=== PATIENT | female | born 1960 | race Caucasian/White ===

== ENCOUNTER → 2016-12-08 | Outpatient (CLI) | payer OTHER ==
[~2016-12-08] MED LIST: Iopamidol 755 MG/ML 500 ML Multipack Bottle IVPUSH STA
--- NOTE | 2016-12-08 13:45 | CT ---
EXAMINATION: CT chest with contrast HISTORY: Other disorder of the lung COMPARISON: CT chest dated 01/11/2012 TECHNIQUE: Axial CT images obtained through the chest following the administration of 60 mL of Isovu e-370. Coronal and sagittal reconstructions obtained. FINDINGS: There is a 2 x 0.7 cm area of pleural thickening within the left lower lobe superiorly, de creased in size relative to the previous study. There is volume loss and scarring within the left li ngula region. Mild emphysematous changes are noted within the lung apices. Dependent atelectasis is noted. The heart is normal in size without a pericardial effusion. Mild coronary artery calcificatio ns are present. The thoracic aorta is normal in caliber. The main pulmonary arteries are patent. No mediastinal or hilar lymphadenopathy. Left mastectomy changes are noted. The visualized images of the upper abdomen appear normal. No suspicious osseous abnormalities are demonstrated. IMPRESSION: 1. Postsurgical changes noted secondary to left mastectomy. 2. Scarring and volume loss noted within the left hemithorax, likely postsurgical or post radiation related. 3. No acute cardiopulmonary findings. 4. No pulmonary nodule noted within the right lung base.
== END | disposition home or self-care (01) ==
LOC: MW.DI 11:22
PROVIDERS: ATTEND Family Medicine
DX: J98.4 Other disorders of lung (principal); Z90.12 Acquired absence of left breast and nipple
CPT/HCPCS: 71260; Q9967

== ENCOUNTER 2016-12-26 08:36 | Inpatient (IN) | payer OTHER ==
[~2016-12-26 08:36] MED LIST changes: +Acetaminophen 1,000 MG in Premix Bag 1 BAG IV SCH; +Famotidine 20 MG/2 ML SDV IVPUSH SCH; -Iopamidol 755 MG/ML 500 ML Multipack Bottle IVPUSH STA; +Ketorolac 30 MG/ML SDV IVPUSH SCH; +Ropivacaine 49.25 ML, Ketorolac 30 MG, EPINEPHrine 0.5 MG, cloNIDine 80 MCG in Sodium C... INJECT SCH; +Scopolamine 1.5 MG Transdermal Patch TRDERM SCH; +ceFAZolin 2 GM in Premix Bag 1 BAG IV SCH; +oxyCODONE ER 20 MG TAB.ER PO SCH
[2016-12-26] MEDS: Lactated Ringers 1,000 ML IV SCH ×3 (09:05→23:37)
[2016-12-26] MEDS ORDERED: Midazolam 1 MG/ML 2 ML SDV ONE (09:08)
[2016-12-26] MEDS ORDERED: fentaNYL 250 MCG/5 ML SDV ONE (09:08)
[2016-12-26] MEDS ORDERED: Propofol 200 MG/20 ML SDV ONE ×2 (09:08→09:14)
[2016-12-26] MEDS ORDERED: Ondansetron 4 MG/2 ML SDV ONE (09:08)
[2016-12-26] MEDS ORDERED: Lidocaine 2% 5 ML SDV ONE (09:08)
--- NOTE | 2016-12-26 09:28 | PCM.PREANE ---
Preanesthetic Assessment - Procedure Proposed Procedure: Left Knee Replacement - Anesthesia/Transfusion/Family Hx Anesthesia History: Prior Anesthesia Without Reaction (right knee done 2015 ( spinal/general)) Other Type of Anesthesia Reaction Comment: Denies any known problem in past, no known family hx: problems Family History of Anesthesia Reaction: No Transfusion History: No Prior Transfusion(s) Intubation History: Unknown - Review of Systems General: Other (slowing down regarded as due to Parkinsonism) Pulmonary: No Symptoms Cardiovascular: No Symptoms Neurological: Other (severe pain in left knee area on standing/walking etc.) Other: Reports: Thyroid Problems - Physical Assessment Height: 5 ft 8 in Weight: 260 lb ASA Class: 3 Mental Status: Alert & Oriented x3 Airway Class: Mallampati = 2 Dentition: Reports: Normal Dentition Thyro-Mental Finger Breadths: 3 Mouth Opening Finger Breadths: 3 ROM/Head Extension: Full Lungs: Clear to auscultation, Normal respiratory effort Cardiovascular: Regular Rate, Regular Rhythm, No Murmurs - Allergies Allergies/Adverse Reactions: Allergies Allergy/AdvReac Type Severity Reaction Status Date / Time phenazopyridine HCl Allergy Rash Verified 12/22/16 13:31 [From Pyridium] Sulfa (Sulfonamide Allergy Rash Verified 12/22/16 13:31 Antibiotics) - Blood Blood Available: Yes Product(s) Available: PRBC (T and S) - Anesthesia Plan Pre-Op Medication Ordered: Antacids (per surgeon) - Acknowledgements Anesthesia Type Planned: General Anesthesia, Spinal Pt an Appropriate Candidate for the Planned Anesthesia: Yes Alternatives and Risks of Anesthesia Discussed w Pt/Guardian: Yes Pt/Guardian Understands and Agrees with Anesthesia Plan: Yes Additional Comments: present; agreed that she had spinnal-general combination anesthetic in 2014. however, since then she has had breast CA with mastectomy, and dignosed and begu treatement for Parkinson's disease. PreAnesthesia Questionnaire HEENT History: Reports: Allergic rhinitis Other HEENT History: wears glasses Cardiovascular History: Reports: None Respiratory History: Reports: None Gastrointestinal History: Reports: GERD Genitourinary History: Reports: None [employer] History: Reports: Musculoskeletal History: Reports: Osteoarthritis Neurological History: Reports: Parkinson's Psychiatric History: Reports: Depression Endocrine/Metabolic History: Reports: Hypothyroidism, Obesity/BMI 30+ Hematologic History: Reports: None Immunologic History: Reports: None Oncologic (Cancer) History: Reports: Breast, Uterine Dermatologic History: Reports: None - Past Surgical History Head Surgeries/Procedures: Reports: None HEENT Surgical History: Reports: None Cardiovascular Surgical History: Reports: None Respiratory Surgical History: Reports: None GI Surgical History: Reports: Colonoscopy Female Surgical History: Reports: section, Hysterectomy, Mastectomy , Tubal ligation Endocrine Surgical History: Reports: Thyroidectomy Neurological Surgical History: Reports: None Musculoskeletal Surgical History: Reports: Knee replacement Other Oncologic Surgeries/Procedures: hysterectomy, mastectomy Dermatological Surgical History: Reports: None - SUBSTANCE USE Smoking Status *Q: Never Smoker Tobacco Use Within Last Twelve Months: No Second Hand Smoke Exposure: No Days Per Week of Alcohol Use: 0 Number of Drinks Per Day: 0 Total Drinks Per Week: 0 Recreational Drug Use History: No - HOME MEDS Home Medications: Home Meds Omeprazole 20 mg PO DAILY 09/05/14 [History] Anastrozole [Arimidex] 1 mg PO DAILY 01/14/16 [History] Citalopram Hydrobromide [Celexa] 40 mg PO DAILY 01/14/16 [History] Fluticasone Propionate [Flovent] 1 - 2 spray NASBOTH DAILY 01/14/16 [History] Furosemide 80 mg PO DAILY 01/14/16 [History] Levothyroxine Sodium 137 mcg PO DAILY 01/14/16 [History] Magnesium Oxide [Magnesium] 1,200 mg PO BID 01/14/16 [History] Potassium Chloride 10 meq PO DAILY 01/14/16 [History] traMADol HCl [Tramadol HCl] 50 - 100 mg PO BEDTIME PRN 01/14/16 [History] Omeprazole 20 mg PO DAILY 12/22/16 [History] Carbidopa/Levodopa [Carbidopa-Levo ER 25-100] 50 - 200 mg PO BID 12/26/16 [ History] Selegiline [Eldepryl] 5 mg PO DAILY 12/26/16 [History] - CURRENT (IN HOUSE) MEDS Current Meds: Current Medications Famotidine (Pepcid) 40 mg IVPUSH ONARRIVE ISIDRA Acetaminophen 1,000 mg/ Premix 100 mls @ 400 mls/hr IV ONARRIVE ISIDRA Ropivacaine 49.25 ml/Ketorolac Tromethamine 30 mg/Epinephrine HCl 0.5 mg/ Clonidine HCl 80 mcg/ Sodium Chloride 100 mls @ 50 mls/min INJECT SEECOMMENT [facility] Lactated Ringer's (Ringers, Lactated) 1,000 mls @ 100 mls/hr IV ASDIRECTED [facility] [place] Last Admin: 12/26/16 06:40 Dose: 100 mls/hr Cefazolin Sodium/Dextrose 2 gm (/ Premix) 50 mls @ 100 mls/hr IV ONCALL ISIDRA Ketorolac Tromethamine (Toradol) 30 mg IVPUSH ONARRIVE [facility] [place] Oxycodone HCl (Oxycontin) 20 mg PO ONARRIVE ISIDRA Scopolamine (Transderm-Scop) 1.5 mg TRDERM ONARRIVE [facility] [place] Tranexamic Acid (Cyklokapron) 4,000 mg IV SEECOMMENT [facility] [place] Discontinued Medications Fentanyl (Sublimaze) Confirm Administered Dose 250 mcg .ROUTE .STK-MED ONE Stop: 12/26/16 09:09 Lidocaine (Xylocaine-Mpf 2%) Confirm Administered Dose 5 ml .ROUTE .STK-MED ONE Stop: 12/26/16 09:09 Midazolam HCl (Versed 1 Mg/Ml) Confirm Administered Dose 2 mg .ROUTE .STK-MED ONE Stop: 12/26/16 09:09 Ondansetron HCl (Zofran) Confirm Administered Dose 4 mg .ROUTE .STK-MED ONE Stop: 12/26/16 09:09 Propofol (Diprivan 20 Ml) Confirm Administered Dose 200 mg .ROUTE .STK-MED ONE Stop: 12/26/16 09:09 Propofol (Diprivan 20 Ml) Confirm Administered Dose 600 mg .ROUTE .STK-MED ONE Stop: 12/26/16 09:15 Tranexamic Acid (Cyklokapron) Confirm Administered Dose 4,000 mg .ROUTE .STK- MED ONE Stop: 12/26/16 07:23
--- NOTE | 2016-12-26 10:31 | PCM.OPNOTE ---
- General Post-Op/Procedure Note Date of Surgery/Procedure: 12/26/16 Operative Procedure(s): L TKA Post-Op Diagnosis: DJD L knee Anesthesia Technique: General LMA, Spinal Primary Surgeon: Joanie Box Bulk Mail Clerk: Janice Scott Bulk Mail Clerk: Neeru Campbell in mLs: 50 Condition: Good Free Text/Narrative:: tt=69 min #[id number]
[2016-12-26] MEDS ORDERED: Phenylephrine/Normal Saline 100 MCG/ML 10 ML Syringe ONE (10:40)
[2016-12-26] MEDS ORDERED: Morphine 2 MG/ML Syringe IVPUSH PRN (11:12)
[2016-12-26] MEDS ORDERED: Ondansetron 4 MG/2 ML SDV IV PRN (12:20)
[2016-12-26] MEDS ORDERED: Aluminum Hydroxide/Magnesium Hydroxide/Simethicone Susp 30 ML Cup PO PRN (12:20)
[2016-12-26] MEDS ORDERED: diphenhydrAMINE 25 MG Cap PO PRN (12:20)
[2016-12-26] MEDS ORDERED: Morphine 4 MG/ML Syringe IVPUSH PRN (12:20)
[2016-12-26] MEDS ORDERED: Bisacodyl 10 MG Supp RECTAL PRN (12:20)
--- NOTE | 2016-12-26 13:26 | PCM.POSTAN ---
POST ANESTHESIA ASSESSMENT - MENTAL STATUS Mental Status: alert, oriented - RESPIRATORY Respiratory Status: respiratory rate WNL, airway patent, O2 saturation stable, supplemental oxygen - CARDIOVASCULAR CV Status: pulse rate WNL, blood pressure stable - GASTROINTESTINAL GI Status: no symptoms - PAIN Pain Score: 0 (spinal still active) - POST OP HYDRATION Hydration Status: adequate & stable - OBSERVATIONS Free Text/Narrative:: to [facility] for Phase II
[2016-12-26] MEDS: oxyCODONE 5 MG Tab PO PRN ×2 (14:34→18:32)
[2016-12-26] MEDS: Acetaminophen 1,000 MG in Premix Bag 1 BAG IV SCH ×2 (15:21→21:38)
--- NOTE | 2016-12-26 15:56 | CR ---
EXAMINATION: Left knee HISTORY: Arthroplasty COMPARISON: 06/13/2016 TECHNIQUE: 2 views FINDINGS/IMPRESSION: Left total knee hardware is demonstrated in good position and alignment. [place] ing postoperative soft tissue changes are noted.
[2016-12-26] MEDS: ceFAZolin 2 GM in Premix Bag 1 BAG IV SCH (18:34)
[2016-12-26] MEDS: Ketorolac 30 MG/ML SDV IVPUSH SCH ×2 (18:37→23:34)
[2016-12-26] MEDS: Carbidopa/Levodopa 25-100 MG Tab.ER PO SCH (19:58)
--- NOTE | 2016-12-26 20:29 | OR ---
SURGEON: Joanie Box MD DATE OF PROCEDURE: 12/26/2016 PREOPERATIVE DIAGNOSIS: Degenerative joint disease left knee, tricompartmental. POSTOPERATIVE DIAGNOSIS: Degenerative joint disease left knee, tricompartmental. PROCEDURE: Left total knee arthroplasty using patient specific instrumentation. ASSISTANTS: 1. Janice Scott PA-C. 2. Neeru Campbell PA-C. ANESTHESIA: Spinal with sedation. ESTIMATED BLOOD LOSS: 50 mL. TOURNIQUET TIME: 69 minutes. COMPLICATIONS: None. DVT PROPHYLAXIS: PAS boot and RAMIREZ hose to the nonoperative leg. IMPLANTS USED: Clarice Persona femoral component size 9 (LPS), tibial component size F, 12 mm all-polyethylene articular surface, and 32 mm all-polyethylene patella. FINDINGS: Intraoperative findings showed evidence of tricompartmental degenerative changes with grade 4 chondromalacia in all compartments. Osteophyte formation was also noted along with multiple loose bodies. No significant synovitis was noted. 1 g of tranexamic acid was given IV at the start of the procedure. An additional g was given IV upon deflation of the tourniquet. 1 g of TXA was applied topically as the cement was allowed to cure. BRIEF HISTORY: Miya is a 56-year-old female, who has had complaint of progressive left knee pain. She has previously undergone a right total knee arthroplasty and has done well. Due to her lack of response to conservative treatment, I did recommend surgical intervention. The risks and goals of procedure were discussed with the patient and were documented preoperatively. She agreed to proceed. DESCRIPTION OF PROCEDURE: The patient was properly identified and brought to the operating room. The patient was then transferred from the operating room cart and placed on the operating table in a supine position. Anesthesia was administered by the anesthesia staff. After adequate anesthesia was obtained, a well-padded tourniquet was applied to the surgical lower extremity. The lower extremity was then prepped in standard fashion using ChloraPrep solution. It was then sterilely draped. A time-out was performed to ensure correct site and procedure. Preoperative antibiotics were given. The surgical site had been marked preoperatively. An Esmarch was used to exsanguinate the right lower extremity and the tourniquet was inflated. An incision was made over the anterior aspect of the knee. The subcutaneous tissues were dissected down to the level of the fascia. A medial parapatellar approach to the knee was made. A portion of the infrapatellar fat pad was then excised. The distal femur was then exposed. The femoral patient-specific cutting guide was then placed. Pins were also placed. The distal femoral cutting block was placed and the distal femoral cut was made. Instrumentation was then removed. Both Whitesides' line and the epicondylar axis were then marked with electrocautery. The 4-in-1 cutting block was placed. This was placed in a slightly externally rotated position, which corresponded well with the previously drawn lines. The cutting guide was then pinned into position. An Shubham wing guide was used to check the depth of resection of our anterior condylar cut and it was felt that no notching would occur. The anterior condylar cut was then made followed by the posterior condylar cut. Both the posterior chamfer and anterior chamfer cuts were then made. The cutting block was then removed along with the excess bony remnants. We then turned our attention to the tibia. The anterior cruciate ligament and posterior cruciate ligament were released and a posterior cruciate ligament retractor was placed to allow the tibia to be pulled anteriorly. The tibial patient-specific guide was then placed on the proximal tibia. This fit anatomically. The pins were then placed. The proximal tibia cutting guide was then placed and screwed into position. The proximal tibial resection was then made with care being taken to protect the patellar tendon. The bony resection was then removed. The remainder of the medial and lateral meniscus were then excised. Care was taken to protect the popliteus tendon. The tibia was then sized to the appropriate size. The distal femur was then elevated. The posterior capsule was stripped off the distal femur both medially and laterally. The posterior capsule along with the medial and lateral gutters were then injected with a standard mixture consisting of clonidine, epinephrine, Morphine, Toradol, and Ropivacaine, unless any allergies were found preoperatively. The femoral component was then placed onto the distal femur in a slightly lateral position. This fit the femur well. A box cut was then made without difficulty. This was then removed. The tibial trial along with the polyethylene liner was then placed. The knee came easily into full extension and was stable to varus and valgus stressing both in full extension and flexion. Any additional releases were performed at this time. We then returned our attention to the patella. The patella was everted and towel clamps were used to hold the patella in position. It was resected to a 15 millimeter thickness. It was then sized to the appropriate size. It was prepared in the usual fashion after placing the predetermined size clamps. This was placed in a slightly superior and medial position. The clamp was then removed. The patellar trial button was placed. The knee was taken through a range of motion using the no-touch technique. The patella tracked centrally. A drop elizabeth was then placed to check alignment. All instruments were then removed from the knee. The tibial sizer was then placed on the tibia. The tibia was prepared in the usual fashion using the reamer and broach. This was then removed. All bony surfaces were copiously irrigated with Pulsavac solution. They were then suctioned dry. Cement was prepared on the back table in the usual manner. Once it was prepared, the bone ends were again suctioned dry. The tibia was cemented into place first. This was malleted into position. Excess cement was then cleared. The femur was then placed in a similar manner. We placed the polyethylene trial into place and the knee was brought into full extension. An axial load was placed while keeping the knee in full extension. The patella button was also cemented into position and the clamp was used to hold this in place as the cement was allowed to cure. After we had adequate curing of the cement, the knee was again taken through a range of motion. The size of the polyethylene was then determined. The polyethylene trial was then removed. The tibial tray was suctioned to make sure there was no remaining soft tissue or cement. Excess cement was cleared from around the edges of the prosthesis as well. The tourniquet was then deflated. We were able to observe for any excess bleeding and none was noted. Electrocautery was used to maintain hemostasis. The retractors were again placed and the predetermined polyethylene was then placed. This was locked into position without difficulty. The knee was again taken through a range of motion with no change from the prior exam. The wound was then copiously irrigated with Pulsavac solution. The fascial layer was closed with Number One Vicryl. The subcutaneous tissues were closed with 2-0 Vicryl. The skin was closed with cassy. Xeroform gauze was placed over the wound and a bulky dressing was applied. The patient was then awakened from anesthesia and transferred back to the operating room cart. They were brought to the recovery room in stable condition. All needle and sponge counts were correct. WILVER / CHAITANYA /[id number]
[2016-12-26] MEDS: oxyCODONE ER 10 MG TAB.ER PO SCH (20:43)
[2016-12-26] MEDS: Magnesium Oxide 400 MG Tab PO SCH (20:43)
[2016-12-26] MEDS: Docusate Sodium 100 MG Cap PO SCH (20:43)
[2016-12-26] MEDS ORDERED: Carbidopa/Levodopa 25-100 MG Tab.ER PO SCH (21:00)
[2016-12-27] MEDS: oxyCODONE 5 MG Tab PO PRN (01:26)
[2016-12-27] MEDS: ceFAZolin 2 GM in Premix Bag 1 BAG IV SCH (01:52)
[2016-12-27] MEDS: Acetaminophen 500 MG Tab PO SCH ×2 (03:56→08:46)
[2016-12-27] MEDS: Ketorolac 30 MG/ML SDV IVPUSH SCH (05:52)
[2016-12-27] MEDS: Levothyroxine 112 MCG Tab PO SCH (06:39)
[2016-12-27] MEDS: Levothyroxine 25 MCG Tab PO SCH (06:39)
[2016-12-27] MEDS: Carbidopa/Levodopa 25-100 MG Tab.ER PO SCH ×2 (06:40→19:13)
[2016-12-27] MEDS ORDERED: LEVOTHYROXINE 137 MCG PO SCH (07:30)
[2016-12-27] MEDS ORDERED: Sodium Chloride 0.9% 2.5 ML Syringe FLUSH PRN (08:10)
[2016-12-27] MEDS ORDERED: Sodium Chloride 0.9% 10 ML Syringe FLUSH PRN (08:10)
--- NOTE | 2016-12-27 08:15 | PCM.SURGPN ---
<Janice Scott R - Last Filed: 12/27/16 08:11> - General Info Date of Service: 12/27/16 Date of Surgery/Procedure: 12/26/16 Functional Status: Reports: pain controlled - Review of Systems General: Reports: No Symptoms Pulmonary: Denies: shortness of breath Cardiovascular: Denies: Chest Pain, Palpitations, Lightheadedness Musculoskeletal: Reports: leg pain Systems Review Comment:: pt up to chair for breakfast tolerating PO intake well difficulty controlling pain, IV morphine was effective no specific concerns today nursing c/w low bp readings, patient state she ranges from 100s/120s/50s - Patient Data Vitals - most recent: Last Vital Signs Temp 97.7 F 12/27/16 04:00 Pulse 82 12/27/16 04:00 Resp 18 12/27/16 04:00 BP 99/57 L 12/27/16 05:50 Pulse Ox 96 12/27/16 04:00 Weight - most recent: 117.934 kg I&O - last 24 hours: Intake & Output 12/26/16 12/27/16 12/27/16 22:59 06:59 14:59 Intake Total 350 2252 Output Total 250 825 Balance 100 1427 Lab Results last 24 hrs: Laboratory Results - last 24 hr 12/26/16 12/26/16 12/27/16 Range/Units 09:01 09:01 04:30 Hgb 11.0 L (12.0-16.0) g/dL Hct 34.0 L (36.0-46.0) % Potassium 3.6 (3.5-5.1) mmol/L Blood Type O POSITIVE Antibody Screen NEGATIVE Med Orders - Current: Current Medications Acetaminophen (Tylenol Extra Strength) 1,000 mg PO Q6H [facility] Last Admin: 12/27/16 03:56 Dose: 1,000 mg Al Hydroxide/Mg Hydroxide (Mag-Al Plus) 30 ml PO Q4H PRN PRN Reason: indigestion Anastrozole (Arimidex) 1 mg PO DAILY [facility] Aspirin (Aspirin) 325 mg PO BID [facility] Bisacodyl (Dulcolax) 10 mg RECTAL DAILY PRN PRN Reason: Constipation Carbidopa/Levodopa (Sinemet Cr 25-100 Mg) 2 tab PO BID@0700,1900 [facility] Last Admin: 12/27/16 06:40 Dose: 2 tab Celecoxib (Celebrex) 200 mg PO BID [facility] Citalopram Hydrobromide (Celexa) 40 mg PO DAILY [facility] Diphenhydramine HCl (Benadryl) 25 - 50 mg PO Q6H PRN PRN Reason: Itching Docusate Sodium (Colace) 100 mg PO BID [facility] Last Admin: 12/26/16 20:43 Dose: 100 mg Fluticasone Propionate (Flonase) 1 - 2 gm NASBOTH DAILY [facility] Furosemide (Lasix) 20 mg PO DAILY [facility] Levothyroxine Sodium (Levothyroxine) 112 mcg PO ACBREAKFAST [facility] Last Admin: 12/27/16 06:39 Dose: 112 mcg Levothyroxine Sodium (Levothyroxine) 25 mcg PO ACBREAKFAST [facility] Last Admin: 12/27/16 06:39 Dose: 25 mcg Magnesium Oxide (Magnesium Oxide) 800 mg PO BID [facility] Last Admin: 12/26/16 20:43 Dose: 800 mg Morphine Sulfate (Morphine) 1 - 3 mg IVPUSH Q3H PRN PRN Reason: Pain Last Admin: 12/27/16 04:05 Dose: 2 mg Omeprazole (Omeprazole) 20 mg PO DAILY [facility] Ondansetron HCl (Zofran) 4 mg IV Q6HR PRN PRN Reason: NAUSEA/VOMITING Oxycodone HCl (Oxycodone) 5 - 10 mg PO Q4H PRN PRN Reason: Pain Last Admin: 12/27/16 01:26 Dose: 10 mg Oxycodone HCl (Oxycontin) 10 mg PO Q12HR [facility] Last Admin: 12/26/16 20:43 Dose: 10 mg Selegiline [Eldepryl (] 5 Mg) 1 each PO DAILY [facility] Potassium Chloride (Klor-Con 10) 10 meq PO DAILY [facility] Discontinued Medications Carbidopa/Levodopa (Sinemet Cr 25-100 Mg) 2 tab PO BID [facility] Famotidine (Pepcid) 40 mg IVPUSH ONARRIVE [facility] Last Admin: 12/26/16 09:27 Dose: 40 mg Fentanyl (Sublimaze) Confirm Administered Dose 250 mcg .ROUTE .STK-MED ONE Stop: 12/26/16 09:09 Acetaminophen 1,000 mg/ Premix 100 mls @ 400 mls/hr IV ONARRIVE [facility] Last Admin: 12/26/16 09:26 Dose: 400 mls/hr Ropivacaine 49.25 ml/Ketorolac Tromethamine 30 mg/Epinephrine HCl 0.5 mg/ Clonidine HCl 80 mcg/ Sodium Chloride 100 mls @ 50 mls/min INJECT SEECOMMENT [facility] Lactated Ringer's (Ringers, Lactated) 1,000 mls @ 100 mls/hr IV ASDIRECTED [facility] Last Admin: 12/26/16 23:37 Dose: 100 mls/hr Cefazolin Sodium/Dextrose 2 gm (/ Premix) 50 mls @ 100 mls/hr IV ONCALL [facility] Acetaminophen 1,000 mg/ Premix 100 mls @ 400 mls/hr IV Q6H [facility] Stop: 12/26/16 21:44 Last Admin: 12/26/16 21:38 Dose: 400 mls/hr Cefazolin Sodium/Dextrose 2 gm (/ Premix) 50 mls @ 100 mls/hr IV Q8H [facility] Stop: 12/27/16 02:29 Last Admin: 12/27/16 01:52 Dose: 100 mls/hr Ketorolac Tromethamine (Toradol) 30 mg IVPUSH ONARRIVE [facility] Last Admin: 12/26/16 09:26 Dose: 30 mg Ketorolac Tromethamine (Toradol) 30 mg IVPUSH Q6H [facility] Stop: 12/27/16 06:01 Last Admin: 12/27/16 05:52 Dose: 30 mg Lidocaine (Xylocaine-Mpf 2%) Confirm Administered Dose 5 ml .ROUTE .STK-MED ONE Stop: 12/26/16 09:09 Midazolam HCl (Versed 1 Mg/Ml) Confirm Administered Dose 2 mg .ROUTE .STK-MED ONE Stop: 12/26/16 09:09 Morphine Sulfate (Morphine) 2 mg IVPUSH Q10M PRN PRN Reason: Pain (severe 7-10) Stop: 12/27/16 11:14 Non-Formulary Medication (Mv-Mn/Iron/Fa/Herbal Cmplx#190 [Vitamin D3 Complete Caplet]) 2 each PO DAILY [facility] Ondansetron HCl (Zofran) Confirm Administered Dose 4 mg .ROUTE .STK-MED ONE Stop: 12/26/16 09:09 Oxycodone HCl (Oxycontin) 20 mg PO ONARRIVE [facility] Last Admin: 12/26/16 09:27 Dose: 20 mg Phenylephrine HCl (Phenylephrine In Ns 100 Mcg/Ml) Confirm Administered Dose 1 mg .ROUTE .STK-MED ONE Stop: 12/26/16 10:41 Propofol (Diprivan 20 Ml) Confirm Administered Dose 200 mg .ROUTE .STK-MED ONE Stop: 12/26/16 09:09 Propofol (Diprivan 20 Ml) Confirm Administered Dose 600 mg .ROUTE .STK-MED ONE Stop: 12/26/16 09:15 Scopolamine (Transderm-Scop) 1.5 mg TRDERM ONARRIVE [facility] Last Admin: 12/26/16 09:25 Dose: 1.5 mg Tranexamic Acid (Cyklokapron) 4,000 mg IV SEECOMMENT [facility] Tranexamic Acid (Cyklokapron) Confirm Administered Dose 4,000 mg .ROUTE .STK- MED ONE Stop: 12/26/16 07:23 Tranexamic Acid (Cyklokapron) Confirm Administered Dose 4,000 mg .ROUTE .STK- MED ONE Stop: 12/26/16 09:26 - Exam Wound/Incisions: dressing dry and intact General: alert, oriented Cardiovascular: Regular Rate, Regular Rhythm Extremities: no edema, normal pulses, no calf tenderness, other (LLE - at/ehl/ gastroc 5/5, dp 2+, sensation intact distally) Physical Findings Comment:: vss, afeb (bp 100s/50s) UO 1175mL hgb 11.0 - Problem List Review Problem List Initiated/Reviewed/Updated: Yes - My Orders Last 24 Hours: Active Orders 24 hr Category Date Time Status Patient Status [ADT] Routine ADT 12/26/16 10:29 Active Transfer Patient (Change bed) [ADT] Routine ADT 12/26/16 10:29 Ordered Activity as Tolerated [RC] .Routine Care 12/26/16 12:19 Active Bradycardia-Neuroaxis [employer] [RC] ROUTINE Care 12/26/16 11:14 Active Dressing Change [Wound Care] [RC] ASDIRECTED Care 12/26/16 12:20 Active Hypertension-Neuroaxis [employer] [RC] ROUTINE Care 12/26/16 11:14 Active Hypotension-Neuroaxis [employer] [RC] ROUTINE Care 12/26/16 11:14 Active Insert Urinary Catheter [OM.PC] Routine Care 12/26/16 08:00 Ordered Intake and Output [RC] ASDIRECTED Care 12/26/16 12:19 Active Neurovascular Check [RC] Q2HR Care 12/26/16 12:19 Active Notify Provider Vital Signs [RC] ASDIRECTED Care 12/26/16 12:19 Active RT Incentive Spirometry [RC] Q12H Care 12/26/16 12:19 Active Urinary Catheter Assessment [RC] Q4H Care 12/26/16 08:00 Active Urinary Catheter Removal [RC] Per Unit Routine Care 12/27/16 08:10 Ordered Vital Signs [RC] Q4H Care 12/26/16 12:19 Active PT Evaluation and Treatment [CONS] Routine Cons 12/26/16 12:19 Active HEMOGLOBIN/HEMATOCRIT,HH [HEME] DAILY Lab 12/28/16 06:00 Ordered HEMOGLOBIN/HEMATOCRIT,HH [HEME] DAILY Lab 12/29/16 06:00 Ordered Acetaminophen [Tylenol Extra Strength] Med 12/27/16 03:30 Active 1,000 mg PO Q6H Alum Hydrox/Mag Hydrox/Simeth [Mag-Al Plus] Med 12/26/16 12:20 Active 30 ml PO Q4H PRN Anastrozole [Arimidex] Med 12/27/16 09:00 Active 1 mg PO DAILY Aspirin Med 12/27/16 09:00 Active 325 mg PO BID Bisacodyl [Dulcolax] Med 12/26/16 12:20 Active 10 mg RECTAL DAILY PRN Carbidopa/Levodopa [Sinemet Cr 25-100 mg] Med 12/26/16 19:00 Active 2 tab PO BID@0700,1900 Celecoxib [CeleBREX] Med 12/27/16 09:00 Active 200 mg PO BID Citalopram [Celexa] Med 12/27/16 09:00 Active 40 mg PO DAILY Docusate Sodium [Colace] Med 12/26/16 21:00 Active 100 mg PO BID Fluticasone Propionate [Flonase] Med 12/27/16 09:00 Active 1 - 2 gm NASBOTH DAILY Furosemide [Lasix] Med 12/27/16 09:00 Active 20 mg PO DAILY Levothyroxine Med 12/27/16 07:30 Active 112 mcg PO ACBREAKFAST Levothyroxine Med 12/27/16 07:30 Active 25 mcg PO ACBREAKFAST Magnesium Oxide Med 12/26/16 21:00 Active 800 mg PO BID Morphine Med 12/26/16 12:20 Active 1 - 3 mg IVPUSH Q3H PRN Omeprazole Med 12/27/16 09:00 Active 20 mg PO DAILY Ondansetron [Zofran] Med 12/26/16 12:20 Active 4 mg IV Q6HR PRN Patient's Own Medication [Ptom] Med 12/27/16 09:00 Active 1 each PO DAILY Potassium Chloride [Klor-Con 10] Med 12/27/16 09:00 Active 10 meq PO DAILY Sodium Chloride 0.9% [Saline Flush] Med 12/27/16 08:10 Ordered 10 ml FLUSH ASDIRECTED PRN Sodium Chloride 0.9% [Saline Flush] Med 12/27/16 08:10 Ordered 2.5 ml FLUSH ASDIRECTED PRN diphenhydrAMINE [Benadryl] Med 12/26/16 12:20 Active 25 - 50 mg PO Q6H PRN oxyCODONE Med 12/26/16 12:20 Active 5 - 10 mg PO Q4H PRN oxyCODONE ER [OxyCONTIN] Med 12/26/16 21:00 Active 10 mg PO Q12HR Convert IV to Saline Lock [OM.PC] Routine Oth 12/27/16 08:10 Ordered Ice Therapy [OM.PC] Routine Oth 12/26/16 12:19 Ordered Medication Orders Acetaminophen (Tylenol Extra Strength) 1,000 mg PO Q6H [facility] Last Admin: 12/27/16 03:56 Dose: 1,000 mg Al Hydroxide/Mg Hydroxide (Mag-Al Plus) 30 ml PO Q4H PRN PRN Reason: indigestion Anastrozole (Arimidex) 1 mg PO DAILY [facility] Aspirin (Aspirin) 325 mg PO BID [facility] Bisacodyl (Dulcolax) 10 mg RECTAL DAILY PRN PRN Reason: Constipation Carbidopa/Levodopa (Sinemet Cr 25-100 Mg) 2 tab PO BID@0700,1900 [facility] Last Admin: 12/27/16 06:40 Dose: 2 tab Admin: 12/26/16 19:58 Dose: 2 tab Celecoxib (Celebrex) 200 mg PO BID [facility] Citalopram Hydrobromide (Celexa) 40 mg PO DAILY [facility] Diphenhydramine HCl (Benadryl) 25 - 50 mg PO Q6H PRN PRN Reason: Itching Docusate Sodium (Colace) 100 mg PO BID [facility] Last Admin: 12/26/16 20:43 Dose: 100 mg Fluticasone Propionate (Flonase) 1 - 2 gm NASBOTH DAILY [facility] Furosemide (Lasix) 20 mg PO DAILY [facility] Levothyroxine Sodium (Levothyroxine) 112 mcg PO ACBREAKFAST [facility] Last Admin: 12/27/16 06:39 Dose: 112 mcg Levothyroxine Sodium (Levothyroxine) 25 mcg PO ACBREAKFAST [facility] Last Admin: 12/27/16 06:39 Dose: 25 mcg Magnesium Oxide (Magnesium Oxide) 800 mg PO BID [facility] Last Admin: 12/26/16 20:43 Dose: 800 mg Morphine Sulfate (Morphine) 1 - 3 mg IVPUSH Q3H PRN PRN Reason: Pain Last Admin: 12/27/16 04:05 Dose: 2 mg Omeprazole (Omeprazole) 20 mg PO DAILY [facility] Ondansetron HCl (Zofran) 4 mg IV Q6HR PRN PRN Reason: NAUSEA/VOMITING Oxycodone HCl (Oxycodone) 5 - 10 mg PO Q4H PRN PRN Reason: Pain Last Admin: 12/27/16 01:26 Dose: 10 mg Admin: 12/26/16 18:32 Dose: 10 mg Admin: 12/26/16 14:34 Dose: 10 mg Oxycodone HCl (Oxycontin) 10 mg PO Q12HR [facility] Last Admin: 12/26/16 20:43 Dose: 10 mg Selegiline [Eldepryl (] 5 Mg) 1 each PO DAILY [facility] Potassium Chloride (Klor-Con 10) 10 meq PO DAILY [facility] - Assessment Assessment (Free Text/Narrative):: POD#1 L TKA acute posthemorrhagic anemia - Plan Plan (Free Text/Narrative):: DC IV fluids, saline lock IV DC belcher continue pain management - encouraged PO pain medication use PT today ASA 325mg PO BID for DVT prophylaxis pt will require FWW for ambulation assistance until improved mobility/stability , increased LLE strength dispo: likely home tomorrow after adequate PT <Joanie Box - Last Filed: 12/27/16 11:29> - Patient Data Vitals - most recent: Last Vital Signs Temp 97.7 F 12/27/16 04:00 Pulse 82 12/27/16 04:00 Resp 18 12/27/16 04:00 BP 99/57 L 12/27/16 05:50 Pulse Ox 96 12/27/16 04:00 I&O - last 24 hours: Intake & Output 12/26/16 12/27/16 12/27/16 22:59 06:59 14:59 Intake Total 350 2252 Output Total 250 825 Balance 100 1427 Lab Results last 24 hrs: Laboratory Results - last 24 hr 12/27/16 Range/Units 04:30 Hgb 11.0 L (12.0-16.0) g/dL Hct 34.0 L (36.0-46.0) % Med Orders - Current: Current Medications Acetaminophen (Tylenol Extra Strength) 1,000 mg PO Q6H [facility] Last Admin: 12/27/16 08:46 Dose: 1,000 mg Hydrocodone Bitart/Acetaminophen ([place] 325-10 Mg) 1 - 2 tab PO Q4H PRN PRN Reason: Pain Last Admin: 12/27/16 11:24 Dose: 2 tab Al Hydroxide/Mg Hydroxide (Mag-Al Plus) 30 ml PO Q4H PRN PRN Reason: indigestion Anastrozole (Arimidex) 1 mg PO DAILY [facility] Last Admin: 12/27/16 08:46 Dose: 1 mg Aspirin (Aspirin) 325 mg PO BID [facility] Last Admin: 12/27/16 08:45 Dose: 325 mg Bisacodyl (Dulcolax) 10 mg RECTAL DAILY PRN PRN Reason: Constipation Carbidopa/Levodopa (Sinemet Cr 25-100 Mg) 2 tab PO BID@0700,1900 [facility] Last Admin: 12/27/16 06:40 Dose: 2 tab Celecoxib (Celebrex) 200 mg PO BID [facility] Last Admin: 12/27/16 08:46 Dose: 200 mg Citalopram Hydrobromide (Celexa) 40 mg PO DAILY [facility] Last Admin: 12/27/16 08:46 Dose: 40 mg Diphenhydramine HCl (Benadryl) 25 - 50 mg PO Q6H PRN PRN Reason: Itching Docusate Sodium (Colace) 100 mg PO BID [facility] Last Admin: 12/27/16 08:46 Dose: 100 mg Fluticasone Propionate (Flonase) 1 - 2 gm NASBOTH DAILY [facility] Last Admin: 12/27/16 08:48 Dose: 1 spray Furosemide (Lasix) 20 mg PO DAILY [facility] Last Admin: 12/27/16 08:46 Dose: 20 mg Levothyroxine Sodium (Levothyroxine) 112 mcg PO ACBREAKFAST [facility] Last Admin: 12/27/16 06:39 Dose: 112 mcg Levothyroxine Sodium (Levothyroxine) 25 mcg PO ACBREAKFAST [facility] Last Admin: 12/27/16 06:39 Dose: 25 mcg Magnesium Oxide (Magnesium Oxide) 800 mg PO BID [facility] Last Admin: 12/27/16 08:46 Dose: 800 mg Morphine Sulfate (Morphine) 1 - 3 mg IVPUSH Q3H PRN PRN Reason: Pain Last Admin: 12/27/16 04:05 Dose: 2 mg Omeprazole (Omeprazole) 20 mg PO DAILY [facility] Last Admin: 12/27/16 08:45 Dose: 20 mg Ondansetron HCl (Zofran) 4 mg IV Q6HR PRN PRN Reason: NAUSEA/VOMITING Selegiline [Eldepryl (] 5 Mg) 1 each PO DAILY [facility] Last Admin: 12/27/16 10:23 Dose: 1 each Potassium Chloride (Klor-Con 10) 10 meq PO DAILY [facility] Last Admin: 12/27/16 08:46 Dose: 10 meq Sodium Chloride (Saline Flush) 10 ml FLUSH ASDIRECTED PRN PRN Reason: Keep Vein Open Sodium Chloride (Saline Flush) 2.5 ml FLUSH ASDIRECTED PRN PRN Reason: Keep Vein Open Tramadol HCl (Ultram) 50 - 100 mg PO Q6H PRN PRN Reason: Pain Discontinued Medications Carbidopa/Levodopa (Sinemet Cr 25-100 Mg) 2 tab PO BID [facility] Famotidine (Pepcid) 40 mg IVPUSH ONARRIVE [facility] Last Admin: 12/26/16 09:27 Dose: 40 mg Fentanyl (Sublimaze) Confirm Administered Dose 250 mcg .ROUTE .STK-MED ONE Stop: 12/26/16 09:09 Acetaminophen 1,000 mg/ Premix 100 mls @ 400 mls/hr IV ONARRIVE [facility] Last Admin: 12/26/16 09:26 Dose: 400 mls/hr Ropivacaine 49.25 ml/Ketorolac Tromethamine 30 mg/Epinephrine HCl 0.5 mg/ Clonidine HCl 80 mcg/ Sodium Chloride 100 mls @ 50 mls/min INJECT SEECOMMENT [facility] Lactated Ringer's (Ringers, Lactated) 1,000 mls @ 100 mls/hr IV ASDIRECTED [facility] Last Admin: 12/26/16 23:37 Dose: 100 mls/hr Cefazolin Sodium/Dextrose 2 gm (/ Premix) 50 mls @ 100 mls/hr IV ONCALL [facility] Acetaminophen 1,000 mg/ Premix 100 mls @ 400 mls/hr IV Q6H [facility] Stop: 12/26/16 21:44 Last Admin: 12/26/16 21:38 Dose: 400 mls/hr Cefazolin Sodium/Dextrose 2 gm (/ Premix) 50 mls @ 100 mls/hr IV Q8H [facility] Stop: 12/27/16 02:29 Last Admin: 12/27/16 01:52 Dose: 100 mls/hr Ketorolac Tromethamine (Toradol) 30 mg IVPUSH ONARRIVE [facility] Last Admin: 12/26/16 09:26 Dose: 30 mg Ketorolac Tromethamine (Toradol) 30 mg IVPUSH Q6H [facility] Stop: 12/27/16 06:01 Last Admin: 12/27/16 05:52 Dose: 30 mg Lidocaine (Xylocaine-Mpf 2%) Confirm Administered Dose 5 ml .ROUTE .STK-MED ONE Stop: 12/26/16 09:09 Midazolam HCl (Versed 1 Mg/Ml) Confirm Administered Dose 2 mg .ROUTE .STK-MED ONE Stop: 12/26/16 09:09 Morphine Sulfate (Morphine) 2 mg IVPUSH Q10M PRN PRN Reason: Pain (severe 7-10) Stop: 12/27/16 11:14 Non-Formulary Medication (Mv-Mn/Iron/Fa/Herbal Cmplx#190 [Vitamin D3 Complete Caplet]) 2 each PO DAILY [facility] Ondansetron HCl (Zofran) Confirm Administered Dose 4 mg .ROUTE .STK-MED ONE Stop: 12/26/16 09:09 Oxycodone HCl (Oxycontin) 20 mg PO ONARRIVE [facility] Last Admin: 12/26/16 09:27 Dose: 20 mg Oxycodone HCl (Oxycodone) 5 - 10 mg PO Q4H PRN PRN Reason: Pain Last Admin: 12/27/16 01:26 Dose: 10 mg Oxycodone HCl (Oxycontin) 10 mg PO Q12HR [facility] Last Admin: 12/27/16 08:47 Dose: 10 mg Phenylephrine HCl (Phenylephrine In Ns 100 Mcg/Ml) Confirm Administered Dose 1 mg .ROUTE .STK-MED ONE Stop: 12/26/16 10:41 Propofol (Diprivan 20 Ml) Confirm Administered Dose 200 mg .ROUTE .STK-MED ONE Stop: 12/26/16 09:09 Propofol (Diprivan 20 Ml) Confirm Administered Dose 600 mg .ROUTE .STK-MED ONE Stop: 12/26/16 09:15 Scopolamine (Transderm-Scop) 1.5 mg TRDERM ONARRIVE [facility] Last Admin: 12/26/16 09:25 Dose: 1.5 mg Tranexamic Acid (Cyklokapron) 4,000 mg IV SEECOMMENT [facility] Tranexamic Acid (Cyklokapron) Confirm Administered Dose 4,000 mg .ROUTE .STK- MED ONE Stop: 12/26/16 07:23 Tranexamic Acid (Cyklokapron) Confirm Administered Dose 4,000 mg .ROUTE .STK- MED ONE Stop: 12/26/16 09:26 - My Orders Last 24 Hours: Active Orders 24 hr Category Date Time Status Patient Status [ADT] Routine ADT 12/26/16 10:29 Active Transfer Patient (Change bed) [ADT] Routine ADT 12/26/16 10:29 Ordered Activity as Tolerated [RC] .Routine Care 12/26/16 12:19 Active Dressing Change [Wound Care] [RC] ASDIRECTED Care 12/26/16 12:20 Active Intake and Output [RC] ASDIRECTED Care 12/26/16 12:19 Active Neurovascular Check [RC] Q2HR Care 12/26/16 12:19 Active Notify Provider Vital Signs [RC] ASDIRECTED Care 12/26/16 12:19 Active RT Incentive Spirometry [RC] Q12H Care 12/26/16 12:19 Active Urinary Catheter Removal [RC] Per Unit Routine Care 12/27/16 08:10 Active Vital Signs [RC] Q4H Care 12/26/16 12:19 Active PT Evaluation and Treatment [CONS] Routine Cons 12/26/16 12:19 Active HEMOGLOBIN/HEMATOCRIT,HH [HEME] DAILY Lab 12/28/16 06:00 Ordered HEMOGLOBIN/HEMATOCRIT,HH [HEME] DAILY Lab 12/29/16 06:00 Ordered Acetaminophen [Tylenol Extra Strength] Med 12/27/16 03:30 Active 1,000 mg PO Q6H Acetaminophen/HYDROcodone [[place] 325-10 MG] Med 12/27/16 11:18 Active 1 - 2 tab PO Q4H PRN Alum Hydrox/Mag Hydrox/Simeth [Mag-Al Plus] Med 12/26/16 12:20 Active 30 ml PO Q4H PRN Anastrozole [Arimidex] Med 12/27/16 09:00 Active 1 mg PO DAILY Aspirin Med 12/27/16 09:00 Active 325 mg PO BID Bisacodyl [Dulcolax] Med 12/26/16 12:20 Active 10 mg RECTAL DAILY PRN Carbidopa/Levodopa [Sinemet Cr 25-100 mg] Med 12/26/16 19:00 Active 2 tab PO BID@0700,1900 Celecoxib [CeleBREX] Med 12/27/16 09:00 Active 200 mg PO BID Citalopram [Celexa] Med 12/27/16 09:00 Active 40 mg PO DAILY Docusate Sodium [Colace] Med 12/26/16 21:00 Active 100 mg PO BID Fluticasone Propionate [Flonase] Med 12/27/16 09:00 Active 1 - 2 gm NASBOTH DAILY Furosemide [Lasix] Med 12/27/16 09:00 Active 20 mg PO DAILY Levothyroxine Med 12/27/16 07:30 Active 112 mcg PO ACBREAKFAST Levothyroxine Med 12/27/16 07:30 Active 25 mcg PO ACBREAKFAST Magnesium Oxide Med 12/26/16 21:00 Active 800 mg PO BID Morphine Med 12/26/16 12:20 Active 1 - 3 mg IVPUSH Q3H PRN Omeprazole Med 12/27/16 09:00 Active 20 mg PO DAILY Ondansetron [Zofran] Med 12/26/16 12:20 Active 4 mg IV Q6HR PRN Patient's Own Medication [Ptom] Med 12/27/16 09:00 Active 1 each PO DAILY Potassium Chloride [Klor-Con 10] Med 12/27/16 09:00 Active 10 meq PO DAILY Sodium Chloride 0.9% [Saline Flush] Med 12/27/16 08:10 Active 10 ml FLUSH ASDIRECTED PRN Sodium Chloride 0.9% [Saline Flush] Med 12/27/16 08:10 Active 2.5 ml FLUSH ASDIRECTED PRN diphenhydrAMINE [Benadryl] Med 12/26/16 12:20 Active 25 - 50 mg PO Q6H PRN traMADol [Ultram] Med 12/27/16 11:18 Active 50 - 100 mg PO Q6H PRN Convert IV to Saline Lock [OM.PC] Routine Oth 12/27/16 08:10 Ordered Ice Therapy [OM.PC] Routine Oth 12/26/16 12:19 Ordered Medication Orders Acetaminophen (Tylenol Extra Strength) 1,000 mg PO Q6H [facility] Last Admin: 12/27/16 08:46 Dose: 1,000 mg Admin: 12/27/16 03:56 Dose: 1,000 mg Hydrocodone Bitart/Acetaminophen ([place] 325-10 Mg) 1 - 2 tab PO Q4H PRN PRN Reason: Pain Last Admin: 12/27/16 11:24 Dose: 2 tab Al Hydroxide/Mg Hydroxide (Mag-Al Plus) 30 ml PO Q4H PRN PRN Reason: indigestion Anastrozole (Arimidex) 1 mg PO DAILY [facility] Last Admin: 12/27/16 08:46 Dose: 1 mg Aspirin (Aspirin) 325 mg PO BID [facility] Last Admin: 12/27/16 08:45 Dose: 325 mg Bisacodyl (Dulcolax) 10 mg RECTAL DAILY PRN PRN Reason: Constipation Carbidopa/Levodopa (Sinemet Cr 25-100 Mg) 2 tab PO BID@0700,1900 [facility] Last Admin: 12/27/16 06:40 Dose: 2 tab Admin: 12/26/16 19:58 Dose: 2 tab Celecoxib (Celebrex) 200 mg PO BID [facility] Last Admin: 12/27/16 08:46 Dose: 200 mg Citalopram Hydrobromide (Celexa) 40 mg PO DAILY [facility] Last Admin: 12/27/16 08:46 Dose: 40 mg Diphenhydramine HCl (Benadryl) 25 - 50 mg PO Q6H PRN PRN Reason: Itching Docusate Sodium (Colace) 100 mg PO BID [facility] Last Admin: 12/27/16 08:46 Dose: 100 mg Admin: 12/26/16 20:43 Dose: 100 mg Fluticasone Propionate (Flonase) 1 - 2 gm NASBOTH DAILY [facility] Last Admin: 12/27/16 08:48 Dose: 1 spray Furosemide (Lasix) 20 mg PO DAILY [facility] Last Admin: 12/27/16 08:46 Dose: 20 mg Levothyroxine Sodium (Levothyroxine) 112 mcg PO ACBREAKFAST [facility] Last Admin: 12/27/16 06:39 Dose: 112 mcg Levothyroxine Sodium (Levothyroxine) 25 mcg PO ACBREAKFAST [facility] Last Admin: 12/27/16 06:39 Dose: 25 mcg Magnesium Oxide (Magnesium Oxide) 800 mg PO BID [facility] Last Admin: 12/27/16 08:46 Dose: 800 mg Admin: 12/26/16 20:43 Dose: 800 mg Morphine Sulfate (Morphine) 1 - 3 mg IVPUSH Q3H PRN PRN Reason: Pain Last Admin: 12/27/16 04:05 Dose: 2 mg Omeprazole (Omeprazole) 20 mg PO DAILY [facility] Last Admin: 12/27/16 08:45 Dose: 20 mg Ondansetron HCl (Zofran) 4 mg IV Q6HR PRN PRN Reason: NAUSEA/VOMITING Selegiline [Eldepryl (] 5 Mg) 1 each PO DAILY [facility] Last Admin: 12/27/16 10:23 Dose: 1 each Potassium Chloride (Klor-Con 10) 10 meq PO DAILY [facility] Last Admin: 12/27/16 08:46 Dose: 10 meq Sodium Chloride (Saline Flush) 10 ml FLUSH ASDIRECTED PRN PRN Reason: Keep Vein Open Sodium Chloride (Saline Flush) 2.5 ml FLUSH ASDIRECTED PRN PRN Reason: Keep Vein Open Tramadol HCl (Ultram) 50 - 100 mg PO Q6H PRN PRN Reason: Pain - Plan Plan (Free Text/Narrative):: Pt seen and examined. Agree with above plan. Patient states she did better with hydrocodone and Ultram after last surgery. states dressing feels tight. Morphine working for pain control. Currently sitting up in chair. 1. d/c oxycodone, Tylenol and change to [place] 10/325 with Ultram 2. change dressing this afternoon 3. RAMIREZ hose prn for comfort on the LLE 4. continue with PT 5. mobilize as tolerated 6. SCD, RAMIREZ hose, ASA for DVT prophylaxis 7. likely d/charge home tomorrow
[2016-12-27] MEDS: Aspirin 325 MG Tab PO SCH ×2 (08:45→20:38)
[2016-12-27] MEDS: Omeprazole 20 MG Cap.CR PO SCH (08:45)
[2016-12-27] MEDS: Anastrozole 1 MG Tab PO SCH (08:46)
[2016-12-27] MEDS: Docusate Sodium 100 MG Cap PO SCH ×2 (08:46→20:37)
[2016-12-27] MEDS: Citalopram 20 MG Tab PO SCH (08:46)
[2016-12-27] MEDS: Magnesium Oxide 400 MG Tab PO SCH ×2 (08:46→20:37)
[2016-12-27] MEDS: Potassium Chloride 10 MEQ Tab.ER PO SCH (08:46)
[2016-12-27] MEDS: Celecoxib 100 MG Cap PO SCH ×2 (08:46→20:37)
[2016-12-27] MEDS: Furosemide 20 MG Tab PO SCH (08:46)
[2016-12-27] MEDS: oxyCODONE ER 10 MG TAB.ER PO SCH (08:47)
[2016-12-27] MEDS: Fluticasone Propionate Nasal Spray 16 GM Bottle NASBOTH SCH (08:48)
[2016-12-27] MEDS ORDERED: HERBAL CMPLX PO SCH (09:00)
[2016-12-27] MEDS ORDERED: MV MN PO SCH (09:00)
[2016-12-27] MEDS ORDERED: IRON PO SCH (09:00)
[2016-12-27] MEDS ORDERED: [UNRECOGNIZED DRUG - OTHER] PO SCH (09:00)
[2016-12-27] MEDS: SELEGILINE 5 MG PO SCH (10:23)
[2016-12-27] MEDS: Acetaminophen/HYDROcodone 325-10 MG Tab PO PRN ×3 (11:24→19:14)
--- NOTE | 2016-12-27 12:15 | PCM48HPAN ---
Post Anesthesia Note - EVALUATION WITHIN 48HRS OF ANESTHETIC Vital Signs in Normal Range: Yes Patient Participated in Evaluation: Yes Respiratory Function Stable: Yes Airway Patent: Yes Cardiovascular Function Stable: Yes Hydration Status Stable: Yes Pain Control Satisfactory: Yes Nausea and Vomiting Control Satisfactory: Yes Mental Status Recovered: Yes
[2016-12-27] MEDS: traMADol 50 MG Tab PO PRN (13:49)
--- NOTE | 2016-12-27 16:33 | PCM.SN ---
- Free Text/Narrative Note: pt resting comfortably pain score improved with [place] 10/325 and ultram dressing changed to aquacel will d/ch to home tomorrow after AM therapy pt agrees with plan.
[2016-12-28] MEDS: Acetaminophen/HYDROcodone 325-10 MG Tab PO PRN ×2 (00:15→09:50)
[2016-12-28] MEDS: traMADol 50 MG Tab PO PRN (03:45)
[2016-12-28] MEDS: Levothyroxine 25 MCG Tab PO SCH (07:09)
[2016-12-28] MEDS: Levothyroxine 112 MCG Tab PO SCH (07:09)
[2016-12-28] MEDS: Carbidopa/Levodopa 25-100 MG Tab.ER PO SCH (07:09)
--- NOTE | 2016-12-28 08:02 | PCM.SURGPN ---
- General Info Date of Service: 12/28/16 Date of Surgery/Procedure: 12/26/16 POD#: 2 Functional Status: Reports: pain controlled, tolerating diet, ambulating, urinating - Review of Systems General: Reports: No Symptoms Pulmonary: Denies: shortness of breath Cardiovascular: Denies: Chest Pain, Lightheadedness Gastrointestinal: Denies: Nausea Systems Review Comment:: pt resting comfortably in bed slept well last night so slightly increased pain today - behind on pain medications pain score improved with [place] 10 and Ultram would like to go home today no specific concerns today - Patient Data Vitals - most recent: Last Vital Signs Temp 96.3 F 12/28/16 07:48 Pulse 107 H 12/28/16 07:48 Resp 20 12/28/16 07:48 BP 107/64 12/28/16 07:48 Pulse Ox 94 L 12/28/16 07:48 Weight - most recent: 117.934 kg I&O - last 24 hours: Intake & Output 12/27/16 12/28/16 12/28/16 22:59 06:59 14:59 Intake Total 780 750 Output Total 550 500 Balance 230 250 Lab Results last 24 hrs: Laboratory Results - last 24 hr 12/28/16 Range/Units 05:07 Hgb 10.3 L (12.0-16.0) g/dL Hct 31.3 L (36.0-46.0) % Med Orders - Current: Current Medications Hydrocodone Bitart/Acetaminophen ([place] 325-10 Mg) 1 - 2 tab PO Q4H PRN PRN Reason: Pain Last Admin: 12/28/16 00:15 Dose: 2 tab Al Hydroxide/Mg Hydroxide (Mag-Al Plus) 30 ml PO Q4H PRN PRN Reason: indigestion Anastrozole (Arimidex) 1 mg PO DAILY [facility] Last Admin: 12/27/16 08:46 Dose: 1 mg Aspirin (Aspirin) 325 mg PO BID [facility] Last Admin: 12/27/16 20:38 Dose: 325 mg Bisacodyl (Dulcolax) 10 mg RECTAL DAILY PRN PRN Reason: Constipation Carbidopa/Levodopa (Sinemet Cr 25-100 Mg) 2 tab PO BID@0700,1900 [facility] Last Admin: 12/28/16 07:09 Dose: 2 tab Celecoxib (Celebrex) 200 mg PO BID [facility] Last Admin: 12/27/16 20:37 Dose: 200 mg Citalopram Hydrobromide (Celexa) 40 mg PO DAILY [facility] Last Admin: 12/27/16 08:46 Dose: 40 mg Diphenhydramine HCl (Benadryl) 25 - 50 mg PO Q6H PRN PRN Reason: Itching Docusate Sodium (Colace) 100 mg PO BID [facility] Last Admin: 12/27/16 20:37 Dose: 100 mg Fluticasone Propionate (Flonase) 1 - 2 gm NASBOTH DAILY [facility] Last Admin: 12/27/16 08:48 Dose: 1 spray Furosemide (Lasix) 20 mg PO DAILY [facility] Last Admin: 12/27/16 08:46 Dose: 20 mg Levothyroxine Sodium (Levothyroxine) 112 mcg PO ACBREAKFAST [facility] Last Admin: 12/28/16 07:09 Dose: 112 mcg Levothyroxine Sodium (Levothyroxine) 25 mcg PO ACBREAKFAST [facility] Last Admin: 12/28/16 07:09 Dose: 25 mcg Magnesium Oxide (Magnesium Oxide) 800 mg PO BID [facility] Last Admin: 12/27/16 20:37 Dose: 800 mg Morphine Sulfate (Morphine) 1 - 3 mg IVPUSH Q3H PRN PRN Reason: Pain Last Admin: 12/27/16 04:05 Dose: 2 mg Omeprazole (Omeprazole) 20 mg PO DAILY [facility] Last Admin: 12/27/16 08:45 Dose: 20 mg Ondansetron HCl (Zofran) 4 mg IV Q6HR PRN PRN Reason: NAUSEA/VOMITING Selegiline [Eldepryl (] 5 Mg) 1 each PO DAILY [facility] Last Admin: 12/27/16 10:23 Dose: 1 each Potassium Chloride (Klor-Con 10) 10 meq PO DAILY [facility] Last Admin: 12/27/16 08:46 Dose: 10 meq Sodium Chloride (Saline Flush) 10 ml FLUSH ASDIRECTED PRN PRN Reason: Keep Vein Open Sodium Chloride (Saline Flush) 2.5 ml FLUSH ASDIRECTED PRN PRN Reason: Keep Vein Open Tramadol HCl (Ultram) 50 - 100 mg PO Q6H PRN PRN Reason: Pain Last Admin: 12/28/16 03:45 Dose: 100 mg Discontinued Medications Acetaminophen (Tylenol Extra Strength) 1,000 mg PO Q6H [facility] Last Admin: 12/27/16 08:46 Dose: 1,000 mg Carbidopa/Levodopa (Sinemet Cr 25-100 Mg) 2 tab PO BID [facility] Famotidine (Pepcid) 40 mg IVPUSH ONARRIVE [facility] Last Admin: 12/26/16 09:27 Dose: 40 mg Fentanyl (Sublimaze) Confirm Administered Dose 250 mcg .ROUTE .STK-MED ONE Stop: 12/26/16 09:09 Acetaminophen 1,000 mg/ Premix 100 mls @ 400 mls/hr IV ONARRIVE [facility] Last Admin: 12/26/16 09:26 Dose: 400 mls/hr Ropivacaine 49.25 ml/Ketorolac Tromethamine 30 mg/Epinephrine HCl 0.5 mg/ Clonidine HCl 80 mcg/ Sodium Chloride 100 mls @ 50 mls/min INJECT SEECOMMENT [facility] Lactated Ringer's (Ringers, Lactated) 1,000 mls @ 100 mls/hr IV ASDIRECTED [facility] Last Admin: 12/26/16 23:37 Dose: 100 mls/hr Cefazolin Sodium/Dextrose 2 gm (/ Premix) 50 mls @ 100 mls/hr IV ONCALL [facility] Acetaminophen 1,000 mg/ Premix 100 mls @ 400 mls/hr IV Q6H [facility] Stop: 12/26/16 21:44 Last Admin: 12/26/16 21:38 Dose: 400 mls/hr Cefazolin Sodium/Dextrose 2 gm (/ Premix) 50 mls @ 100 mls/hr IV Q8H [facility] Stop: 12/27/16 02:29 Last Admin: 12/27/16 01:52 Dose: 100 mls/hr Ketorolac Tromethamine (Toradol) 30 mg IVPUSH ONARRIVE [facility] Last Admin: 12/26/16 09:26 Dose: 30 mg Ketorolac Tromethamine (Toradol) 30 mg IVPUSH Q6H [facility] Stop: 12/27/16 06:01 Last Admin: 12/27/16 05:52 Dose: 30 mg Lidocaine (Xylocaine-Mpf 2%) Confirm Administered Dose 5 ml .ROUTE .STK-MED ONE Stop: 12/26/16 09:09 Midazolam HCl (Versed 1 Mg/Ml) Confirm Administered Dose 2 mg .ROUTE .STK-MED ONE Stop: 12/26/16 09:09 Morphine Sulfate (Morphine) 2 mg IVPUSH Q10M PRN PRN Reason: Pain (severe 7-10) Stop: 12/27/16 11:14 Non-Formulary Medication (Mv-Mn/Iron/Fa/Herbal Cmplx#190 [Vitamin D3 Complete Caplet]) 2 each PO DAILY [facility] Ondansetron HCl (Zofran) Confirm Administered Dose 4 mg .ROUTE .STK-MED ONE Stop: 12/26/16 09:09 Oxycodone HCl (Oxycontin) 20 mg PO ONARRIVE [facility] Last Admin: 12/26/16 09:27 Dose: 20 mg Oxycodone HCl (Oxycodone) 5 - 10 mg PO Q4H PRN PRN Reason: Pain Last Admin: 12/27/16 01:26 Dose: 10 mg Oxycodone HCl (Oxycontin) 10 mg PO Q12HR [facility] Last Admin: 12/27/16 08:47 Dose: 10 mg Phenylephrine HCl (Phenylephrine In Ns 100 Mcg/Ml) Confirm Administered Dose 1 mg .ROUTE .STK-MED ONE Stop: 12/26/16 10:41 Propofol (Diprivan 20 Ml) Confirm Administered Dose 200 mg .ROUTE .STK-MED ONE Stop: 12/26/16 09:09 Propofol (Diprivan 20 Ml) Confirm Administered Dose 600 mg .ROUTE .STK-MED ONE Stop: 12/26/16 09:15 Scopolamine (Transderm-Scop) 1.5 mg TRDER ONARRIVE [facility] Last Admin: 12/26/16 09:25 Dose: 1.5 mg Tranexamic Acid (Cyklokapron) 4,000 mg IV SEECOMMENT [facility] Tranexamic Acid (Cyklokapron) Confirm Administered Dose 4,000 mg .ROUTE .STK- MED ONE Stop: 12/26/16 07:23 Tranexamic Acid (Cyklokapron) Confirm Administered Dose 4,000 mg .ROUTE .STK- MED ONE Stop: 12/26/16 09:26 - Exam Wound/Incisions: healing well, dressing dry and intact. No: drainage, erythema General: alert, oriented Cardiovascular: Regular Rate, Regular Rhythm Extremities: no edema, normal pulses, no calf tenderness, other (LLE - at/ehl/ gastroc 5/5, dp 2+, sensation intact distally. 1+ edema) Physical Findings Comment:: vss, afeb (bp improving 100s/60s) hgb 10.3 - Problem List Review Problem List Initiated/Reviewed/Updated: Yes - My Orders Last 24 Hours: Active Orders 24 hr Category Date Time Status Urinary Catheter Removal [RC] Per Unit Routine Care 12/27/16 08:10 Active HEMOGLOBIN/HEMATOCRIT,HH [HEME] DAILY Lab 12/29/16 06:00 Ordered Acetaminophen/HYDROcodone [[place] 325-10 MG] Med 12/27/16 11:18 Active 1 - 2 tab PO Q4H PRN Anastrozole [Arimidex] Med 12/27/16 09:00 Active 1 mg PO DAILY Aspirin Med 12/27/16 09:00 Active 325 mg PO BID Celecoxib [CeleBREX] Med 12/27/16 09:00 Active 200 mg PO BID Citalopram [Celexa] Med 12/27/16 09:00 Active 40 mg PO DAILY Fluticasone Propionate [Flonase] Med 12/27/16 09:00 Active 1 - 2 gm NASBOTH DAILY Furosemide [Lasix] Med 12/27/16 09:00 Active 20 mg PO DAILY Levothyroxine Med 12/27/16 07:30 Active 112 mcg PO ACBREAKFAST Levothyroxine Med 12/27/16 07:30 Active 25 mcg PO ACBREAKFAST Omeprazole Med 12/27/16 09:00 Active 20 mg PO DAILY Patient's Own Medication [Ptom] Med 12/27/16 09:00 Active 1 each PO DAILY Potassium Chloride [Klor-Con 10] Med 12/27/16 09:00 Active 10 meq PO DAILY Sodium Chloride 0.9% [Saline Flush] Med 12/27/16 08:10 Active 10 ml FLUSH ASDIRECTED PRN Sodium Chloride 0.9% [Saline Flush] Med 12/27/16 08:10 Active 2.5 ml FLUSH ASDIRECTED PRN traMADol [Ultram] Med 12/27/16 11:18 Active 50 - 100 mg PO Q6H PRN Convert IV to Saline Lock [OM.PC] Routine Oth 12/27/16 08:10 Ordered Medication Orders Hydrocodone Bitart/Acetaminophen ([place] 325-10 Mg) 1 - 2 tab PO Q4H PRN PRN Reason: Pain Last Admin: 12/28/16 00:15 Dose: 2 tab Admin: 12/27/16 19:14 Dose: 2 tab Admin: 12/27/16 15:20 Dose: 2 tab Admin: 12/27/16 11:24 Dose: 2 tab Al Hydroxide/Mg Hydroxide (Mag-Al Plus) 30 ml PO Q4H PRN PRN Reason: indigestion Anastrozole (Arimidex) 1 mg PO DAILY [facility] Last Admin: 12/27/16 08:46 Dose: 1 mg Aspirin (Aspirin) 325 mg PO BID [facility] Last Admin: 12/27/16 20:38 Dose: 325 mg Admin: 12/27/16 08:45 Dose: 325 mg Bisacodyl (Dulcolax) 10 mg RECTAL DAILY PRN PRN Reason: Constipation Carbidopa/Levodopa (Sinemet Cr 25-100 Mg) 2 tab PO BID@0700,1900 [facility] Last Admin: 12/28/16 07:09 Dose: 2 tab Admin: 12/27/16 19:13 Dose: 2 tab Admin: 12/27/16 06:40 Dose: 2 tab Admin: 12/26/16 19:58 Dose: 2 tab Celecoxib (Celebrex) 200 mg PO BID [facility] Last Admin: 12/27/16 20:37 Dose: 200 mg Admin: 12/27/16 08:46 Dose: 200 mg Citalopram Hydrobromide (Celexa) 40 mg PO DAILY [facility] Last Admin: 12/27/16 08:46 Dose: 40 mg Diphenhydramine HCl (Benadryl) 25 - 50 mg PO Q6H PRN PRN Reason: Itching Docusate Sodium (Colace) 100 mg PO BID [facility] Last Admin: 12/27/16 20:37 Dose: 100 mg Admin: 12/27/16 08:46 Dose: 100 mg Admin: 12/26/16 20:43 Dose: 100 mg Fluticasone Propionate (Flonase) 1 - 2 gm NASBOTH DAILY [facility] Last Admin: 12/27/16 08:48 Dose: 1 spray Furosemide (Lasix) 20 mg PO DAILY [facility] Last Admin: 12/27/16 08:46 Dose: 20 mg Levothyroxine Sodium (Levothyroxine) 112 mcg PO ACBREAKFAST [facility] Last Admin: 12/28/16 07:09 Dose: 112 mcg Admin: 12/27/16 06:39 Dose: 112 mcg Levothyroxine Sodium (Levothyroxine) 25 mcg PO ACBREAKFAST [facility] Last Admin: 12/28/16 07:09 Dose: 25 mcg Admin: 12/27/16 06:39 Dose: 25 mcg Magnesium Oxide (Magnesium Oxide) 800 mg PO BID [facility] Last Admin: 12/27/16 20:37 Dose: 800 mg Admin: 12/27/16 08:46 Dose: 800 mg Admin: 12/26/16 20:43 Dose: 800 mg Morphine Sulfate (Morphine) 1 - 3 mg IVPUSH Q3H PRN PRN Reason: Pain Last Admin: 12/27/16 04:05 Dose: 2 mg Omeprazole (Omeprazole) 20 mg PO DAILY [facility] Last Admin: 12/27/16 08:45 Dose: 20 mg Ondansetron HCl (Zofran) 4 mg IV Q6HR PRN PRN Reason: NAUSEA/VOMITING Selegiline [Eldepryl (] 5 Mg) 1 each PO DAILY [facility] Last Admin: 12/27/16 10:23 Dose: 1 each Potassium Chloride (Klor-Con 10) 10 meq PO DAILY [facility] Last Admin: 12/27/16 08:46 Dose: 10 meq Sodium Chloride (Saline Flush) 10 ml FLUSH ASDIRECTED PRN PRN Reason: Keep Vein Open Sodium Chloride (Saline Flush) 2.5 ml FLUSH ASDIRECTED PRN PRN Reason: Keep Vein Open Tramadol HCl (Ultram) 50 - 100 mg PO Q6H PRN PRN Reason: Pain Last Admin: 12/28/16 03:45 Dose: 100 mg Admin: 12/27/16 13:49 Dose: 100 mg - Assessment Assessment (Free Text/Narrative):: POD#2 L TKA acute posthemorrhagic anemia - Plan Plan (Free Text/Narrative):: continue pain management, PT, DVT prophylaxis will d/ch to home this afternoon all questions and concerns addressed
[2016-12-28] MEDS: Aspirin 325 MG Tab PO SCH (08:13)
[2016-12-28] MEDS: Magnesium Oxide 400 MG Tab PO SCH (08:13)
[2016-12-28] MEDS: Celecoxib 100 MG Cap PO SCH (08:13)
[2016-12-28] MEDS: Docusate Sodium 100 MG Cap PO SCH (08:13)
[2016-12-28] MEDS: Citalopram 20 MG Tab PO SCH (08:13)
[2016-12-28] MEDS: Omeprazole 20 MG Cap.CR PO SCH (08:13)
[2016-12-28] MEDS: Potassium Chloride 10 MEQ Tab.ER PO SCH (08:14)
[2016-12-28] MEDS: SELEGILINE 5 MG PO SCH (08:15)
[2016-12-28] MEDS: Furosemide 20 MG Tab PO SCH (08:15)
[2016-12-28] MEDS: Fluticasone Propionate Nasal Spray 16 GM Bottle NASBOTH SCH (08:16)
[2016-12-28] MEDS: Anastrozole 1 MG Tab PO SCH (08:20)
[2016-12-28 11:26] VITALS: BP 113/45
--- NOTE | 2016-12-28 11:51 | PCM.SN ---
- Free Text/Narrative Note: discharge summary #[id number]
--- NOTE | 2016-12-29 10:26 | DISCH ---
DATE OF DISCHARGE: 12/28/2016 PRIMARY CARE PHYSICIAN: Edmond Diego M.D. ADMITTING DIAGNOSIS: Degenerative joint disease, left knee, tricompartmental. OTHER MEDICAL DIAGNOSES: 1. Parkinson disease. 2. History of breast cancer, status post mastectomy. 3. Gastroesophageal reflux disease. 4. Anxiety/depression. 5. Hypothyroidism. DISCHARGE DIAGNOSES: 1. Degenerative joint disease, left knee, tricompartmental. 2. Parkinson disease. 3. History of breast cancer, status post mastectomy. 4. Gastroesophageal reflux disease. 5. Anxiety/depression. 6. Hypothyroidism. 7. Acute post hemorrhagic anemia. BRIEF HISTORY: Miya is a 56-year-old female, who has had progressive complaints of left knee pain. She has previously undergone a right total knee arthroplasty and done well with that. She had tried and failed conservative treatment for the left knee. At that time, surgical treatment was recommended. On December 26, 2016, the patient underwent a left total knee arthroplasty using patient-specific instrumentation done by Dr. Joanie Box. This was done under spinal anesthesia, with general anesthesia. Estimated blood loss was 50 mL. Tourniquet time was 59 minutes. There were no known complications. Upon completion of the procedure, the patient was transferred to the PACU and subsequently to Med/Surg for postoperative care. HOSPITAL COURSE: Postoperatively, the patient did well. She received 2 doses of Ancef postoperatively for total 24 hours of antibiotic coverage. Her pain was controlled with a combination of oral and IV pain medications. Physical Therapy followed her through her hospital stay. Aspirin 325 mg by mouth twice daily was started on postoperative day number 1 as DVT prophylaxis. Her vital signs have been stable. She has been afebrile. Her hemoglobin on the morning of December 28, 2016 was 10.3. She is tolerating oral intake. She is ambulating with a wheeled walker. Her pain is controlled with oral pain medications. She feels comfortable with discharge to home. DISCHARGE MEDICATIONS: 1. [place] 10/325. 2. Ultram 50 mg. 3. Celebrex 200 mg. 4. Colace 100 mg. 5. Aspirin 325 mg. DISCHARGE INSTRUCTIONS: 1. Follow up in clinic in 10 to 14 days from the date of procedure. This appointment has been made for the patient. 2. Outpatient physical therapy 2 to 3 times per week for 4 to 6 weeks. 3. [facility] to the left knee as needed. 4. RAMIREZ shukla, on in the morning, off in the evening. 5. It is okay to shower over the Aquacel dressing. 6. She should leave her Aquacel dressing in place until January 01. She should then place a new Aquacel dressing and leave that in place until followup in clinic. 7. She may not drive while taking narcotic pain medications. For complete medication reconciliation and discharge instructions, please refer back to the patient's EHR. Should she have questions or concerns prior to followup, she has been advised to return to clinic or call. AFSANEH TAVARES /[id number] AKOSUA
== END 2016-12-28 14:00 | disposition home or self-care (01) | DRG 470 ==
LOC: MW.MS 08:36
PROVIDERS: ADMIT Orthopaedic Surgery; ATTEND Orthopaedic Surgery
PROC: 0SRD0J9 Replacement of Left Knee Joint with Synthetic Substitute, Cemented, Open Approach (ICD-10-PCS; principal; 2016-12-26)
DX: M17.12 Unilateral primary osteoarthritis, left knee (principal); D62 Acute posthemorrhagic anemia; M94.262 Chondromalacia, left knee; M25.762 Osteophyte, left knee
CPT/HCPCS: 01402; 36415; 73560-26-LT; 73560-LT; 84132; 85014; 85018; 86850; 86900; 86901; 88304; 88311; 97110-GP; 97162-GP; 97530-GP; A9270-GY; C1713; C1776; J0171; J0690; J0735; J1642; J1885; J2250; J2270; J2405; J2704; J2795; J3010; J7050; J7120

== ENCOUNTER → 2017-01-05 | Outpatient (CLI) | payer OTHER ==
--- NOTE | 2017-01-05 12:45 | CR ---
EXAMINATION: Left knee HISTORY: Artificial joint COMPARISON: 12/26/2016 TECHNIQUE: 3 views FINDINGS/IMPRESSION: Left total knee hardware is demonstrated in good position and alignment. Postop erative soft tissue changes noted.
== END ==
LOC: MW.CHORTHO 07:48
PROVIDERS: ATTEND Physician Assistant
DX: Z96.652 Presence of left artificial knee joint (principal); Z98.890 Other specified postprocedural states
CPT/HCPCS: 73562-26-LT; 73562-LT

== ENCOUNTER 2018-05-09 06:43 | Inpatient (IN) | payer OTHER ==
[2018-05-09] MEDS ORDERED: ceFAZolin 2 GM in Premix Bag 1 BAG IV SCH (06:59)
[2018-05-09] MEDS ORDERED: fentaNYL 250 MCG/5 ML SDV ONE ×2 (07:11→09:35)
[2018-05-09] MEDS ORDERED: Midazolam 1 MG/ML 2 ML SDV ONE (07:11)
[2018-05-09] MEDS ORDERED: Lidocaine 2% 5 ML SDV ONE (07:11)
[2018-05-09] MEDS ORDERED: Propofol 200 MG/20 ML SDV ONE (07:11)
[2018-05-09] MEDS ORDERED: ceFAZolin/Dextrose,Iso-Osmotic 2 GM/50 ML Duplex Bag IV ONE (07:12)
[2018-05-09] MEDS ORDERED: ePHEDrine 50 MG/ML SDV ONE (07:12)
--- NOTE | 2018-05-09 07:25 | PCM.PREANE ---
Preanesthetic Assessment - Anesthesia/Transfusion/Family Hx Anesthesia History: Prior Anesthesia Without Reaction Other Type of Anesthesia Reaction Comment: Denies any known problem in past, no known family hx: problems Family History of Anesthesia Reaction: No Transfusion History: No Prior Transfusion(s) Intubation History: Unknown - Review of Systems General: No Symptoms Cardiovascular: No Symptoms Gastrointestinal: No Symptoms Neurological: No Symptoms Other: Reports: None - Physical Assessment NPO Status Date: 05/08/18 Height: 1.75 m Weight: 122.47 kg ASA Class: 3 Mental Status: Alert & Oriented x3 Airway Class: Mallampati = 2 Dentition: Reports: Normal Dentition ROM/Head Extension: Full Lungs: Clear to Auscultation, Normal Respiratory Effort Cardiovascular: Regular Rate, Regular Rhythm - Allergies Allergies/Adverse Reactions: Allergies Allergy/AdvReac Type Severity Reaction Status Date / Time phenazopyridine HCl Allergy Rash Verified 05/07/18 10:52 [From Pyridium] Sulfa (Sulfonamide Allergy Rash Verified 05/07/18 10:52 Antibiotics) - Anesthesia Plan Pre-Op Medication Ordered: None - Acknowledgements Anesthesia Type Planned: General Anesthesia, Spinal Pt an Appropriate Candidate for the Planned Anesthesia: Yes Alternatives and Risks of Anesthesia Discussed w Pt/Guardian: Yes Pt/Guardian Understands and Agrees with Anesthesia Plan: Yes Additional Comments: PMH : parkinsons, took oral meds at 5 am, next dose at noon, chronic lbp- denies disc disease or spinal stenosis, morbid obesity, breast ca-s/p L mastectomy, PreAnesthesia Questionnaire HEENT History: Reports: Allergic Rhinitis Other HEENT History: wears glasses Cardiovascular History: Reports: None Respiratory History: Reports: None Gastrointestinal History: Reports: GERD Genitourinary History: Reports: None TRIM CARPENTER History: Reports: Musculoskeletal History: Reports: Osteoarthritis Neurological History: Reports: Parkinson's Psychiatric History: Reports: Depression Endocrine/Metabolic History: Reports: Hypothyroidism, Obesity/BMI 30+ Hematologic History: Reports: None Immunologic History: Reports: None Oncologic (Cancer) History: Reports: Breast, Uterine Dermatologic History: Reports: None - Past Surgical History Head Surgeries/Procedures: Reports: None HEENT Surgical History: Reports: None Cardiovascular Surgical History: Reports: None Respiratory Surgical History: Reports: None GI Surgical History: Reports: Colonoscopy Female Surgical History: Reports: Section, Hysterectomy, Mastectomy , Tubal Ligation Other Female Surgeries/Procedures: left mastectomy Endocrine Surgical History: Reports: Thyroidectomy Neurological Surgical History: Reports: None Musculoskeletal Surgical History: Reports: Knee Replacement Other Musculoskeletal Surgeries/Procedures:: giselle knee replacement Other Oncologic Surgeries/Procedures: hysterectomy, mastectomy Dermatological Surgical History: Reports: None - SUBSTANCE USE Smoking Status *Q: Never Smoker - HOME MEDS Home Medications: Home Meds Anastrozole [Arimidex] 1 mg PO DAILY 01/14/16 [History] Citalopram Hydrobromide [Celexa] 40 mg PO DAILY 01/14/16 [History] Fluticasone Propionate [Flovent] 1 - 2 spray NASBOTH DAILY PRN 01/14/16 [History ] Furosemide 20 mg PO DAILY 01/14/16 [History] Levothyroxine Sodium 137 mcg PO DAILY 01/14/16 [History] Magnesium Oxide [Magnesium] 800 mg PO BID 01/14/16 [History] Potassium Chloride 10 meq PO DAILY 01/14/16 [History] Omeprazole 20 mg PO DAILY 12/22/16 [History] Carbidopa/Levodopa [Carbidopa-Levo ER 25-100] 2 tab PO BID 12/26/16 [History] Selegiline [Eldepryl] 5 mg PO DAILY 12/26/16 [History] Acetaminophen/HYDROcodone [[place] 325-10 MG] 1 - 2 tab PO Q4H PRN #80 tablet 10/14 [Rx] traMADol [Ultram] 50 - 100 mg PO Q6H PRN #60 tablet 12/27/16 [Rx] Gabapentin [Neurontin] 300 mg PO ASDIRECTED PRN 05/07/18 [History] - CURRENT (IN HOUSE) MEDS Current Meds: Current Medications Lactated Ringer's (Ringers, Lactated) 1,000 mls @ 125 mls/hr IV ASDIRECTED [facility] Cefazolin Sodium/Dextrose 2 gm (/ Premix) 50 mls @ 50 mls/hr IV ONETIME [facility] Tranexamic Acid (Cyklokapron) 2,000 mg IV ONETIME ONE Stop: 05/09/18 08:01 Discontinued Medications Cefazolin Sodium/Dextrose (Ancef) Confirm Administered Dose 2 gm IV .STK-MED ONE Stop: 05/09/18 07:13 Ephedrine Sulfate (Ephedrine Sulfate) Confirm Administered Dose 50 mg .ROUTE .STK-MED ONE Stop: 05/09/18 07:13 Fentanyl (Sublimaze) Confirm Administered Dose 250 mcg .ROUTE .STK-MED ONE Stop: 05/09/18 07:12 Lidocaine (Xylocaine-Mpf 2%) Confirm Administered Dose 5 ml .ROUTE .STK-MED ONE Stop: 05/09/18 07:12 Midazolam HCl (Versed 1 Mg/Ml) Confirm Administered Dose 2 mg .ROUTE .STK-MED ONE Stop: 05/09/18 07:12 Propofol (Diprivan 20 Ml) Confirm Administered Dose 200 mg .ROUTE .STK-MED ONE Stop: 05/09/18 07:12
[2018-05-09] MEDS: Lactated Ringers 1,000 ML IV SCH ×3 (07:29→19:56)
[2018-05-09] MEDS ORDERED: Rocuronium 10 MG/ML 10 ML Syringe ONE (09:21)
[2018-05-09] MEDS ORDERED: Succinylcholine 200 MG/10 ML MDV ONE (09:22)
[2018-05-09] MEDS ORDERED: Phenylephrine 1% 10 MG/ML SDV ONE (10:01)
[2018-05-09] MEDS ORDERED: Ondansetron 4 MG/2 ML SDV ONE (10:21)
--- NOTE | 2018-05-09 10:26 | PCM.OPNOTE ---
- General Post-Op/Procedure Note Date of Surgery/Procedure: 05/09/18 Operative Procedure(s): left anterior total hip arthroplasty Findings: severe OA Pre Op Diagnosis: left hip osteoarthritis Post-Op Diagnosis: same Anesthesia Technique: General ET Tube Primary Surgeon: Gilson Calero Mai Configuration Management Consultant: Janice Scott Pathology: femoral head EBL in mLs: 500 Complications: none Condition: Good
[2018-05-09] MEDS ORDERED: Aluminum Hydroxide/Magnesium Hydroxide/Simethicone Susp 30 ML Cup PO PRN (10:31)
[2018-05-09] MEDS ORDERED: Bisacodyl 10 MG Supp RECTAL PRN (10:31)
[2018-05-09] MEDS ORDERED: Ondansetron 4 MG/2 ML SDV IV PRN (10:31)
[2018-05-09] MEDS ORDERED: Gabapentin 300 MG Cap PO PRN (10:34)
[2018-05-09] MEDS ORDERED: Fluticasone Propionate Nasal Spray 16 GM Bottle NASBOTH PRN (10:34)
[2018-05-09] MEDS ORDERED: traMADol 50 MG Tab PO PRN (10:34)
[2018-05-09] MEDS ORDERED: fentaNYL 100 MCG/2 ML SDV IVPUSH PRN (10:45)
[2018-05-09] MEDS: Ketorolac 30 MG/ML SDV IVPUSH PRN ×2 (11:07→18:33)
--- NOTE | 2018-05-09 11:11 | PCM.POSTAN ---
POST ANESTHESIA ASSESSMENT - MENTAL STATUS Mental Status: Alert, Oriented - VITAL SIGNS Pulse Rate: 99 SaO2: 95 (2LPM) Resp Rate: 10 Blood Pressure: 120/60 - RESPIRATORY Respiratory Status: Respiratory Rate WNL, Airway Patent, O2 Saturation Stable - CARDIOVASCULAR CV Status: Pulse Rate WNL, Blood Pressure Stable - GASTROINTESTINAL GI Status: No Symptoms - PAIN Pain Score: 4 - POST OP HYDRATION Hydration Status: Adequate & Stable
--- NOTE | 2018-05-09 12:08 | OR ---
SURGEON: Gilson Alexis MD DATE OF PROCEDURE: 05/09/2018 BACK UP SCAN COORDINATOR: Janice Scott PA-C PREOPERATIVE DIAGNOSIS: Left hip osteoarthritis. POSTOPERATIVE DIAGNOSIS: Left hip osteoarthritis. OPERATION PERFORMED: Left anterior total hip arthroplasty. ANESTHESIA: Spinal and general. COMPLICATIONS: None. ESTIMATED BLOOD LOSS: 500 mL. SPECIMENS: Femoral head. IMPLANT: Clarice Continuum trabecular metal shell with cluster holes, 54 mm outer diameter; Vivacit-E neutral liner 36 mm inner diameter; M/L taper reduced neck length standard offset, size 11; Biolox delta ceramic femoral head 36 mm diameter, -3.5 neck length. INDICATIONS: The patient is a 57-year-old female with severe arthritis. She wished undergo above procedure. She understands the risks, benefits, and complications to include but not limited to infection, neurovascular injury, continued pain, DVT, PE, stroke, IA, , leg-length discrepancy, fracture, dislocation, she wished to proceed. PROCEDURE IN DETAIL: The patient was seen in preop area, operative extremity was marked. The patient was transferred to the operating room. Spinal anesthetic was attempted, but was unable, and therefore the patient was placed supine on the Lloyd table. General anesthesia was induced. An endotracheal tube was placed. She received preop antibiotics with Ancef and TXA. The left leg was placed in leg bars with a narrow perineal post and the left hip was prepped and draped in usual sterile fashion using alcohol followed by ChloraPrep. A formal time-out was taken identifying the correct patient, procedure, and extremity. A 12 cm incision starting about 4 cm lateral to the ASIS going obliquely down to the femur was made due to the patient's size and dissection was carried down into subcutaneous tissues. Hemostasis was obtained. The fascia overlying the TFL lateral to the lateral femoral cutaneous nerve was opened. The interval between the TFL and sartorius deep between the abductors and rectus was opened. The anterior vessels were coagulated, and the vastus lateralis fascia was opened. Deep Boby retractor was placed. the capsule was held and tagged with 2 sutures and the head was removed. It was a very difficult removal and it actually fell apart during removal. All fragments were removed. There was severe synovitis and severe arthritis throughout the hip. Inferior capsule was released preserved int the iliopsoas tendon. The remnants of the pulvinar and labral remnants were all removed as well as synovectomy was performed. The bed was planed to make sure it was level and then a continuum trabecular metal shell with cluster holes was placed with screw hole superiorly in 40 degrees abduction, 10 degrees of anteversion. Excellent press fit. There was no uncovering of the cup anteriorly. A neutral liner was then impacted. Leg was then externally rotated, abducted, and extended. Placed the femoral lift. The superior capsule obturator internus and piriformis were released. Central canal finder was utilized. Hip was sequentially broached up to size 11. A trial was reduced with a standard offset 0 neck length. Printed overlay technique with the opposite hip with fluoroscopy showed offset to be slightly increased and leg lengths to be slightly increased, therefore, the hip was dislocated. The patient has same position and an M/L taper size 11 standard offset, but reduced neck length was impacted following the lumbee version. It did sit a couple millimeters proud, it was trial reduced with a 0 neck length, and this showed the hip to be slightly long by maybe a millimeter or 2 , therefore, the hip was dislocated and the -3.5 head was impacted. The hip was then relocated. The two tag sutures were tied together. The hip was stable in range of motion with no shuck. The fascia was closed with #1 Vicryl. The fat layer with #1 Vicryl. Subcutaneous tissues with 2-0 Stratafix. Skin with running 4-0 Monocryl. Aquacel dressing was placed. Patient was extubated in the operative room and transferred to the recovery room in stable condition. Sponge and needle counts were correct at the end of the case. No complications. The patient will be on weightbearing as tolerated. Aspirin for DVT prophylaxis. JOANN / CHAITANYA /[id number]
[2018-05-09] MEDS: HYDROmorphone 1 MG/ML Syringe IVPUSH PRN ×2 (12:18→12:28)
[2018-05-09] MEDS: ceFAZolin 2 GM in Premix Bag 1 BAG IV SCH (15:20)
[2018-05-09] MEDS: Acetaminophen/HYDROcodone 325-10 MG Tab PO PRN (15:21)
[2018-05-09] MEDS ORDERED: Lactated Ringers 1,000 ML IV ONE (18:25)
[2018-05-09] MEDS: Docusate Sodium 100 MG Cap PO SCH (21:00)
[2018-05-09] MEDS: Magnesium Oxide 400 MG Tab PO SCH (21:00)
[2018-05-09] MEDS: Carbidopa/Levodopa 25-100 MG Tab.ER PO SCH (21:00)
[2018-05-10] MEDS: ceFAZolin 2 GM in Premix Bag 1 BAG IV SCH (00:29)
[2018-05-10] MEDS: Lactated Ringers 1,000 ML IV SCH (04:43)
[2018-05-10] MEDS: Acetaminophen/HYDROcodone 325-10 MG Tab PO PRN ×5 (05:29→23:33)
[2018-05-10] MEDS ORDERED: Sodium Chloride 0.9% 2.5 ML Syringe FLUSH PRN (07:18)
[2018-05-10] MEDS ORDERED: Sodium Chloride 0.9% 10 ML Syringe FLUSH PRN (07:18)
--- NOTE | 2018-05-10 07:18 | PCM.SN ---
- Free Text/Narrative Note: Subjective: Patient is overall doing very well she's walked to the bathroom. Her knee pain is all gone. She has muscular pain but is feeling good. She does not feel lightheaded when up. He is tolerating by mouth with no issues. No other complaints. Objective: Afebrile, vital signs stable Left thigh dressing is clean/dry/intact with no drainage. There is a small amount of swelling in the thigh but none distally. She has normal sensation motor and palpable pulses distally. HGB 9.8 Assessment/plan: Postoperative day #1 left CORTEZ with acute on chronic blood loss anemia - Full weightbearing with walker and physical therapy - Ecotrin for DVT prophylaxis - Possibly to home later today if does well.
--- NOTE | 2018-05-10 07:27 | PCM48HPAN ---
Post Anesthesia Note - EVALUATION WITHIN 48HRS OF ANESTHETIC Vital Signs in Normal Range: Yes Patient Participated in Evaluation: Yes Respiratory Function Stable: Yes Airway Patent: Yes Cardiovascular Function Stable: Yes Hydration Status Stable: Yes Pain Control Satisfactory: Yes Nausea and Vomiting Control Satisfactory: Yes Mental Status Recovered: Yes Pulse Rate: 99 Resp Rate: 17 Blood Pressure: 120/60
[2018-05-10] MEDS: Levothyroxine 25 MCG Tab PO SCH (08:01)
[2018-05-10] MEDS: Levothyroxine 112 MCG Tab PO SCH (08:01)
[2018-05-10] MEDS: Omeprazole 20 MG Cap.CR PO SCH (08:01)
[2018-05-10] MEDS: Aspirin 325 MG Tab PO SCH ×2 (08:22→20:11)
[2018-05-10] MEDS: Docusate Sodium 100 MG Cap PO SCH ×2 (08:22→20:11)
[2018-05-10] MEDS: Magnesium Oxide 400 MG Tab PO SCH ×2 (08:22→20:11)
[2018-05-10] MEDS: Citalopram 20 MG Tab PO SCH (08:22)
[2018-05-10] MEDS: Famotidine 20 MG Tab PO SCH (08:22)
[2018-05-10] MEDS: Furosemide 20 MG Tab PO SCH (08:22)
[2018-05-10] MEDS: Potassium Chloride 10 MEQ Tab.ER PO SCH (08:22)
[2018-05-10] MEDS: Carbidopa/Levodopa 25-100 MG Tab.ER PO SCH (08:23)
[2018-05-10] MEDS: Celecoxib 100 MG Cap PO SCH (08:23)
[2018-05-10] MEDS: SELEGILINE 5 MG PO SCH (08:27)
[2018-05-10] MEDS: Anastrozole 1 MG Tab PO SCH (08:27)
--- NOTE | 2018-05-10 09:21 | CR ---
EXAMINATION: Left hip arthroplasty HISTORY: Total hip arthroplasty COMPARISON: None TECHNIQUE: 3 images FINDINGS/IMPRESSION: 3 operative control films demonstrate placement of the left total hip hardware a nd good position and alignment.
[2018-05-10] MEDS: Carbidopa/Levodopa 25-100 MG Tab PO SCH ×2 (14:29→18:27)
[2018-05-11] MEDS: Omeprazole 20 MG Cap.CR PO SCH (06:44)
[2018-05-11] MEDS: Levothyroxine 112 MCG Tab PO SCH (06:44)
[2018-05-11] MEDS: Levothyroxine 25 MCG Tab PO SCH (06:44)
--- NOTE | 2018-05-11 07:13 | PCM.SN ---
- Free Text/Narrative Note: Subjective: Patient is overall doing very well and is ambulating in hallway. Her knee pain is all gone. She has muscular pain but is feeling good. She does not feel lightheaded when up. He is tolerating by mouth with no issues. No other complaints. Objective: Afebrile, vital signs stable Left thigh dressing is clean/dry/intact with a small area 0.5 cm of drainage on bandage. There is a small amount of swelling in the thigh but none distally. She has normal sensation motor and palpable pulses distally. HGB 8.5 Assessment/plan: Postoperative day #2 left CORTEZ with acute on chronic blood loss anemia - Full weightbearing with walker and physical therapy - Ecotrin for DVT prophylaxis - to home today
--- NOTE | 2018-05-11 07:17 | PCM.DCSUM1 ---
Discharge Summary - Hospital Course Brief History: Patient is admitted for elective left hip arthroplasty Diagnosis: Stroke: No - Discharge Data Discharge Date: 05/11/18 Discharge Disposition: Home, Self-Care 01 Condition: Good - Patient Summary/Data Operative Procedure(s) Performed: left anterior total hip arthroplasty Consults: Consultations 05/09/18 10:31 PT Evaluation and Treatment [CONS] Routine Hospital Course: Patient was admitted and underwent uneventful total hip arthroplasty in postoperatively she was admitted to forward her pain was controlled with her diet was advanced and she received physical therapy with weightbearing as tolerated. She did have acute blood loss anemia but was asymptomatic. She was subsequently discharged home on postoperative day #2 - Patient Instructions Diet: Usual Diet as Tolerated Activity: Apply Ice, As Tolerated, Full Weight Bearing Driving: Do Not Drive Showering/Bathing: May Shower Wound/Incision Care: Keep Operative Site/Wound Site Clean and Dry, Do NOT Change Dressing Notify Provider of: Fever, Swelling and Redness, Drainage - Discharge Plan *PRESCRIPTION DRUG MONITORING PROGRAM REVIEWED*: No *COPY OF PRESCRIPTION DRUG MONITORING REPORT IN PATIENT DEB: No Home Medications: Home Meds Anastrozole [Arimidex] 1 mg PO DAILY 01/14/16 [History] Citalopram Hydrobromide [Celexa] 40 mg PO DAILY 01/14/16 [History] Fluticasone Propionate [Flovent] 1 - 2 spray NASBOTH DAILY PRN 01/14/16 [History ] Furosemide 20 mg PO DAILY 01/14/16 [History] Levothyroxine Sodium 137 mcg PO DAILY 01/14/16 [History] Magnesium Oxide [Magnesium] 800 mg PO BID 01/14/16 [History] Potassium Chloride 10 meq PO DAILY 01/14/16 [History] Omeprazole 20 mg PO DAILY 12/22/16 [History] Selegiline [Eldepryl] 5 mg PO DAILY 12/26/16 [History] Acetaminophen/HYDROcodone [[place] 325-10 MG] 1 - 2 tab PO Q4H PRN #80 tablet 10/14 [Rx] traMADol [Ultram] 50 - 100 mg PO Q6H PRN #60 tablet 12/27/16 [Rx] Gabapentin [Neurontin] 300 mg PO ASDIRECTED PRN 05/07/18 [History] Carbidopa/Levodopa [Carbidopa-Levo ER 25-100] 2 tab PO 0700,1100,1500,1900 05/10 [History] Patient Handouts: Acetaminophen; Hydrocodone tablets or capsules, Total Hip Replacement, [id number], Aspirin, ASA oral tablets, Total Hip Replacement, Care After, [id number], Docusate capsules Referrals: Janice Scott PA [Physician Director Staffing] - 05/22/18 10:40 am - Discharge Summary/Plan Comment DC Time >30 min.: No - Patient Data Vitals - Most Recent: Last Vital Signs Temp 37.1 C 05/11/18 04:00 Pulse 89 05/11/18 04:00 Resp 19 05/11/18 04:00 BP 108/70 05/11/18 04:00 Pulse Ox 92 L 05/11/18 04:00 Weight - Most Recent: 122.47 kg I&O - Last 24 hours: Intake & Output 05/10/18 05/11/18 05/11/18 22:59 06:59 14:59 Intake Total 850 Output Total 1200 Balance -350 Lab Results - Last 24 hrs: Laboratory Results - last 24 hr 05/11/18 Range/Units 05:07 Hgb 8.5 L (12.0-16.0) g/dL Hct 26.6 L (36.0-46.0) % Med Orders - Current: Current Medications Hydrocodone Bitart/Acetaminophen ([place] 325-10 Mg) 1 - 2 tab PO Q4H PRN PRN Reason: Pain Last Admin: 05/10/18 23:33 Dose: 2 tab Al Hydroxide/Mg Hydroxide (Mag-Al Plus) 30 ml PO Q4H PRN PRN Reason: indigestion Anastrozole (Arimidex) 1 mg PO DAILY [facility] Last Admin: 05/10/18 08:27 Dose: Not Given Aspirin (Aspirin) 325 mg PO BID [facility] Last Admin: 05/10/18 20:11 Dose: 325 mg Bisacodyl (Dulcolax) 10 mg RECTAL DAILY PRN PRN Reason: Constipation Carbidopa/Levodopa (Sinemet 25-100 Mg) 2 tab PO 0700,1100,1500,1900 [facility] Last Admin: 05/10/18 18:27 Dose: 2 tab Celecoxib (Celebrex) 200 mg PO DAILY [facility] Last Admin: 05/10/18 08:23 Dose: 200 mg Citalopram Hydrobromide (Celexa) 40 mg PO DAILY [facility] Last Admin: 05/10/18 08:22 Dose: 40 mg Docusate Sodium (Colace) 100 mg PO BID [facility] Last Admin: 05/10/18 20:11 Dose: 100 mg Famotidine (Pepcid) 40 mg PO DAILY [facility] Last Admin: 05/10/18 08:22 Dose: 40 mg Fluticasone Propionate (Flonase) 1 - 2 gm NASBOTH DAILY PRN PRN Reason: sinus congestion Furosemide (Lasix) 20 mg PO DAILY [facility] Last Admin: 05/10/18 08:22 Dose: 20 mg Gabapentin (Neurontin) 300 mg PO ASDIRECTED PRN PRN Reason: Pain Hydromorphone HCl (Dilaudid) 0.5 - 1 mg IVPUSH Q3H PRN PRN Reason: Pain Last Admin: 05/09/18 12:28 Dose: 1 mg Lactated Ringer's (Ringers, Lactated) 1,000 mls @ 125 mls/hr IV ASDIRECTED [facility] Last Admin: 05/10/18 04:43 Dose: 125 mls/hr Cefazolin Sodium/Dextrose 2 gm (/ Premix) 50 mls @ 50 mls/hr IV ONETIME [facility] Levothyroxine Sodium (Levothyroxine) 112 mcg PO ACBREAKFAST [facility] Last Admin: 05/11/18 06:44 Dose: 112 mcg Levothyroxine Sodium (Levothyroxine) 25 mcg PO ACBREAKFAST [facility] Last Admin: 05/11/18 06:44 Dose: 25 mcg Magnesium Oxide (Magnesium Oxide) 800 mg PO BID [facility] Last Admin: 05/10/18 20:11 Dose: 800 mg Omeprazole (Omeprazole) 20 mg PO ACBREAKFAST [facility] Last Admin: 05/11/18 06:44 Dose: 20 mg Ondansetron HCl (Zofran) 4 mg IV Q6HR PRN PRN Reason: NAUSEA/VOMITING Selegiline [Eldepryl (] 5 Mg) 1 each PO DAILY [facility] Last Admin: 05/10/18 08:27 Dose: Not Given Potassium Chloride (Klor-Con 10) 10 meq PO DAILY [facility] Last Admin: 05/10/18 08:22 Dose: 10 meq Sodium Chloride (Saline Flush) 10 ml FLUSH ASDIRECTED PRN PRN Reason: Keep Vein Open Sodium Chloride (Saline Flush) 2.5 ml FLUSH ASDIRECTED PRN PRN Reason: Keep Vein Open Tramadol HCl (Ultram) 50 - 100 mg PO Q6H PRN PRN Reason: Pain Last Admin: 05/09/18 13:34 Dose: 100 mg Discontinued Medications Carbidopa/Levodopa (Sinemet Cr 25-100 Mg) 2 tab PO BID [facility] Last Admin: 05/10/18 08:23 Dose: 2 tab Cefazolin Sodium/Dextrose (Ancef) Confirm Administered Dose 2 gm IV .STK-MED ONE Stop: 05/09/18 07:13 Ephedrine Sulfate (Ephedrine Sulfate) Confirm Administered Dose 50 mg .ROUTE .STK-MED ONE Stop: 05/09/18 07:13 Fentanyl (Sublimaze) Confirm Administered Dose 250 mcg .ROUTE .STK-MED ONE Stop: 05/09/18 07:12 Fentanyl (Sublimaze) Confirm Administered Dose 250 mcg .ROUTE .STK-MED ONE Stop: 05/09/18 09:36 Fentanyl (Sublimaze) 50 mcg IVPUSH Q5M PRN PRN Reason: Pain (severe 7-10) Stop: 05/10/18 10:45 Cefazolin Sodium/Dextrose 2 gm (/ Premix) 50 mls @ 100 mls/hr IV Q8H [facility] Stop: 05/10/18 00:29 Last Admin: 05/10/18 00:29 Dose: 100 mls/hr Lactated Ringer's (Ringers, Lactated) 1,000 mls @ 999 mls/hr IV .BOLUS ONE Stop: 05/09/18 19:25 Last Admin: 05/09/18 18:33 Dose: 999 mls/hr Ketorolac Tromethamine (Toradol) 30 mg IVPUSH Q6H PRN PRN Reason: Pain Stop: 05/10/18 05:00 Last Admin: 05/09/18 18:33 Dose: 30 mg Lidocaine (Xylocaine-Mpf 2%) Confirm Administered Dose 5 ml .ROUTE .STK-MED ONE Stop: 05/09/18 07:12 Midazolam HCl (Versed 1 Mg/Ml) Confirm Administered Dose 2 mg .ROUTE .STK-MED ONE Stop: 05/09/18 07:12 Ondansetron HCl (Zofran) Confirm Administered Dose 4 mg .ROUTE .STK-MED ONE Stop: 05/09/18 10:22 Phenylephrine HCl (Star-Synephrine) Confirm Administered Dose 10 mg .ROUTE .STK- MED ONE Stop: 05/09/18 10:02 Propofol (Diprivan 20 Ml) Confirm Administered Dose 200 mg .ROUTE .STK-MED ONE Stop: 05/09/18 07:12 Rocuronium Juda (Zemuron) Confirm Administered Dose 100 mg .ROUTE .STK-MED ONE Stop: 05/09/18 09:22 Succinylcholine Chloride (Quelicin) Confirm Administered Dose 200 mg .ROUTE .STK -MED ONE Stop: 05/09/18 09:23 Tranexamic Acid (Cyklokapron) 2,000 mg IV ONETIME ONE Stop: 05/09/18 08:01 Last Admin: 05/09/18 12:02 Dose: Not Given Tranexamic Acid (Cyklokapron) Confirm Administered Dose 2,000 mg .ROUTE .STK- MED ONE Stop: 05/09/18 08:06
[2018-05-11] MEDS: Carbidopa/Levodopa 25-100 MG Tab PO SCH (07:19)
[2018-05-11] MEDS: Citalopram 20 MG Tab PO SCH (09:00)
[2018-05-11] MEDS: Furosemide 20 MG Tab PO SCH (09:00)
[2018-05-11] MEDS: Celecoxib 100 MG Cap PO SCH (09:00)
[2018-05-11] MEDS: Aspirin 325 MG Tab PO SCH (09:01)
[2018-05-11] MEDS: Magnesium Oxide 400 MG Tab PO SCH (09:01)
[2018-05-11] MEDS: Famotidine 20 MG Tab PO SCH (09:01)
[2018-05-11] MEDS: Docusate Sodium 100 MG Cap PO SCH (09:01)
[2018-05-11] MEDS: Potassium Chloride 10 MEQ Tab.ER PO SCH (09:01)
[2018-05-11] MEDS: SELEGILINE 5 MG PO SCH (09:03)
[2018-05-11 09:23] VITALS: BP 102/54
[2018-05-11] MEDS: Anastrozole 1 MG Tab PO SCH (09:25)
== END 2018-05-11 09:45 | disposition home or self-care (01) | DRG 470 ==
LOC: MW.MS 06:43
PROVIDERS: ADMIT Orthopaedic Surgery; ATTEND Orthopaedic Surgery
PROC: 0SRB0JZ Replacement of Left Hip Joint with Synthetic Substitute, Open Approach (ICD-10-PCS; principal; 2018-05-09)
DX: M16.12 Unilateral primary osteoarthritis, left hip (principal); D62 Acute posthemorrhagic anemia; D50.0 Iron deficiency anemia secondary to blood loss (chronic); K21.9 Gastro-esophageal reflux disease without esophagitis; E03.9 Hypothyroidism, unspecified; G20 Parkinson's disease; R13.10 Dysphagia, unspecified; R49.0 Dysphonia; F32.9 Major depressive disorder, single episode, unspecified; Z79.1 Long term (current) use of non-steroidal anti-inflammatories (NSAID); Z88.2 Allergy status to sulfonamides; Z88.8 Allergy status to other drugs, medicaments and biological substances; Z79.899 Other long term (current) drug therapy
CPT/HCPCS: 36415; 76000; 76000-26; 85014; 85018; 97110-GP; 97116-GP; 97161-GP; 97530-GP; A9270-GY; C1776; J0330; J0690; J1170; J1885; J2250; J2370; J2405; J2704; J3010; J7120

== ENCOUNTER 2018-11-20 10:32 | Inpatient (IN) | payer OTHER ==
--- NOTE | 2018-11-20 10:41 | EDM.PDOC ---
ED HPI GENERAL MEDICAL PROBLEM - General Stated Complaint: FELL Time Seen by Provider: 11/20/18 10:37 Source of Information: Reports: Patient History Limitations: Reports: No Limitations - History of Present Illness INITIAL COMMENTS - FREE TEXT/NARRATIVE: HISTORY AND PHYSICAL: History of present illness: Patient is a 58-year-old female presents to the ED today via EMS after a knee injury. Patient states she was at the chiropractor and tried to get off the table and tripped and fell and hit her right knee on the ground. Patient states she has a history of Parkinson's which is the reason why she had fallen. She rates her pain a 10 out of 10. She states the pain is worse when she tries to move her right knee. She states she has had a prior knee replacement on this knee in [address] Box. She states she is able to feel and was on her toes. Patient denies fever, chills, chest pain, shortness of breath, or cough. Denies headache, neck stiff ness, change in vision, syncope, or near syncope. She denies nausea, vomiting, abdominal pain, diarrhea, constipation, or dysuria. Has not noted any blood in urine or stool. Patient has been eating and drinking appropriately. Review of systems: As per history of present illness and below otherwise all systems reviewed and negative. Past medical history: As per history of present illness and as reviewed below otherwise noncontributory. Surgical history: As per history of present illness and as reviewed below otherwise noncontributory. Social history: See social history for further information Family history: As per history of present illness and as reviewed below otherwise noncontributory. Physical exam: General: Patient is alert, oriented, and in no acute distress. She is lying comfortably on exam table. HEENT: Atraumatic, normocephalic, pupils equal and reactive bilaterally, negative for conjunctival pallor or scleral icterus, mucous membranes moist, TMs normal bilaterally, throat clear, neck supple, nontender, trachea midline. No drooling or trismus noted. No meningeal signs. No hot potato voice noted. Lungs: Clear to auscultation, breath sounds equal bilaterally, chest nontender. Heart: S1S2, regular rate and rhythm without overt murmur Abdomen: Soft, nondistended, nontender. Negative for masses or hepatosplenomegaly. Negative for costovertebral tenderness. Pelvis: Stable nontender. Genitourinary: Deferred. Rectal: Deferred. Skin: Intact, warm, dry. No lesions or rashes noted. Extremities: Exam of knee is limited due to pain. Patient has severe pain with attempt of range of motion so unable to assess due to pain. No obvious deformities. Dorsalis pedis and posterior tibial pulses were heard with Doppler. Capillary refill less than 2 seconds bilaterally. Patient does have full range of motion of ankle and toes. Otherwise negative for cords or calf pain. Neurovascular unremarkable. Neuro: Awake, alert, oriented. Cranial nerves II through XII unremarkable. Cerebellum unremarkable. Motor and sensory unremarkable throughout. Exam nonfocal. Notes: Comminuted mildly displaced distal femur fracture just proximal to the femoral component of the total knee replacement. 1230: Dr Box was consulted on this patient; requesting patient to be admitted and she will see her on on the floor. Patient is aware of her fracture and agreeable to admission. She is kept comfortable and pulses were palpable after knee immobilizer on. Diagnostics: X-ray knee, hip x ray Therapeutics: Morphine, Zofran, knee immobilizer Impression: Displaced distal femur fracture Plan: 1. Admit inpatient Definitive disposition and diagnosis as appropriate pending reevaluation and review of above. Right KNee Pain Score (Numeric/FACES): 10 - Related Data Allergies Allergy/AdvReac Type Severity Reaction Status Date / Time phenazopyridine HCl Allergy Rash Verified 11/20/18 11:00 [From Pyridium] Sulfa (Sulfonamide Allergy Rash Verified 11/20/18 11:00 Antibiotics) Home Meds: Home Meds Anastrozole [Arimidex] 1 mg PO DAILY 01/14/16 [History] Citalopram Hydrobromide [Celexa] 40 mg PO DAILY 01/14/16 [History] Fluticasone Propionate [Flovent] 1 - 2 spray NASBOTH DAILY PRN 01/14/16 [History ] Furosemide 80 mg PO DAILY 01/14/16 [History] Levothyroxine Sodium 137 mcg PO DAILY 01/14/16 [History] Magnesium Oxide [Magnesium] 3 tab PO BID 01/14/16 [History] Potassium Chloride 10 meq PO DAILY 01/14/16 [History] Omeprazole 20 mg PO DAILY 12/22/16 [History] Selegiline [Eldepryl] 5 mg PO DAILY 12/26/16 [History] Carbidopa/Levodopa [Carbidopa-Levo ER 25-100] 2 tab PO 0700,1100,1500,1900 05/10 [History] Diclofenac Sodium [Voltaren] 75 mg PO BID 08/02/18 [History] traMADol [Ultram] 50 - 100 mg PO ASDIRECTED PRN 08/02/18 [History] Past Medical History HEENT History: Reports: Allergic Rhinitis Other HEENT History: wears glasses Cardiovascular History: Reports: None Respiratory History: Reports: None Gastrointestinal History: Reports: GERD Genitourinary History: Reports: None 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: Musculoskeletal History: Reports: Osteoarthritis Neurological History: Reports: Parkinson's Psychiatric History: Reports: Anxiety, Depression Endocrine/Metabolic History: Reports: Hypothyroidism, Obesity/BMI 30+ Hematologic History: Reports: Blood Transfusion(s) Immunologic History: Reports: None Oncologic (Cancer) History: Reports: Breast, Uterine Dermatologic History: Reports: None - Past Surgical History Musculoskeletal Surgical History: Reports: Hip Replacement, Knee Replacement Other Musculoskeletal Surgeries/Procedures:: giselle knee replacement, left hip replacement Other Oncologic Surgeries/Procedures: hysterectomy, lt mastectomy Social & Family History - Family History Family Medical History: Noncontributory - Caffeine Use Caffeine Use: Reports: None Review of Systems - Review of Systems Review Of Systems: ROS reveals no pertinent complaints other than HPI. ED EXAM, GENERAL - Physical Exam Exam: See Below (see dictation) Course - Vital Signs Last Recorded V/S: Last Vital Signs Temp Pulse 92 11/20/18 10:57 Resp 20 11/20/18 10:57 BP 114/68 11/20/18 10:57 Pulse Ox 92 L 11/20/18 10:57 - Orders/Labs/Meds Orders: Active Orders 24 hr Category Date Time Status Admission Status [Patient Status] [ADT] Stat ADT 11/20/18 12:32 Active Antiembolic Devices [RC] PER UNIT ROUTINE Care 11/20/18 12:37 Active Insert Mcdonald Catheter [Insert Urinary Catheter] [OM.PC] Care 11/20/18 13:00 Ordered Q24H Neurovascular Check [RC] Q4HR Care 11/20/18 12:35 Active Urinary Catheter Assessment [RC] ASDIRECTED Care 11/20/18 12:47 Active Vital Signs [RC] Q4H Care 11/20/18 12:35 Active NPO [Nothing Per Oral Diet] [DIET] Diet 11/21/18 Breakfast Active Regular Diet [DIET] Diet 11/20/18 Lunch Active Femur Min 2V Rt [CR] Stat Exams 11/20/18 12:46 Ordered Hip Min 2V or 3V w Pelvis Rt [CR] Stat Exams 11/20/18 11:08 Ordered CBC WITH AUTO DIFF [HEME] Routine Lab 11/20/18 12:48 Received TYPE AND SCREEN [BBK] Routine Lab 11/20/18 12:48 Received Acetaminophen/HYDROcodone [Canaan 325-10 MG] Med 11/20/18 12:36 Active 1 - 2 tab PO Q4H PRN Lactated Ringers [Ringers, Lactated] 1,000 ml Med 11/20/18 12:45 Active IV ASDIRECTED Morphine Med 11/20/18 12:36 Active 1 - 3 mg IVPUSH Q3H PRN Ondansetron [Zofran] Med 11/20/18 12:36 Active 4 mg IV Q8HR PRN Sodium Chloride 0.9% [Normal Saline] Med 11/20/18 12:36 Active 10 ml IV ASDIRECTED PRN Sodium Chloride 0.9% [Saline Flush] Med 11/20/18 12:28 Active 10 ml FLUSH ASDIRECTED PRN Sodium Chloride 0.9% [Saline Flush] Med 11/20/18 12:36 Active 10 ml FLUSH ASDIRECTED PRN Sodium Chloride 0.9% [Saline Flush] Med 11/20/18 12:28 Active 2.5 ml FLUSH ASDIRECTED PRN Sodium Chloride 0.9% [Saline Flush] Med 11/20/18 12:36 Active 2.5 ml FLUSH ASDIRECTED PRN ceFAZolin [Ancef] 2 gm Med 11/21/18 12:36 Active Premix Bag 1 bag IV ONETIME Ice Therapy [OM.PC] Routine Oth 11/20/18 12:35 Ordered Peripheral IV Insertion Adult [OM.PC] Urgent Oth 11/20/18 12:36 Ordered Saline Lock Insert [OM.PC] Stat Oth 11/20/18 12:28 Ordered Sequential Compression Device [OM.PC] Routine Oth 11/20/18 12:35 Ordered Medication Orders Hydrocodone Bitart/Acetaminophen (Canaan 325-10 Mg) 1 - 2 tab PO Q4H PRN PRN Reason: Pain Lactated Ringer's (Ringers, Lactated) 1,000 mls @ 125 mls/hr IV ASDIRECTED ISIDRA Last Admin: 11/20/18 12:49 Dose: 125 mls/hr Cefazolin Sodium/Dextrose 2 gm (/ Premix) 50 mls @ 100 mls/hr IV ONETIME ONE Stop: 11/21/18 13:05 Morphine Sulfate (Morphine) 1 - 3 mg IVPUSH Q3H PRN PRN Reason: Pain Ondansetron HCl (Zofran) 4 mg IV Q8HR PRN PRN Reason: NAUSEA/VOMITING Sodium Chloride (Saline Flush) 10 ml FLUSH ASDIRECTED PRN PRN Reason: Keep Vein Open Last Admin: 11/20/18 12:51 Dose: 10 ml Sodium Chloride (Saline Flush) 2.5 ml FLUSH ASDIRECTED PRN PRN Reason: Keep Vein Open Last Admin: 11/20/18 12:51 Dose: 2.5 ml Sodium Chloride (Saline Flush) 10 ml FLUSH ASDIRECTED PRN PRN Reason: Keep Vein Open Sodium Chloride (Saline Flush) 2.5 ml FLUSH ASDIRECTED PRN PRN Reason: Keep Vein Open Sodium Chloride (Normal Saline) 10 ml IV ASDIRECTED PRN PRN Reason: IV Use Meds: Medications Generic Name Dose Route Start Last Admin Trade Name Freq PRN Reason Stop Dose Admin Hydrocodone Bitart/Acetaminophen 1 - 2 tab 11/20/18 12:36 [place] 325-10 Mg PO Q4H PRN Pain Lactated Ringer's 1,000 mls @ 125 mls/hr 11/20/18 12:45 11/20/18 12:49 Ringers, Lactated IV 125 mls/hr ASDIRECTED ISIDRA Administration Cefazolin Sodium/Dextrose 2 gm 50 mls @ 100 mls/hr 11/21/18 12:36 / Premix IV 11/21/18 13:05 ONETIME ONE Morphine Sulfate 1 - 3 mg 11/20/18 12:36 Morphine IVPUSH Q3H PRN Pain Ondansetron HCl 4 mg 11/20/18 12:36 Zofran IV Q8HR PRN NAUSEA/VOMITING Sodium Chloride 10 ml 11/20/18 12:28 11/20/18 12:51 Saline Flush FLUSH 10 ml ASDIRECTED PRN Administration Keep Vein Open Sodium Chloride 2.5 ml 11/20/18 12:28 11/20/18 12:51 Saline Flush FLUSH 2.5 ml ASDIRECTED PRN Administration Keep Vein Open Sodium Chloride 10 ml 11/20/18 12:36 Saline Flush FLUSH ASDIRECTED PRN Keep Vein Open Sodium Chloride 2.5 ml 11/20/18 12:36 Saline Flush FLUSH ASDIRECTED PRN Keep Vein Open Sodium Chloride 10 ml 11/20/18 12:36 Normal Saline IV ASDIRECTED PRN IV Use Discontinued Medications Generic Name Dose Route Start Last Admin Trade Name Freq PRN Reason Stop Dose Admin Morphine Sulfate 4 mg 11/20/18 10:42 11/20/18 11:24 Morphine IM 11/20/18 10:43 4 mg ONETIME ONE Administration Morphine Sulfate 2 mg 11/20/18 12:28 11/20/18 13:01 Morphine IVPUSH 11/20/18 12:29 2 mg ONETIME ONE Administration Ondansetron HCl 4 mg 11/20/18 12:28 11/20/18 12:56 Zofran IVPUSH 11/20/18 12:29 4 mg ONETIME ONE Administration Departure - Departure Time of Disposition: 12:40 Disposition: Admitted As Inpatient 65 Clinical Impression: Femur fracture, right Qualifiers: Encounter type: initial encounter Femur location: distal Fracture type: closed Fracture morphology: other fracture Qualified Code(s): S72.491A - Other fracture of lower end of right femur, initial encounter for closed fracture - Discharge Information Referrals: PCP,Unknown [Primary Care Provider] - - My Orders Last 24 Hours: My Active Orders 11/20/18 11:08 Hip Min 2V or 3V w Pelvis Rt [CR] Stat 11/20/18 12:28 Sodium Chloride 0.9% [Saline Flush] 10 ml FLUSH ASDIRECTED PRN Sodium Chloride 0.9% [Saline Flush] 2.5 ml FLUSH ASDIRECTED PRN Saline Lock Insert [OM.PC] Stat 11/20/18 12:32 Admission Status [Patient Status] [ADT] Stat - Assessment/Plan Last 24 Hours: My Active Orders 11/20/18 11:08 Hip Min 2V or 3V w Pelvis Rt [CR] Stat 11/20/18 12:28 Sodium Chloride 0.9% [Saline Flush] 10 ml FLUSH ASDIRECTED PRN Sodium Chloride 0.9% [Saline Flush] 2.5 ml FLUSH ASDIRECTED PRN Saline Lock Insert [OM.PC] Stat 11/20/18 12:32 Admission Status [Patient Status] [ADT] Stat
[2018-11-20] MEDS ORDERED: Morphine 4 MG/ML Syringe IM ONE (10:42)
[2018-11-20] MEDS ORDERED: Sodium Chloride 0.9% 2.5 ML Syringe FLUSH PRN ×2 (12:28→12:36)
[2018-11-20] MEDS ORDERED: Morphine 2 MG/ML Syringe IVPUSH ONE (12:28)
[2018-11-20] MEDS ORDERED: Ondansetron 4 MG/2 ML SDV IVPUSH ONE (12:28)
[2018-11-20] MEDS ORDERED: Sodium Chloride 0.9% 10 ML Syringe FLUSH PRN ×2 (12:28→12:36)
--- NOTE | 2018-11-20 12:30 | CR ---
EXAMINATION: Right knee HISTORY: Pain COMPARISON: 07/24/2018 TECHNIQUE: 3 views FINDINGS/IMPRESSION: There is a comminuted mildly displaced distal femoral fracture noted just proximal to the femoral component of the total knee hardware. There is a moderate suprapatellar joint effusion. Remaining osseous structures otherwise appear intact.
[2018-11-20] MEDS ORDERED: Ondansetron 4 MG/2 ML SDV IV PRN (12:36)
[2018-11-20] MEDS ORDERED: Sodium Chloride 0.9% 10 ML SDV IV PRN (12:36)
[2018-11-20] MEDS: Lactated Ringers 1,000 ML IV SCH ×2 (12:49→21:26)
--- NOTE | 2018-11-20 14:15 | CR ---
EXAMINATION: Pelvis, right hip, and right femur HISTORY: Fracture COMPARISON: 05/22/2018 TECHNIQUE: AP pelvis, 2 views of the right hip, 2 views of the right femur FINDINGS: Left total hip hardware is noted. Right hip appears intact with a coxa valga appearance. Mild subchondral sclerosis within the acetabulum. SI joints and iliopectineal lines are intact. Bowel gas obscures evaluation of the sacrum. Again noted is a comminuted mildly displaced distal femur fracture. The remainder of the femur appears intact. IMPRESSION: 1. Comminuted distal femoral fracture again noted. 2. Otherwise visualized osseous structures appear intact.
--- NOTE | 2018-11-20 16:41 | PCM.HP ---
<Janice Scott R - Last Filed: 11/20/18 16:36> H&P History of Present Illness - General Date of Service: 11/20/18 Admit Problem/Dx: Admission Diagnosis/Problem Admission Diagnosis/Problem Fracture of distal femur Source of Information: Patient History Limitations: Reports: No Limitations - History of Present Illness Initial Comments - Free Text/Narative: Patient is 58-year-old female who sustained a fall earlier today in her chiropractor's office. She landed directly on her right knee. She complained of immediate pain and inability to get herself up off the floor. Emergency medical services were eventually call. She was brought to the emergency room via ambulance. X-rays done in the emergency department revealed a right distal femur periprosthetic fracture. She is previously undergone right total knee arthroplasty [address] Joanie Box had been doing well. Her past medical history significant for Parkinson's, which is why the patient feels she sustained the fall. She feels her pain is fairly well-controlled. She reports a DEXA scan in the last year which showed worsening bone density, she was started on a weekly medication (cannot recall the name) but has not been faithful about taking this. She denies distal paralysis or paresthesias. Right KNee Pain Score (Numeric/FACES): 6 - Related Data Allergies/Adverse Reactions: Allergies Allergy/AdvReac Type Severity Reaction Status Date / Time phenazopyridine HCl Allergy Rash Verified 11/20/18 11:00 [From Pyridium] Sulfa (Sulfonamide Allergy Rash Verified 11/20/18 11:00 Antibiotics) Home Medications: Home Meds Anastrozole [Arimidex] 1 mg PO DAILY 01/14/16 [History] Citalopram Hydrobromide [Celexa] 40 mg PO DAILY 01/14/16 [History] Fluticasone Propionate [Flovent] 1 - 2 spray NASBOTH DAILY PRN 01/14/16 [History ] Furosemide 20 mg PO DAILY 01/14/16 [History] Levothyroxine Sodium 137 mcg PO ACBREAKFAST 01/14/16 [History] Magnesium Oxide [Magnesium] 400 mg PO BID 01/14/16 [History] Potassium Chloride 10 meq PO TID 01/14/16 [History] Omeprazole 40 mg PO ACBREAKFAST 12/22/16 [History] Carbidopa/Levodopa [Carbidopa-Levo ER 25-100] 2 tab PO 0700,1100,1500,1900 05/10 [History] Diclofenac Sodium [Voltaren] 75 mg PO BID 08/02/18 [History] traMADol [Ultram] 50 - 100 mg PO Q6H PRN 08/02/18 [History] Past Medical History HEENT History: Reports: Allergic Rhinitis Other HEENT History: wears glasses Cardiovascular History: Reports: None Respiratory History: Reports: None Gastrointestinal History: Reports: GERD Genitourinary History: Reports: None [employer]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: Musculoskeletal History: Reports: Osteoarthritis Neurological History: Reports: Parkinson's Psychiatric History: Reports: Anxiety, Depression Endocrine/Metabolic History: Reports: Hypothyroidism, Obesity/BMI 30+ Hematologic History: Reports: Blood Transfusion(s) Immunologic History: Reports: None Oncologic (Cancer) History: Reports: Breast, Uterine Dermatologic History: Reports: None - Infectious Disease History Infectious Disease History: Reports: None - Past Surgical History Musculoskeletal Surgical History: Reports: Hip Replacement, Knee Replacement Other Musculoskeletal Surgeries/Procedures:: giselle knee replacement, left hip replacement Other Oncologic Surgeries/Procedures: hysterectomy, lt mastectomy Social & Family History - Family History Family Medical History: Noncontributory - Tobacco Use Smoking Status *Q: Never Smoker Used Tobacco, but Quit: No Second Hand Smoke Exposure: No - Caffeine Use Caffeine Use: Reports: Soda - Recreational Drug Use Recreational Drug Use: No H&P Review of Systems - Review of Systems: Review Of Systems: ROS reveals no pertinent complaints other than HPI. General: Reports: No Symptoms HEENT: Reports: No Symptoms Pulmonary: Reports: No Symptoms Cardiovascular: Reports: No Symptoms Gastrointestinal: Reports: No Symptoms Genitourinary: Reports: No Symptoms Musculoskeletal: Reports: Leg Pain Exam - Exam Exam: See Below - Vital Signs Vital Signs: Last Vital Signs Temp 96.8 F 11/20/18 14:50 Pulse 101 H 11/20/18 14:50 Resp 18 11/20/18 14:50 BP 117/65 11/20/18 14:50 Pulse Ox 94 L 11/20/18 14:50 Weight: 128.423 kg - Exam General: Alert, Oriented Neck: Supple Lungs: Normal Respiratory Effort Cardiovascular: Regular Rate, Regular Rhythm Extremities: Other (Exam of RLE reveals knee immobilizer in place, in slightly externally rotated position. able to dorsiflex and plantarflex. at/ehl/gastroc 5 /5, dp2+, sensation intact distally. ) - Patient Data Lab Results Last 24 hrs: Laboratory Results - last 24 hr 11/20/18 11/20/18 Range/Units 12:48 12:48 WBC 10.70 (4.0-11.0) K/uL RBC 3.76 L (4.30-5.90) M/uL Hgb 8.8 L (12.0-16.0) g/dL Hct 29.8 L (36.0-46.0) % MCV 79.3 L (80.0-98.0) fL MCH 23.4 L (27.0-32.0) pg MCHC 29.5 L (31.0-37.0) g/dL RDW Std Deviation 54.0 (28.0-62.0) fl RDW Coeff of Luz 19 H (11.0-15.0) % Plt Count 218 (150-400) K/uL MPV 9.20 (7.40-12.00) fL Neut % (Auto) 82.3 H (48.0-80.0) % Lymph % (Auto) 11.4 L (16.0-40.0) % [place] % (Auto) 5.0 (0.0-15.0) % Eos % (Auto) 1.2 (0.0-7.0) % Baso % (Auto) 0.1 (0.0-1.5) % Neut # (Auto) 8.8 H (1.4-5.7) K/uL Lymph # (Auto) 1.2 (0.6-2.4) K/uL [place] # (Auto) 0.5 (0.0-0.8) K/uL Eos # (Auto) 0.1 (0.0-0.7) K/uL Baso # (Auto) 0.0 (0.0-0.1) K/uL Nucleated RBC % 0.0 /100WBC Nucleated RBCs # 0 K/uL Blood Type O POSITIVE Antibody Screen NEGATIVE Crossmatch See Detail Result Diagrams: 11/20/18 12:48 Imaging Impressions Last 24 hrs: X-rays of the right hip, right femur, right knee done today in the emergency department revealed a comminuted, displaced periprosthetic distal femur fracture. Problem List Initiated/Reviewed/Updated: Yes Orders Last 24hrs: Active Orders 24 hr Category Date Time Status Admission Status [Patient Status] [ADT] Stat ADT 11/20/18 12:32 Active Antiembolic Devices [RC] PER UNIT ROUTINE Care 11/20/18 12:37 Active EKG Documentation Completion [RC] STAT Care 11/20/18 16:25 Active Insert Belcher Catheter [Insert Urinary Catheter] [OM.PC] Care 11/20/18 13:00 Ordered Q24H Neurovascular Check [RC] Q4HR Care 11/20/18 12:35 Active Urinary Catheter Assessment [RC] ASDIRECTED Care 11/20/18 12:47 Active Vital Signs [RC] Q4H Care 11/20/18 12:35 Active NPO [Nothing Per Oral Diet] [DIET] Diet 11/21/18 Breakfast Active Regular Diet [DIET] Diet 11/20/18 Lunch Active BASIC METABOLIC PANEL,BMP [CHEM] Urgent Lab 11/20/18 16:24 Ordered RED BLOOD CELLS LP [BBK] Stat Lab 11/20/18 12:48 Results TYPE AND SCREEN [BBK] Routine Lab 11/20/18 12:48 Results Acetaminophen/HYDROcodone [[place] 325-10 MG] Med 11/20/18 12:36 Active 1 - 2 tab PO Q4H PRN Lactated Ringers [Ringers, Lactated] 1,000 ml Med 11/20/18 12:45 Active IV ASDIRECTED Morphine Med 11/20/18 12:36 Active 1 - 3 mg IVPUSH Q3H PRN Ondansetron [Zofran] Med 11/20/18 12:36 Active 4 mg IV Q8HR PRN Sodium Chloride 0.9% [Normal Saline] Med 11/20/18 12:36 Active 10 ml IV ASDIRECTED PRN Sodium Chloride 0.9% [Saline Flush] Med 11/20/18 12:28 Active 10 ml FLUSH ASDIRECTED PRN Sodium Chloride 0.9% [Saline Flush] Med 11/20/18 12:36 Active 10 ml FLUSH ASDIRECTED PRN Sodium Chloride 0.9% [Saline Flush] Med 11/20/18 12:28 Active 2.5 ml FLUSH ASDIRECTED PRN Sodium Chloride 0.9% [Saline Flush] Med 11/20/18 12:36 Active 2.5 ml FLUSH ASDIRECTED PRN ceFAZolin [Ancef] 2 gm Med 11/21/18 12:36 Active Premix Bag 1 bag IV ONETIME Ice Therapy [OM.PC] Routine Oth 11/20/18 12:35 Ordered Peripheral IV Insertion Adult [OM.PC] Urgent Oth 11/20/18 12:36 Ordered Saline Lock Insert [OM.PC] Stat Oth 11/20/18 12:28 Ordered Sequential Compression Device [OM.PC] Routine Oth 11/20/18 12:35 Ordered Medication Orders Hydrocodone Bitart/Acetaminophen ([place] 325-10 Mg) 1 - 2 tab PO Q4H PRN PRN Reason: Pain Lactated Ringer's (Ringers, Lactated) 1,000 mls @ 125 mls/hr IV ASDIRECTED ISIDRA Last Admin: 11/20/18 12:49 Dose: 125 mls/hr Cefazolin Sodium/Dextrose 2 gm (/ Premix) 50 mls @ 100 mls/hr IV ONETIME ONE Stop: 11/21/18 13:05 Morphine Sulfate (Morphine) 1 - 3 mg IVPUSH Q3H PRN PRN Reason: Pain Ondansetron HCl (Zofran) 4 mg IV Q8HR PRN PRN Reason: NAUSEA/VOMITING Sodium Chloride (Saline Flush) 10 ml FLUSH ASDIRECTED PRN PRN Reason: Keep Vein Open Last Admin: 11/20/18 12:51 Dose: 10 ml Sodium Chloride (Saline Flush) 2.5 ml FLUSH ASDIRECTED PRN PRN Reason: Keep Vein Open Last Admin: 11/20/18 12:51 Dose: 2.5 ml Sodium Chloride (Saline Flush) 10 ml FLUSH ASDIRECTED PRN PRN Reason: Keep Vein Open Sodium Chloride (Saline Flush) 2.5 ml FLUSH ASDIRECTED PRN PRN Reason: Keep Vein Open Sodium Chloride (Normal Saline) 10 ml IV ASDIRECTED PRN PRN Reason: IV Use Assessment/Plan Comment:: A: R distal femur periprosthetic femur fracture P: regular diet tonight NPO at midnight for surgery tomorrow planning ORIF R periprosthetic distal femur fracture abx collection correspondent to OR tomorrow belcher catheter - unable to tolerate bed pain bed rest immobilizer to R knee for comfort Dr. Box will see patient this evening <Joanie Box R - Last Filed: 11/20/18 17:34> H&P History of Present Illness - General Admit Problem/Dx: Admission Diagnosis/Problem Admission Diagnosis/Problem Fracture of distal femur Exam - Vital Signs Vital Signs: Last Vital Signs Temp 96.8 F 11/20/18 14:50 Pulse 101 H 11/20/18 14:50 Resp 18 11/20/18 14:50 BP 117/65 11/20/18 14:50 Pulse Ox 94 L 11/20/18 14:50 - Patient Data Lab Results Last 24 hrs: Laboratory Results - last 24 hr 11/20/18 11/20/18 Range/Units 12:48 12:48 WBC 10.70 (4.0-11.0) K/uL RBC 3.76 L (4.30-5.90) M/uL Hgb 8.8 L (12.0-16.0) g/dL Hct 29.8 L (36.0-46.0) % MCV 79.3 L (80.0-98.0) fL MCH 23.4 L (27.0-32.0) pg MCHC 29.5 L (31.0-37.0) g/dL RDW Std Deviation 54.0 (28.0-62.0) fl RDW Coeff of Luz 19 H (11.0-15.0) % Plt Count 218 (150-400) K/uL MPV 9.20 (7.40-12.00) fL Neut % (Auto) 82.3 H (48.0-80.0) % Lymph % (Auto) 11.4 L (16.0-40.0) % [place] % (Auto) 5.0 (0.0-15.0) % Eos % (Auto) 1.2 (0.0-7.0) % Baso % (Auto) 0.1 (0.0-1.5) % Neut # (Auto) 8.8 H (1.4-5.7) K/uL Lymph # (Auto) 1.2 (0.6-2.4) K/uL [place] # (Auto) 0.5 (0.0-0.8) K/uL Eos # (Auto) 0.1 (0.0-0.7) K/uL Baso # (Auto) 0.0 (0.0-0.1) K/uL Nucleated RBC % 0.0 /100WBC Nucleated RBCs # 0 K/uL Blood Type O POSITIVE Antibody Screen NEGATIVE Crossmatch See Detail Result Diagrams: 11/20/18 12:48 Orders Last 24hrs: Active Orders 24 hr Category Date Time Status Admission Status [Patient Status] [ADT] Stat ADT 11/20/18 12:32 Active Antiembolic Devices [RC] PER UNIT ROUTINE Care 11/20/18 12:37 Active EKG Documentation Completion [RC] STAT Care 11/20/18 16:25 Active Insert Belcher Catheter [Insert Urinary Catheter] [OM.PC] Care 11/20/18 13:00 Ordered Q24H Neurovascular Check [RC] Q4HR Care 11/20/18 12:35 Active Urinary Catheter Assessment [RC] ASDIRECTED Care 11/20/18 12:47 Active Vital Signs [RC] Q4H Care 11/20/18 12:35 Active NPO [Nothing Per Oral Diet] [DIET] Diet 11/21/18 Breakfast Active Regular Diet [DIET] Diet 11/20/18 Dinner Active Regular Diet [DIET] Diet 11/20/18 Lunch Active BASIC METABOLIC PANEL,BMP [CHEM] Urgent Lab 11/20/18 17:06 Received RED BLOOD CELLS LP [BBK] Stat Lab 11/20/18 12:48 Results TYPE AND SCREEN [BBK] Routine Lab 11/20/18 12:48 Results Acetaminophen/HYDROcodone [[place] 325-10 MG] Med 11/20/18 12:36 Active 1 - 2 tab PO Q4H PRN Anastrozole [Arimidex] Med 11/21/18 09:00 Active 1 mg PO DAILY Carbidopa/Levodopa [Sinemet Cr 25-100 mg] Med 11/20/18 19:00 Active 2 tab PO 0700,1100,1500,1900 Citalopram [Celexa] Med 11/21/18 09:00 Active 40 mg PO DAILY Fluticasone Propionate [Flonase] Med 11/20/18 16:48 Active 1 - 2 gm NASBOTH DAILY PRN Furosemide [Lasix] Med 11/21/18 09:00 Active 20 mg PO DAILY Lactated Ringers [Ringers, Lactated] 1,000 ml Med 11/20/18 12:45 Active IV ASDIRECTED Levothyroxine Med 11/21/18 07:30 Active 112 mcg PO ACBREAKFAST Levothyroxine Med 11/21/18 07:30 Active 25 mcg PO ACBREAKFAST Magnesium Oxide Med 11/20/18 21:00 Active 400 mg PO BID Morphine Med 11/20/18 12:36 Active 1 - 3 mg IVPUSH Q3H PRN Omeprazole Med 11/21/18 07:30 Active 40 mg PO ACBREAKFAST Ondansetron [Zofran] Med 11/20/18 12:36 Active 4 mg IV Q8HR PRN Potassium Chloride [Klor-Con 10] Med 11/20/18 22:00 Active 10 meq PO TID Sodium Chloride 0.9% [Normal Saline] Med 11/20/18 12:36 Active 10 ml IV ASDIRECTED PRN Sodium Chloride 0.9% [Saline Flush] Med 11/20/18 12:28 Active 10 ml FLUSH ASDIRECTED PRN Sodium Chloride 0.9% [Saline Flush] Med 11/20/18 12:36 Active 10 ml FLUSH ASDIRECTED PRN Sodium Chloride 0.9% [Saline Flush] Med 11/20/18 12:28 Active 2.5 ml FLUSH ASDIRECTED PRN Sodium Chloride 0.9% [Saline Flush] Med 11/20/18 12:36 Active 2.5 ml FLUSH ASDIRECTED PRN ceFAZolin [Ancef] 2 gm Med 11/21/18 12:36 Active Premix Bag 1 bag IV ONETIME traMADol [Ultram] Med 11/20/18 16:48 Active 50 - 100 mg PO Q6H PRN Ice Therapy [OM.PC] Routine Oth 11/20/18 12:35 Ordered Peripheral IV Insertion Adult [OM.PC] Urgent Oth 11/20/18 12:36 Ordered Saline Lock Insert [OM.PC] Stat Oth 11/20/18 12:28 Ordered Sequential Compression Device [OM.PC] Routine Oth 11/20/18 12:35 Ordered Medication Orders Hydrocodone Bitart/Acetaminophen ([place] 325-10 Mg) 1 - 2 tab PO Q4H PRN PRN Reason: Pain Anastrozole (Arimidex) 1 mg PO DAILY [facility]IDRA Carbidopa/Levodopa (Sinemet Cr 25-100 Mg) 2 tab PO 0700,1100,1500,1900 [facility] Citalopram Hydrobromide (Celexa) 40 mg PO DAILY [facility] Fluticasone Propionate (Flonase) 1 - 2 gm NASBOTH DAILY PRN PRN Reason: sinus congestion Furosemide (Lasix) 20 mg PO DAILY [facility] Lactated Ringer's (Ringers, Lactated) 1,000 mls @ 125 mls/hr IV ASDIRECTED ISIDRA Last Admin: 11/20/18 12:49 Dose: 125 mls/hr Cefazolin Sodium/Dextrose 2 gm (/ Premix) 50 mls @ 100 mls/hr IV ONETIME ONE Stop: 11/21/18 13:05 Levothyroxine Sodium (Levothyroxine) 112 mcg PO ACBREAKFAST [facility] Levothyroxine Sodium (Levothyroxine) 25 mcg PO ACBREAKFAST [facility] Magnesium Oxide (Magnesium Oxide) 400 mg PO BID [facility] Morphine Sulfate (Morphine) 1 - 3 mg IVPUSH Q3H PRN PRN Reason: Pain Last Admin: 11/20/18 17:17 Dose: 3 mg Omeprazole (Omeprazole) 40 mg PO ACBREAKFAST [facility] Ondansetron HCl (Zofran) 4 mg IV Q8HR PRN PRN Reason: NAUSEA/VOMITING Potassium Chloride (Klor-Con 10) 10 meq PO TID [facility] Sodium Chloride (Saline Flush) 10 ml FLUSH ASDIRECTED PRN PRN Reason: Keep Vein Open Last Admin: 11/20/18 12:51 Dose: 10 ml Sodium Chloride (Saline Flush) 2.5 ml FLUSH ASDIRECTED PRN PRN Reason: Keep Vein Open Last Admin: 11/20/18 12:51 Dose: 2.5 ml Sodium Chloride (Saline Flush) 10 ml FLUSH ASDIRECTED PRN PRN Reason: Keep Vein Open Sodium Chloride (Saline Flush) 2.5 ml FLUSH ASDIRECTED PRN PRN Reason: Keep Vein Open Sodium Chloride (Normal Saline) 10 ml IV ASDIRECTED PRN PRN Reason: IV Use Tramadol HCl (Ultram) 50 - 100 mg PO Q6H PRN PRN Reason: Pain Assessment/Plan Comment:: 1730 Patient seen and examined. Agree with the above note. X-rays were reviewed. This does show a fracture of the distal femur above a prior total knee arthroplasty. The total knee arthroplasty components appear to be well fixed. X- rays of the femur show no other findings. At this time I'm recommending that she undergo open reduction internal fixation of the right periprosthetic distal femur fracture. The procedure along with postoperative course was discussed. Risks of the procedure were discussed which include, but are not limited to, infection, neurovascular injury, stiffness, continued pain, blood clots, need for future surgery, need for blood transfusion, and anesthetic complications. Patient seems to understand these risks and would like to proceed with surgery. Will plan on scheduling it tomorrow. [facility]
[2018-11-20] MEDS ORDERED: Fluticasone Propionate Nasal Spray 16 GM Bottle NASBOTH PRN (16:48)
[2018-11-20] MEDS: Morphine 10 MG/ML Syringe IVPUSH PRN (17:17)
[2018-11-20 17:39] LABS: CHLORIDE,CL 108 mmol/L (98-107); SODIUM,NA 144 mmol/L (136-145)
--- NOTE | 2018-11-20 18:45 | PCM.PREANE ---
Preanesthetic Assessment - Anesthesia/Transfusion/Family Hx Anesthesia History: Prior Anesthesia Without Reaction Other Type of Anesthesia Reaction Comment: Denies any known problem in past, no known family hx: problems Family History of Anesthesia Reaction: No Transfusion History: Prior Transfusion Without Reaction Intubation History: Unknown - Review of Systems General: No Symptoms Pulmonary: No Symptoms Cardiovascular: No Symptoms Gastrointestinal: No Symptoms Neurological: No Symptoms Other: Reports: None - Physical Assessment NPO Status Date: 11/20/18 NPO Status Time: 23:59 O2 Sat by Pulse Oximetry: 94 Respiratory Rate: 18 Vital Signs: Last Vital Signs Temp 96.8 F 11/20/18 14:50 Pulse 101 H 11/20/18 14:50 Resp 18 11/20/18 14:50 BP 117/65 11/20/18 14:50 Pulse Ox 94 L 11/20/18 14:50 Height: 5 ft 8.5 in Weight: 128.423 kg ASA Class: 3 Mental Status: Alert & Oriented x3 Airway Class: Mallampati = 4 Dentition: Reports: Normal Dentition Thyro-Mental Finger Breadths: 3 Mouth Opening Finger Breadths: 3 ROM/Head Extension: Limited/Partial Lungs: Clear to Auscultation, Normal Respiratory Effort, Decreased Breath Sounds Cardiovascular: Regular Rhythm, Tachycardia - Lab Values: Laboratory Last Values WBC 10.70 K/uL (4.0-11.0) 11/20/18 12:48 RBC 3.76 M/uL (4.30-5.90) L 11/20/18 12:48 Hgb 8.8 g/dL (12.0-16.0) L 11/20/18 12:48 Hct 29.8 % (36.0-46.0) L 11/20/18 12:48 MCV 79.3 fL (80.0-98.0) L 11/20/18 12:48 MCH 23.4 pg (27.0-32.0) L 11/20/18 12:48 MCHC 29.5 g/dL (31.0-37.0) L 11/20/18 12:48 RDW Std Deviation 54.0 fl (28.0-62.0) 11/20/18 12:48 RDW Coeff of Luz 19 % (11.0-15.0) H 11/20/18 12:48 Plt Count 218 K/uL (150-400) 11/20/18 12:48 MPV 9.20 fL (7.40-12.00) 11/20/18 12:48 Neut % (Auto) 82.3 % (48.0-80.0) H 11/20/18 12:48 Lymph % (Auto) 11.4 % (16.0-40.0) L 11/20/18 12:48 [place] % (Auto) 5.0 % (0.0-15.0) 11/20/18 12:48 Eos % (Auto) 1.2 % (0.0-7.0) 11/20/18 12:48 Baso % (Auto) 0.1 % (0.0-1.5) 11/20/18 12:48 Neut # (Auto) 8.8 K/uL (1.4-5.7) H 11/20/18 12:48 Lymph # (Auto) 1.2 K/uL (0.6-2.4) 11/20/18 12:48 [place] # (Auto) 0.5 K/uL (0.0-0.8) 11/20/18 12:48 Eos # (Auto) 0.1 K/uL (0.0-0.7) 11/20/18 12:48 Baso # (Auto) 0.0 K/uL (0.0-0.1) 11/20/18 12:48 Nucleated RBC % 0.0 /100WBC 11/20/18 12:48 Nucleated RBCs # 0 K/uL 11/20/18 12:48 Sodium 144 mmol/L (136-145) 11/20/18 17:06 Potassium 3.7 mmol/L (3.5-5.1) 11/20/18 17:06 Chloride 108 mmol/L (98-107) H 11/20/18 17:06 Carbon Dioxide 27.9 mmol/L (21.0-32.0) 11/20/18 17:06 BUN 11 mg/dL (7.0-18.0) 11/20/18 17:06 Creatinine 0.8 mg/dL (0.6-1.0) 11/20/18 17:06 Est Cr Clr Drug Dosing 77.75 mL/min 11/20/18 17:06 Estimated GFR (MDRD) > 60.0 ml/min 11/20/18 17:06 Glucose 110 mg/dL (74-106) H 11/20/18 17:06 Calcium 7.8 mg/dL (8.5-10.1) L 11/20/18 17:06 Blood Type O POSITIVE 11/20/18 12:48 Antibody Screen NEGATIVE 11/20/18 12:48 Crossmatch See Detail 11/20/18 12:48 - Allergies Allergies/Adverse Reactions: Allergies Allergy/AdvReac Type Severity Reaction Status Date / Time phenazopyridine HCl Allergy Rash Verified 11/20/18 11:00 [From Pyridium] Sulfa (Sulfonamide Allergy Rash Verified 11/20/18 11:00 Antibiotics) - Anesthesia Plan Free Text/Narrative:: After reviewing the NDMAN data from [facility]: The patient HgB over the last couple of years tends to run in the 11 range. 2014 Echo - shows EF 57% with no significant valvular disease at that time. 10/09/18 - The patient was seen by Dr Diego for worsening dysphagia. Pt was treated for sinus infection and referred for a speech pathology consult. The patient should probably have a speech path consult while she is here as well. The patient was type and crossed for 2 units PRBC, the patient agrees to transfusion if needed. CBC, BMP, and Mag are ordered for the AM before surgery. Medicine consult is also pending at this time. 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: Musculoskeletal History: Reports: Osteoarthritis Neurological History: Reports: Parkinson's Psychiatric History: Reports: Anxiety, Depression Endocrine/Metabolic History: Reports: Hypothyroidism, Obesity/BMI 30+ Hematologic History: Reports: Anemia (Acute on chronic), Blood Transfusion(s) Immunologic History: Reports: None Oncologic (Cancer) History: Reports: Breast, Uterine Dermatologic History: Reports: None - Infectious Disease History Infectious Disease History: Reports: None - Past Surgical History Musculoskeletal Surgical History: Reports: Hip Replacement, Knee Replacement Other Musculoskeletal Surgeries/Procedures:: giselle knee replacement, left hip replacement Other Oncologic Surgeries/Procedures: hysterectomy, lt mastectomy - SUBSTANCE USE Smoking Status *Q: Never Smoker Second Hand Smoke Exposure: No Recreational Drug Use History: No - HOME MEDS Home Medications: Home Meds Anastrozole [Arimidex] 1 mg PO DAILY 01/14/16 [History] Citalopram Hydrobromide [Celexa] 40 mg PO DAILY 01/14/16 [History] Fluticasone Propionate [Flovent] 1 - 2 spray NASBOTH DAILY PRN 01/14/16 [History ] Furosemide 20 mg PO DAILY 01/14/16 [History] Levothyroxine Sodium 137 mcg PO ACBREAKFAST 01/14/16 [History] Magnesium Oxide [Magnesium] 400 mg PO BID 01/14/16 [History] Potassium Chloride 10 meq PO TID 01/14/16 [History] Omeprazole 40 mg PO ACBREAKFAST 12/22/16 [History] Carbidopa/Levodopa [Carbidopa-Levo ER 25-100] 2 tab PO 0700,1100,1500,1900 05/10 [History] Diclofenac Sodium [Voltaren] 75 mg PO BID 08/02/18 [History] traMADol [Ultram] 50 - 100 mg PO Q6H PRN 08/02/18 [History] - CURRENT (IN HOUSE) MEDS Current Meds: Current Medications Hydrocodone Bitart/Acetaminophen ([place] 325-10 Mg) 1 - 2 tab PO Q4H PRN PRN Reason: Pain Anastrozole (Arimidex) 1 mg PO DAILY [facility] Carbidopa/Levodopa (Sinemet Cr 25-100 Mg) 2 tab PO 0700,1100,1500,1900 [facility] Citalopram Hydrobromide (Celexa) 40 mg PO DAILY [facility] Fluticasone Propionate (Flonase) 1 - 2 gm NASBOTH DAILY PRN PRN Reason: sinus congestion Furosemide (Lasix) 20 mg PO DAILY [facility] Lactated Ringer's (Ringers, Lactated) 1,000 mls @ 125 mls/hr IV ASDIRECTED ISIDRA Last Admin: 11/20/18 12:49 Dose: 125 mls/hr Cefazolin Sodium/Dextrose 2 gm (/ Premix) 50 mls @ 100 mls/hr IV ONETIME ONE Stop: 11/21/18 13:05 Levothyroxine Sodium (Levothyroxine) 112 mcg PO ACBREAKFAST [facility] Levothyroxine Sodium (Levothyroxine) 25 mcg PO ACBREAKFAST [facility] Magnesium Oxide (Magnesium Oxide) 400 mg PO BID [facility] Morphine Sulfate (Morphine) 1 - 3 mg IVPUSH Q3H PRN PRN Reason: Pain Last Admin: 11/20/18 17:17 Dose: 3 mg Omeprazole (Omeprazole) 40 mg PO ACBREAKFAST [facility] Ondansetron HCl (Zofran) 4 mg IV Q8HR PRN PRN Reason: NAUSEA/VOMITING Potassium Chloride (Klor-Con 10) 10 meq PO TID [facility] Sodium Chloride (Saline Flush) 10 ml FLUSH ASDIRECTED PRN PRN Reason: Keep Vein Open Last Admin: 11/20/18 12:51 Dose: 10 ml Sodium Chloride (Saline Flush) 2.5 ml FLUSH ASDIRECTED PRN PRN Reason: Keep Vein Open Last Admin: 11/20/18 12:51 Dose: 2.5 ml Sodium Chloride (Saline Flush) 10 ml FLUSH ASDIRECTED PRN PRN Reason: Keep Vein Open Sodium Chloride (Saline Flush) 2.5 ml FLUSH ASDIRECTED PRN PRN Reason: Keep Vein Open Sodium Chloride (Normal Saline) 10 ml IV ASDIRECTED PRN PRN Reason: IV Use Tramadol HCl (Ultram) 50 - 100 mg PO Q6H PRN PRN Reason: Pain Discontinued Medications Morphine Sulfate (Morphine) 4 mg IM ONETIME ONE Stop: 11/20/18 10:43 Last Admin: 11/20/18 11:24 Dose: 4 mg Morphine Sulfate (Morphine) 2 mg IVPUSH ONETIME ONE Stop: 11/20/18 12:29 Last Admin: 11/20/18 13:01 Dose: 2 mg Ondansetron HCl (Zofran) 4 mg IVPUSH ONETIME ONE Stop: 11/20/18 12:29 Last Admin: 11/20/18 12:56 Dose: 4 mg
[2018-11-20] MEDS: Carbidopa/Levodopa 25-100 MG Tab.ER PO SCH (18:48)
[2018-11-20] MEDS: Magnesium Oxide 400 MG Tab PO SCH (20:50)
[2018-11-20] MEDS: Potassium Chloride 10 MEQ Tab.ER PO SCH (21:27)
[2018-11-20] MEDS: Acetaminophen/HYDROcodone 325-10 MG Tab PO PRN (21:31)
[2018-11-21] MEDS: Lactated Ringers 1,000 ML IV SCH (04:42)
[2018-11-21] MEDS: Morphine 10 MG/ML Syringe IVPUSH PRN ×3 (05:09→13:06)
[2018-11-21] MEDS: Potassium Chloride 10 MEQ Tab.ER PO SCH ×3 (05:18→21:24)
[2018-11-21 05:41] LABS: CHLORIDE,CL 107 mmol/L (98-107); SODIUM,NA 141 mmol/L (136-145)
[2018-11-21] MEDS: Carbidopa/Levodopa 25-100 MG Tab.ER PO SCH ×4 (06:13→23:17)
--- NOTE | 2018-11-21 06:47 | PCM.CONS ---
H&P History of Present Illness - General Date of Service: 11/21/18 Admit Problem/Dx: Admission Diagnosis/Problem Admission Diagnosis/Problem Fracture of distal femur Source of Information: Patient, Old Records History Limitations: Reports: No Limitations - History of Present Illness Initial Comments - Free Text/Narative: Internal medicine has been consulted to help manage the patient's medical problems. The patient is a 58-year-old lady who suffered a ground level fall and has a right femur periprosthetic fracture. Patient has said that this was a trip and fall. She denied any dizziness or lightheadedness. She also denies any new pain or pain other than in her knee. No syncopal episode. The patient does have a number of chronic medical problems to include left breast cancer with left mastectomy, uterine cancer having previously been on chemotherapy. She also has a history of Parkinson's disease. The patient also has a history of decreased bone density but no formal diagnosis of osteoporosis. Onset of Symptoms: Reports: Sudden Quality: Reports: Stabbing, Throbbing Severity: Moderate Improves with: Reports: Medication, Rest Worsens with: Reports: Movement Context: Reports: Trauma Associated Symptoms: Reports: No Other Symptoms Right KNee Pain Score (Numeric/FACES): 6 - Related Data Allergies/Adverse Reactions: Allergies Allergy/AdvReac Type Severity Reaction Status Date / Time phenazopyridine HCl Allergy Rash Verified 11/20/18 11:00 [From Pyridium] Sulfa (Sulfonamide Allergy Rash Verified 11/20/18 11:00 Antibiotics) Home Medications: Home Meds Anastrozole [Arimidex] 1 mg PO DAILY 01/14/16 [History] Citalopram Hydrobromide [Celexa] 40 mg PO DAILY 01/14/16 [History] Fluticasone Propionate [Flovent] 1 - 2 spray NASBOTH DAILY PRN 01/14/16 [History ] Furosemide 20 mg PO DAILY 01/14/16 [History] Levothyroxine Sodium 137 mcg PO ACBREAKFAST 01/14/16 [History] Magnesium Oxide [Magnesium] 400 mg PO BID 01/14/16 [History] Potassium Chloride 10 meq PO TID 01/14/16 [History] Omeprazole 40 mg PO ACBREAKFAST 12/22/16 [History] Carbidopa/Levodopa [Carbidopa-Levo ER 25-100] 2 tab PO 0700,1100,1500,1900 05/10 [History] Diclofenac Sodium [Voltaren] 75 mg PO BID 08/02/18 [History] traMADol [Ultram] 50 - 100 mg PO Q6H PRN 08/02/18 [History] Past Medical History HEENT History: Reports: Allergic Rhinitis Other HEENT History: wears glasses Cardiovascular History: Reports: None Respiratory History: Reports: None Gastrointestinal History: Reports: GERD (Controlled on Rx) Genitourinary History: Reports: None 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: Musculoskeletal History: Reports: Osteoarthritis Neurological History: Reports: Parkinson's Psychiatric History: Reports: Anxiety, Depression Endocrine/Metabolic History: Reports: Hypothyroidism, Obesity/BMI 30+ Hematologic History: Reports: Anemia (Acute on chronic), Blood Transfusion(s) Immunologic History: Reports: None Oncologic (Cancer) History: Reports: Breast, Uterine Dermatologic History: Reports: None - Infectious Disease History Infectious Disease History: Reports: None - Past Surgical History Musculoskeletal Surgical History: Reports: Hip Replacement, Knee Replacement Other Musculoskeletal Surgeries/Procedures:: giselle knee replacement, left hip replacement Other Oncologic Surgeries/Procedures: hysterectomy, lt mastectomy Social & Family History - Family History Family Medical History: Noncontributory - Tobacco Use Smoking Status *Q: Never Smoker Used Tobacco, but Quit: No Second Hand Smoke Exposure: No - Caffeine Use Caffeine Use: Reports: Soda - Recreational Drug Use Recreational Drug Use: No H&P Review of Systems - Review of Systems: Review Of Systems: See Below General: Reports: No Symptoms HEENT: Reports: No Symptoms Pulmonary: Reports: No Symptoms Cardiovascular: Reports: No Symptoms Gastrointestinal: Reports: No Symptoms Genitourinary: Reports: No Symptoms Musculoskeletal: Reports: Leg Pain Skin: Reports: Other (Postmastectomy edema right arm) Psychiatric: Reports: No Symptoms Neurological: Reports: No Symptoms Hematologic/Lymphatic: Reports: No Symptoms Immunologic: Reports: No Symptoms Exam - Exam Exam: See Below - Vital Signs Vital Signs: Last Vital Signs Temp 36.2 C 11/21/18 04:00 Pulse 110 H 11/21/18 04:00 Resp 20 11/21/18 04:00 BP 94/67 11/21/18 04:00 Pulse Ox 92 L 11/21/18 04:00 Weight: 128.423 kg - Exam Quality Assessment: Supplemental Oxygen General: Alert (Pale), Oriented, Cooperative, Mild Distress HEENT: Conjunctiva Clear, EACs Clear, EOMI, Mucosa Moist & Marydel, PERRLA Neck: Supple, Trachea Midline Lungs: Clear to Auscultation, Normal Respiratory Effort Cardiovascular: Regular Rate, Regular Rhythm, Normal S1, Normal S2 GI/Abdominal Exam: Normal Bowel Sounds, Soft, Non-Tender, No Distention, Other ( Obese) (Female) Exam: Deferred Rectal (Female) Exam: Deferred Back Exam: Normal Inspection, Full Range of Motion Extremities: Pedal Edema, Leg Pain. No: Normal Inspection (Edema right arm), Normal Range of Motion Skin: Warm, Dry, Intact Neurological: Cranial Nerves Intact Neuro Extensive - Mental Status: Alert, Oriented x3 Psychiatric: Alert, Normal Affect, Normal Mood - Patient Data Lab Results Last 24 hrs: Laboratory Results - last 24 hr 11/20/18 11/20/18 11/20/18 Range/Units 12:48 12:48 17:06 WBC 10.70 (4.0-11.0) K/uL RBC 3.76 L (4.30-5.90) M/uL Hgb 8.8 L (12.0-16.0) g/dL Hct 29.8 L (36.0-46.0) % MCV 79.3 L (80.0-98.0) fL MCH 23.4 L (27.0-32.0) pg MCHC 29.5 L (31.0-37.0) g/dL RDW Std Deviation 54.0 (28.0-62.0) fl RDW Coeff of Luz 19 H (11.0-15.0) % Plt Count 218 (150-400) K/uL MPV 9.20 (7.40-12.00) fL Neut % (Auto) 82.3 H (48.0-80.0) % Lymph % (Auto) 11.4 L (16.0-40.0) % Ramsey % (Auto) 5.0 (0.0-15.0) % Eos % (Auto) 1.2 (0.0-7.0) % Baso % (Auto) 0.1 (0.0-1.5) % Neut # (Auto) 8.8 H (1.4-5.7) K/uL Lymph # (Auto) 1.2 (0.6-2.4) K/uL Ramsey # (Auto) 0.5 (0.0-0.8) K/uL Eos # (Auto) 0.1 (0.0-0.7) K/uL Baso # (Auto) 0.0 (0.0-0.1) K/uL Nucleated RBC % 0.0 /100WBC Nucleated RBCs # 0 K/uL Sodium 144 (136-145) mmol/L Potassium 3.7 (3.5-5.1) mmol/L Chloride 108 H (98-107) mmol/L Carbon Dioxide 27.9 (21.0-32.0) mmol/L BUN 11 (7.0-18.0) mg/dL Creatinine 0.8 (0.6-1.0) mg/dL Est Cr Clr Drug Dosing 77.75 mL/min Estimated GFR (MDRD) > 60.0 ml/min Glucose 110 H (74-106) mg/dL Calcium 7.8 L (8.5-10.1) mg/dL Magnesium (1.8-2.4) mg/dL Blood Type O POSITIVE Antibody Screen NEGATIVE Crossmatch See Detail 11/21/18 11/21/18 Range/Units 05:15 05:15 WBC 8.84 (4.0-11.0) K/uL RBC 3.51 L (4.30-5.90) M/uL Hgb 8.1 L (12.0-16.0) g/dL Hct 28.4 L (36.0-46.0) % MCV 80.9 (80.0-98.0) fL MCH 23.1 L (27.0-32.0) pg MCHC 28.5 L (31.0-37.0) g/dL RDW Std Deviation 55.7 (28.0-62.0) fl RDW Coeff of Luz 19 H (11.0-15.0) % Plt Count 193 (150-400) K/uL MPV 8.90 (7.40-12.00) fL Neut % (Auto) (48.0-80.0) % Lymph % (Auto) (16.0-40.0) % Ramsey % (Auto) (0.0-15.0) % Eos % (Auto) (0.0-7.0) % Baso % (Auto) (0.0-1.5) % Neut # (Auto) (1.4-5.7) K/uL Lymph # (Auto) (0.6-2.4) K/uL Ramsey # (Auto) (0.0-0.8) K/uL Eos # (Auto) (0.0-0.7) K/uL Baso # (Auto) (0.0-0.1) K/uL Nucleated RBC % 0.0 /100WBC Nucleated RBCs # 0 K/uL Sodium 141 (136-145) mmol/L Potassium 3.9 (3.5-5.1) mmol/L Chloride 107 (98-107) mmol/L Carbon Dioxide 28.5 (21.0-32.0) mmol/L BUN 9 (7.0-18.0) mg/dL Creatinine 0.7 (0.6-1.0) mg/dL Est Cr Clr Drug Dosing 88.86 mL/min Estimated GFR (MDRD) > 60.0 ml/min Glucose 112 H (74-106) mg/dL Calcium 7.6 L (8.5-10.1) mg/dL Magnesium 1.7 L (1.8-2.4) mg/dL Blood Type Antibody Screen Crossmatch Result Diagrams: 11/21/18 05:15 11/21/18 05:15 Consult PN Assessment/Plan Procedures: Procedures 3-D RADIOTHERAPY PLAN (10/12/15) ASSAY OF MAGNESIUM (03/01/17) C-REACTIVE PROTEIN (08/02/17) CHEMO IV INFUS EACH ADDL SEQ (09/15/15) CHEMO IV INFUSION 1 HR (05/04/16) CHEMO IV INFUSION ADDL HR (06/10/15) CINE/VID X-RAY THROAT/ESOPH (12/01/17) COLONOSCOPY W/LESION REMOVAL (01/18/16) COMP SCREEN MAMMOGRAM ADD-ON (06/09/16) COMPLETE CBC W/AUTO DIFF WBC (10/31/17) COMPREHEN METABOLIC PANEL (10/31/17) CT SCAN FOR THERAPY GUIDE (09/30/15) CT THORAX W/DYE (12/08/16) DRAIN/INJ JOINT/BURSA W/O US (11/28/17) DRAW BLOOD OFF VENOUS DEVICE (10/31/17) DX MAMMO INCL CAD UNI (07/13/18) DXA BONE DENSITY AXIAL (03/13/18) EMERGENCY DEPT VISIT (07/18/15) EVALUATE SPEECH PRODUCTION (04/23/18) EVALUATE SWALLOWING FUNCTION (10/16/18) GATED HEART PLANAR SINGLE (06/10/15) HOT OR COLD PACKS THERAPY (03/16/15) HYDRATE IV INFUSION ADD-ON (06/30/15) HYDRATION IV INFUSION INIT (06/30/15) IIV4 VACC NO PRSV 0.5 ML IM (07/25/18) IRRIG DRUG DELIVERY DEVICE (10/17/18) KNEE ARTHROSCOPY/SURGERY (08/07/18) MANUAL THERAPY 1/> REGIONS (02/18/15) MOTION FLUOROSCOPY/SWALLOW (12/01/17) MRI JNT OF LWR EXTRE W/O DYE (12/01/16) NEEDLE LOCALIZATION BY XRAY (11/28/17) OFFICE/OUTPATIENT VISIT NEW (09/30/15) ORAL FUNCTION THERAPY (04/23/18) PT EVAL MOD COMPLEX 30 MIN (01/24/17) PT EVALUATION (12/21/15) RADIATION PHYSICS CONSULT (10/27/15) RADIATION THERAPY DOSE PLAN (10/12/15) RADIATION TREATMENT AID(S) (10/27/15) RADIATION TREATMENT DELIVERY (11/27/15) RADIOLOGY PORT IMAGES(S) (10/27/15) RBC SED RATE AUTOMATED (08/02/17) REMOVAL OF BREAST LESION (03/25/15) ROUTINE VENIPUNCTURE (10/31/17) SET RADIATION THERAPY FIELD (10/27/15) SPECIAL RADIATION DOSIMETRY (10/27/15) SPECIAL RADIATION TREATMENT (10/12/15) SPECIAL TELETX PORT PLAN (10/27/15) THER/PROPH/DIAG INJ SC/IM (09/15/15) THER/PROPH/DIAG IV INF INIT (06/30/15) THERAPEUTIC EXERCISES (02/16/17) TISSUE EXAM BY PATHOLOGIST (01/18/16) TISSUE EXAM BY PATHOLOGIST (03/25/15) TTE W/DOPPLER COMPLETE (02/09/16) TX/PRO/DX INJ NEW DRUG ADDON (09/15/15) TX/PROPH/DG ADDL SEQ IV INF (09/15/15) VASOPNEUMATIC DEVICE THERAPY (02/16/17) X-RAY EXAM HIP UNI 2-3 VIEWS (05/22/18) X-RAY EXAM KNEE 4 OR MORE (07/26/17) X-RAY EXAM OF KNEE 1 OR 2 (07/26/18) X-RAY EXAM OF KNEE 3 (01/05/17) (1) Femur fracture, right SNOMED Code(s): 85280494 Code(s): S72.91XA - UNSP FRACTURE OF RIGHT FEMUR, INIT FOR CLOS FX Priority : High Current Visit: Yes Qualifiers: Encounter type: initial encounter Femur location: distal Fracture type: closed Fracture morphology: other fracture Qualified Code(s): S72.491A - Other fracture of lower end of right femur, initial encounter for closed fracture (2) Hypocalcemia SNOMED Code(s): 4173270 Code(s): E83.51 - HYPOCALCEMIA Priority: Medium Current Visit: Yes (3) Anemia SNOMED Code(s): 197804793 Code(s): D64.9 - ANEMIA, UNSPECIFIED Priority: High Current Visit: Yes Qualifiers: Anemia type: iron deficiency Iron deficiency anemia type: inadequate dietary iron intake Qualified Code(s): D50.8 - Other iron deficiency anemias (4) Status post chemotherapy SNOMED Code(s): 513317720 Code(s): Z92.21 - PERSONAL HISTORY OF ANTINEOPLASTIC CHEMOTHERAPY Priority : Low Current Visit: Yes (5) History of uterine cancer SNOMED Code(s): 239319394 Code(s): Z85.42 - PERSONAL HISTORY OF MALIGNANT NEOPLASM OF OTH PRT UTERUS Priority: Low Current Visit: Yes (6) Post-mastectomy lymphedema syndrome SNOMED Code(s): 37659173 Code(s): I97.2 - POSTMASTECTOMY LYMPHEDEMA SYNDROME Priority: Medium Current Visit: Yes (7) History of left breast cancer SNOMED Code(s): 976121156 Code(s): Z85.3 - PERSONAL HISTORY OF MALIGNANT NEOPLASM OF BREAST Priority : Medium Current Visit: Yes (8) Parkinsons disease SNOMED Code(s): 86077442 Code(s): G20 - PARKINSON'S DISEASE Priority: Medium Current Visit: Yes Problem List Initiated/Reviewed/Updated: Yes Plan: The patient is a 58-year-old lady who has a number of chronic medical problems. Most notably the patient is anemic and from the RBC indices this is likely secondary to iron deficiency. The patient should be on very closely for blood transfusion if necessary. If the patient's hemoglobin does drop below 7.0 g/dL she should be transfused. Alternatively transfusion before or during surgery may be an option. The patient also has a history of hypocalcemia which may be the result of previous a bisphosphonate treatment. No formal diagnosis of osteoporosis has been noted in her chart. 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 Also the patient had suffered a periprosthetic fracture of her distal right femur and orthopedic surgery, Dr. Box, has scheduled the patient for surgery later this morning. The patient is also morbidly obese and as a result should be watched for hypoventilation syndrome. In accordance with the ACC/AHA guidelines the patient would be considered at moderate risk for prospective surgery. The patient has no history of heart disease and therefore cardiology evaluation not needed. Would like to thank Dr. Box for participation in care with her patient. Requesting Provider: Dr. Joanie Box Date Consult Requested: 11/20/18 Reason for Consult: Medical management Patient History Reviewed: Yes Admission H&P Reviewed: Yes Notified Requestor: Yes
[2018-11-21] MEDS: Levothyroxine 112 MCG Tab PO SCH (06:51)
[2018-11-21] MEDS: Levothyroxine 25 MCG Tab PO SCH (06:51)
[2018-11-21] MEDS: Omeprazole 20 MG Cap.CR PO SCH (06:51)
[2018-11-21] MEDS ORDERED: Sodium Chloride 0.9% 2.5 ML Syringe FLUSH PRN (07:23)
[2018-11-21] MEDS ORDERED: Sodium Chloride 0.9% 10 ML Syringe FLUSH PRN (07:23)
[2018-11-21] MEDS ORDERED: Sodium Chloride 0.9% 10 ML SDV IV PRN (07:23)
[2018-11-21] MEDS ORDERED: Furosemide 20 MG Tab PO SCH (09:00)
[2018-11-21] MEDS ORDERED: Bupivacaine 0.5% 30 ML SDV ONE (09:30)
[2018-11-21] MEDS ORDERED: Propofol 200 MG/20 ML SDV ONE ×3 (10:13→17:14)
[2018-11-21] MEDS ORDERED: Midazolam 1 MG/ML 2 ML SDV ONE ×3 (10:14→16:13)
[2018-11-21] MEDS ORDERED: fentaNYL 100 MCG/2 ML SDV ONE ×2 (10:14→14:19)
[2018-11-21] MEDS: Citalopram 20 MG Tab PO SCH (11:29)
[2018-11-21] MEDS: Anastrozole 1 MG Tab PO SCH (11:29)
[2018-11-21] MEDS: Magnesium Oxide 400 MG Tab PO SCH ×2 (11:29→21:24)
[2018-11-21] MEDS ORDERED: ceFAZolin 2 GM in Premix Bag 1 BAG IV ONE (12:36)
[2018-11-21] MEDS ORDERED: Ketamine 500 mg/10 ML MDV ONE (14:19)
[2018-11-21] MEDS ORDERED: ceFAZolin/Dextrose,Iso-Osmotic 2 GM/50 ML Duplex Bag IV ONE (14:23)
[2018-11-21] MEDS ORDERED: Bupivacaine 0.5% 10 ML SDV ONE (14:37)
[2018-11-21] MEDS ORDERED: Phenylephrine 1% 10 MG/ML SDV ONE (14:57)
[2018-11-21] MEDS ORDERED: Ondansetron 4 MG/2 ML SDV ONE (17:00)
[2018-11-21] MEDS ORDERED: Furosemide 40 MG/4 ML VIAL ONE (17:29)
[2018-11-21] MEDS ORDERED: HYDROmorphone 2 MG/ML Syringe IVPUSH PRN ×2 (17:50→18:48)
[2018-11-21] MEDS ORDERED: fentaNYL 100 MCG/2 ML SDV IVPUSH PRN (17:50)
[2018-11-21] MEDS ORDERED: Bisacodyl 10 MG Supp RECTAL PRN (18:48)
[2018-11-21] MEDS ORDERED: diphenhydrAMINE 25 MG Cap PO PRN (18:48)
--- NOTE | 2018-11-21 18:49 | PCM.OPNOTE ---
- General Post-Op/Procedure Note Date of Surgery/Procedure: 11/21/18 Operative Procedure(s): ORIF R periprosthetic femur fracture Post-Op Diagnosis: R periprosthetic femur fracture Anesthesia Technique: General ET Tube Primary Surgeon: Joanie Box Dog Food Shredder Operator: Janice Scott in mLs: 1,000 Condition: Stable Free Text/Narrative:: #[id number] 11/21/18 11/21/18 11/21/18 06:59 14:59 22:59 Intake Total 9135 622 4117 Output Total 500 1500 Balance 841 364 246
--- NOTE | 2018-11-21 19:33 | PCM.POSTAN ---
POST ANESTHESIA ASSESSMENT - MENTAL STATUS Mental Status: Alert, Oriented - VITAL SIGNS Pulse Rate: 104 SaO2: 93 Resp Rate: 16 - RESPIRATORY Respiratory Status: Supplemental Oxygen (simple mask 10 liters) - CARDIOVASCULAR CV Status: Pulse Rate WNL, Blood Pressure Stable - GASTROINTESTINAL GI Status: No Symptoms - PAIN Pain Score: 4 - POST OP HYDRATION Hydration Status: Adequate & Stable (pt alert and oriented . spinal receeded )
[2018-11-21] MEDS: Docusate Sodium 100 MG Cap PO SCH (21:24)
[2018-11-21] MEDS ORDERED: Acetaminophen 650 MG in Premix Bag 1 BAG IV ONE (21:31)
[2018-11-21] MEDS ORDERED: Naloxone 0.4 MG/ML Syringe IVPUSH ONE (21:34)
[2018-11-21] MEDS: ceFAZolin 2 GM in Premix Bag 1 BAG IV SCH (23:25)
[2018-11-22] MEDS: traMADol 50 MG Tab PO PRN ×2 (01:03→12:09)
[2018-11-22] MEDS: Lactated Ringers 1,000 ML IV SCH (02:20)
[2018-11-22] MEDS: Acetaminophen/HYDROcodone 325-10 MG Tab PO PRN ×4 (04:09→19:38)
[2018-11-22] MEDS: Levothyroxine 25 MCG Tab PO SCH (06:42)
[2018-11-22] MEDS: Levothyroxine 112 MCG Tab PO SCH (06:42)
[2018-11-22] MEDS: Carbidopa/Levodopa 25-100 MG Tab.ER PO SCH ×4 (06:43→18:49)
[2018-11-22] MEDS: Potassium Chloride 10 MEQ Tab.ER PO SCH ×3 (06:43→22:25)
[2018-11-22] MEDS: Omeprazole 20 MG Cap.CR PO SCH (06:43)
--- NOTE | 2018-11-22 07:46 | PCM48HPAN ---
Post Anesthesia Note - EVALUATION WITHIN 48HRS OF ANESTHETIC Vital Signs in Normal Range: Yes Patient Participated in Evaluation: Yes Respiratory Function Stable: Yes Airway Patent: Yes Cardiovascular Function Stable: Yes Hydration Status Stable: Yes Pain Control Satisfactory: Yes Nausea and Vomiting Control Satisfactory: Yes Mental Status Recovered: Yes Pulse Rate: 104 Resp Rate: 20 Temperature: 96.8 F - COMMENTS/OBSERVATIONS Free Text/Narrative:: Tachycardia and hypotension resolved, transfusion x4 units yesterday. 2 unit pre-op and 2 unit intra-op. Increased oxygen requirements overnight. Narcan given x 1 during NOC. Pt SpO2 during my visit 95-96% on 10LPM via simple mask. Pt denies CHIKIS. Post-operative hypoventilation suspected. If nursing is unable to wean O2, ICU transfer may be needed for closer observation.
--- NOTE | 2018-11-22 07:48 | PCM48HPAN ---
Post Anesthesia Note - EVALUATION WITHIN 48HRS OF ANESTHETIC Vital Signs in Normal Range: Yes (Pt remains on 10l Mask . O 2 sats 96%) Patient Participated in Evaluation: Yes Respiratory Function Stable: Yes (as preop) Airway Patent: Yes Cardiovascular Function Stable: Yes Hydration Status Stable: Yes Pain Control Satisfactory: Yes (Pt states it just feels tight) Nausea and Vomiting Control Satisfactory: Yes Mental Status Recovered: Yes Pulse Rate: 104 SaO2: 96 Resp Rate: 20 Temperature: 36 C - COMMENTS/OBSERVATIONS Free Text/Narrative:: Visited with nurse and pt. Pt awake and oriented. O2 sats 96% on mask. Nurse states pt had mask off last noc and dropped sats to 50%'s and nurse called for narcan. Vitals are stable this morning. Encouraged pt to do deep breathing and coughing. no nausea
--- NOTE | 2018-11-22 07:58 | PCM.CONSN ---
<Gaby Ortez M - Last Filed: 11/22/18 11:33> - General Info Date of Service: 11/22/18 Admission Dx/Problem (Free Text): Admission Diagnosis/Problem Admission Diagnosis/Problem Fracture of distal femur Subjective Update: Feeling ok this morning, pain is controlled. Reports mild SOB, feels "congested " in her chest. No chest pain. Not passing gas. Functional Status: Reports: Pain Controlled, Tolerating Diet - Review of Systems General: Denies: Fever, Weakness, Fatigue Pulmonary: Reports: Other (congested) Cardiovascular: Denies: Chest Pain, Palpitations Gastrointestinal: Reports: No Symptoms. Denies: Abdominal Pain, Nausea, Vomiting Genitourinary: Reports: No Symptoms. Denies: Dysuria, Frequency, Burning Musculoskeletal: Reports: Leg Pain (mild, tolerable to R leg) Skin: Reports: No Symptoms Neurological: Reports: No Symptoms Psychiatric: Reports: No Symptoms - Patient Data Vitals - Most Recent: Last Vital Signs Temp 96.8 F 11/22/18 07:48 Pulse 104 H 11/22/18 07:48 Resp 20 11/22/18 07:48 BP 107/53 L 11/22/18 04:47 Pulse Ox 96 11/22/18 07:48 Weight - Most Recent: 128.423 kg I&O - Last 24 Hours: Intake & Output 11/21/18 11/22/18 11/22/18 22:59 06:59 14:59 Intake Total 1746 952 Output Total 1500 900 Balance 246 52 Lab Results Last 24 Hours: Laboratory Results - last 24 hr 11/20/18 11/21/18 11/22/18 Range/Units 12:48 15:39 05:10 Hgb 9.9 L 10.3 L (12.0-16.0) g/dL Hct 33.2 L 33.8 L (36.0-46.0) % Blood Type O POSITIVE Antibody Screen NEGATIVE Crossmatch See Detail Med Orders - Current: Current Medications Hydrocodone Bitart/Acetaminophen (Linden 325-10 Mg) 1 - 2 tab PO Q4H PRN PRN Reason: Pain Last Admin: 11/22/18 04:09 Dose: 1 tab Anastrozole (Arimidex) 1 mg PO DAILY [facility] Last Admin: 11/21/18 11:29 Dose: Not Given Bisacodyl (Dulcolax) 10 mg RECTAL DAILY PRN PRN Reason: Constipation Carbidopa/Levodopa (Sinemet Cr 25-100 Mg) 2 tab PO 0700,1100,1500,1900 [facility] Last Admin: 11/22/18 06:43 Dose: 2 tab Citalopram Hydrobromide (Celexa) 40 mg PO DAILY [facility] Last Admin: 11/21/18 11:29 Dose: Not Given Diphenhydramine HCl (Benadryl) 25 - 50 mg PO Q6H PRN PRN Reason: Itching Docusate Sodium (Colace) 100 mg PO BID [facility] Last Admin: 11/21/18 21:24 Dose: 100 mg Enoxaparin Sodium (Lovenox) 40 mg SUBCUT Q24H [facility] Fluticasone Propionate (Flonase) 1 - 2 gm NASBOTH DAILY PRN PRN Reason: sinus congestion Furosemide (Lasix) 20 mg PO DAILY [facility] Last Admin: 11/21/18 11:29 Dose: Not Given Hydromorphone HCl (Dilaudid) 0.5 - 1 mg IVPUSH Q3H PRN PRN Reason: Pain Lactated Ringer's (Ringers, Lactated) 1,000 mls @ 125 mls/hr IV ASDIRECTED [facility] Last Admin: 11/22/18 02:20 Dose: 125 mls/hr Cefazolin Sodium/Dextrose 2 gm (/ Premix) 50 mls @ 100 mls/hr IV Q8H [facility] Stop: 11/22/18 08:28 Last Admin: 11/21/18 23:25 Dose: 100 mls/hr Levothyroxine Sodium (Levothyroxine) 112 mcg PO ACBREAKFAST [facility] Last Admin: 11/22/18 06:42 Dose: 112 mcg Levothyroxine Sodium (Levothyroxine) 25 mcg PO ACBREAKFAST [facility] Last Admin: 11/22/18 06:42 Dose: 25 mcg Magnesium Oxide (Magnesium Oxide) 400 mg PO BID [facility] Last Admin: 11/21/18 21:24 Dose: 400 mg Omeprazole (Omeprazole) 40 mg PO ACBREAKFAST [facility] Last Admin: 11/22/18 06:43 Dose: 40 mg Ondansetron HCl (Zofran) 4 mg IV Q8HR PRN PRN Reason: NAUSEA/VOMITING Potassium Chloride (Klor-Con 10) 10 meq PO TID [facility] Last Admin: 11/22/18 06:43 Dose: 10 meq Sodium Chloride (Saline Flush) 10 ml FLUSH ASDIRECTED PRN PRN Reason: Keep Vein Open Sodium Chloride (Saline Flush) 2.5 ml FLUSH ASDIRECTED PRN PRN Reason: Keep Vein Open Sodium Chloride (Normal Saline) 10 ml IV ASDIRECTED PRN PRN Reason: IV Use Sodium Chloride (Saline Flush) 10 ml FLUSH ASDIRECTED PRN PRN Reason: Keep Vein Open Sodium Chloride (Saline Flush) 2.5 ml FLUSH ASDIRECTED PRN PRN Reason: Keep Vein Open Sodium Chloride (Normal Saline) 10 ml IV ASDIRECTED PRN PRN Reason: IV Use Tramadol HCl (Ultram) 50 - 100 mg PO Q6H PRN PRN Reason: Pain Last Admin: 11/22/18 01:03 Dose: 100 mg Discontinued Medications Bupivacaine HCl (Marcaine 0.5%) Confirm Administered Dose 30 ml .ROUTE .STK-MED ONE Stop: 11/21/18 09:31 Bupivacaine HCl (Sensorcaine-Mpf 0.5%) Confirm Administered Dose 10 ml .ROUTE .STK-MED ONE Stop: 11/21/18 14:38 Cefazolin Sodium/Dextrose (Ancef) Confirm Administered Dose 2 gm IV .STK-MED ONE Stop: 11/21/18 14:24 Fentanyl (Sublimaze) Confirm Administered Dose 100 mcg .ROUTE .STK-MED ONE Stop: 11/21/18 10:15 Fentanyl (Sublimaze) Confirm Administered Dose 100 mcg .ROUTE .STK-MED ONE Stop: 11/21/18 14:20 Fentanyl (Sublimaze) 50 mcg IVPUSH .Q5MIN PRN PRN Reason: Pain Last Admin: 11/21/18 19:10 Dose: 50 mcg Furosemide (Lasix) Confirm Administered Dose 40 mg .ROUTE .STK-MED ONE Stop: 11/21/18 17:30 Hydromorphone HCl (Dilaudid) 0 mg IVPUSH ONETIME PRN PRN Reason: Breakthrough Pain Cefazolin Sodium/Dextrose 2 gm (/ Premix) 50 mls @ 100 mls/hr IV ONETIME ONE Stop: 11/21/18 13:05 Last Admin: 11/21/18 16:33 Dose: Not Given Acetaminophen (Ofirmev) Confirm Administered Dose 100 mls @ as directed IV .STK- MED ONE Stop: 11/21/18 19:07 Acetaminophen 650 mg/ Premix 65 mls @ 400 mls/hr IV NOW ONE Stop: 11/21/18 21:40 Last Admin: 11/21/18 21:42 Dose: 400 mls/hr Ketamine HCl (Ketalar) Confirm Administered Dose 500 mg .ROUTE .STK-MED ONE Stop: 11/21/18 14:20 Midazolam HCl (Versed 1 Mg/Ml) Confirm Administered Dose 2 mg .ROUTE .STK-MED ONE Stop: 11/21/18 10:15 Midazolam HCl (Versed 1 Mg/Ml) Confirm Administered Dose 2 mg .ROUTE .STK-MED ONE Stop: 11/21/18 14:20 Midazolam HCl (Versed 1 Mg/Ml) Confirm Administered Dose 2 mg .ROUTE .STK-MED ONE Stop: 11/21/18 16:14 Morphine Sulfate (Morphine) 4 mg IM ONETIME ONE Stop: 11/20/18 10:43 Last Admin: 11/20/18 11:24 Dose: 4 mg Morphine Sulfate (Morphine) 2 mg IVPUSH ONETIME ONE Stop: 11/20/18 12:29 Last Admin: 11/20/18 13:01 Dose: 2 mg Morphine Sulfate (Morphine) 1 - 3 mg IVPUSH Q3H PRN PRN Reason: Pain Last Admin: 11/21/18 13:06 Dose: 3 mg Naloxone HCl (Narcan) 0.4 mg IVPUSH ONETIME ONE Stop: 11/21/18 21:35 Last Admin: 11/21/18 21:42 Dose: 0.4 mg Ondansetron HCl (Zofran) 4 mg IVPUSH ONETIME ONE Stop: 11/20/18 12:29 Last Admin: 11/20/18 12:56 Dose: 4 mg Ondansetron HCl (Zofran) Confirm Administered Dose 4 mg .ROUTE .STK-MED ONE Stop: 11/21/18 17:01 Phenylephrine HCl (Star-Synephrine) Confirm Administered Dose 10 mg .ROUTE .STK- MED ONE Stop: 11/21/18 14:58 Propofol (Diprivan 20 Ml) Confirm Administered Dose 200 mg .ROUTE .STK-MED ONE Stop: 11/21/18 10:14 Propofol (Diprivan 20 Ml) Confirm Administered Dose 200 mg .ROUTE .STK-MED ONE Stop: 11/21/18 14:20 Propofol (Diprivan 20 Ml) Confirm Administered Dose 200 mg .ROUTE .STK-MED ONE Stop: 11/21/18 17:15 Sodium Chloride (Saline Flush) 10 ml FLUSH ASDIRECTED PRN PRN Reason: Keep Vein Open Last Admin: 11/20/18 12:51 Dose: 10 ml Sodium Chloride (Saline Flush) 2.5 ml FLUSH ASDIRECTED PRN PRN Reason: Keep Vein Open Last Admin: 11/20/18 12:51 Dose: 2.5 ml Tranexamic Acid (Cyklokapron) Confirm Administered Dose 2,000 mg .ROUTE .STK- MED ONE Stop: 11/21/18 09:31 - Exam Quality Assessment: Supplemental Oxygen (Taken on SM and placed on 3.5 L NC, sating mid 90s. ) Neck: Supple, No JVD Lungs: Normal Respiratory Effort, Decreased Breath Sounds (bilateral bases), Crackles (bibasilar) Cardiovascular: Regular Rate, Regular Rhythm GI/Abdominal Exam: Normal Bowel Sounds, Soft, Non-Tender, No Mass Extremities: Pedal Edema (+1 non pitting to bilateral lower extremities. +1 to bilateral hands) Wound/Incisions: Dressing Dry and Intact (R knee immobilizer) Psy/Mental Status: Alert, Normal Affect, Normal Mood Consult PN Assessment/Plan Procedures: Procedures 3-D RADIOTHERAPY PLAN (10/12/15) ASSAY OF MAGNESIUM (03/01/17) C-REACTIVE PROTEIN (08/02/17) CHEMO IV INFUS EACH ADDL SEQ (09/15/15) CHEMO IV INFUSION 1 HR (05/04/16) CHEMO IV INFUSION ADDL HR (06/10/15) CINE/VID X-RAY THROAT/ESOPH (12/01/17) COLONOSCOPY W/LESION REMOVAL (01/18/16) COMP SCREEN MAMMOGRAM ADD-ON (06/09/16) COMPLETE CBC W/AUTO DIFF WBC (10/31/17) COMPREHEN METABOLIC PANEL (10/31/17) CT SCAN FOR THERAPY GUIDE (09/30/15) CT THORAX W/DYE (12/08/16) DRAIN/INJ JOINT/BURSA W/O US (11/28/17) DRAW BLOOD OFF VENOUS DEVICE (10/31/17) DX MAMMO INCL CAD UNI (07/13/18) DXA BONE DENSITY AXIAL (03/13/18) EMERGENCY DEPT VISIT (07/18/15) EVALUATE SPEECH PRODUCTION (04/23/18) EVALUATE SWALLOWING FUNCTION (10/16/18) GATED HEART PLANAR SINGLE (06/10/15) HOT OR COLD PACKS THERAPY (03/16/15) HYDRATE IV INFUSION ADD-ON (06/30/15) HYDRATION IV INFUSION INIT (06/30/15) IIV4 VACC NO PRSV 0.5 ML IM (07/25/18) IRRIG DRUG DELIVERY DEVICE (10/17/18) KNEE ARTHROSCOPY/SURGERY (08/07/18) MANUAL THERAPY 1/> REGIONS (02/18/15) MOTION FLUOROSCOPY/SWALLOW (12/01/17) MRI JNT OF LWR EXTRE W/O DYE (12/01/16) NEEDLE LOCALIZATION BY XRAY (11/28/17) OFFICE/OUTPATIENT VISIT NEW (09/30/15) ORAL FUNCTION THERAPY (04/23/18) PT EVAL MOD COMPLEX 30 MIN (01/24/17) PT EVALUATION (12/21/15) RADIATION PHYSICS CONSULT (10/27/15) RADIATION THERAPY DOSE PLAN (10/12/15) RADIATION TREATMENT AID(S) (10/27/15) RADIATION TREATMENT DELIVERY (11/27/15) RADIOLOGY PORT IMAGES(S) (10/27/15) RBC SED RATE AUTOMATED (08/02/17) REMOVAL OF BREAST LESION (03/25/15) ROUTINE VENIPUNCTURE (10/31/17) SET RADIATION THERAPY FIELD (10/27/15) SPECIAL RADIATION DOSIMETRY (10/27/15) SPECIAL RADIATION TREATMENT (10/12/15) SPECIAL TELETX PORT PLAN (10/27/15) THER/PROPH/DIAG INJ SC/IM (09/15/15) THER/PROPH/DIAG IV INF INIT (06/30/15) THERAPEUTIC EXERCISES (02/16/17) TISSUE EXAM BY PATHOLOGIST (01/18/16) TISSUE EXAM BY PATHOLOGIST (03/25/15) TTE W/DOPPLER COMPLETE (02/09/16) TX/PRO/DX INJ NEW DRUG ADDON (09/15/15) TX/PROPH/DG ADDL SEQ IV INF (01/19/16) VASOPNEUMATIC DEVICE THERAPY (02/16/17) X-RAY EXAM HIP UNI 2-3 VIEWS (05/22/18) X-RAY EXAM KNEE 4 OR MORE (07/26/17) X-RAY EXAM OF KNEE 1 OR 2 (07/26/18) X-RAY EXAM OF KNEE 3 (01/05/17) (1) Femur fracture, right SNOMED Code(s): 21917253 Code(s): S72.91XA - UNSP FRACTURE OF RIGHT FEMUR, INIT FOR CLOS FX Priority : High Current Visit: Yes Qualifiers: Encounter type: initial encounter Femur location: distal Fracture type: closed Fracture morphology: other fracture Qualified Code(s): S72.491A - Other fracture of lower end of right femur, initial encounter for closed fracture (2) History of left breast cancer SNOMED Code(s): 356061025 Code(s): Z85.3 - PERSONAL HISTORY OF MALIGNANT NEOPLASM OF BREAST Priority : Medium Current Visit: Yes (3) History of uterine cancer SNOMED Code(s): 749556372 Code(s): Z85.42 - PERSONAL HISTORY OF MALIGNANT NEOPLASM OF OTH PRT UTERUS Priority: Low Current Visit: Yes (4) Parkinsons disease SNOMED Code(s): 01763239 Code(s): G20 - PARKINSON'S DISEASE Priority: Medium Current Visit: Yes (5) Post-mastectomy lymphedema syndrome SNOMED Code(s): 84899613 Code(s): I97.2 - POSTMASTECTOMY LYMPHEDEMA SYNDROME Priority: Medium Current Visit: Yes Problem List Initiated/Reviewed/Updated: Yes Plan: This 58 year old female admitted with R femur fracture, Hospitalist consult for medical management. 1. S/P ORIF R periprosthetic femur fracture: Orders per Dr Box, received 4 units PRBCs yesterday and in OR. 2. Hypoxia: Feels congested. Placed on SM overnight, given Narcan overnight as well secondary to hypoxia. Mild improvement in hypoxia after narcan. CXR this morning reveals pulmonary edema, she has been receiving IVF and did receive 4 units PRBCs, likely fluid overloaded. Will stop IVFs and give Lasix 40 mg IV now and monitor hypoxia. Will obtain ECHO today as well. 3. Parkinson's: Continue Carbidopa/levodopa. VTE prophylaxis: Would recommend when Orthopedics deems appropriate. <Cliff Martel - Last Filed: 11/22/18 12:53> - General Info Admission Dx/Problem (Free Text): I have examined the patient independently of Gaby Ortez CNP. I have discussed the case with her. I have reviewed and agree with the plan of care as outlined by her. Please see orders. - Patient Data Vitals - Most Recent: Last Vital Signs Temp 35.9 C 11/22/18 08:00 Pulse 111 H 11/22/18 08:00 Resp 18 11/22/18 08:00 BP 114/59 L 11/22/18 08:00 Pulse Ox 92 L 11/22/18 08:00 I&O - Last 24 Hours: Intake & Output 11/21/18 11/22/18 11/22/18 22:59 06:59 14:59 Intake Total 1746 952 Output Total 1500 900 Balance 246 52 Lab Results Last 24 Hours: Laboratory Results - last 24 hr 11/20/18 11/21/18 11/22/18 Range/Units 12:48 15:39 05:10 Hgb 9.9 L 10.3 L (12.0-16.0) g/dL Hct 33.2 L 33.8 L (36.0-46.0) % Blood Type O POSITIVE Antibody Screen NEGATIVE Crossmatch See Detail Med Orders - Current: Current Medications Hydrocodone Bitart/Acetaminophen (Linden 325-10 Mg) 1 - 2 tab PO Q4H PRN PRN Reason: Pain Last Admin: 11/22/18 09:22 Dose: 1 tab Anastrozole (Arimidex) 1 mg PO DAILY [facility] Last Admin: 11/22/18 09:52 Dose: 1 mg Bisacodyl (Dulcolax) 10 mg RECTAL DAILY PRN PRN Reason: Constipation Carbidopa/Levodopa (Sinemet Cr 25-100 Mg) 2 tab PO 0700,1100,1500,1900 [facility] Last Admin: 11/22/18 12:10 Dose: 2 tab Citalopram Hydrobromide (Celexa) 40 mg PO DAILY [facility] Last Admin: 11/22/18 09:23 Dose: 40 mg Diphenhydramine HCl (Benadryl) 25 - 50 mg PO Q6H PRN PRN Reason: Itching Docusate Sodium (Colace) 100 mg PO BID [facility] Last Admin: 11/22/18 09:22 Dose: 100 mg Enoxaparin Sodium (Lovenox) 40 mg SUBCUT Q24H [facility] Last Admin: 11/22/18 09:20 Dose: 40 mg Fluticasone Propionate (Flonase) 1 - 2 gm NASBOTH DAILY PRN PRN Reason: sinus congestion Hydromorphone HCl (Dilaudid) 0.5 - 1 mg IVPUSH Q3H PRN PRN Reason: Pain Levothyroxine Sodium (Levothyroxine) 112 mcg PO ACBREAKFAST [facility] Last Admin: 11/22/18 06:42 Dose: 112 mcg Levothyroxine Sodium (Levothyroxine) 25 mcg PO ACBREAKFAST [facility] Last Admin: 11/22/18 06:42 Dose: 25 mcg Magnesium Oxide (Magnesium Oxide) 400 mg PO BID [facility] Last Admin: 11/22/18 09:22 Dose: 400 mg Omeprazole (Omeprazole) 40 mg PO ACBREAKFAST [facility] Last Admin: 11/22/18 06:43 Dose: 40 mg Ondansetron HCl (Zofran) 4 mg IV Q8HR PRN PRN Reason: NAUSEA/VOMITING Potassium Chloride (Klor-Con 10) 10 meq PO TID [facility] Last Admin: 11/22/18 06:43 Dose: 10 meq Sodium Chloride (Saline Flush) 10 ml FLUSH ASDIRECTED PRN PRN Reason: Keep Vein Open Sodium Chloride (Saline Flush) 2.5 ml FLUSH ASDIRECTED PRN PRN Reason: Keep Vein Open Sodium Chloride (Normal Saline) 10 ml IV ASDIRECTED PRN PRN Reason: IV Use Sodium Chloride (Saline Flush) 10 ml FLUSH ASDIRECTED PRN PRN Reason: Keep Vein Open Sodium Chloride (Saline Flush) 2.5 ml FLUSH ASDIRECTED PRN PRN Reason: Keep Vein Open Sodium Chloride (Normal Saline) 10 ml IV ASDIRECTED PRN PRN Reason: IV Use Tramadol HCl (Ultram) 50 - 100 mg PO Q6H PRN PRN Reason: Pain Last Admin: 11/22/18 12:09 Dose: 100 mg Discontinued Medications Bupivacaine HCl (Marcaine 0.5%) Confirm Administered Dose 30 ml .ROUTE .[facility]-MED ONE Stop: 11/21/18 09:31 Bupivacaine HCl (Sensorcaine-Mpf 0.5%) Confirm Administered Dose 10 ml .ROUTE .STK-MED ONE Stop: 11/21/18 14:38 Cefazolin Sodium/Dextrose (Ancef) Confirm Administered Dose 2 gm IV .STK-MED ONE Stop: 11/21/18 14:24 Fentanyl (Sublimaze) Confirm Administered Dose 100 mcg .ROUTE .STK-MED ONE Stop: 11/21/18 10:15 Fentanyl (Sublimaze) Confirm Administered Dose 100 mcg .ROUTE .STK-MED ONE Stop: 11/21/18 14:20 Fentanyl (Sublimaze) 50 mcg IVPUSH .Q5MIN PRN PRN Reason: Pain Last Admin: 11/21/18 19:10 Dose: 50 mcg Furosemide (Lasix) 20 mg PO DAILY [facility] Last Admin: 11/21/18 11:29 Dose: Not Given Furosemide (Lasix) Confirm Administered Dose 40 mg .ROUTE .STK-MED ONE Stop: 11/21/18 17:30 Furosemide (Lasix) 40 mg IVPUSH NOW ONE Stop: 11/22/18 08:48 Last Admin: 11/22/18 09:13 Dose: 40 mg Hydromorphone HCl (Dilaudid) 0 mg IVPUSH ONETIME PRN PRN Reason: Breakthrough Pain Lactated Ringer's (Ringers, Lactated) 1,000 mls @ 125 mls/hr IV ASDIRECTED [facility] Last Admin: 11/22/18 02:20 Dose: 125 mls/hr Cefazolin Sodium/Dextrose 2 gm (/ Premix) 50 mls @ 100 mls/hr IV ONETIME ONE Stop: 11/21/18 13:05 Last Admin: 11/21/18 16:33 Dose: Not Given Cefazolin Sodium/Dextrose 2 gm (/ Premix) 50 mls @ 100 mls/hr IV Q8H [facility] Stop: 11/22/18 08:28 Last Admin: 11/22/18 09:13 Dose: 100 mls/hr Acetaminophen (Ofirmev) Confirm Administered Dose 100 mls @ as directed IV .STK- MED ONE Stop: 11/21/18 19:07 Acetaminophen 650 mg/ Premix 65 mls @ 400 mls/hr IV NOW ONE Stop: 11/21/18 21:40 Last Admin: 11/21/18 21:42 Dose: 400 mls/hr Ketamine HCl (Ketalar) Confirm Administered Dose 500 mg .ROUTE .STK-MED ONE Stop: 11/21/18 14:20 Midazolam HCl (Versed 1 Mg/Ml) Confirm Administered Dose 2 mg .ROUTE .STK-MED ONE Stop: 11/21/18 10:15 Midazolam HCl (Versed 1 Mg/Ml) Confirm Administered Dose 2 mg .ROUTE .STK-MED ONE Stop: 11/21/18 14:20 Midazolam HCl (Versed 1 Mg/Ml) Confirm Administered Dose 2 mg .ROUTE .STK-MED ONE Stop: 11/21/18 16:14 Morphine Sulfate (Morphine) 4 mg IM ONETIME ONE Stop: 11/20/18 10:43 Last Admin: 11/20/18 11:24 Dose: 4 mg Morphine Sulfate (Morphine) 2 mg IVPUSH ONETIME ONE Stop: 11/20/18 12:29 Last Admin: 11/20/18 13:01 Dose: 2 mg Morphine Sulfate (Morphine) 1 - 3 mg IVPUSH Q3H PRN PRN Reason: Pain Last Admin: 11/21/18 13:06 Dose: 3 mg Naloxone HCl (Narcan) 0.4 mg IVPUSH ONETIME ONE Stop: 11/21/18 21:35 Last Admin: 11/21/18 21:42 Dose: 0.4 mg Ondansetron HCl (Zofran) 4 mg IVPUSH ONETIME ONE Stop: 11/20/18 12:29 Last Admin: 11/20/18 12:56 Dose: 4 mg Ondansetron HCl (Zofran) Confirm Administered Dose 4 mg .ROUTE .STK-MED ONE Stop: 11/21/18 17:01 Phenylephrine HCl (Star-Synephrine) Confirm Administered Dose 10 mg .ROUTE .STK- MED ONE Stop: 11/21/18 14:58 Propofol (Diprivan 20 Ml) Confirm Administered Dose 200 mg .ROUTE .STK-MED ONE Stop: 11/21/18 10:14 Propofol (Diprivan 20 Ml) Confirm Administered Dose 200 mg .ROUTE .STK-MED ONE Stop: 11/21/18 14:20 Propofol (Diprivan 20 Ml) Confirm Administered Dose 200 mg .ROUTE .STK-MED ONE Stop: 11/21/18 17:15 Sodium Chloride (Saline Flush) 10 ml FLUSH ASDIRECTED PRN PRN Reason: Keep Vein Open Last Admin: 11/20/18 12:51 Dose: 10 ml Sodium Chloride (Saline Flush) 2.5 ml FLUSH ASDIRECTED PRN PRN Reason: Keep Vein Open Last Admin: 11/20/18 12:51 Dose: 2.5 ml Tranexamic Acid (Cyklokapron) Confirm Administered Dose 2,000 mg .ROUTE .STK- MED ONE Stop: 11/21/18 09:31 Consult PN Assessment/Plan Procedures: Procedures 3-D RADIOTHERAPY PLAN (10/12/15) ASSAY OF MAGNESIUM (03/01/17) C-REACTIVE PROTEIN (08/02/17) CHEMO IV INFUS EACH ADDL SEQ (09/15/15) CHEMO IV INFUSION 1 HR (05/04/16) CHEMO IV INFUSION ADDL HR (06/10/15) CINE/VID X-RAY THROAT/ESOPH (12/01/17) COLONOSCOPY W/LESION REMOVAL (01/18/16) COMP SCREEN MAMMOGRAM ADD-ON (06/09/16) COMPLETE CBC W/AUTO DIFF WBC (10/31/17) COMPREHEN METABOLIC PANEL (10/31/17) CT SCAN FOR THERAPY GUIDE (09/30/15) CT THORAX W/DYE (12/08/16) DRAIN/INJ JOINT/BURSA W/O US (11/28/17) DRAW BLOOD OFF VENOUS DEVICE (10/31/17) DX MAMMO INCL CAD UNI (07/13/18) DXA BONE DENSITY AXIAL (03/13/18) EMERGENCY DEPT VISIT (07/18/15) EVALUATE SPEECH PRODUCTION (04/23/18) EVALUATE SWALLOWING FUNCTION (10/16/18) GATED HEART PLANAR SINGLE (06/10/15) HOT OR COLD PACKS THERAPY (03/16/15) HYDRATE IV INFUSION ADD-ON (06/30/15) HYDRATION IV INFUSION INIT (06/30/15) IIV4 VACC NO PRSV 0.5 ML IM (07/25/18) IRRIG DRUG DELIVERY DEVICE (10/17/18) KNEE ARTHROSCOPY/SURGERY (08/07/18) MANUAL THERAPY 1/> REGIONS (02/18/15) MOTION FLUOROSCOPY/SWALLOW (12/01/17) MRI JNT OF LWR EXTRE W/O DYE (12/01/16) NEEDLE LOCALIZATION BY XRAY (11/28/17) OFFICE/OUTPATIENT VISIT NEW (09/30/15) ORAL FUNCTION THERAPY (04/23/18) PT EVAL MOD COMPLEX 30 MIN (01/24/17) PT EVALUATION (12/21/15) RADIATION PHYSICS CONSULT (10/27/15) RADIATION THERAPY DOSE PLAN (10/12/15) RADIATION TREATMENT AID(S) (10/27/15) RADIATION TREATMENT DELIVERY (11/27/15) RADIOLOGY PORT IMAGES(S) (10/27/15) RBC SED RATE AUTOMATED (08/02/17) REMOVAL OF BREAST LESION (03/25/15) ROUTINE VENIPUNCTURE (10/31/17) SET RADIATION THERAPY FIELD (10/27/15) SPECIAL RADIATION DOSIMETRY (10/27/15) SPECIAL RADIATION TREATMENT (10/12/15) SPECIAL TELETX PORT PLAN (10/27/15) THER/PROPH/DIAG INJ SC/IM (09/15/15) THER/PROPH/DIAG IV INF INIT (06/30/15) THERAPEUTIC EXERCISES (02/16/17) TISSUE EXAM BY PATHOLOGIST (01/18/16) TISSUE EXAM BY PATHOLOGIST (03/25/15) TTE W/DOPPLER COMPLETE (02/09/16) TX/PRO/DX INJ NEW DRUG ADDON (09/15/15) TX/PROPH/DG ADDL SEQ IV INF (09/15/15) VASOPNEUMATIC DEVICE THERAPY (02/16/17) X-RAY EXAM HIP UNI 2-3 VIEWS (05/22/18) X-RAY EXAM KNEE 4 OR MORE (07/26/17) X-RAY EXAM OF KNEE 1 OR 2 (07/26/18) X-RAY EXAM OF KNEE 3 (01/05/17) (1) Femur fracture, right SNOMED Code(s): 20857689 Code(s): S72.91XA - UNSP FRACTURE OF RIGHT FEMUR, INIT FOR CLOS FX Priority : High Current Visit: Yes Qualifiers: Encounter type: initial encounter Femur location: distal Fracture type: closed Fracture morphology: other fracture Qualified Code(s): S72.491A - Other fracture of lower end of right femur, initial encounter for closed fracture (2) Hypocalcemia SNOMED Code(s): 7626144 Code(s): E83.51 - HYPOCALCEMIA Priority: Medium Current Visit: Yes (3) Anemia SNOMED Code(s): 560056156 Code(s): D64.9 - ANEMIA, UNSPECIFIED Priority: High Current Visit: Yes Qualifiers: Anemia type: iron deficiency Iron deficiency anemia type: inadequate dietary iron intake Qualified Code(s): D50.8 - Other iron deficiency anemias (4) Status post chemotherapy SNOMED Code(s): 661616952 Code(s): Z92.21 - PERSONAL HISTORY OF ANTINEOPLASTIC CHEMOTHERAPY Priority : Low Current Visit: Yes (5) History of uterine cancer SNOMED Code(s): 005358226 Code(s): Z85.42 - PERSONAL HISTORY OF MALIGNANT NEOPLASM OF OTH PRT UTERUS Priority: Low Current Visit: Yes (6) Post-mastectomy lymphedema syndrome SNOMED Code(s): 10786771 Code(s): I97.2 - POSTMASTECTOMY LYMPHEDEMA SYNDROME Priority: Medium Current Visit: Yes (7) History of left breast cancer SNOMED Code(s): 316235365 Code(s): Z85.3 - PERSONAL HISTORY OF MALIGNANT NEOPLASM OF BREAST Priority : Medium Current Visit: Yes (8) Parkinsons disease SNOMED Code(s): 78052051 Code(s): G20 - PARKINSON'S DISEASE Priority: Medium Current Visit: Yes
--- NOTE | 2018-11-22 08:31 | CR ---
EXAMINATION: Portable chest radiograph. HISTORY: Hypoxia. FINDINGS: The trachea is midline. The cardiomediastinal silhouette is within normal limits. Bilateral interstitial prominence and increased central pulmonary vascular prominence. Estrada B lines are also noted. Likely trace left pleural effusion. No pneumothorax. Mild atelectasis is also noted. Osseous structures appear unremarkable. IMPRESSION: Findings are consistent with pulmonary edema/volume overload.
[2018-11-22] MEDS ORDERED: Furosemide 40 MG/4 ML VIAL IVPUSH ONE (08:47)
--- NOTE | 2018-11-22 09:00 | OR ---
SURGEON: Joanie Box MD DATE OF PROCEDURE: 11/21/2018 PREOPERATIVE DIAGNOSIS: Right periprosthetic femur fracture above total knee arthroplasty. POSTOPERATIVE DIAGNOSIS: Right periprosthetic femur fracture above total knee arthroplasty. PROCEDURES PERFORMED: Open reduction and internal fixation of right periprosthetic femur fracture. PRIMARY SURGEON: Joanie Box MD. ARCHITECTURAL DRAFTING INSTRUCTOR: Janice Scott PA-C. ANESTHESIA: General. ESTIMATED BLOOD LOSS: 900 mL. Two units of packed red blood cells were given intraoperatively. PROPHYLAXIS: DVT prophylaxis was PAS boot to the left lower extremity. COMPLICATIONS: None. IMPLANTS USED: [place] right 6-hole supracondylar femur plate with a combination of 4.5-mm locking and nonlocking screws. BRIEF HISTORY: Miya is a 58-year-old female, who has previously undergone a right total knee arthroplasty. She had a fall yesterday. X-rays in the emergency room showed a supracondylar femur fracture. At that time, I recommended surgical intervention. The risks and goals of the procedure were discussed with the patient and were documented preoperatively. She agreed to proceed. DESCRIPTION OF PROCEDURE: The patient was properly identified and brought to the operating room. She was transferred from the OR cart and placed on the operating room table in a supine position. General anesthesia was administered. After adequate anesthesia was obtained, the right lower extremity was prepped in a standard fashion using ChloraPrep solution. It was then sterilely draped. A time-out was performed to ensure correct site and procedure. Preoperative antibiotics were given. The surgical site had been marked preoperatively. An incision was made over the lateral aspect of the right thigh. Subcutaneous tissues were incised down to the level of the iliotibial band. This was incised. Electrocautery was used to maintain hemostasis. The vastus was identified and was elevated. It was gently incised posteriorly at the site of the fracture. The fracture was identified. I was able to visualize the prosthesis distally. There was a large hemarthrosis, which was evacuated. The prosthesis appeared to be well fixed to the bone and the distal fragment did move as a unit. There was some comminution at the fracture site with a large butterfly piece along the anterior medial aspect. The wound was copiously irrigated with saline solution to remove the fracture hematoma. C-arm imaging was then used to assist with reduction of the fracture. The lower extremity was placed onto a radiolucent triangle. Axial traction was then applied. Alignment in the AP plane appeared correct. There was extension at the fracture site of the distal fragment. I did use a Powell elevator to slightly flex the prosthesis. It was felt that a 6-hole plate would be adequate for fixation, and K-wires were used to provisionally fix the plate to the distal fragment in an acceptable position. The fracture was then held reduced, and the 4.5-mm nonlocking screw was placed in the distal fragment. The position was checked in AP and lateral planes, and it was felt that overall alignment was acceptable. A combination of locking and nonlocking screws were then placed into the distal fragment. Unfortunately, there were no screws available that were longer than 70 mm, either in the locking or non-locking set. Since the distal fragment appeared to be one piece, I elected to use the 70-mm screws in this area. I was able to get good purchase into the bone. A combination of 4.5-mm locking and nonlocking screws were then placed into the proximal fragment. Final C-arm images confirmed acceptable reduction of the fracture in both the AP and lateral planes with good placement of the hardware. The 15 mL of crushed cancellous bone chips were placed into the anterior defect. WOUND CLOSURE: The wound was then copiously irrigated with saline solution. The #1 Vicryl was used to close the iliotibial band. The 2-0 Vicryl was used to close the subcutaneous tissues and the skin was closed with cassy. Xeroform gauze was placed over the wound and a bulky dressing was applied. She was placed into a knee immobilizer. CONDITION: She was awakened from her anesthetic and transferred back to the operating room cart. She was brought to recovery room in stable condition. COUNT RESULTS: All needle and sponge counts were correct. WILVER / CHAITANYA /[id number]
[2018-11-22] MEDS: ceFAZolin 2 GM in Premix Bag 1 BAG IV SCH (09:13)
[2018-11-22] MEDS: Enoxaparin 40 MG/0.4 ML Syringe SUBCUT SCH (09:20)
[2018-11-22] MEDS: Docusate Sodium 100 MG Cap PO SCH ×2 (09:22→20:51)
[2018-11-22] MEDS: Magnesium Oxide 400 MG Tab PO SCH ×2 (09:22→20:51)
[2018-11-22] MEDS: Citalopram 20 MG Tab PO SCH (09:23)
[2018-11-22] MEDS: Anastrozole 1 MG Tab PO SCH ×2 (09:24→09:52)
--- NOTE | 2018-11-22 10:16 | CR ---
EXAMINATION: Right femur HISTORY: ORIF COMPARISON: 11/20/2018 TECHNIQUE: Total of 7 fluoroscopic images provided FINDINGS/IMPRESSION: Operative control films demonstrate screw and plate fixation of a distal femoral metaphysis fracture. Adjacent total knee hardware is hardware appear normal.
--- NOTE | 2018-11-22 12:07 | PCM.SURGPN ---
<Zo Jaramillo - Last Filed: 11/22/18 12:01> - General Info Date of Service: 11/22/18 (0800) Date of Surgery/Procedure: 11/21/18 (s/p ORIF right periprosthetic femur fracture) POD#: 1 Post-Op Diagnosis: Right periprosthetic femur fracture above total knee arthroplasty Admission Diagnosis/Problem: Fracture of distal femur Functional Status: Reports: Pain Controlled, Tolerating Diet, Other ( desaturation overnight, improved with O2). Denies: Ambulating, Urinating ( belhcer catheter still inserted) - Review of Systems General: Reports: No Symptoms. Denies: Fever, Chills HEENT: Reports: No Symptoms Pulmonary: Reports: No Symptoms. Denies: Shortness of Breath, Pleuritic Chest Pain, Cough Cardiovascular: Reports: No Symptoms. Denies: Chest Pain Gastrointestinal: Reports: No Symptoms. Denies: Abdominal Pain, Nausea, Vomiting Musculoskeletal: Reports: Joint Pain (s/p ORIF right periprosthetic femur fracture) Skin: Reports: No Symptoms Neurological: Reports: No Symptoms. Denies: Confusion Psychiatric: Reports: No Symptoms Systems Review Comment:: Miya states she slept well last night. No acute c/o this am. Reports pain is well controlled, and is anxious to get up out of bed with therapy this morning. - Patient Data Vitals - Most Recent: Last Vital Signs Temp 35.9 C 11/22/18 08:00 Pulse 111 H 11/22/18 08:00 Resp 18 11/22/18 08:00 BP 114/59 L 11/22/18 08:00 Pulse Ox 92 L 11/22/18 08:00 Weight - Most Recent: 128.423 kg I&O - Last 24 Hours: Intake & Output 11/21/18 11/22/18 11/22/18 22:59 06:59 14:59 Intake Total 1746 952 Output Total 1500 900 Balance 246 52 Lab Results Last 24 Hrs: Laboratory Results - last 24 hr 11/20/18 11/21/18 11/22/18 Range/Units 12:48 15:39 05:10 Hgb 9.9 L 10.3 L (12.0-16.0) g/dL Hct 33.2 L 33.8 L (36.0-46.0) % Blood Type O POSITIVE Antibody Screen NEGATIVE Crossmatch See Detail Med Orders - Current: Current Medications Hydrocodone Bitart/Acetaminophen ([place] 325-10 Mg) 1 - 2 tab PO Q4H PRN PRN Reason: Pain Last Admin: 11/22/18 09:22 Dose: 1 tab Anastrozole (Arimidex) 1 mg PO DAILY [facility] Last Admin: 11/22/18 09:52 Dose: 1 mg Bisacodyl (Dulcolax) 10 mg RECTAL DAILY PRN PRN Reason: Constipation Carbidopa/Levodopa (Sinemet Cr 25-100 Mg) 2 tab PO 0700,1100,1500,1900 [facility] Last Admin: 11/22/18 06:43 Dose: 2 tab Citalopram Hydrobromide (Celexa) 40 mg PO DAILY [facility] Last Admin: 11/22/18 09:23 Dose: 40 mg Diphenhydramine HCl (Benadryl) 25 - 50 mg PO Q6H PRN PRN Reason: Itching Docusate Sodium (Colace) 100 mg PO BID [facility] Last Admin: 11/22/18 09:22 Dose: 100 mg Enoxaparin Sodium (Lovenox) 40 mg SUBCUT Q24H [facility] Last Admin: 11/22/18 09:20 Dose: 40 mg Fluticasone Propionate (Flonase) 1 - 2 gm NASBOTH DAILY PRN PRN Reason: sinus congestion Hydromorphone HCl (Dilaudid) 0.5 - 1 mg IVPUSH Q3H PRN PRN Reason: Pain Levothyroxine Sodium (Levothyroxine) 112 mcg PO ACBREAKFAST [facility] Last Admin: 11/22/18 06:42 Dose: 112 mcg Levothyroxine Sodium (Levothyroxine) 25 mcg PO ACBREAKFAST [facility] Last Admin: 11/22/18 06:42 Dose: 25 mcg Magnesium Oxide (Magnesium Oxide) 400 mg PO BID [facility] Last Admin: 11/22/18 09:22 Dose: 400 mg Omeprazole (Omeprazole) 40 mg PO ACBREAKFAST [facility] Last Admin: 11/22/18 06:43 Dose: 40 mg Ondansetron HCl (Zofran) 4 mg IV Q8HR PRN PRN Reason: NAUSEA/VOMITING Potassium Chloride (Klor-Con 10) 10 meq PO TID [facility] Last Admin: 11/22/18 06:43 Dose: 10 meq Sodium Chloride (Saline Flush) 10 ml FLUSH ASDIRECTED PRN PRN Reason: Keep Vein Open Sodium Chloride (Saline Flush) 2.5 ml FLUSH ASDIRECTED PRN PRN Reason: Keep Vein Open Sodium Chloride (Normal Saline) 10 ml IV ASDIRECTED PRN PRN Reason: IV Use Sodium Chloride (Saline Flush) 10 ml FLUSH ASDIRECTED PRN PRN Reason: Keep Vein Open Sodium Chloride (Saline Flush) 2.5 ml FLUSH ASDIRECTED PRN PRN Reason: Keep Vein Open Sodium Chloride (Normal Saline) 10 ml IV ASDIRECTED PRN PRN Reason: IV Use Tramadol HCl (Ultram) 50 - 100 mg PO Q6H PRN PRN Reason: Pain Last Admin: 11/22/18 01:03 Dose: 100 mg Discontinued Medications Bupivacaine HCl (Marcaine 0.5%) Confirm Administered Dose 30 ml .ROUTE .STK-MED ONE Stop: 11/21/18 09:31 Bupivacaine HCl (Sensorcaine-Mpf 0.5%) Confirm Administered Dose 10 ml .ROUTE .STK-MED ONE Stop: 11/21/18 14:38 Cefazolin Sodium/Dextrose (Ancef) Confirm Administered Dose 2 gm IV .STK-MED ONE Stop: 11/21/18 14:24 Fentanyl (Sublimaze) Confirm Administered Dose 100 mcg .ROUTE .STK-MED ONE Stop: 11/21/18 10:15 Fentanyl (Sublimaze) Confirm Administered Dose 100 mcg .ROUTE .STK-MED ONE Stop: 11/21/18 14:20 Fentanyl (Sublimaze) 50 mcg IVPUSH .Q5MIN PRN PRN Reason: Pain Last Admin: 11/21/18 19:10 Dose: 50 mcg Furosemide (Lasix) 20 mg PO DAILY [facility] Last Admin: 11/21/18 11:29 Dose: Not Given Furosemide (Lasix) Confirm Administered Dose 40 mg .ROUTE .STK-MED ONE Stop: 11/21/18 17:30 Furosemide (Lasix) 40 mg IVPUSH NOW ONE Stop: 11/22/18 08:48 Last Admin: 11/22/18 09:13 Dose: 40 mg Hydromorphone HCl (Dilaudid) 0 mg IVPUSH ONETIME PRN PRN Reason: Breakthrough Pain Lactated Ringer's (Ringers, Lactated) 1,000 mls @ 125 mls/hr IV ASDIRECTED [facility] Last Admin: 11/22/18 02:20 Dose: 125 mls/hr Cefazolin Sodium/Dextrose 2 gm (/ Premix) 50 mls @ 100 mls/hr IV ONETIME ONE Stop: 11/21/18 13:05 Last Admin: 11/21/18 16:33 Dose: Not Given Cefazolin Sodium/Dextrose 2 gm (/ Premix) 50 mls @ 100 mls/hr IV Q8H [facility] Stop: 11/22/18 08:28 Last Admin: 11/22/18 09:13 Dose: 100 mls/hr Acetaminophen (Ofirmev) Confirm Administered Dose 100 mls @ as directed IV .STK- MED ONE Stop: 11/21/18 19:07 Acetaminophen 650 mg/ Premix 65 mls @ 400 mls/hr IV NOW ONE Stop: 11/21/18 21:40 Last Admin: 11/21/18 21:42 Dose: 400 mls/hr Ketamine HCl (Ketalar) Confirm Administered Dose 500 mg .ROUTE .STK-MED ONE Stop: 11/21/18 14:20 Midazolam HCl (Versed 1 Mg/Ml) Confirm Administered Dose 2 mg .ROUTE .STK-MED ONE Stop: 11/21/18 10:15 Midazolam HCl (Versed 1 Mg/Ml) Confirm Administered Dose 2 mg .ROUTE .STK-MED ONE Stop: 11/21/18 14:20 Midazolam HCl (Versed 1 Mg/Ml) Confirm Administered Dose 2 mg .ROUTE .STK-MED ONE Stop: 11/21/18 16:14 Morphine Sulfate (Morphine) 4 mg IM ONETIME ONE Stop: 11/20/18 10:43 Last Admin: 11/20/18 11:24 Dose: 4 mg Morphine Sulfate (Morphine) 2 mg IVPUSH ONETIME ONE Stop: 11/20/18 12:29 Last Admin: 11/20/18 13:01 Dose: 2 mg Morphine Sulfate (Morphine) 1 - 3 mg IVPUSH Q3H PRN PRN Reason: Pain Last Admin: 11/21/18 13:06 Dose: 3 mg Naloxone HCl (Narcan) 0.4 mg IVPUSH ONETIME ONE Stop: 11/21/18 21:35 Last Admin: 11/21/18 21:42 Dose: 0.4 mg Ondansetron HCl (Zofran) 4 mg IVPUSH ONETIME ONE Stop: 11/20/18 12:29 Last Admin: 11/20/18 12:56 Dose: 4 mg Ondansetron HCl (Zofran) Confirm Administered Dose 4 mg .ROUTE .STK-MED ONE Stop: 11/21/18 17:01 Phenylephrine HCl (Star-Synephrine) Confirm Administered Dose 10 mg .ROUTE .STK- MED ONE Stop: 11/21/18 14:58 Propofol (Diprivan 20 Ml) Confirm Administered Dose 200 mg .ROUTE .STK-MED ONE Stop: 11/21/18 10:14 Propofol (Diprivan 20 Ml) Confirm Administered Dose 200 mg .ROUTE .STK-MED ONE Stop: 11/21/18 14:20 Propofol (Diprivan 20 Ml) Confirm Administered Dose 200 mg .ROUTE .STK-MED ONE Stop: 11/21/18 17:15 Sodium Chloride (Saline Flush) 10 ml FLUSH ASDIRECTED PRN PRN Reason: Keep Vein Open Last Admin: 11/20/18 12:51 Dose: 10 ml Sodium Chloride (Saline Flush) 2.5 ml FLUSH ASDIRECTED PRN PRN Reason: Keep Vein Open Last Admin: 11/20/18 12:51 Dose: 2.5 ml Tranexamic Acid (Cyklokapron) Confirm Administered Dose 2,000 mg .ROUTE .STK- MED ONE Stop: 11/21/18 09:31 - Exam Wound/Incisions: Dressing Dry and Intact (surgical dressing intact right knee with no active drainage. ), No Drainage Quality Assessment: Supplemental Oxygen General: Alert, Oriented, Cooperative, No Acute Distress HEENT: Pupils Equal Neck: Supple Lungs: Normal Respiratory Effort Cardiovascular: Regular Rate Extremities: No Pedal Edema, Other (knee immobilizer on RLE. AT/EHL/gastroc 5/ 5 Sensation grossly intact to LE. PP2+) Neurological: No New Focal Deficit, Normal Speech, Normal Tone Psy/Mental Status: Alert, Normal Affect, Normal Mood - Problem List Review Problem List Initiated/Reviewed/Updated: Yes - My Orders Last 24 Hours: Active Orders 24 hr Category Date Time Status Activity as Tolerated [RC] .Routine Care 11/21/18 18:47 Active Antiembolic Devices [RC] PER UNIT ROUTINE Care 11/21/18 18:49 Inactive Dressing Change [Wound Care] [RC] ASDIRECTED Care 11/21/18 18:47 Active Intake and Output [RC] ASDIRECTED Care 11/21/18 18:47 Active Neurovascular Check [RC] Q2HR Care 11/21/18 18:47 Inactive Notify Provider Vital Signs [RC] ASDIRECTED Care 11/21/18 18:47 Active Oxygen Therapy [RC] ASDIRECTED Care 11/21/18 19:26 Active Pulse Oximetry [RC] ASDIRECTED Care 11/21/18 19:29 Active RT Incentive Spirometry [RC] ASDIRECTED Care 11/21/18 18:47 Active Vital Signs [RC] Q4H Care 11/21/18 18:47 Active PT Evaluation and Treatment [CONS] Routine Cons 11/21/18 18:46 Active Echo Comp wo Cont [US] Routine Exams 11/22/18 09:49 Ordered BMP [BASIC METABOLIC PANEL,BMP] [CHEM] AM Lab 11/23/18 05:11 Ordered BMP [BASIC METABOLIC PANEL,BMP] [CHEM] AM Lab 11/24/18 05:11 Ordered BMP [BASIC METABOLIC PANEL,BMP] [CHEM] AM Lab 11/25/18 05:11 Ordered HEMOGLOBIN/HEMATOCRIT,HH [HEME] DAILY Lab 11/23/18 06:00 Ordered HEMOGLOBIN/HEMATOCRIT,HH [HEME] DAILY Lab 11/24/18 06:00 Ordered Bisacodyl [Dulcolax] Med 11/21/18 18:48 Active 10 mg RECTAL DAILY PRN Docusate Sodium [Colace] Med 11/21/18 21:00 Active 100 mg PO BID Enoxaparin [Lovenox] Med 11/22/18 09:00 Active 40 mg SUBCUT Q24H HYDROmorphone [Dilaudid] Med 11/21/18 18:48 Active 0.5 - 1 mg IVPUSH Q3H PRN diphenhydrAMINE [Benadryl] Med 11/21/18 18:48 Active 25 - 50 mg PO Q6H PRN Medication Orders Hydrocodone Bitart/Acetaminophen ([place] 325-10 Mg) 1 - 2 tab PO Q4H PRN PRN Reason: Pain Last Admin: 11/22/18 09:22 Dose: 1 tab Admin: 11/22/18 04:09 Dose: 1 tab Admin: 11/20/18 21:31 Dose: 2 tab Anastrozole (Arimidex) 1 mg PO DAILY [facility] Last Admin: 11/22/18 09:52 Dose: 1 mg Admin: 11/21/18 11:29 Dose: Bisacodyl (Dulcolax) 10 mg RECTAL DAILY PRN PRN Reason: Constipation Carbidopa/Levodopa (Sinemet Cr 25-100 Mg) 2 tab PO 0700,1100,1500,1900 [facility] Last Admin: 11/22/18 06:43 Dose: 2 tab Admin: 11/21/18 23:17 Dose: Not Given Admin: 11/21/18 16:34 Dose: Admin: 11/21/18 11:21 Dose: 2 tab Admin: 11/21/18 06:13 Dose: Admin: 11/20/18 18:48 Dose: 2 tab Citalopram Hydrobromide (Celexa) 40 mg PO DAILY [facility] Last Admin: 11/22/18 09:23 Dose: 40 mg Admin: 11/21/18 11:29 Dose: Diphenhydramine HCl (Benadryl) 25 - 50 mg PO Q6H PRN PRN Reason: Itching Docusate Sodium (Colace) 100 mg PO BID [facility] Last Admin: 11/22/18 09:22 Dose: 100 mg Admin: 11/21/18 21:24 Dose: 100 mg Enoxaparin Sodium (Lovenox) 40 mg SUBCUT Q24H [facility] Last Admin: 11/22/18 09:20 Dose: 40 mg Fluticasone Propionate (Flonase) 1 - 2 gm NASBOTH DAILY PRN PRN Reason: sinus congestion Hydromorphone HCl (Dilaudid) 0.5 - 1 mg IVPUSH Q3H PRN PRN Reason: Pain Levothyroxine Sodium (Levothyroxine) 112 mcg PO ACBREAKFAST [facility] Last Admin: 11/22/18 06:42 Dose: 112 mcg Admin: 11/21/18 06:51 Dose: Levothyroxine Sodium (Levothyroxine) 25 mcg PO ACBREAKFAST [facility] Last Admin: 11/22/18 06:42 Dose: 25 mcg Admin: 11/21/18 06:51 Dose: Magnesium Oxide (Magnesium Oxide) 400 mg PO BID [facility] Last Admin: 11/22/18 09:22 Dose: 400 mg Admin: 11/21/18 21:24 Dose: 400 mg Admin: 11/21/18 11:29 Dose: Admin: 11/20/18 20:50 Dose: 400 mg Omeprazole (Omeprazole) 40 mg PO ACBREAKFAST [facility] Last Admin: 11/22/18 06:43 Dose: 40 mg Admin: 11/21/18 06:51 Dose: Ondansetron HCl (Zofran) 4 mg IV Q8HR PRN PRN Reason: NAUSEA/VOMITING Potassium Chloride (Klor-Con 10) 10 meq PO TID [facility] Last Admin: 11/22/18 06:43 Dose: 10 meq Admin: 11/21/18 21:24 Dose: 10 meq Admin: 11/21/18 14:43 Dose: Admin: 11/21/18 05:18 Dose: Admin: 11/20/18 21:27 Dose: 10 meq Sodium Chloride (Saline Flush) 10 ml FLUSH ASDIRECTED PRN PRN Reason: Keep Vein Open Sodium Chloride (Saline Flush) 2.5 ml FLUSH ASDIRECTED PRN PRN Reason: Keep Vein Open Sodium Chloride (Normal Saline) 10 ml IV ASDIRECTED PRN PRN Reason: IV Use Sodium Chloride (Saline Flush) 10 ml FLUSH ASDIRECTED PRN PRN Reason: Keep Vein Open Sodium Chloride (Saline Flush) 2.5 ml FLUSH ASDIRECTED PRN PRN Reason: Keep Vein Open Sodium Chloride (Normal Saline) 10 ml IV ASDIRECTED PRN PRN Reason: IV Use Tramadol HCl (Ultram) 50 - 100 mg PO Q6H PRN PRN Reason: Pain Last Admin: 11/22/18 01:03 Dose: 100 mg - Assessment Assessment (Free Text/Narrative):: 1) s/p ORIF Right periprosthetic femur fracture POD#1 2) post-hemorrhagic anemia, current Hg stable 10.3 following 2 units of PRBCs during surgery 3) Parkinson disease - Plan Plan (Free Text/Narrative):: Afebrile. Hospitalist consultation for medical management, which currently involves last night's periods of oxygen desaturation, treated with high flow O2. Will complete second dose of Ancef 2 gms for 24 hours of IV antibiotics. Lovenox 40mg daily for DVT prophylaxis. Reinforce surgical dressing if any drainage. Will remove and apply large AquaCell dressing POD#2. Pain control with [place]. Hg stable at 10.3 s/p 2 units PRBCs given during surgery. Hg/Hct tomorrow morning. Urine output adequate at 900ml overnight. Remove belcher catheter (verbal order given to nursing). Start PT today. Knee immobilizer on at all times, NWB with walker and staff assistance. Discussion has been started for discharge to skilled care at [facility] for rehab. <Joanie Box - Last Filed: 11/22/18 13:53> - Patient Data Vitals - Most Recent: Last Vital Signs Temp 97.2 F 11/22/18 12:00 Pulse 99 11/22/18 12:00 Resp 18 11/22/18 12:00 BP 116/58 L 11/22/18 12:00 Pulse Ox 94 L 11/22/18 12:00 I&O - Last 24 Hours: Intake & Output 11/21/18 11/22/18 11/22/18 22:59 06:59 14:59 Intake Total 1746 952 Output Total 1500 900 Balance 246 52 Lab Results Last 24 Hrs: Laboratory Results - last 24 hr 11/20/18 11/21/18 11/22/18 Range/Units 12:48 15:39 05:10 Hgb 9.9 L 10.3 L (12.0-16.0) g/dL Hct 33.2 L 33.8 L (36.0-46.0) % Blood Type O POSITIVE Antibody Screen NEGATIVE Crossmatch See Detail Med Orders - Current: Current Medications Hydrocodone Bitart/Acetaminophen ([place] 325-10 Mg) 1 - 2 tab PO Q4H PRN PRN Reason: Pain Last Admin: 11/22/18 09:22 Dose: 1 tab Anastrozole (Arimidex) 1 mg PO DAILY [facility] Last Admin: 11/22/18 09:52 Dose: 1 mg Bisacodyl (Dulcolax) 10 mg RECTAL DAILY PRN PRN Reason: Constipation Carbidopa/Levodopa (Sinemet Cr 25-100 Mg) 2 tab PO 0700,1100,1500,1900 [facility] Last Admin: 11/22/18 12:10 Dose: 2 tab Citalopram Hydrobromide (Celexa) 40 mg PO DAILY [facility] Last Admin: 11/22/18 09:23 Dose: 40 mg Diphenhydramine HCl (Benadryl) 25 - 50 mg PO Q6H PRN PRN Reason: Itching Docusate Sodium (Colace) 100 mg PO BID [facility] Last Admin: 11/22/18 09:22 Dose: 100 mg Enoxaparin Sodium (Lovenox) 40 mg SUBCUT Q24H [facility] Last Admin: 11/22/18 09:20 Dose: 40 mg Fluticasone Propionate (Flonase) 1 - 2 gm NASBOTH DAILY PRN PRN Reason: sinus congestion Hydromorphone HCl (Dilaudid) 0.5 - 1 mg IVPUSH Q3H PRN PRN Reason: Pain Levothyroxine Sodium (Levothyroxine) 112 mcg PO ACBREAKFAST [facility] Last Admin: 11/22/18 06:42 Dose: 112 mcg Levothyroxine Sodium (Levothyroxine) 25 mcg PO ACBREAKFAST [facility] Last Admin: 11/22/18 06:42 Dose: 25 mcg Magnesium Oxide (Magnesium Oxide) 400 mg PO BID [facility] Last Admin: 11/22/18 09:22 Dose: 400 mg Omeprazole (Omeprazole) 40 mg PO ACBREAKFAST [facility] Last Admin: 11/22/18 06:43 Dose: 40 mg Ondansetron HCl (Zofran) 4 mg IV Q8HR PRN PRN Reason: NAUSEA/VOMITING Potassium Chloride (Klor-Con 10) 10 meq PO TID [facility] Last Admin: 11/22/18 06:43 Dose: 10 meq Sodium Chloride (Saline Flush) 10 ml FLUSH ASDIRECTED PRN PRN Reason: Keep Vein Open Sodium Chloride (Saline Flush) 2.5 ml FLUSH ASDIRECTED PRN PRN Reason: Keep Vein Open Sodium Chloride (Normal Saline) 10 ml IV ASDIRECTED PRN PRN Reason: IV Use Sodium Chloride (Saline Flush) 10 ml FLUSH ASDIRECTED PRN PRN Reason: Keep Vein Open Sodium Chloride (Saline Flush) 2.5 ml FLUSH ASDIRECTED PRN PRN Reason: Keep Vein Open Sodium Chloride (Normal Saline) 10 ml IV ASDIRECTED PRN PRN Reason: IV Use Tramadol HCl (Ultram) 50 - 100 mg PO Q6H PRN PRN Reason: Pain Last Admin: 11/22/18 12:09 Dose: 100 mg Discontinued Medications Bupivacaine HCl (Marcaine 0.5%) Confirm Administered Dose 30 ml .ROUTE .STK-MED ONE Stop: 11/21/18 09:31 Bupivacaine HCl (Sensorcaine-Mpf 0.5%) Confirm Administered Dose 10 ml .ROUTE .STK-MED ONE Stop: 11/21/18 14:38 Cefazolin Sodium/Dextrose (Ancef) Confirm Administered Dose 2 gm IV .STK-MED ONE Stop: 11/21/18 14:24 Fentanyl (Sublimaze) Confirm Administered Dose 100 mcg .ROUTE .STK-MED ONE Stop: 11/21/18 10:15 Fentanyl (Sublimaze) Confirm Administered Dose 100 mcg .ROUTE .STK-MED ONE Stop: 11/21/18 14:20 Fentanyl (Sublimaze) 50 mcg IVPUSH .Q5MIN PRN PRN Reason: Pain Last Admin: 11/21/18 19:10 Dose: 50 mcg Furosemide (Lasix) 20 mg PO DAILY [facility] Last Admin: 11/21/18 11:29 Dose: Not Given Furosemide (Lasix) Confirm Administered Dose 40 mg .ROUTE .STK-MED ONE Stop: 11/21/18 17:30 Furosemide (Lasix) 40 mg IVPUSH NOW ONE Stop: 11/22/18 08:48 Last Admin: 11/22/18 09:13 Dose: 40 mg Hydromorphone HCl (Dilaudid) 0 mg IVPUSH ONETIME PRN PRN Reason: Breakthrough Pain Lactated Ringer's (Ringers, Lactated) 1,000 mls @ 125 mls/hr IV ASDIRECTED [facility] Last Admin: 11/22/18 02:20 Dose: 125 mls/hr Cefazolin Sodium/Dextrose 2 gm (/ Premix) 50 mls @ 100 mls/hr IV ONETIME ONE Stop: 11/21/18 13:05 Last Admin: 11/21/18 16:33 Dose: Not Given Cefazolin Sodium/Dextrose 2 gm (/ Premix) 50 mls @ 100 mls/hr IV Q8H [facility] Stop: 11/22/18 08:28 Last Admin: 11/22/18 09:13 Dose: 100 mls/hr Acetaminophen (Ofirmev) Confirm Administered Dose 100 mls @ as directed IV .STK- MED ONE Stop: 11/21/18 19:07 Acetaminophen 650 mg/ Premix 65 mls @ 400 mls/hr IV NOW ONE Stop: 11/21/18 21:40 Last Admin: 11/21/18 21:42 Dose: 400 mls/hr Ketamine HCl (Ketalar) Confirm Administered Dose 500 mg .ROUTE .STK-MED ONE Stop: 11/21/18 14:20 Midazolam HCl (Versed 1 Mg/Ml) Confirm Administered Dose 2 mg .ROUTE .STK-MED ONE Stop: 11/21/18 10:15 Midazolam HCl (Versed 1 Mg/Ml) Confirm Administered Dose 2 mg .ROUTE .STK-MED ONE Stop: 11/21/18 14:20 Midazolam HCl (Versed 1 Mg/Ml) Confirm Administered Dose 2 mg .ROUTE .STK-MED ONE Stop: 11/21/18 16:14 Morphine Sulfate (Morphine) 4 mg IM ONETIME ONE Stop: 11/20/18 10:43 Last Admin: 11/20/18 11:24 Dose: 4 mg Morphine Sulfate (Morphine) 2 mg IVPUSH ONETIME ONE Stop: 11/20/18 12:29 Last Admin: 11/20/18 13:01 Dose: 2 mg Morphine Sulfate (Morphine) 1 - 3 mg IVPUSH Q3H PRN PRN Reason: Pain Last Admin: 11/21/18 13:06 Dose: 3 mg Naloxone HCl (Narcan) 0.4 mg IVPUSH ONETIME ONE Stop: 11/21/18 21:35 Last Admin: 11/21/18 21:42 Dose: 0.4 mg Ondansetron HCl (Zofran) 4 mg IVPUSH ONETIME ONE Stop: 11/20/18 12:29 Last Admin: 11/20/18 12:56 Dose: 4 mg Ondansetron HCl (Zofran) Confirm Administered Dose 4 mg .ROUTE .STK-MED ONE Stop: 11/21/18 17:01 Phenylephrine HCl (Star-Synephrine) Confirm Administered Dose 10 mg .ROUTE .STK- MED ONE Stop: 11/21/18 14:58 Propofol (Diprivan 20 Ml) Confirm Administered Dose 200 mg .ROUTE .STK-MED ONE Stop: 11/21/18 10:14 Propofol (Diprivan 20 Ml) Confirm Administered Dose 200 mg .ROUTE .STK-MED ONE Stop: 11/21/18 14:20 Propofol (Diprivan 20 Ml) Confirm Administered Dose 200 mg .ROUTE .STK-MED ONE Stop: 11/21/18 17:15 Sodium Chloride (Saline Flush) 10 ml FLUSH ASDIRECTED PRN PRN Reason: Keep Vein Open Last Admin: 11/20/18 12:51 Dose: 10 ml Sodium Chloride (Saline Flush) 2.5 ml FLUSH ASDIRECTED PRN PRN Reason: Keep Vein Open Last Admin: 11/20/18 12:51 Dose: 2.5 ml Tranexamic Acid (Cyklokapron) Confirm Administered Dose 2,000 mg .ROUTE .STK- MED ONE Stop: 11/21/18 09:31 - Problem List & Annotations (1) Femur fracture, right SNOMED Code(s): 23000640 Code(s): S72.91XA - UNSP FRACTURE OF RIGHT FEMUR, INIT FOR CLOS FX Status: Acute Priority: High Current Visit: Yes Qualifiers: Encounter type: initial encounter Femur location: distal Fracture type: closed Fracture morphology: other fracture Qualified Code(s): S72.491A - Other fracture of lower end of right femur, initial encounter for closed fracture - Problem List Review Problem List Initiated/Reviewed/Updated: Yes - My Orders Last 24 Hours: Active Orders 24 hr Category Date Time Status Activity as Tolerated [RC] .Routine Care 11/21/18 18:47 Active Antiembolic Devices [RC] PER UNIT ROUTINE Care 11/21/18 18:49 Inactive Dressing Change [Wound Care] [RC] ASDIRECTED Care 11/21/18 18:47 Active Intake and Output [RC] ASDIRECTED Care 11/21/18 18:47 Active Neurovascular Check [RC] Q2HR Care 11/21/18 18:47 Inactive Notify Provider Vital Signs [RC] ASDIRECTED Care 11/21/18 18:47 Active Oxygen Therapy [RC] ASDIRECTED Care 11/21/18 19:26 Active Pulse Oximetry [RC] ASDIRECTED Care 11/21/18 19:29 Active RT Incentive Spirometry [RC] ASDIRECTED Care 11/21/18 18:47 Active Vital Signs [RC] Q4H Care 11/21/18 18:47 Active PT Evaluation and Treatment [CONS] Routine Cons 11/21/18 18:46 Active Echo Comp wo Cont [US] Routine Exams 11/22/18 09:49 Ordered BMP [BASIC METABOLIC PANEL,BMP] [CHEM] AM Lab 11/23/18 05:11 Ordered BMP [BASIC METABOLIC PANEL,BMP] [CHEM] AM Lab 11/24/18 05:11 Ordered BMP [BASIC METABOLIC PANEL,BMP] [CHEM] AM Lab 11/25/18 05:11 Ordered HEMOGLOBIN/HEMATOCRIT,HH [HEME] DAILY Lab 11/23/18 06:00 Ordered HEMOGLOBIN/HEMATOCRIT,HH [HEME] DAILY Lab 11/24/18 06:00 Ordered Bisacodyl [Dulcolax] Med 11/21/18 18:48 Active 10 mg RECTAL DAILY PRN Docusate Sodium [Colace] Med 11/21/18 21:00 Active 100 mg PO BID Enoxaparin [Lovenox] Med 11/22/18 09:00 Active 40 mg SUBCUT Q24H HYDROmorphone [Dilaudid] Med 11/21/18 18:48 Active 0.5 - 1 mg IVPUSH Q3H PRN diphenhydrAMINE [Benadryl] Med 11/21/18 18:48 Active 25 - 50 mg PO Q6H PRN Code Status [Resuscitation Status] Routine Resus Stat 11/22/18 12:53 Ordered Medication Orders Hydrocodone Bitart/Acetaminophen ([place] 325-10 Mg) 1 - 2 tab PO Q4H PRN PRN Reason: Pain Last Admin: 11/22/18 09:22 Dose: 1 tab Admin: 11/22/18 04:09 Dose: 1 tab Admin: 11/20/18 21:31 Dose: 2 tab Anastrozole (Arimidex) 1 mg PO DAILY [facility] Last Admin: 11/22/18 09:52 Dose: 1 mg Admin: 11/21/18 11:29 Dose: Bisacodyl (Dulcolax) 10 mg RECTAL DAILY PRN PRN Reason: Constipation Carbidopa/Levodopa (Sinemet Cr 25-100 Mg) 2 tab PO 0700,1100,1500,1900 [facility] Last Admin: 11/22/18 12:10 Dose: 2 tab Admin: 11/22/18 06:43 Dose: 2 tab Admin: 11/21/18 23:17 Dose: Not Given Admin: 11/21/18 16:34 Dose: Admin: 11/21/18 11:21 Dose: 2 tab Admin: 11/21/18 06:13 Dose: Admin: 11/20/18 18:48 Dose: 2 tab Citalopram Hydrobromide (Celexa) 40 mg PO DAILY [facility] Last Admin: 11/22/18 09:23 Dose: 40 mg Admin: 11/21/18 11:29 Dose: Diphenhydramine HCl (Benadryl) 25 - 50 mg PO Q6H PRN PRN Reason: Itching Docusate Sodium (Colace) 100 mg PO BID [facility] Last Admin: 11/22/18 09:22 Dose: 100 mg Admin: 11/21/18 21:24 Dose: 100 mg Enoxaparin Sodium (Lovenox) 40 mg SUBCUT Q24H [facility] Last Admin: 11/22/18 09:20 Dose: 40 mg Fluticasone Propionate (Flonase) 1 - 2 gm [facility] DAILY PRN PRN Reason: sinus congestion Hydromorphone HCl (Dilaudid) 0.5 - 1 mg IVPUSH Q3H PRN PRN Reason: Pain Levothyroxine Sodium (Levothyroxine) 112 mcg PO ACBREAKFAST [facility] Last Admin: 11/22/18 06:42 Dose: 112 mcg Admin: 11/21/18 06:51 Dose: Levothyroxine Sodium (Levothyroxine) 25 mcg PO ACBREAKFAST [facility] Last Admin: 11/22/18 06:42 Dose: 25 mcg Admin: 11/21/18 06:51 Dose: Magnesium Oxide (Magnesium Oxide) 400 mg PO BID [facility] Last Admin: 11/22/18 09:22 Dose: 400 mg Admin: 11/21/18 21:24 Dose: 400 mg Admin: 11/21/18 11:29 Dose: Admin: 11/20/18 20:50 Dose: 400 mg Omeprazole (Omeprazole) 40 mg PO ACBREAKFAST [facility] Last Admin: 11/22/18 06:43 Dose: 40 mg Admin: 11/21/18 06:51 Dose: Ondansetron HCl (Zofran) 4 mg IV Q8HR PRN PRN Reason: NAUSEA/VOMITING Potassium Chloride (Klor-Con 10) 10 meq PO TID [facility] Last Admin: 11/22/18 06:43 Dose: 10 meq Admin: 11/21/18 21:24 Dose: 10 meq Admin: 11/21/18 14:43 Dose: Admin: 11/21/18 05:18 Dose: Admin: 11/20/18 21:27 Dose: 10 meq Sodium Chloride (Saline Flush) 10 ml FLUSH ASDIRECTED PRN PRN Reason: Keep Vein Open Sodium Chloride (Saline Flush) 2.5 ml FLUSH ASDIRECTED PRN PRN Reason: Keep Vein Open Sodium Chloride (Normal Saline) 10 ml IV ASDIRECTED PRN PRN Reason: IV Use Sodium Chloride (Saline Flush) 10 ml FLUSH ASDIRECTED PRN PRN Reason: Keep Vein Open Sodium Chloride (Saline Flush) 2.5 ml FLUSH ASDIRECTED PRN PRN Reason: Keep Vein Open Sodium Chloride (Normal Saline) 10 ml IV ASDIRECTED PRN PRN Reason: IV Use Tramadol HCl (Ultram) 50 - 100 mg PO Q6H PRN PRN Reason: Pain Last Admin: 11/22/18 12:09 Dose: 100 mg Admin: 11/22/18 01:03 Dose: 100 mg - Plan Plan (Free Text/Narrative):: 1230 Patient seen and examined. Agree with the above note. Patient is currently sitting up in the chair. She states her pain has been well-controlled. She did have some shortness of breath overnight. She has been given Lasix today. She is scheduled to undergo an echocardiogram today as well. Appreciate the assistance with the hospitalist service. He was up with physical therapy today. Will change to toe-touch weightbearing on the right. Her hemoglobin is currently stable. Will plan possible discharge to [facility] tomorrow for further care and rehabilitation. [place]
[2018-11-23 05:21] LABS: CHLORIDE,CL 103 mmol/L (98-107); SODIUM,NA 139 mmol/L (136-145)
[2018-11-23] MEDS: traMADol 50 MG Tab PO PRN (05:22)
[2018-11-23] MEDS: Potassium Chloride 10 MEQ Tab.ER PO SCH ×3 (05:22→21:39)
[2018-11-23] MEDS: Levothyroxine 25 MCG Tab PO SCH (06:30)
[2018-11-23] MEDS: Carbidopa/Levodopa 25-100 MG Tab.ER PO SCH ×4 (06:30→18:42)
[2018-11-23] MEDS: Levothyroxine 112 MCG Tab PO SCH (06:30)
[2018-11-23] MEDS: Omeprazole 20 MG Cap.CR PO SCH (06:31)
[2018-11-23] MEDS ORDERED: Furosemide 40 MG/4 ML VIAL IVPUSH ONE (08:07)
--- NOTE | 2018-11-23 08:14 | PCM.CONSN ---
<Gaby Ortez M - Last Filed: 11/23/18 09:31> - General Info Date of Service: 11/23/18 Admission Dx/Problem (Free Text): Femur fracture Subjective Update: Reports feeling better today. No chest pain. Breathing feels better. No other concerns. Functional Status: Reports: Pain Controlled, Tolerating Diet, Urinating - Review of Systems General: Reports: No Symptoms. Denies: Fever, Weakness, Fatigue HEENT: Reports: No Symptoms. Denies: Headaches, Sore Throat, Visual Changes Pulmonary: Reports: No Symptoms. Denies: Shortness of Breath, Cough, Sputum Cardiovascular: Reports: No Symptoms. Denies: Chest Pain, Palpitations, Edema Gastrointestinal: Reports: No Symptoms. Denies: Abdominal Pain, Constipation, Nausea Genitourinary: Reports: No Symptoms. Denies: Dysuria, Frequency, Burning Musculoskeletal: Reports: Leg Pain (tolerable, to R leg) Skin: Reports: No Symptoms Neurological: Reports: No Symptoms Psychiatric: Reports: No Symptoms - Patient Data Vitals - Most Recent: Last Vital Signs Temp 97.1 F 11/23/18 04:00 Pulse 105 H 11/23/18 04:00 Resp 19 11/23/18 04:00 BP 114/57 L 11/23/18 04:00 Pulse Ox 94 L 11/23/18 04:00 Weight - Most Recent: 128.423 kg I&O - Last 24 Hours: Intake & Output 11/22/18 11/23/18 11/23/18 22:59 06:59 14:59 Intake Total 350 Output Total 375 Balance -25 Lab Results Last 24 Hours: Laboratory Results - last 24 hr 11/23/18 11/23/18 Range/Units 04:30 04:30 Hgb 9.4 L (12.0-16.0) g/dL Hct 30.8 L (36.0-46.0) % Sodium 139 (136-145) mmol/L Potassium 3.5 (3.5-5.1) mmol/L Chloride 103 (98-107) mmol/L Carbon Dioxide 32.1 H (21.0-32.0) mmol/L BUN 10 (7.0-18.0) mg/dL Creatinine 0.7 (0.6-1.0) mg/dL Est Cr Clr Drug Dosing 88.86 mL/min Estimated GFR (MDRD) > 60.0 ml/min Glucose 122 H (74-106) mg/dL Calcium 8.0 L (8.5-10.1) mg/dL Med Orders - Current: Current Medications Hydrocodone Bitart/Acetaminophen ([place] 325-10 Mg) 1 - 2 tab PO Q4H PRN PRN Reason: Pain Last Admin: 11/22/18 19:38 Dose: 2 tab Anastrozole (Arimidex) 1 mg PO DAILY [facility] Last Admin: 11/22/18 09:52 Dose: 1 mg Bisacodyl (Dulcolax) 10 mg RECTAL DAILY PRN PRN Reason: Constipation Carbidopa/Levodopa (Sinemet Cr 25-100 Mg) 2 tab PO 0700,1100,1500,1900 [facility] Last Admin: 11/23/18 06:30 Dose: 2 tab Citalopram Hydrobromide (Celexa) 40 mg PO DAILY [facility] Last Admin: 11/22/18 09:23 Dose: 40 mg Diphenhydramine HCl (Benadryl) 25 - 50 mg PO Q6H PRN PRN Reason: Itching Docusate Sodium (Colace) 100 mg PO BID [facility] Last Admin: 11/22/18 20:51 Dose: 100 mg Enoxaparin Sodium (Lovenox) 40 mg SUBCUT Q24H [facility] Last Admin: 11/22/18 09:20 Dose: 40 mg Fluticasone Propionate (Flonase) 1 - 2 gm NASBOTH DAILY PRN PRN Reason: sinus congestion Hydromorphone HCl (Dilaudid) 0.5 - 1 mg IVPUSH Q3H PRN PRN Reason: Pain Levothyroxine Sodium (Levothyroxine) 112 mcg PO ACBREAKFAST [facility] Last Admin: 11/23/18 06:30 Dose: 112 mcg Levothyroxine Sodium (Levothyroxine) 25 mcg PO ACBREAKFAST [facility] Last Admin: 11/23/18 06:30 Dose: 25 mcg Magnesium Oxide (Magnesium Oxide) 400 mg PO BID [facility] Last Admin: 11/22/18 20:51 Dose: 400 mg Omeprazole (Omeprazole) 40 mg PO ACBREAKFAST [facility] Last Admin: 11/23/18 06:31 Dose: 40 mg Ondansetron HCl (Zofran) 4 mg IV Q8HR PRN PRN Reason: NAUSEA/VOMITING Potassium Chloride (Klor-Con 10) 10 meq PO TID [facility] Last Admin: 11/23/18 05:22 Dose: 10 meq Sodium Chloride (Saline Flush) 10 ml FLUSH ASDIRECTED PRN PRN Reason: Keep Vein Open Sodium Chloride (Saline Flush) 2.5 ml FLUSH ASDIRECTED PRN PRN Reason: Keep Vein Open Sodium Chloride (Normal Saline) 10 ml IV ASDIRECTED PRN PRN Reason: IV Use Sodium Chloride (Saline Flush) 10 ml FLUSH ASDIRECTED PRN PRN Reason: Keep Vein Open Sodium Chloride (Saline Flush) 2.5 ml FLUSH ASDIRECTED PRN PRN Reason: Keep Vein Open Sodium Chloride (Normal Saline) 10 ml IV ASDIRECTED PRN PRN Reason: IV Use Tramadol HCl (Ultram) 50 - 100 mg PO Q6H PRN PRN Reason: Pain Last Admin: 11/23/18 05:22 Dose: 100 mg Discontinued Medications Bupivacaine HCl (Marcaine 0.5%) Confirm Administered Dose 30 ml .ROUTE .STK-MED ONE Stop: 11/21/18 09:31 Bupivacaine HCl (Sensorcaine-Mpf 0.5%) Confirm Administered Dose 10 ml .ROUTE .STK-MED ONE Stop: 11/21/18 14:38 Cefazolin Sodium/Dextrose (Ancef) Confirm Administered Dose 2 gm IV .STK-MED ONE Stop: 11/21/18 14:24 Fentanyl (Sublimaze) Confirm Administered Dose 100 mcg .ROUTE .STK-MED ONE Stop: 11/21/18 10:15 Fentanyl (Sublimaze) Confirm Administered Dose 100 mcg .ROUTE .STK-MED ONE Stop: 11/21/18 14:20 Fentanyl (Sublimaze) 50 mcg IVPUSH .Q5MIN PRN PRN Reason: Pain Last Admin: 11/21/18 19:10 Dose: 50 mcg Furosemide (Lasix) 20 mg PO DAILY [facility] Last Admin: 11/21/18 11:29 Dose: Not Given Furosemide (Lasix) Confirm Administered Dose 40 mg .ROUTE .STK-MED ONE Stop: 11/21/18 17:30 Furosemide (Lasix) 40 mg IVPUSH NOW ONE Stop: 11/22/18 08:48 Last Admin: 11/22/18 09:13 Dose: 40 mg Furosemide (Lasix) 40 mg IVPUSH NOW ONE Stop: 11/23/18 08:08 Hydromorphone HCl (Dilaudid) 0 mg IVPUSH ONETIME PRN PRN Reason: Breakthrough Pain Lactated Ringer's (Ringers, Lactated) 1,000 mls @ 125 mls/hr IV ASDIRECTED [facility] Last Admin: 11/22/18 02:20 Dose: 125 mls/hr Cefazolin Sodium/Dextrose 2 gm (/ Premix) 50 mls @ 100 mls/hr IV ONETIME ONE Stop: 11/21/18 13:05 Last Admin: 11/21/18 16:33 Dose: Not Given Cefazolin Sodium/Dextrose 2 gm (/ Premix) 50 mls @ 100 mls/hr IV Q8H [facility] Stop: 11/22/18 08:28 Last Admin: 11/22/18 09:13 Dose: 100 mls/hr Acetaminophen (Ofirmev) Confirm Administered Dose 100 mls @ as directed IV .STK- MED ONE Stop: 11/21/18 19:07 Acetaminophen 650 mg/ Premix 65 mls @ 400 mls/hr IV NOW ONE Stop: 11/21/18 21:40 Last Admin: 11/21/18 21:42 Dose: 400 mls/hr Ketamine HCl (Ketalar) Confirm Administered Dose 500 mg .ROUTE .STK-MED ONE Stop: 11/21/18 14:20 Midazolam HCl (Versed 1 Mg/Ml) Confirm Administered Dose 2 mg .ROUTE .STK-MED ONE Stop: 11/21/18 10:15 Midazolam HCl (Versed 1 Mg/Ml) Confirm Administered Dose 2 mg .ROUTE .STK-MED ONE Stop: 11/21/18 14:20 Midazolam HCl (Versed 1 Mg/Ml) Confirm Administered Dose 2 mg .ROUTE .STK-MED ONE Stop: 11/21/18 16:14 Morphine Sulfate (Morphine) 4 mg IM ONETIME ONE Stop: 11/20/18 10:43 Last Admin: 11/20/18 11:24 Dose: 4 mg Morphine Sulfate (Morphine) 2 mg IVPUSH ONETIME ONE Stop: 11/20/18 12:29 Last Admin: 11/20/18 13:01 Dose: 2 mg Morphine Sulfate (Morphine) 1 - 3 mg IVPUSH Q3H PRN PRN Reason: Pain Last Admin: 11/21/18 13:06 Dose: 3 mg Naloxone HCl (Narcan) 0.4 mg IVPUSH ONETIME ONE Stop: 11/21/18 21:35 Last Admin: 11/21/18 21:42 Dose: 0.4 mg Ondansetron HCl (Zofran) 4 mg IVPUSH ONETIME ONE Stop: 11/20/18 12:29 Last Admin: 11/20/18 12:56 Dose: 4 mg Ondansetron HCl (Zofran) Confirm Administered Dose 4 mg .ROUTE .STK-MED ONE Stop: 11/21/18 17:01 Phenylephrine HCl (Star-Synephrine) Confirm Administered Dose 10 mg .ROUTE .STK- MED ONE Stop: 11/21/18 14:58 Propofol (Diprivan 20 Ml) Confirm Administered Dose 200 mg .ROUTE .STK-MED ONE Stop: 11/21/18 10:14 Propofol (Diprivan 20 Ml) Confirm Administered Dose 200 mg .ROUTE .STK-MED ONE Stop: 11/21/18 14:20 Propofol (Diprivan 20 Ml) Confirm Administered Dose 200 mg .ROUTE .STK-MED ONE Stop: 11/21/18 17:15 Sodium Chloride (Saline Flush) 10 ml FLUSH ASDIRECTED PRN PRN Reason: Keep Vein Open Last Admin: 11/20/18 12:51 Dose: 10 ml Sodium Chloride (Saline Flush) 2.5 ml FLUSH ASDIRECTED PRN PRN Reason: Keep Vein Open Last Admin: 11/20/18 12:51 Dose: 2.5 ml Tranexamic Acid (Cyklokapron) Confirm Administered Dose 2,000 mg .ROUTE .STK- MED ONE Stop: 11/21/18 09:31 - Exam General: Alert, Oriented, Cooperative, No Acute Distress Lungs: Clear to Auscultation, Normal Respiratory Effort Cardiovascular: Regular Rate, Regular Rhythm, No Murmurs GI/Abdominal Exam: Normal Bowel Sounds, Soft, Non-Tender Extremities: Normal Inspection, Normal Range of Motion, Non-Tender, Pedal Edema (+1 non pitting edema BLE. +1non pitting to bilateral upper extremities.) Wound/Incisions: Dressing Dry and Intact Neurological: No New Focal Deficit Psy/Mental Status: Alert, Normal Affect, Normal Mood Consult PN Assessment/Plan Procedures: Procedures 3-D RADIOTHERAPY PLAN (10/12/15) ASSAY OF MAGNESIUM (03/01/17) C-REACTIVE PROTEIN (08/02/17) CHEMO IV INFUS EACH ADDL SEQ (09/15/15) CHEMO IV INFUSION 1 HR (05/04/16) CHEMO IV INFUSION ADDL HR (06/10/15) CINE/VID X-RAY THROAT/ESOPH (12/01/17) COLONOSCOPY W/LESION REMOVAL (01/18/16) COMP SCREEN MAMMOGRAM ADD-ON (06/09/16) COMPLETE CBC W/AUTO DIFF WBC (10/31/17) COMPREHEN METABOLIC PANEL (10/31/17) CT SCAN FOR THERAPY GUIDE (09/30/15) CT THORAX W/DYE (12/08/16) DRAIN/INJ JOINT/BURSA W/O US (11/28/17) DRAW BLOOD OFF VENOUS DEVICE (10/31/17) DX MAMMO INCL CAD UNI (07/13/18) DXA BONE DENSITY AXIAL (03/13/18) EMERGENCY DEPT VISIT (07/18/15) EVALUATE SPEECH PRODUCTION (04/23/18) EVALUATE SWALLOWING FUNCTION (10/16/18) GATED HEART PLANAR SINGLE (06/10/15) HOT OR COLD PACKS THERAPY (03/16/15) HYDRATE IV INFUSION ADD-ON (06/30/15) HYDRATION IV INFUSION INIT (06/30/15) IIV4 VACC NO PRSV 0.5 ML IM (07/25/18) IRRIG DRUG DELIVERY DEVICE (10/17/18) KNEE ARTHROSCOPY/SURGERY (08/07/18) MANUAL THERAPY 1/> REGIONS (02/18/15) MOTION FLUOROSCOPY/SWALLOW (12/01/17) MRI JNT OF LWR EXTRE W/O DYE (12/01/16) NEEDLE LOCALIZATION BY XRAY (11/28/17) OFFICE/OUTPATIENT VISIT NEW (09/30/15) ORAL FUNCTION THERAPY (04/23/18) PT EVAL MOD COMPLEX 30 MIN (01/24/17) PT EVALUATION (12/21/15) RADIATION PHYSICS CONSULT (10/27/15) RADIATION THERAPY DOSE PLAN (10/12/15) RADIATION TREATMENT AID(S) (10/27/15) RADIATION TREATMENT DELIVERY (11/27/15) RADIOLOGY PORT IMAGES(S) (10/27/15) RBC SED RATE AUTOMATED (08/02/17) REMOVAL OF BREAST LESION (03/25/15) ROUTINE VENIPUNCTURE (10/31/17) SET RADIATION THERAPY FIELD (10/27/15) SPECIAL RADIATION DOSIMETRY (10/27/15) SPECIAL RADIATION TREATMENT (10/12/15) SPECIAL TELETX PORT PLAN (10/27/15) THER/PROPH/DIAG INJ SC/IM (09/15/15) THER/PROPH/DIAG IV INF INIT (06/30/15) THERAPEUTIC EXERCISES (02/16/17) TISSUE EXAM BY PATHOLOGIST (01/18/16) TISSUE EXAM BY PATHOLOGIST (03/25/15) TTE W/DOPPLER COMPLETE (02/09/16) TX/PRO/DX INJ NEW DRUG ADDON (09/15/15) TX/PROPH/DG ADDL SEQ IV INF (09/15/15) VASOPNEUMATIC DEVICE THERAPY (02/16/17) X-RAY EXAM HIP UNI 2-3 VIEWS (05/22/18) X-RAY EXAM KNEE 4 OR MORE (07/26/17) X-RAY EXAM OF KNEE 1 OR 2 (07/26/18) X-RAY EXAM OF KNEE 3 (01/05/17) (1) Femur fracture, right SNOMED Code(s): 80118829 Code(s): S72.91XA - UNSP FRACTURE OF RIGHT FEMUR, INIT FOR CLOS FX Priority : High Current Visit: Yes Qualifiers: Encounter type: initial encounter Femur location: distal Fracture type: closed Fracture morphology: other fracture Qualified Code(s): S72.491A - Other fracture of lower end of right femur, initial encounter for closed fracture (2) History of left breast cancer SNOMED Code(s): 007926881 Code(s): Z85.3 - PERSONAL HISTORY OF MALIGNANT NEOPLASM OF BREAST Priority : Medium Current Visit: Yes (3) History of uterine cancer SNOMED Code(s): 577178822 Code(s): Z85.42 - PERSONAL HISTORY OF MALIGNANT NEOPLASM OF OTH PRT UTERUS Priority: Low Current Visit: Yes (4) Parkinsons disease SNOMED Code(s): 51340797 Code(s): G20 - PARKINSON'S DISEASE Priority: Medium Current Visit: Yes (5) Post-mastectomy lymphedema syndrome SNOMED Code(s): 21745662 Code(s): I97.2 - POSTMASTECTOMY LYMPHEDEMA SYNDROME Priority: Medium Current Visit: Yes Problem List Initiated/Reviewed/Updated: Yes My Orders Last 24 Hours: My Active Orders 11/22/18 09:49 Echo Comp wo Cont [US] Routine 11/24/18 05:11 BMP [BASIC METABOLIC PANEL,BMP] [CHEM] AM 11/25/18 05:11 BMP [BASIC METABOLIC PANEL,BMP] [CHEM] AM Plan: This 58 year old female admitted with R femur fracture, Hospitalist consult for medical management. 1. S/P ORIF R periprosthetic femur fracture: Orders per Dr Box 2. Hypoxia: Able to wean to 3 l NC, continue to wean as possible. LS improved today and denies congestion feeling. Will give 1 more dose of IV Lasix today. Restart home dose tomorrow. ECHO pending. 3. Parkinson's: Continue Carbidopa/levodopa. VTE prophylaxis: Would recommend when Orthopedics deems appropriate. Dispo: pending placement, [facility] on Monday for short term rehabilitation. <Cliff Martel - Last Filed: 11/23/18 09:57> - General Info Subjective Update: I have examined the patient independently of Gaby Ortez CNP. I have discussed the case with her. I have reviewed and agree with the plan of care as outlined by her. Please see orders. - Patient Data Vitals - Most Recent: Last Vital Signs Temp 36.2 C 11/23/18 04:00 Pulse 105 H 11/23/18 04:00 Resp 19 11/23/18 04:00 BP 114/57 L 11/23/18 04:00 Pulse Ox 94 L 11/23/18 04:00 I&O - Last 24 Hours: Intake & Output 11/22/18 11/23/18 11/23/18 22:59 06:59 14:59 Intake Total 350 Output Total 375 Balance -25 Lab Results Last 24 Hours: Laboratory Results - last 24 hr 11/23/18 11/23/18 11/23/18 Range/Units 04:30 04:30 04:30 Hgb 9.4 L (12.0-16.0) g/dL Hct 30.8 L (36.0-46.0) % Sodium 139 (136-145) mmol/L Potassium 3.5 (3.5-5.1) mmol/L Chloride 103 (98-107) mmol/L Carbon Dioxide 32.1 H (21.0-32.0) mmol/L BUN 10 (7.0-18.0) mg/dL Creatinine 0.7 (0.6-1.0) mg/dL Est Cr Clr Drug Dosing 88.86 mL/min Estimated GFR (MDRD) > 60.0 ml/min Glucose 122 H (74-106) mg/dL Calcium 8.0 L (8.5-10.1) mg/dL Magnesium 2.0 (1.8-2.4) mg/dL Med Orders - Current: Current Medications Hydrocodone Bitart/Acetaminophen ([place] 325-10 Mg) 1 - 2 tab PO Q4H PRN PRN Reason: Pain Last Admin: 11/22/18 19:38 Dose: 2 tab Anastrozole (Arimidex) 1 mg PO DAILY [facility] Last Admin: 11/22/18 09:52 Dose: 1 mg Bisacodyl (Dulcolax) 10 mg RECTAL DAILY PRN PRN Reason: Constipation Carbidopa/Levodopa (Sinemet Cr 25-100 Mg) 2 tab PO 0700,1100,1500,1900 [facility] Last Admin: 11/23/18 06:30 Dose: 2 tab Citalopram Hydrobromide (Celexa) 40 mg PO DAILY [facility] Last Admin: 11/23/18 09:00 Dose: 40 mg Diphenhydramine HCl (Benadryl) 25 - 50 mg PO Q6H PRN PRN Reason: Itching Docusate Sodium (Colace) 100 mg PO BID [facility] Last Admin: 11/23/18 09:00 Dose: 100 mg Enoxaparin Sodium (Lovenox) 40 mg SUBCUT Q24H [facility] Last Admin: 11/23/18 09:00 Dose: 40 mg Fluticasone Propionate (Flonase) 1 - 2 gm NASBOTH DAILY PRN PRN Reason: sinus congestion Furosemide (Lasix) 20 mg PO DAILY [facility] Hydromorphone HCl (Dilaudid) 0.5 - 1 mg IVPUSH Q3H PRN PRN Reason: Pain Levothyroxine Sodium (Levothyroxine) 112 mcg PO ACBREAKFAST [facility] Last Admin: 11/23/18 06:30 Dose: 112 mcg Levothyroxine Sodium (Levothyroxine) 25 mcg PO ACBREAKFAST [facility] Last Admin: 11/23/18 06:30 Dose: 25 mcg Magnesium Oxide (Magnesium Oxide) 400 mg PO BID [facility] Last Admin: 11/23/18 09:00 Dose: 400 mg Omeprazole (Omeprazole) 40 mg PO ACBREAKFAST [facility] Last Admin: 11/23/18 06:31 Dose: 40 mg Ondansetron HCl (Zofran) 4 mg IV Q8HR PRN PRN Reason: NAUSEA/VOMITING Potassium Chloride (Klor-Con 10) 10 meq PO TID [facility] Last Admin: 11/23/18 05:22 Dose: 10 meq Sodium Chloride (Saline Flush) 10 ml FLUSH ASDIRECTED PRN PRN Reason: Keep Vein Open Sodium Chloride (Saline Flush) 2.5 ml FLUSH ASDIRECTED PRN PRN Reason: Keep Vein Open Sodium Chloride (Normal Saline) 10 ml IV ASDIRECTED PRN PRN Reason: IV Use Sodium Chloride (Saline Flush) 10 ml FLUSH ASDIRECTED PRN PRN Reason: Keep Vein Open Sodium Chloride (Saline Flush) 2.5 ml FLUSH ASDIRECTED PRN PRN Reason: Keep Vein Open Sodium Chloride (Normal Saline) 10 ml IV ASDIRECTED PRN PRN Reason: IV Use Tramadol HCl (Ultram) 50 - 100 mg PO Q6H PRN PRN Reason: Pain Last Admin: 11/23/18 05:22 Dose: 100 mg Discontinued Medications Bupivacaine HCl (Marcaine 0.5%) Confirm Administered Dose 30 ml .ROUTE .STK-MED ONE Stop: 11/21/18 09:31 Bupivacaine HCl (Sensorcaine-Mpf 0.5%) Confirm Administered Dose 10 ml .ROUTE .STK-MED ONE Stop: 11/21/18 14:38 Cefazolin Sodium/Dextrose (Ancef) Confirm Administered Dose 2 gm IV .STK-MED ONE Stop: 11/21/18 14:24 Fentanyl (Sublimaze) Confirm Administered Dose 100 mcg .ROUTE .STK-MED ONE Stop: 11/21/18 10:15 Fentanyl (Sublimaze) Confirm Administered Dose 100 mcg .ROUTE .STK-MED ONE Stop: 11/21/18 14:20 Fentanyl (Sublimaze) 50 mcg IVPUSH .Q5MIN PRN PRN Reason: Pain Last Admin: 11/21/18 19:10 Dose: 50 mcg Furosemide (Lasix) 20 mg PO DAILY [facility] Last Admin: 11/21/18 11:29 Dose: Not Given Furosemide (Lasix) Confirm Administered Dose 40 mg .ROUTE .STK-MED ONE Stop: 11/21/18 17:30 Furosemide (Lasix) 40 mg IVPUSH NOW ONE Stop: 11/22/18 08:48 Last Admin: 11/22/18 09:13 Dose: 40 mg Furosemide (Lasix) 40 mg IVPUSH NOW ONE Stop: 11/23/18 08:08 Last Admin: 11/23/18 09:01 Dose: 40 mg Hydromorphone HCl (Dilaudid) 0 mg IVPUSH ONETIME PRN PRN Reason: Breakthrough Pain Lactated Ringer's (Ringers, Lactated) 1,000 mls @ 125 mls/hr IV ASDIRECTED [facility] Last Admin: 11/22/18 02:20 Dose: 125 mls/hr Cefazolin Sodium/Dextrose 2 gm (/ Premix) 50 mls @ 100 mls/hr IV ONETIME ONE Stop: 11/21/18 13:05 Last Admin: 11/21/18 16:33 Dose: Not Given Cefazolin Sodium/Dextrose 2 gm (/ Premix) 50 mls @ 100 mls/hr IV Q8H [facility] Stop: 11/22/18 08:28 Last Admin: 11/22/18 09:13 Dose: 100 mls/hr Acetaminophen (Ofirmev) Confirm Administered Dose 100 mls @ as directed IV .STK- MED ONE Stop: 11/21/18 19:07 Acetaminophen 650 mg/ Premix 65 mls @ 400 mls/hr IV NOW ONE Stop: 11/21/18 21:40 Last Admin: 11/21/18 21:42 Dose: 400 mls/hr Ketamine HCl (Ketalar) Confirm Administered Dose 500 mg .ROUTE .STK-MED ONE Stop: 11/21/18 14:20 Midazolam HCl (Versed 1 Mg/Ml) Confirm Administered Dose 2 mg .ROUTE .STK-MED ONE Stop: 11/21/18 10:15 Midazolam HCl (Versed 1 Mg/Ml) Confirm Administered Dose 2 mg .ROUTE .STK-MED ONE Stop: 11/21/18 14:20 Midazolam HCl (Versed 1 Mg/Ml) Confirm Administered Dose 2 mg .ROUTE .STK-MED ONE Stop: 11/21/18 16:14 Morphine Sulfate (Morphine) 4 mg IM ONETIME ONE Stop: 11/20/18 10:43 Last Admin: 11/20/18 11:24 Dose: 4 mg Morphine Sulfate (Morphine) 2 mg IVPUSH ONETIME ONE Stop: 11/20/18 12:29 Last Admin: 11/20/18 13:01 Dose: 2 mg Morphine Sulfate (Morphine) 1 - 3 mg IVPUSH Q3H PRN PRN Reason: Pain Last Admin: 11/21/18 13:06 Dose: 3 mg Naloxone HCl (Narcan) 0.4 mg IVPUSH ONETIME ONE Stop: 11/21/18 21:35 Last Admin: 11/21/18 21:42 Dose: 0.4 mg Ondansetron HCl (Zofran) 4 mg IVPUSH ONETIME ONE Stop: 11/20/18 12:29 Last Admin: 11/20/18 12:56 Dose: 4 mg Ondansetron HCl (Zofran) Confirm Administered Dose 4 mg .ROUTE .STK-MED ONE Stop: 11/21/18 17:01 Phenylephrine HCl (Star-Synephrine) Confirm Administered Dose 10 mg .ROUTE .STK- MED ONE Stop: 11/21/18 14:58 Potassium Chloride (Klor-Con M20) 40 meq PO ONETIME ONE Stop: 11/23/18 09:35 Propofol (Diprivan 20 Ml) Confirm Administered Dose 200 mg .ROUTE .STK-MED ONE Stop: 11/21/18 10:14 Propofol (Diprivan 20 Ml) Confirm Administered Dose 200 mg .ROUTE .STK-MED ONE Stop: 11/21/18 14:20 Propofol (Diprivan 20 Ml) Confirm Administered Dose 200 mg .ROUTE .STK-MED ONE Stop: 11/21/18 17:15 Sodium Chloride (Saline Flush) 10 ml FLUSH ASDIRECTED PRN PRN Reason: Keep Vein Open Last Admin: 11/20/18 12:51 Dose: 10 ml Sodium Chloride (Saline Flush) 2.5 ml FLUSH ASDIRECTED PRN PRN Reason: Keep Vein Open Last Admin: 11/20/18 12:51 Dose: 2.5 ml Tranexamic Acid (Cyklokapron) Confirm Administered Dose 2,000 mg .ROUTE .STK- MED ONE Stop: 11/21/18 09:31 Consult PN Assessment/Plan Procedures: Procedures 3-D RADIOTHERAPY PLAN (10/12/15) ASSAY OF MAGNESIUM (03/01/17) C-REACTIVE PROTEIN (08/02/17) CHEMO IV INFUS EACH ADDL SEQ (09/15/15) CHEMO IV INFUSION 1 HR (05/04/16) CHEMO IV INFUSION ADDL HR (06/10/15) CINE/VID X-RAY THROAT/ESOPH (12/01/17) COLONOSCOPY W/LESION REMOVAL (01/18/16) COMP SCREEN MAMMOGRAM ADD-ON (06/09/16) COMPLETE CBC W/AUTO DIFF WBC (10/31/17) COMPREHEN METABOLIC PANEL (10/31/17) CT SCAN FOR THERAPY GUIDE (09/30/15) CT THORAX W/DYE (12/08/16) DRAIN/INJ JOINT/BURSA W/O US (11/28/17) DRAW BLOOD OFF VENOUS DEVICE (10/31/17) DX MAMMO INCL CAD UNI (07/13/18) DXA BONE DENSITY AXIAL (03/13/18) EMERGENCY DEPT VISIT (07/18/15) EVALUATE SPEECH PRODUCTION (04/23/18) EVALUATE SWALLOWING FUNCTION (10/16/18) GATED HEART PLANAR SINGLE (06/10/15) HOT OR COLD PACKS THERAPY (03/16/15) HYDRATE IV INFUSION ADD-ON (06/30/15) HYDRATION IV INFUSION INIT (06/30/15) IIV4 VACC NO PRSV 0.5 ML IM (07/25/18) IRRIG DRUG DELIVERY DEVICE (10/17/18) KNEE ARTHROSCOPY/SURGERY (08/07/18) MANUAL THERAPY 1/> REGIONS (02/18/15) MOTION FLUOROSCOPY/SWALLOW (12/01/17) MRI JNT OF LWR EXTRE W/O DYE (12/01/16) NEEDLE LOCALIZATION BY XRAY (11/28/17) OFFICE/OUTPATIENT VISIT NEW (09/30/15) ORAL FUNCTION THERAPY (04/23/18) PT EVAL MOD COMPLEX 30 MIN (01/24/17) PT EVALUATION (12/21/15) RADIATION PHYSICS CONSULT (10/27/15) RADIATION THERAPY DOSE PLAN (10/12/15) RADIATION TREATMENT AID(S) (10/27/15) RADIATION TREATMENT DELIVERY (11/27/15) RADIOLOGY PORT IMAGES(S) (10/27/15) RBC SED RATE AUTOMATED (08/02/17) REMOVAL OF BREAST LESION (03/25/15) ROUTINE VENIPUNCTURE (10/31/17) SET RADIATION THERAPY FIELD (10/27/15) SPECIAL RADIATION DOSIMETRY (10/27/15) SPECIAL RADIATION TREATMENT (10/12/15) SPECIAL TELETX PORT PLAN (10/27/15) THER/PROPH/DIAG INJ SC/IM (09/15/15) THER/PROPH/DIAG IV INF INIT (06/30/15) THERAPEUTIC EXERCISES (02/16/17) TISSUE EXAM BY PATHOLOGIST (01/18/16) TISSUE EXAM BY PATHOLOGIST (03/25/15) TTE W/DOPPLER COMPLETE (02/09/16) TX/PRO/DX INJ NEW DRUG ADDON (09/15/15) TX/PROPH/DG ADDL SEQ IV INF (09/15/15) VASOPNEUMATIC DEVICE THERAPY (02/16/17) X-RAY EXAM HIP UNI 2-3 VIEWS (05/22/18) X-RAY EXAM KNEE 4 OR MORE (07/26/17) X-RAY EXAM OF KNEE 1 OR 2 (07/26/18) X-RAY EXAM OF KNEE 3 (01/05/17) (1) Femur fracture, right SNOMED Code(s): 66780843 Code(s): S72.91XA - UNSP FRACTURE OF RIGHT FEMUR, INIT FOR CLOS FX Priority : High Current Visit: Yes Qualifiers: Encounter type: initial encounter Femur location: distal Fracture type: closed Fracture morphology: other fracture Qualified Code(s): S72.491A - Other fracture of lower end of right femur, initial encounter for closed fracture (2) Hypocalcemia SNOMED Code(s): 8530944 Code(s): E83.51 - HYPOCALCEMIA Priority: Medium Current Visit: Yes (3) Anemia SNOMED Code(s): 248865047 Code(s): D64.9 - ANEMIA, UNSPECIFIED Priority: High Current Visit: Yes Qualifiers: Anemia type: iron deficiency Iron deficiency anemia type: inadequate dietary iron intake Qualified Code(s): D50.8 - Other iron deficiency anemias (4) Status post chemotherapy SNOMED Code(s): 522637598 Code(s): Z92.21 - PERSONAL HISTORY OF ANTINEOPLASTIC CHEMOTHERAPY Priority : Low Current Visit: Yes (5) History of uterine cancer SNOMED Code(s): 749959362 Code(s): Z85.42 - PERSONAL HISTORY OF MALIGNANT NEOPLASM OF OTH PRT UTERUS Priority: Low Current Visit: Yes (6) Post-mastectomy lymphedema syndrome SNOMED Code(s): 50677681 Code(s): I97.2 - POSTMASTECTOMY LYMPHEDEMA SYNDROME Priority: Medium Current Visit: Yes (7) History of left breast cancer SNOMED Code(s): 747167398 Code(s): Z85.3 - PERSONAL HISTORY OF MALIGNANT NEOPLASM OF BREAST Priority : Medium Current Visit: Yes (8) Parkinsons disease SNOMED Code(s): 69518652 Code(s): G20 - PARKINSON'S DISEASE Priority: Medium Current Visit: Yes
[2018-11-23] MEDS: Magnesium Oxide 400 MG Tab PO SCH ×2 (09:00→20:05)
[2018-11-23] MEDS: Docusate Sodium 100 MG Cap PO SCH ×2 (09:00→20:05)
[2018-11-23] MEDS: Citalopram 20 MG Tab PO SCH (09:00)
[2018-11-23] MEDS: Enoxaparin 40 MG/0.4 ML Syringe SUBCUT SCH (09:00)
[2018-11-23] MEDS ORDERED: Potassium Chloride 20 MEQ Tab.ER PO ONE (09:34)
[2018-11-23] MEDS: Anastrozole 1 MG Tab PO SCH (09:56)
[2018-11-23] MEDS: Acetaminophen/HYDROcodone 325-10 MG Tab PO PRN ×2 (11:24→16:33)
--- NOTE | 2018-11-23 12:12 | PCM.SURGPN ---
<Zo Jaramillo - Last Filed: 11/23/18 12:07> - General Info Date of Service: 11/23/18 (0800) Date of Surgery/Procedure: 11/21/18 (ORIF RIGTH periprosthetic femur fracture) POD#: 2 Post-Op Diagnosis: Right periprosthetic femur fracture above total knee arthroplasty Admission Diagnosis/Problem: Fracture of femur Functional Status: Reports: Pain Controlled, Tolerating Diet, Ambulating, Urinating - Review of Systems General: Reports: No Symptoms. Denies: Fever Pulmonary: Reports: No Symptoms. Denies: Shortness of Breath Cardiovascular: Reports: No Symptoms. Denies: Chest Pain Gastrointestinal: Reports: No Symptoms. Denies: Nausea, Vomiting Musculoskeletal: Reports: Joint Pain (post-surgical pain right knee, pt reports well controlled.) Neurological: Reports: Difficulty Walking (frustrated this morning as "left leg doesn't want to cooperate for me with my Parkinsons." ) - Patient Data Vitals - Most Recent: Last Vital Signs Temp 35.8 C 11/23/18 11:40 Pulse 117 H 11/23/18 11:40 Resp 20 11/23/18 11:40 BP 131/64 11/23/18 11:40 Pulse Ox 97 11/23/18 11:40 Weight - Most Recent: 128.423 kg I&O - Last 24 Hours: Intake & Output 11/22/18 11/23/18 11/23/18 22:59 06:59 14:59 Intake Total 350 Output Total 375 Balance -25 Lab Results Last 24 Hrs: Laboratory Results - last 24 hr 11/23/18 11/23/18 11/23/18 Range/Units 04:30 04:30 04:30 Hgb 9.4 L (12.0-16.0) g/dL Hct 30.8 L (36.0-46.0) % Sodium 139 (136-145) mmol/L Potassium 3.5 (3.5-5.1) mmol/L Chloride 103 (98-107) mmol/L Carbon Dioxide 32.1 H (21.0-32.0) mmol/L BUN 10 (7.0-18.0) mg/dL Creatinine 0.7 (0.6-1.0) mg/dL Est Cr Clr Drug Dosing 88.86 mL/min Estimated GFR (MDRD) > 60.0 ml/min Glucose 122 H (74-106) mg/dL Calcium 8.0 L (8.5-10.1) mg/dL Magnesium 2.0 (1.8-2.4) mg/dL Med Orders - Current: Current Medications Hydrocodone Bitart/Acetaminophen ([place] 325-10 Mg) 1 - 2 tab PO Q4H PRN PRN Reason: Pain Last Admin: 11/23/18 11:24 Dose: 2 tab Anastrozole (Arimidex) 1 mg PO DAILY [facility] Last Admin: 11/23/18 09:56 Dose: 1 mg Bisacodyl (Dulcolax) 10 mg RECTAL DAILY PRN PRN Reason: Constipation Carbidopa/Levodopa (Sinemet Cr 25-100 Mg) 2 tab PO 0700,1100,1500,1900 [facility] Last Admin: 11/23/18 10:06 Dose: 2 tab Citalopram Hydrobromide (Celexa) 40 mg PO DAILY [facility] Last Admin: 11/23/18 09:00 Dose: 40 mg Diphenhydramine HCl (Benadryl) 25 - 50 mg PO Q6H PRN PRN Reason: Itching Docusate Sodium (Colace) 100 mg PO BID [facility] Last Admin: 11/23/18 09:00 Dose: 100 mg Enoxaparin Sodium (Lovenox) 40 mg SUBCUT Q24H [facility] Last Admin: 11/23/18 09:00 Dose: 40 mg Fluticasone Propionate (Flonase) 1 - 2 gm NASBOTH DAILY PRN PRN Reason: sinus congestion Furosemide (Lasix) 20 mg PO DAILY [facility] Hydromorphone HCl (Dilaudid) 0.5 - 1 mg IVPUSH Q3H PRN PRN Reason: Pain Levothyroxine Sodium (Levothyroxine) 112 mcg PO ACBREAKFAST [facility] Last Admin: 11/23/18 06:30 Dose: 112 mcg Levothyroxine Sodium (Levothyroxine) 25 mcg PO ACBREAKFAST [facility] Last Admin: 11/23/18 06:30 Dose: 25 mcg Magnesium Oxide (Magnesium Oxide) 400 mg PO BID [facility] Last Admin: 11/23/18 09:00 Dose: 400 mg Omeprazole (Omeprazole) 40 mg PO ACBREAKFAST [facility] Last Admin: 11/23/18 06:31 Dose: 40 mg Ondansetron HCl (Zofran) 4 mg IV Q8HR PRN PRN Reason: NAUSEA/VOMITING Potassium Chloride (Klor-Con 10) 10 meq PO TID [facility] Last Admin: 11/23/18 05:22 Dose: 10 meq Sodium Chloride (Saline Flush) 10 ml FLUSH ASDIRECTED PRN PRN Reason: Keep Vein Open Sodium Chloride (Saline Flush) 2.5 ml FLUSH ASDIRECTED PRN PRN Reason: Keep Vein Open Sodium Chloride (Normal Saline) 10 ml IV ASDIRECTED PRN PRN Reason: IV Use Sodium Chloride (Saline Flush) 10 ml FLUSH ASDIRECTED PRN PRN Reason: Keep Vein Open Sodium Chloride (Saline Flush) 2.5 ml FLUSH ASDIRECTED PRN PRN Reason: Keep Vein Open Sodium Chloride (Normal Saline) 10 ml IV ASDIRECTED PRN PRN Reason: IV Use Tramadol HCl (Ultram) 50 - 100 mg PO Q6H PRN PRN Reason: Pain Last Admin: 11/23/18 05:22 Dose: 100 mg Discontinued Medications Bupivacaine HCl (Marcaine 0.5%) Confirm Administered Dose 30 ml .ROUTE .STK-MED ONE Stop: 11/21/18 09:31 Bupivacaine HCl (Sensorcaine-Mpf 0.5%) Confirm Administered Dose 10 ml .ROUTE .STK-MED ONE Stop: 11/21/18 14:38 Cefazolin Sodium/Dextrose (Ancef) Confirm Administered Dose 2 gm IV .STK-MED ONE Stop: 11/21/18 14:24 Fentanyl (Sublimaze) Confirm Administered Dose 100 mcg .ROUTE .STK-MED ONE Stop: 11/21/18 10:15 Fentanyl (Sublimaze) Confirm Administered Dose 100 mcg .ROUTE .STK-MED ONE Stop: 11/21/18 14:20 Fentanyl (Sublimaze) 50 mcg IVPUSH .Q5MIN PRN PRN Reason: Pain Last Admin: 11/21/18 19:10 Dose: 50 mcg Furosemide (Lasix) 20 mg PO DAILY [facility] Last Admin: 11/21/18 11:29 Dose: Not Given Furosemide (Lasix) Confirm Administered Dose 40 mg .ROUTE .STK-MED ONE Stop: 11/21/18 17:30 Furosemide (Lasix) 40 mg IVPUSH NOW ONE Stop: 11/22/18 08:48 Last Admin: 11/22/18 09:13 Dose: 40 mg Furosemide (Lasix) 40 mg IVPUSH NOW ONE Stop: 11/23/18 08:08 Last Admin: 11/23/18 09:01 Dose: 40 mg Hydromorphone HCl (Dilaudid) 0 mg IVPUSH ONETIME PRN PRN Reason: Breakthrough Pain Lactated Ringer's (Ringers, Lactated) 1,000 mls @ 125 mls/hr IV ASDIRECTED [facility] Last Admin: 11/22/18 02:20 Dose: 125 mls/hr Cefazolin Sodium/Dextrose 2 gm (/ Premix) 50 mls @ 100 mls/hr IV ONETIME ONE Stop: 11/21/18 13:05 Last Admin: 11/21/18 16:33 Dose: Not Given Cefazolin Sodium/Dextrose 2 gm (/ Premix) 50 mls @ 100 mls/hr IV Q8H [facility] Stop: 11/22/18 08:28 Last Admin: 11/22/18 09:13 Dose: 100 mls/hr Acetaminophen (Ofirmev) Confirm Administered Dose 100 mls @ as directed IV .STK- MED ONE Stop: 11/21/18 19:07 Acetaminophen 650 mg/ Premix 65 mls @ 400 mls/hr IV NOW ONE Stop: 11/21/18 21:40 Last Admin: 11/21/18 21:42 Dose: 400 mls/hr Ketamine HCl (Ketalar) Confirm Administered Dose 500 mg .ROUTE .STK-MED ONE Stop: 11/21/18 14:20 Midazolam HCl (Versed 1 Mg/Ml) Confirm Administered Dose 2 mg .ROUTE .STK-MED ONE Stop: 11/21/18 10:15 Midazolam HCl (Versed 1 Mg/Ml) Confirm Administered Dose 2 mg .ROUTE .STK-MED ONE Stop: 11/21/18 14:20 Midazolam HCl (Versed 1 Mg/Ml) Confirm Administered Dose 2 mg .ROUTE .STK-MED ONE Stop: 11/21/18 16:14 Morphine Sulfate (Morphine) 4 mg IM ONETIME ONE Stop: 11/20/18 10:43 Last Admin: 11/20/18 11:24 Dose: 4 mg Morphine Sulfate (Morphine) 2 mg IVPUSH ONETIME ONE Stop: 11/20/18 12:29 Last Admin: 11/20/18 13:01 Dose: 2 mg Morphine Sulfate (Morphine) 1 - 3 mg IVPUSH Q3H PRN PRN Reason: Pain Last Admin: 11/21/18 13:06 Dose: 3 mg Naloxone HCl (Narcan) 0.4 mg IVPUSH ONETIME ONE Stop: 11/21/18 21:35 Last Admin: 11/21/18 21:42 Dose: 0.4 mg Ondansetron HCl (Zofran) 4 mg IVPUSH ONETIME ONE Stop: 11/20/18 12:29 Last Admin: 11/20/18 12:56 Dose: 4 mg Ondansetron HCl (Zofran) Confirm Administered Dose 4 mg .ROUTE .STK-MED ONE Stop: 11/21/18 17:01 Phenylephrine HCl (Star-Synephrine) Confirm Administered Dose 10 mg .ROUTE .STK- MED ONE Stop: 11/21/18 14:58 Potassium Chloride (Klor-Con M20) 40 meq PO ONETIME ONE Stop: 11/23/18 09:35 Last Admin: 11/23/18 10:06 Dose: 40 meq Propofol (Diprivan 20 Ml) Confirm Administered Dose 200 mg .ROUTE .STK-MED ONE Stop: 11/21/18 10:14 Propofol (Diprivan 20 Ml) Confirm Administered Dose 200 mg .ROUTE .STK-MED ONE Stop: 11/21/18 14:20 Propofol (Diprivan 20 Ml) Confirm Administered Dose 200 mg .ROUTE .STK-MED ONE Stop: 11/21/18 17:15 Sodium Chloride (Saline Flush) 10 ml FLUSH ASDIRECTED PRN PRN Reason: Keep Vein Open Last Admin: 11/20/18 12:51 Dose: 10 ml Sodium Chloride (Saline Flush) 2.5 ml FLUSH ASDIRECTED PRN PRN Reason: Keep Vein Open Last Admin: 11/20/18 12:51 Dose: 2.5 ml Tranexamic Acid (Cyklokapron) Confirm Administered Dose 2,000 mg .ROUTE .STK- MED ONE Stop: 11/21/18 09:31 - Exam Wound/Incisions: Dressing Dry and Intact, No Drainage. No: Erythema General: Alert, Oriented, Cooperative, No Acute Distress HEENT: Pupils Equal Lungs: Normal Respiratory Effort Cardiovascular: Regular Rate Extremities: No: Pedal Edema, Johanna's Sign (RLE : AT/EHL/Gastroc 5/5 Sensation grossly intact to LE. PP2+) Skin: Warm, Dry Neurological: Normal Speech Psy/Mental Status: Alert, Normal Affect, Normal Mood Physical Findings Comment:: Surgical dressings secured with ALEXUS wrap were dry and intact. Removed. Surgical incision lateral right thigh intact with cassy. Well approximated with no active drainage or surrounding erythema. - Problem List Review Problem List Initiated/Reviewed/Updated: Yes - My Orders Last 24 Hours: Active Orders 24 hr Category Date Time Status BMP [BASIC METABOLIC PANEL,BMP] [CHEM] AM Lab 11/24/18 05:11 Ordered BMP [BASIC METABOLIC PANEL,BMP] [CHEM] AM Lab 11/25/18 05:11 Ordered HEMOGLOBIN/HEMATOCRIT,HH [HEME] DAILY Lab 11/24/18 06:00 Ordered Furosemide [Lasix] Med 11/24/18 09:00 Active 20 mg PO DAILY Code Status [Resuscitation Status] Routine Resus Stat 11/22/18 12:53 Ordered Medication Orders Hydrocodone Bitart/Acetaminophen ([place] 325-10 Mg) 1 - 2 tab PO Q4H PRN PRN Reason: Pain Last Admin: 11/23/18 11:24 Dose: 2 tab Admin: 11/22/18 19:38 Dose: 2 tab Admin: 11/22/18 15:16 Dose: 1 tab Admin: 11/22/18 09:22 Dose: 1 tab Admin: 11/22/18 04:09 Dose: 1 tab Admin: 11/20/18 21:31 Dose: 2 tab Anastrozole (Arimidex) 1 mg PO DAILY [facility] Last Admin: 11/23/18 09:56 Dose: 1 mg Admin: 11/22/18 09:52 Dose: 1 mg Admin: 11/21/18 11:29 Dose: Bisacodyl (Dulcolax) 10 mg RECTAL DAILY PRN PRN Reason: Constipation Carbidopa/Levodopa (Sinemet Cr 25-100 Mg) 2 tab PO 0700,1100,1500,1900 [facility] Last Admin: 11/23/18 10:06 Dose: 2 tab Admin: 11/23/18 06:30 Dose: 2 tab Admin: 11/22/18 18:49 Dose: 2 tab Admin: 11/22/18 15:15 Dose: 2 tab Admin: 11/22/18 12:10 Dose: 2 tab Admin: 11/22/18 06:43 Dose: 2 tab Admin: 11/21/18 23:17 Dose: Not Given Admin: 11/21/18 16:34 Dose: Admin: 11/21/18 11:21 Dose: 2 tab Admin: 11/21/18 06:13 Dose: Admin: 11/20/18 18:48 Dose: 2 tab Citalopram Hydrobromide (Celexa) 40 mg PO DAILY [facility] Last Admin: 11/23/18 09:00 Dose: 40 mg Admin: 11/22/18 09:23 Dose: 40 mg Admin: 11/21/18 11:29 Dose: Diphenhydramine HCl (Benadryl) 25 - 50 mg PO Q6H PRN PRN Reason: Itching Docusate Sodium (Colace) 100 mg PO BID [facility] Last Admin: 11/23/18 09:00 Dose: 100 mg Admin: 11/22/18 20:51 Dose: 100 mg Admin: 11/22/18 09:22 Dose: 100 mg Admin: 11/21/18 21:24 Dose: 100 mg Enoxaparin Sodium (Lovenox) 40 mg SUBCUT Q24H [facility] Last Admin: 11/23/18 09:00 Dose: 40 mg Admin: 11/22/18 09:20 Dose: 40 mg Fluticasone Propionate (Flonase) 1 - 2 gm NASBOTH DAILY PRN PRN Reason: sinus congestion Furosemide (Lasix) 20 mg PO DAILY [facility] Hydromorphone HCl (Dilaudid) 0.5 - 1 mg IVPUSH Q3H PRN PRN Reason: Pain Levothyroxine Sodium (Levothyroxine) 112 mcg PO ACBREAKFAST [facility] Last Admin: 11/23/18 06:30 Dose: 112 mcg Admin: 11/22/18 06:42 Dose: 112 mcg Admin: 11/21/18 06:51 Dose: Levothyroxine Sodium (Levothyroxine) 25 mcg PO ACBREAKFAST [facility] Last Admin: 11/23/18 06:30 Dose: 25 mcg Admin: 11/22/18 06:42 Dose: 25 mcg Admin: 11/21/18 06:51 Dose: Magnesium Oxide (Magnesium Oxide) 400 mg PO BID [facility] Last Admin: 11/23/18 09:00 Dose: 400 mg Admin: 11/22/18 20:51 Dose: 400 mg Admin: 11/22/18 09:22 Dose: 400 mg Admin: 11/21/18 21:24 Dose: 400 mg Admin: 11/21/18 11:29 Dose: Admin: 11/20/18 20:50 Dose: 400 mg Omeprazole (Omeprazole) 40 mg PO ACBREAKFAST [facility] Last Admin: 11/23/18 06:31 Dose: 40 mg Admin: 11/22/18 06:43 Dose: 40 mg Admin: 11/21/18 06:51 Dose: Ondansetron HCl (Zofran) 4 mg IV Q8HR PRN PRN Reason: NAUSEA/VOMITING Potassium Chloride (Klor-Con 10) 10 meq PO TID [facility] Last Admin: 11/23/18 05:22 Dose: 10 meq Admin: 11/22/18 22:25 Dose: 10 meq Admin: 11/22/18 15:15 Dose: 10 meq Admin: 11/22/18 06:43 Dose: 10 meq Admin: 11/21/18 21:24 Dose: 10 meq Admin: 11/21/18 14:43 Dose: Admin: 11/21/18 05:18 Dose: Admin: 11/20/18 21:27 Dose: 10 meq Sodium Chloride (Saline Flush) 10 ml FLUSH ASDIRECTED PRN PRN Reason: Keep Vein Open Sodium Chloride (Saline Flush) 2.5 ml FLUSH ASDIRECTED PRN PRN Reason: Keep Vein Open Sodium Chloride (Normal Saline) 10 ml IV ASDIRECTED PRN PRN Reason: IV Use Sodium Chloride (Saline Flush) 10 ml FLUSH ASDIRECTED PRN PRN Reason: Keep Vein Open Sodium Chloride (Saline Flush) 2.5 ml FLUSH ASDIRECTED PRN PRN Reason: Keep Vein Open Sodium Chloride (Normal Saline) 10 ml IV ASDIRECTED PRN PRN Reason: IV Use Tramadol HCl (Ultram) 50 - 100 mg PO Q6H PRN PRN Reason: Pain Last Admin: 11/23/18 05:22 Dose: 100 mg Admin: 11/22/18 12:09 Dose: 100 mg Admin: 11/22/18 01:03 Dose: 100 mg - Assessment Assessment (Free Text/Narrative):: 1) POD#2 s/p ORIF Right periprosthetic femur fracture 2) Parkinsons disease 3) post-hemorrhagic anemia - Plan Plan (Free Text/Narrative):: Surgical dressing removed and large AquaCell applied over lateral surgical incision. Incision clean, dry and intact. Afebrile. Hg stable at 9.4 (s/p 4 units of PRBCs transfused day of surgery). Normal Neurovascular exam RLE. Pain controlled with [place] or Ultram when needed. Lovenox and SCDs for DVT prophylaxis. Continue ambulation with PT, TTWB with walker and knee immobilizer on at all times. Hospitalist management involved in her plan of care. Application process started for admission to correction care at [facility] d/t need for transfer and ambulation assistance which is more difficult due to her Parkinson's disease. Awaiting her insurance approval according to web content & social media manager. <Joanie Box R - Last Filed: 11/23/18 14:55> - Patient Data Vitals - Most Recent: Last Vital Signs Temp 96.5 F 11/23/18 11:40 Pulse 117 H 11/23/18 11:40 Resp 20 11/23/18 11:40 BP 131/64 11/23/18 11:40 Pulse Ox 97 11/23/18 11:40 I&O - Last 24 Hours: Intake & Output 11/22/18 11/23/18 11/23/18 22:59 06:59 14:59 Intake Total 350 Output Total 375 Balance -25 Lab Results Last 24 Hrs: Laboratory Results - last 24 hr 11/23/18 11/23/18 11/23/18 Range/Units 04:30 04:30 04:30 Hgb 9.4 L (12.0-16.0) g/dL Hct 30.8 L (36.0-46.0) % Sodium 139 (136-145) mmol/L Potassium 3.5 (3.5-5.1) mmol/L Chloride 103 (98-107) mmol/L Carbon Dioxide 32.1 H (21.0-32.0) mmol/L BUN 10 (7.0-18.0) mg/dL Creatinine 0.7 (0.6-1.0) mg/dL Est Cr Clr Drug Dosing 88.86 mL/min Estimated GFR (MDRD) > 60.0 ml/min Glucose 122 H (74-106) mg/dL Calcium 8.0 L (8.5-10.1) mg/dL Magnesium 2.0 (1.8-2.4) mg/dL Med Orders - Current: Current Medications Hydrocodone Bitart/Acetaminophen ([place] 325-10 Mg) 1 - 2 tab PO Q4H PRN PRN Reason: Pain Last Admin: 11/23/18 11:24 Dose: 2 tab Anastrozole (Arimidex) 1 mg PO DAILY [facility] Last Admin: 11/23/18 09:56 Dose: 1 mg Bisacodyl (Dulcolax) 10 mg RECTAL DAILY PRN PRN Reason: Constipation Carbidopa/Levodopa (Sinemet Cr 25-100 Mg) 2 tab PO 0700,1100,1500,1900 [facility] Last Admin: 11/23/18 14:14 Dose: 2 tab Citalopram Hydrobromide (Celexa) 40 mg PO DAILY [facility] Last Admin: 11/23/18 09:00 Dose: 40 mg Diphenhydramine HCl (Benadryl) 25 - 50 mg PO Q6H PRN PRN Reason: Itching Docusate Sodium (Colace) 100 mg PO BID [facility] Last Admin: 11/23/18 09:00 Dose: 100 mg Enoxaparin Sodium (Lovenox) 40 mg SUBCUT Q24H [facility] Last Admin: 11/23/18 09:00 Dose: 40 mg Fluticasone Propionate (Flonase) 1 - 2 gm NASBOTH DAILY PRN PRN Reason: sinus congestion Furosemide (Lasix) 20 mg PO DAILY [facility] Hydromorphone HCl (Dilaudid) 0.5 - 1 mg IVPUSH Q3H PRN PRN Reason: Pain Levothyroxine Sodium (Levothyroxine) 112 mcg PO ACBREAKFAST [facility] Last Admin: 11/23/18 06:30 Dose: 112 mcg Levothyroxine Sodium (Levothyroxine) 25 mcg PO ACBREAKFAST [facility] Last Admin: 11/23/18 06:30 Dose: 25 mcg Magnesium Oxide (Magnesium Oxide) 400 mg PO BID [facility] Last Admin: 11/23/18 09:00 Dose: 400 mg Omeprazole (Omeprazole) 40 mg PO ACBREAKFAST [facility] Last Admin: 11/23/18 06:31 Dose: 40 mg Ondansetron HCl (Zofran) 4 mg IV Q8HR PRN PRN Reason: NAUSEA/VOMITING Potassium Chloride (Klor-Con 10) 10 meq PO TID [facility] Last Admin: 11/23/18 14:15 Dose: 10 meq Sodium Chloride (Saline Flush) 10 ml FLUSH ASDIRECTED PRN PRN Reason: Keep Vein Open Sodium Chloride (Saline Flush) 2.5 ml FLUSH ASDIRECTED PRN PRN Reason: Keep Vein Open Sodium Chloride (Normal Saline) 10 ml IV ASDIRECTED PRN PRN Reason: IV Use Sodium Chloride (Saline Flush) 10 ml FLUSH ASDIRECTED PRN PRN Reason: Keep Vein Open Sodium Chloride (Saline Flush) 2.5 ml FLUSH ASDIRECTED PRN PRN Reason: Keep Vein Open Sodium Chloride (Normal Saline) 10 ml IV ASDIRECTED PRN PRN Reason: IV Use Tramadol HCl (Ultram) 50 - 100 mg PO Q6H PRN PRN Reason: Pain Last Admin: 11/23/18 05:22 Dose: 100 mg Discontinued Medications Bupivacaine HCl (Marcaine 0.5%) Confirm Administered Dose 30 ml .ROUTE .STK-MED ONE Stop: 11/21/18 09:31 Bupivacaine HCl (Sensorcaine-Mpf 0.5%) Confirm Administered Dose 10 ml .ROUTE .STK-MED ONE Stop: 11/21/18 14:38 Cefazolin Sodium/Dextrose (Ancef) Confirm Administered Dose 2 gm IV .STK-MED ONE Stop: 11/21/18 14:24 Fentanyl (Sublimaze) Confirm Administered Dose 100 mcg .ROUTE .STK-MED ONE Stop: 11/21/18 10:15 Fentanyl (Sublimaze) Confirm Administered Dose 100 mcg .ROUTE .STK-MED ONE Stop: 11/21/18 14:20 Fentanyl (Sublimaze) 50 mcg IVPUSH .Q5MIN PRN PRN Reason: Pain Last Admin: 11/21/18 19:10 Dose: 50 mcg Furosemide (Lasix) 20 mg PO DAILY [facility] Last Admin: 11/21/18 11:29 Dose: Not Given Furosemide (Lasix) Confirm Administered Dose 40 mg .ROUTE .STK-MED ONE Stop: 11/21/18 17:30 Furosemide (Lasix) 40 mg IVPUSH NOW ONE Stop: 11/22/18 08:48 Last Admin: 11/22/18 09:13 Dose: 40 mg Furosemide (Lasix) 40 mg IVPUSH NOW ONE Stop: 11/23/18 08:08 Last Admin: 11/23/18 09:01 Dose: 40 mg Hydromorphone HCl (Dilaudid) 0 mg IVPUSH ONETIME PRN PRN Reason: Breakthrough Pain Lactated Ringer's (Ringers, Lactated) 1,000 mls @ 125 mls/hr IV ASDIRECTED [facility] Last Admin: 11/22/18 02:20 Dose: 125 mls/hr Cefazolin Sodium/Dextrose 2 gm (/ Premix) 50 mls @ 100 mls/hr IV ONETIME ONE Stop: 11/21/18 13:05 Last Admin: 11/21/18 16:33 Dose: Not Given Cefazolin Sodium/Dextrose 2 gm (/ Premix) 50 mls @ 100 mls/hr IV Q8H [facility] Stop: 11/22/18 08:28 Last Admin: 11/22/18 09:13 Dose: 100 mls/hr Acetaminophen (Ofirmev) Confirm Administered Dose 100 mls @ as directed IV .STK- MED ONE Stop: 11/21/18 19:07 Acetaminophen 650 mg/ Premix 65 mls @ 400 mls/hr IV NOW ONE Stop: 11/21/18 21:40 Last Admin: 11/21/18 21:42 Dose: 400 mls/hr Ketamine HCl (Ketalar) Confirm Administered Dose 500 mg .ROUTE .STK-MED ONE Stop: 11/21/18 14:20 Midazolam HCl (Versed 1 Mg/Ml) Confirm Administered Dose 2 mg .ROUTE .STK-MED ONE Stop: 11/21/18 10:15 Midazolam HCl (Versed 1 Mg/Ml) Confirm Administered Dose 2 mg .ROUTE .STK-MED ONE Stop: 11/21/18 14:20 Midazolam HCl (Versed 1 Mg/Ml) Confirm Administered Dose 2 mg .ROUTE .STK-MED ONE Stop: 11/21/18 16:14 Morphine Sulfate (Morphine) 4 mg IM ONETIME ONE Stop: 11/20/18 10:43 Last Admin: 11/20/18 11:24 Dose: 4 mg Morphine Sulfate (Morphine) 2 mg IVPUSH ONETIME ONE Stop: 11/20/18 12:29 Last Admin: 11/20/18 13:01 Dose: 2 mg Morphine Sulfate (Morphine) 1 - 3 mg IVPUSH Q3H PRN PRN Reason: Pain Last Admin: 11/21/18 13:06 Dose: 3 mg Naloxone HCl (Narcan) 0.4 mg IVPUSH ONETIME ONE Stop: 11/21/18 21:35 Last Admin: 11/21/18 21:42 Dose: 0.4 mg Ondansetron HCl (Zofran) 4 mg IVPUSH ONETIME ONE Stop: 11/20/18 12:29 Last Admin: 11/20/18 12:56 Dose: 4 mg Ondansetron HCl (Zofran) Confirm Administered Dose 4 mg .ROUTE .STK-MED ONE Stop: 11/21/18 17:01 Phenylephrine HCl (Star-Synephrine) Confirm Administered Dose 10 mg .ROUTE .STK- MED ONE Stop: 11/21/18 14:58 Potassium Chloride (Klor-Con M20) 40 meq PO ONETIME ONE Stop: 11/23/18 09:35 Last Admin: 11/23/18 10:06 Dose: 40 meq Propofol (Diprivan 20 Ml) Confirm Administered Dose 200 mg .ROUTE .STK-MED ONE Stop: 11/21/18 10:14 Propofol (Diprivan 20 Ml) Confirm Administered Dose 200 mg .ROUTE .STK-MED ONE Stop: 11/21/18 14:20 Propofol (Diprivan 20 Ml) Confirm Administered Dose 200 mg .ROUTE .STK-MED ONE Stop: 11/21/18 17:15 Sodium Chloride (Saline Flush) 10 ml FLUSH ASDIRECTED PRN PRN Reason: Keep Vein Open Last Admin: 11/20/18 12:51 Dose: 10 ml Sodium Chloride (Saline Flush) 2.5 ml FLUSH ASDIRECTED PRN PRN Reason: Keep Vein Open Last Admin: 11/20/18 12:51 Dose: 2.5 ml Tranexamic Acid (Cyklokapron) Confirm Administered Dose 2,000 mg .ROUTE .STK- MED ONE Stop: 11/21/18 09:31 - Problem List & Annotations (1) Femur fracture, right SNOMED Code(s): 19164992 Code(s): S72.91XA - UNSP FRACTURE OF RIGHT FEMUR, INIT FOR CLOS FX Status: Acute Priority: High Current Visit: Yes Qualifiers: Encounter type: initial encounter Femur location: distal Fracture type: closed Fracture morphology: other fracture Qualified Code(s): S72.491A - Other fracture of lower end of right femur, initial encounter for closed fracture - Problem List Review Problem List Initiated/Reviewed/Updated: Yes - My Orders Last 24 Hours: Active Orders 24 hr Category Date Time Status BMP [BASIC METABOLIC PANEL,BMP] [CHEM] AM Lab 11/24/18 05:11 Ordered BMP [BASIC METABOLIC PANEL,BMP] [CHEM] AM Lab 11/25/18 05:11 Ordered HEMOGLOBIN/HEMATOCRIT,HH [HEME] DAILY Lab 11/24/18 06:00 Ordered Furosemide [Lasix] Med 11/24/18 09:00 Active 20 mg PO DAILY Medication Orders Hydrocodone Bitart/Acetaminophen ([place] 325-10 Mg) 1 - 2 tab PO Q4H PRN PRN Reason: Pain Last Admin: 11/23/18 11:24 Dose: 2 tab Admin: 11/22/18 19:38 Dose: 2 tab Admin: 11/22/18 15:16 Dose: 1 tab Admin: 11/22/18 09:22 Dose: 1 tab Admin: 11/22/18 04:09 Dose: 1 tab Admin: 11/20/18 21:31 Dose: 2 tab Anastrozole (Arimidex) 1 mg PO DAILY [facility] Last Admin: 11/23/18 09:56 Dose: 1 mg Admin: 11/22/18 09:52 Dose: 1 mg Admin: 11/21/18 11:29 Dose: Bisacodyl (Dulcolax) 10 mg RECTAL DAILY PRN PRN Reason: Constipation Carbidopa/Levodopa (Sinemet Cr 25-100 Mg) 2 tab PO 0700,1100,1500,1900 [facility] Last Admin: 11/23/18 14:14 Dose: 2 tab Admin: 11/23/18 10:06 Dose: 2 tab Admin: 11/23/18 06:30 Dose: 2 tab Admin: 11/22/18 18:49 Dose: 2 tab Admin: 11/22/18 15:15 Dose: 2 tab Admin: 11/22/18 12:10 Dose: 2 tab Admin: 11/22/18 06:43 Dose: 2 tab Admin: 11/21/18 23:17 Dose: Not Given Admin: 11/21/18 16:34 Dose: Admin: 11/21/18 11:21 Dose: 2 tab Admin: 11/21/18 06:13 Dose: Admin: 11/20/18 18:48 Dose: 2 tab Citalopram Hydrobromide (Celexa) 40 mg PO DAILY [facility] Last Admin: 11/23/18 09:00 Dose: 40 mg Admin: 11/22/18 09:23 Dose: 40 mg Admin: 11/21/18 11:29 Dose: Diphenhydramine HCl (Benadryl) 25 - 50 mg PO Q6H PRN PRN Reason: Itching Docusate Sodium (Colace) 100 mg PO BID [facility] Last Admin: 11/23/18 09:00 Dose: 100 mg Admin: 11/22/18 20:51 Dose: 100 mg Admin: 11/22/18 09:22 Dose: 100 mg Admin: 11/21/18 21:24 Dose: 100 mg Enoxaparin Sodium (Lovenox) 40 mg SUBCUT Q24H [facility] Last Admin: 11/23/18 09:00 Dose: 40 mg Admin: 11/22/18 09:20 Dose: 40 mg Fluticasone Propionate (Flonase) 1 - 2 gm NASBOTH DAILY PRN PRN Reason: sinus congestion Furosemide (Lasix) 20 mg PO DAILY [facility] Hydromorphone HCl (Dilaudid) 0.5 - 1 mg IVPUSH Q3H PRN PRN Reason: Pain Levothyroxine Sodium (Levothyroxine) 112 mcg PO ACBREAKFAST [facility] Last Admin: 11/23/18 06:30 Dose: 112 mcg Admin: 11/22/18 06:42 Dose: 112 mcg Admin: 11/21/18 06:51 Dose: Levothyroxine Sodium (Levothyroxine) 25 mcg PO ACBREAKFAST [facility] Last Admin: 11/23/18 06:30 Dose: 25 mcg Admin: 11/22/18 06:42 Dose: 25 mcg Admin: 11/21/18 06:51 Dose: Magnesium Oxide (Magnesium Oxide) 400 mg PO BID [facility] Last Admin: 11/23/18 09:00 Dose: 400 mg Admin: 11/22/18 20:51 Dose: 400 mg Admin: 11/22/18 09:22 Dose: 400 mg Admin: 11/21/18 21:24 Dose: 400 mg Admin: 11/21/18 11:29 Dose: Admin: 11/20/18 20:50 Dose: 400 mg Omeprazole (Omeprazole) 40 mg PO ACBREAKFAST ISIDRA Last Admin: 11/23/18 06:31 Dose: 40 mg Admin: 11/22/18 06:43 Dose: 40 mg Admin: 11/21/18 06:51 Dose: Ondansetron HCl (Zofran) 4 mg IV Q8HR PRN PRN Reason: NAUSEA/VOMITING Potassium Chloride (Klor-Con 10) 10 meq PO TID ISIDRA Last Admin: 11/23/18 14:15 Dose: 10 meq Admin: 11/23/18 05:22 Dose: 10 meq Admin: 11/22/18 22:25 Dose: 10 meq Admin: 11/22/18 15:15 Dose: 10 meq Admin: 11/22/18 06:43 Dose: 10 meq Admin: 11/21/18 21:24 Dose: 10 meq Admin: 11/21/18 14:43 Dose: Admin: 11/21/18 05:18 Dose: Admin: 11/20/18 21:27 Dose: 10 meq Sodium Chloride (Saline Flush) 10 ml FLUSH ASDIRECTED PRN PRN Reason: Keep Vein Open Sodium Chloride (Saline Flush) 2.5 ml FLUSH ASDIRECTED PRN PRN Reason: Keep Vein Open Sodium Chloride (Normal Saline) 10 ml IV ASDIRECTED PRN PRN Reason: IV Use Sodium Chloride (Saline Flush) 10 ml FLUSH ASDIRECTED PRN PRN Reason: Keep Vein Open Sodium Chloride (Saline Flush) 2.5 ml FLUSH ASDIRECTED PRN PRN Reason: Keep Vein Open Sodium Chloride (Normal Saline) 10 ml IV ASDIRECTED PRN PRN Reason: IV Use Tramadol HCl (Ultram) 50 - 100 mg PO Q6H PRN PRN Reason: Pain Last Admin: 11/23/18 05:22 Dose: 100 mg Admin: 11/22/18 12:09 Dose: 100 mg Admin: 11/22/18 01:03 Dose: 100 mg - Plan Plan (Free Text/Narrative):: 1500 patient seen and examined. Agree with above. Patient comfortable, pain well controlled. Has been OOB with PT. Hgb stable. 1. continue mobilization--TTWB RLE 2. Lovenox/SCD/RAMIREZ for DVT prophylaxis 3. Appreciate hospitalist assistance with medical management 4. awaiting approval for ECF--will need to stay over weekend with possible discharge Monday 5. Dr. Alexis will cover weekend in my absence rrk
[2018-11-24] MEDS: Potassium Chloride 10 MEQ Tab.ER PO SCH ×3 (05:38→21:30)
[2018-11-24 06:36] LABS: CHLORIDE,CL 99 mmol/L (98-107); SODIUM,NA 138 mmol/L (136-145)
[2018-11-24] MEDS: Levothyroxine 112 MCG Tab PO SCH (06:48)
[2018-11-24] MEDS: Carbidopa/Levodopa 25-100 MG Tab.ER PO SCH ×4 (06:49→19:16)
[2018-11-24] MEDS: Levothyroxine 25 MCG Tab PO SCH (06:49)
[2018-11-24] MEDS: Omeprazole 20 MG Cap.CR PO SCH (06:49)
--- NOTE | 2018-11-24 07:53 | PCM.CONSN ---
<Erendira Martinez - Last Filed: 11/24/18 08:09> - General Info Date of Service: 11/24/18 Subjective Update: Patient reports she is doing ok, pain under control. Denies chest pain, shortness of breath or abdominal pain. Functional Status: Reports: Pain Controlled - Review of Systems General: Reports: No Symptoms HEENT: Reports: No Symptoms Pulmonary: Reports: No Symptoms Cardiovascular: Reports: No Symptoms Gastrointestinal: Reports: No Symptoms Genitourinary: Reports: No Symptoms Musculoskeletal: Reports: Leg Pain (right leg pain under control) Skin: Reports: No Symptoms Neurological: Reports: No Symptoms Psychiatric: Reports: No Symptoms - Patient Data Vitals - Most Recent: Last Vital Signs Temp 96.8 F 11/24/18 04:00 Pulse 115 H 11/24/18 04:00 Resp 18 11/24/18 04:00 BP 106/51 L 11/24/18 04:00 Pulse Ox 91 L 11/24/18 04:00 Weight - Most Recent: 128.423 kg I&O - Last 24 Hours: Intake & Output 11/23/18 11/24/18 11/24/18 22:59 06:59 14:59 Intake Total 600 Output Total 150 Balance 450 Lab Results Last 24 Hours: Laboratory Results - last 24 hr 11/23/18 11/24/18 11/24/18 Range/Units 04:30 06:03 06:03 Hgb 9.6 L (12.0-16.0) g/dL Hct 31.9 L (36.0-46.0) % Sodium 138 (136-145) mmol/L Potassium 4.1 (3.5-5.1) mmol/L Chloride 99 (98-107) mmol/L Carbon Dioxide 31.7 (21.0-32.0) mmol/L BUN 18 (7.0-18.0) mg/dL Creatinine 0.8 (0.6-1.0) mg/dL Est Cr Clr Drug Dosing 77.75 mL/min Estimated GFR (MDRD) > 60.0 ml/min Glucose 134 H (74-106) mg/dL Calcium 8.4 L (8.5-10.1) mg/dL Magnesium 2.0 (1.8-2.4) mg/dL Med Orders - Current: Current Medications Hydrocodone Bitart/Acetaminophen (Leota 325-10 Mg) 1 - 2 tab PO Q4H PRN PRN Reason: Pain Last Admin: 11/23/18 16:33 Dose: 2 tab Anastrozole (Arimidex) 1 mg PO DAILY [facility] Last Admin: 11/23/18 09:56 Dose: 1 mg Bisacodyl (Dulcolax) 10 mg RECTAL DAILY PRN PRN Reason: Constipation Carbidopa/Levodopa (Sinemet Cr 25-100 Mg) 2 tab PO 0700,1100,1500,1900 [facility] Last Admin: 11/24/18 06:49 Dose: 2 tab Citalopram Hydrobromide (Celexa) 40 mg PO DAILY [facility] Last Admin: 11/23/18 09:00 Dose: 40 mg Diphenhydramine HCl (Benadryl) 25 - 50 mg PO Q6H PRN PRN Reason: Itching Docusate Sodium (Colace) 100 mg PO BID [facility] Last Admin: 11/23/18 20:05 Dose: 100 mg Enoxaparin Sodium (Lovenox) 40 mg SUBCUT Q24H [facility] Last Admin: 11/23/18 09:00 Dose: 40 mg Fluticasone Propionate (Flonase) 1 - 2 gm NASBOTH DAILY PRN PRN Reason: sinus congestion Furosemide (Lasix) 20 mg PO DAILY [facility] Hydromorphone HCl (Dilaudid) 0.5 - 1 mg IVPUSH Q3H PRN PRN Reason: Pain Levothyroxine Sodium (Levothyroxine) 112 mcg PO ACBREAKFAST [facility] Last Admin: 11/24/18 06:48 Dose: 112 mcg Levothyroxine Sodium (Levothyroxine) 25 mcg PO ACBREAKFAST [facility] Last Admin: 11/24/18 06:49 Dose: 25 mcg Magnesium Oxide (Magnesium Oxide) 400 mg PO BID [facility] Last Admin: 11/23/18 20:05 Dose: 400 mg Omeprazole (Omeprazole) 40 mg PO ACBREAKFAST [facility] Last Admin: 11/24/18 06:49 Dose: 40 mg Ondansetron HCl (Zofran) 4 mg IV Q8HR PRN PRN Reason: NAUSEA/VOMITING Potassium Chloride (Klor-Con 10) 10 meq PO TID [facility] Last Admin: 11/24/18 05:38 Dose: 10 meq Sodium Chloride (Saline Flush) 10 ml FLUSH ASDIRECTED PRN PRN Reason: Keep Vein Open Sodium Chloride (Saline Flush) 2.5 ml FLUSH ASDIRECTED PRN PRN Reason: Keep Vein Open Sodium Chloride (Normal Saline) 10 ml IV ASDIRECTED PRN PRN Reason: IV Use Sodium Chloride (Saline Flush) 10 ml FLUSH ASDIRECTED PRN PRN Reason: Keep Vein Open Sodium Chloride (Saline Flush) 2.5 ml FLUSH ASDIRECTED PRN PRN Reason: Keep Vein Open Sodium Chloride (Normal Saline) 10 ml IV ASDIRECTED PRN PRN Reason: IV Use Tramadol HCl (Ultram) 50 - 100 mg PO Q6H PRN PRN Reason: Pain Last Admin: 11/23/18 05:22 Dose: 100 mg Discontinued Medications Bupivacaine HCl (Marcaine 0.5%) Confirm Administered Dose 30 ml .ROUTE .STK-MED ONE Stop: 11/21/18 09:31 Bupivacaine HCl (Sensorcaine-Mpf 0.5%) Confirm Administered Dose 10 ml .ROUTE .STK-MED ONE Stop: 11/21/18 14:38 Cefazolin Sodium/Dextrose (Ancef) Confirm Administered Dose 2 gm IV .STK-MED ONE Stop: 11/21/18 14:24 Fentanyl (Sublimaze) Confirm Administered Dose 100 mcg .ROUTE .STK-MED ONE Stop: 11/21/18 10:15 Fentanyl (Sublimaze) Confirm Administered Dose 100 mcg .ROUTE .STK-MED ONE Stop: 11/21/18 14:20 Fentanyl (Sublimaze) 50 mcg IVPUSH .Q5MIN PRN PRN Reason: Pain Last Admin: 11/21/18 19:10 Dose: 50 mcg Furosemide (Lasix) 20 mg PO DAILY [facility] Last Admin: 11/21/18 11:29 Dose: Not Given Furosemide (Lasix) Confirm Administered Dose 40 mg .ROUTE .STK-MED ONE Stop: 11/21/18 17:30 Furosemide (Lasix) 40 mg IVPUSH NOW ONE Stop: 11/22/18 08:48 Last Admin: 11/22/18 09:13 Dose: 40 mg Furosemide (Lasix) 40 mg IVPUSH NOW ONE Stop: 11/23/18 08:08 Last Admin: 11/23/18 09:01 Dose: 40 mg Hydromorphone HCl (Dilaudid) 0 mg IVPUSH ONETIME PRN PRN Reason: Breakthrough Pain Lactated Ringer's (Ringers, Lactated) 1,000 mls @ 125 mls/hr IV ASDIRECTED [facility] Last Admin: 11/22/18 02:20 Dose: 125 mls/hr Cefazolin Sodium/Dextrose 2 gm (/ Premix) 50 mls @ 100 mls/hr IV ONETIME ONE Stop: 11/21/18 13:05 Last Admin: 11/21/18 16:33 Dose: Not Given Cefazolin Sodium/Dextrose 2 gm (/ Premix) 50 mls @ 100 mls/hr IV Q8H [facility] Stop: 11/22/18 08:28 Last Admin: 11/22/18 09:13 Dose: 100 mls/hr Acetaminophen (Ofirmev) Confirm Administered Dose 100 mls @ as directed IV .STK- MED ONE Stop: 11/21/18 19:07 Acetaminophen 650 mg/ Premix 65 mls @ 400 mls/hr IV NOW ONE Stop: 11/21/18 21:40 Last Admin: 11/21/18 21:42 Dose: 400 mls/hr Ketamine HCl (Ketalar) Confirm Administered Dose 500 mg .ROUTE .STK-MED ONE Stop: 11/21/18 14:20 Midazolam HCl (Versed 1 Mg/Ml) Confirm Administered Dose 2 mg .ROUTE .STK-MED ONE Stop: 11/21/18 10:15 Midazolam HCl (Versed 1 Mg/Ml) Confirm Administered Dose 2 mg .ROUTE .STK-MED ONE Stop: 11/21/18 14:20 Midazolam HCl (Versed 1 Mg/Ml) Confirm Administered Dose 2 mg .ROUTE .STK-MED ONE Stop: 11/21/18 16:14 Morphine Sulfate (Morphine) 4 mg IM ONETIME ONE Stop: 11/20/18 10:43 Last Admin: 11/20/18 11:24 Dose: 4 mg Morphine Sulfate (Morphine) 2 mg IVPUSH ONETIME ONE Stop: 11/20/18 12:29 Last Admin: 11/20/18 13:01 Dose: 2 mg Morphine Sulfate (Morphine) 1 - 3 mg IVPUSH Q3H PRN PRN Reason: Pain Last Admin: 11/21/18 13:06 Dose: 3 mg Naloxone HCl (Narcan) 0.4 mg IVPUSH ONETIME ONE Stop: 11/21/18 21:35 Last Admin: 11/21/18 21:42 Dose: 0.4 mg Ondansetron HCl (Zofran) 4 mg IVPUSH ONETIME ONE Stop: 11/20/18 12:29 Last Admin: 11/20/18 12:56 Dose: 4 mg Ondansetron HCl (Zofran) Confirm Administered Dose 4 mg .ROUTE .STK-MED ONE Stop: 11/21/18 17:01 Phenylephrine HCl (Star-Synephrine) Confirm Administered Dose 10 mg .ROUTE .STK- MED ONE Stop: 11/21/18 14:58 Potassium Chloride (Klor-Con M20) 40 meq PO ONETIME ONE Stop: 11/23/18 09:35 Last Admin: 11/23/18 10:06 Dose: 40 meq Propofol (Diprivan 20 Ml) Confirm Administered Dose 200 mg .ROUTE .STK-MED ONE Stop: 11/21/18 10:14 Propofol (Diprivan 20 Ml) Confirm Administered Dose 200 mg .ROUTE .STK-MED ONE Stop: 11/21/18 14:20 Propofol (Diprivan 20 Ml) Confirm Administered Dose 200 mg .ROUTE .STK-MED ONE Stop: 11/21/18 17:15 Sodium Chloride (Saline Flush) 10 ml FLUSH ASDIRECTED PRN PRN Reason: Keep Vein Open Last Admin: 11/20/18 12:51 Dose: 10 ml Sodium Chloride (Saline Flush) 2.5 ml FLUSH ASDIRECTED PRN PRN Reason: Keep Vein Open Last Admin: 11/20/18 12:51 Dose: 2.5 ml Tranexamic Acid (Cyklokapron) Confirm Administered Dose 2,000 mg .ROUTE .STK- MED ONE Stop: 11/21/18 09:31 - Exam General: Alert, Oriented, Cooperative Lungs: Clear to Auscultation, Normal Respiratory Effort Cardiovascular: Regular Rate, Regular Rhythm GI/Abdominal Exam: Normal Bowel Sounds, Soft, Non-Tender, No Distention Skin: Other (ecchymosis right leg) Wound/Incisions: Other (bloody drainage on bandage of right leg) Neurological: No New Focal Deficit Psy/Mental Status: Alert, Normal Affect, Normal Mood Consult PN Assessment/Plan Procedures: Procedures 3-D RADIOTHERAPY PLAN (10/12/15) ASSAY OF MAGNESIUM (03/01/17) C-REACTIVE PROTEIN (08/02/17) CHEMO IV INFUS EACH ADDL SEQ (09/15/15) CHEMO IV INFUSION 1 HR (05/04/16) CHEMO IV INFUSION ADDL HR (06/10/15) CINE/VID X-RAY THROAT/ESOPH (12/01/17) COLONOSCOPY W/LESION REMOVAL (01/18/16) COMP SCREEN MAMMOGRAM ADD-ON (06/09/16) COMPLETE CBC W/AUTO DIFF WBC (10/31/17) COMPREHEN METABOLIC PANEL (10/31/17) CT SCAN FOR THERAPY GUIDE (09/30/15) CT THORAX W/DYE (12/08/16) DRAIN/INJ JOINT/BURSA W/O US (11/28/17) DRAW BLOOD OFF VENOUS DEVICE (10/31/17) DX MAMMO INCL CAD UNI (07/13/18) DXA BONE DENSITY AXIAL (03/13/18) EMERGENCY DEPT VISIT (07/18/15) EVALUATE SPEECH PRODUCTION (04/23/18) EVALUATE SWALLOWING FUNCTION (10/16/18) GATED HEART PLANAR SINGLE (06/10/15) HOT OR COLD PACKS THERAPY (03/16/15) HYDRATE IV INFUSION ADD-ON (06/30/15) HYDRATION IV INFUSION INIT (06/30/15) IIV4 VACC NO PRSV 0.5 ML IM (07/25/18) IRRIG DRUG DELIVERY DEVICE (10/17/18) KNEE ARTHROSCOPY/SURGERY (08/07/18) MANUAL THERAPY 1/> REGIONS (02/18/15) MOTION FLUOROSCOPY/SWALLOW (12/01/17) MRI JNT OF LWR EXTRE W/O DYE (12/01/16) NEEDLE LOCALIZATION BY XRAY (11/28/17) OFFICE/OUTPATIENT VISIT NEW (09/30/15) ORAL FUNCTION THERAPY (04/23/18) PT EVAL MOD COMPLEX 30 MIN (01/24/17) PT EVALUATION (12/21/15) RADIATION PHYSICS CONSULT (10/27/15) RADIATION THERAPY DOSE PLAN (10/12/15) RADIATION TREATMENT AID(S) (10/27/15) RADIATION TREATMENT DELIVERY (11/27/15) RADIOLOGY PORT IMAGES(S) (10/27/15) RBC SED RATE AUTOMATED (08/02/17) REMOVAL OF BREAST LESION (03/25/15) ROUTINE VENIPUNCTURE (10/31/17) SET RADIATION THERAPY FIELD (10/27/15) SPECIAL RADIATION DOSIMETRY (10/27/15) SPECIAL RADIATION TREATMENT (10/12/15) SPECIAL TELETX PORT PLAN (10/27/15) THER/PROPH/DIAG INJ SC/IM (09/15/15) THER/PROPH/DIAG IV INF INIT (06/30/15) THERAPEUTIC EXERCISES (02/16/17) TISSUE EXAM BY PATHOLOGIST (01/18/16) TISSUE EXAM BY PATHOLOGIST (03/25/15) TTE W/DOPPLER COMPLETE (02/09/16) TX/PRO/DX INJ NEW DRUG ADDON (09/15/15) TX/PROPH/DG ADDL SEQ IV INF (09/15/15) VASOPNEUMATIC DEVICE THERAPY (02/16/17) X-RAY EXAM HIP UNI 2-3 VIEWS (05/22/18) X-RAY EXAM KNEE 4 OR MORE (07/26/17) X-RAY EXAM OF KNEE 1 OR 2 (07/26/18) X-RAY EXAM OF KNEE 3 (01/05/17) Problem List Initiated/Reviewed/Updated: Yes Plan: This 58 year old female admitted with R femur fracture, Hospitalist consult for medical management. 1. S/P ORIF R periprosthetic femur fracture: Orders per Dr Box 2. Hypoxia: Able to wean room air yesterday evening, was on some oxygen at night. Restart home dose of lasix today. ECHO pending. 3. Parkinson's: Continue Carbidopa/levodopa. VTE prophylaxis: Would recommend when Orthopedics deems appropriate. Dispo: pending placement, [place] on Monday for short term rehabilitation. <Cliff Martel - Last Filed: 11/24/18 10:39> - General Info Subjective Update: I have examined the patient independently of Erendira Martinez DO, medical assistant cardiology. I have discussed the case with her. I have reviewed and agree with the plan of care as outlined by her. Pending placement at [facility]. Please see orders. - Patient Data Vitals - Most Recent: Last Vital Signs Temp 36 C 11/24/18 04:00 Pulse 115 H 11/24/18 04:00 Resp 18 11/24/18 04:00 BP 106/51 L 11/24/18 04:00 Pulse Ox 91 L 11/24/18 04:00 I&O - Last 24 Hours: Intake & Output 11/23/18 11/24/18 11/24/18 22:59 06:59 14:59 Intake Total 600 Output Total 150 Balance 450 Lab Results Last 24 Hours: Laboratory Results - last 24 hr 11/24/18 11/24/18 Range/Units 06:03 06:03 Hgb 9.6 L (12.0-16.0) g/dL Hct 31.9 L (36.0-46.0) % Sodium 138 (136-145) mmol/L Potassium 4.1 (3.5-5.1) mmol/L Chloride 99 (98-107) mmol/L Carbon Dioxide 31.7 (21.0-32.0) mmol/L BUN 18 (7.0-18.0) mg/dL Creatinine 0.8 (0.6-1.0) mg/dL Est Cr Clr Drug Dosing 77.75 mL/min Estimated GFR (MDRD) > 60.0 ml/min Glucose 134 H (74-106) mg/dL Calcium 8.4 L (8.5-10.1) mg/dL Med Orders - Current: Current Medications Hydrocodone Bitart/Acetaminophen (Leota 325-10 Mg) 1 - 2 tab PO Q4H PRN PRN Reason: Pain Last Admin: 11/24/18 08:22 Dose: 1 tab Anastrozole (Arimidex) 1 mg PO DAILY [facility] Last Admin: 11/24/18 08:24 Dose: 1 mg Bisacodyl (Dulcolax) 10 mg RECTAL DAILY PRN PRN Reason: Constipation Carbidopa/Levodopa (Sinemet Cr 25-100 Mg) 2 tab PO 0700,1100,1500,1900 [facility] Last Admin: 11/24/18 06:49 Dose: 2 tab Citalopram Hydrobromide (Celexa) 40 mg PO DAILY [facility] Last Admin: 11/24/18 08:22 Dose: 40 mg Diphenhydramine HCl (Benadryl) 25 - 50 mg PO Q6H PRN PRN Reason: Itching Docusate Sodium (Colace) 100 mg PO BID [facility] Last Admin: 11/24/18 08:22 Dose: 100 mg Enoxaparin Sodium (Lovenox) 40 mg SUBCUT Q24H [facility] Last Admin: 11/23/18 09:00 Dose: 40 mg Fluticasone Propionate (Flonase) 1 - 2 gm NASBOTH DAILY PRN PRN Reason: sinus congestion Furosemide (Lasix) 20 mg PO DAILY [facility] Last Admin: 11/24/18 08:23 Dose: 20 mg Hydromorphone HCl (Dilaudid) 0.5 - 1 mg IVPUSH Q3H PRN PRN Reason: Pain Levothyroxine Sodium (Levothyroxine) 112 mcg PO ACBREAKFAST [facility] Last Admin: 11/24/18 06:48 Dose: 112 mcg Levothyroxine Sodium (Levothyroxine) 25 mcg PO ACBREAKFAST [facility] Last Admin: 11/24/18 06:49 Dose: 25 mcg Magnesium Oxide (Magnesium Oxide) 400 mg PO BID [facility] Last Admin: 11/24/18 08:14 Dose: 400 mg Omeprazole (Omeprazole) 40 mg PO ACBREAKFAST [facility] Last Admin: 11/24/18 06:49 Dose: 40 mg Ondansetron HCl (Zofran) 4 mg IV Q8HR PRN PRN Reason: NAUSEA/VOMITING Potassium Chloride (Klor-Con 10) 10 meq PO TID [facility] Last Admin: 11/24/18 05:38 Dose: 10 meq Sodium Chloride (Saline Flush) 10 ml FLUSH ASDIRECTED PRN PRN Reason: Keep Vein Open Sodium Chloride (Saline Flush) 2.5 ml FLUSH ASDIRECTED PRN PRN Reason: Keep Vein Open Sodium Chloride (Normal Saline) 10 ml IV ASDIRECTED PRN PRN Reason: IV Use Sodium Chloride (Saline Flush) 10 ml FLUSH ASDIRECTED PRN PRN Reason: Keep Vein Open Sodium Chloride (Saline Flush) 2.5 ml FLUSH ASDIRECTED PRN PRN Reason: Keep Vein Open Sodium Chloride (Normal Saline) 10 ml IV ASDIRECTED PRN PRN Reason: IV Use Tramadol HCl (Ultram) 50 - 100 mg PO Q6H PRN PRN Reason: Pain Last Admin: 11/23/18 05:22 Dose: 100 mg Discontinued Medications Bupivacaine HCl (Marcaine 0.5%) Confirm Administered Dose 30 ml .ROUTE .[facility]-MED ONE Stop: 11/21/18 09:31 Bupivacaine HCl (Sensorcaine-Mpf 0.5%) Confirm Administered Dose 10 ml .ROUTE .STK-MED ONE Stop: 11/21/18 14:38 Cefazolin Sodium/Dextrose (Ancef) Confirm Administered Dose 2 gm IV .STK-MED ONE Stop: 11/21/18 14:24 Fentanyl (Sublimaze) Confirm Administered Dose 100 mcg .ROUTE .STK-MED ONE Stop: 11/21/18 10:15 Fentanyl (Sublimaze) Confirm Administered Dose 100 mcg .ROUTE .STK-MED ONE Stop: 11/21/18 14:20 Fentanyl (Sublimaze) 50 mcg IVPUSH .Q5MIN PRN PRN Reason: Pain Last Admin: 11/21/18 19:10 Dose: 50 mcg Furosemide (Lasix) 20 mg PO DAILY [facility] Last Admin: 11/21/18 11:29 Dose: Not Given Furosemide (Lasix) Confirm Administered Dose 40 mg .ROUTE .STK-MED ONE Stop: 11/21/18 17:30 Furosemide (Lasix) 40 mg IVPUSH NOW ONE Stop: 11/22/18 08:48 Last Admin: 11/22/18 09:13 Dose: 40 mg Furosemide (Lasix) 40 mg IVPUSH NOW ONE Stop: 11/23/18 08:08 Last Admin: 11/23/18 09:01 Dose: 40 mg Hydromorphone HCl (Dilaudid) 0 mg IVPUSH ONETIME PRN PRN Reason: Breakthrough Pain Lactated Ringer's (Ringers, Lactated) 1,000 mls @ 125 mls/hr IV ASDIRECTED [facility] Last Admin: 11/22/18 02:20 Dose: 125 mls/hr Cefazolin Sodium/Dextrose 2 gm (/ Premix) 50 mls @ 100 mls/hr IV ONETIME ONE Stop: 11/21/18 13:05 Last Admin: 11/21/18 16:33 Dose: Not Given Cefazolin Sodium/Dextrose 2 gm (/ Premix) 50 mls @ 100 mls/hr IV Q8H [facility] Stop: 11/22/18 08:28 Last Admin: 11/22/18 09:13 Dose: 100 mls/hr Acetaminophen (Ofirmev) Confirm Administered Dose 100 mls @ as directed IV .STK- MED ONE Stop: 11/21/18 19:07 Acetaminophen 650 mg/ Premix 65 mls @ 400 mls/hr IV NOW ONE Stop: 11/21/18 21:40 Last Admin: 11/21/18 21:42 Dose: 400 mls/hr Ketamine HCl (Ketalar) Confirm Administered Dose 500 mg .ROUTE .STK-MED ONE Stop: 11/21/18 14:20 Midazolam HCl (Versed 1 Mg/Ml) Confirm Administered Dose 2 mg .ROUTE .STK-MED ONE Stop: 11/21/18 10:15 Midazolam HCl (Versed 1 Mg/Ml) Confirm Administered Dose 2 mg .ROUTE .STK-MED ONE Stop: 11/21/18 14:20 Midazolam HCl (Versed 1 Mg/Ml) Confirm Administered Dose 2 mg .ROUTE .STK-MED ONE Stop: 11/21/18 16:14 Morphine Sulfate (Morphine) 4 mg IM ONETIME ONE Stop: 11/20/18 10:43 Last Admin: 11/20/18 11:24 Dose: 4 mg Morphine Sulfate (Morphine) 2 mg IVPUSH ONETIME ONE Stop: 11/20/18 12:29 Last Admin: 11/20/18 13:01 Dose: 2 mg Morphine Sulfate (Morphine) 1 - 3 mg IVPUSH Q3H PRN PRN Reason: Pain Last Admin: 11/21/18 13:06 Dose: 3 mg Naloxone HCl (Narcan) 0.4 mg IVPUSH ONETIME ONE Stop: 11/21/18 21:35 Last Admin: 11/21/18 21:42 Dose: 0.4 mg Ondansetron HCl (Zofran) 4 mg IVPUSH ONETIME ONE Stop: 11/20/18 12:29 Last Admin: 11/20/18 12:56 Dose: 4 mg Ondansetron HCl (Zofran) Confirm Administered Dose 4 mg .ROUTE .STK-MED ONE Stop: 11/21/18 17:01 Phenylephrine HCl (Star-Synephrine) Confirm Administered Dose 10 mg .ROUTE .STK- MED ONE Stop: 11/21/18 14:58 Potassium Chloride (Klor-Con M20) 40 meq PO ONETIME ONE Stop: 11/23/18 09:35 Last Admin: 11/23/18 10:06 Dose: 40 meq Propofol (Diprivan 20 Ml) Confirm Administered Dose 200 mg .ROUTE .STK-MED ONE Stop: 11/21/18 10:14 Propofol (Diprivan 20 Ml) Confirm Administered Dose 200 mg .ROUTE .STK-MED ONE Stop: 11/21/18 14:20 Propofol (Diprivan 20 Ml) Confirm Administered Dose 200 mg .ROUTE .STK-MED ONE Stop: 11/21/18 17:15 Sodium Chloride (Saline Flush) 10 ml FLUSH ASDIRECTED PRN PRN Reason: Keep Vein Open Last Admin: 11/20/18 12:51 Dose: 10 ml Sodium Chloride (Saline Flush) 2.5 ml FLUSH ASDIRECTED PRN PRN Reason: Keep Vein Open Last Admin: 11/20/18 12:51 Dose: 2.5 ml Tranexamic Acid (Cyklokapron) Confirm Administered Dose 2,000 mg .ROUTE .STK- MED ONE Stop: 11/21/18 09:31 Consult PN Assessment/Plan Procedures: Procedures 3-D RADIOTHERAPY PLAN (10/12/15) ASSAY OF MAGNESIUM (03/01/17) C-REACTIVE PROTEIN (08/02/17) CHEMO IV INFUS EACH ADDL SEQ (09/15/15) CHEMO IV INFUSION 1 HR (05/04/16) CHEMO IV INFUSION ADDL HR (06/10/15) CINE/VID X-RAY THROAT/ESOPH (12/01/17) COLONOSCOPY W/LESION REMOVAL (01/18/16) COMP SCREEN MAMMOGRAM ADD-ON (06/09/16) COMPLETE CBC W/AUTO DIFF WBC (10/31/17) COMPREHEN METABOLIC PANEL (10/31/17) CT SCAN FOR THERAPY GUIDE (09/30/15) CT THORAX W/DYE (12/08/16) DRAIN/INJ JOINT/BURSA W/O US (11/28/17) DRAW BLOOD OFF VENOUS DEVICE (10/31/17) DX MAMMO INCL CAD UNI (07/13/18) DXA BONE DENSITY AXIAL (03/13/18) EMERGENCY DEPT VISIT (07/18/15) EVALUATE SPEECH PRODUCTION (04/23/18) EVALUATE SWALLOWING FUNCTION (10/16/18) GATED HEART PLANAR SINGLE (06/10/15) HOT OR COLD PACKS THERAPY (03/16/15) HYDRATE IV INFUSION ADD-ON (06/30/15) HYDRATION IV INFUSION INIT (06/30/15) IIV4 VACC NO PRSV 0.5 ML IM (07/25/18) IRRIG DRUG DELIVERY DEVICE (10/17/18) KNEE ARTHROSCOPY/SURGERY (08/07/18) MANUAL THERAPY 1/> REGIONS (02/18/15) MOTION FLUOROSCOPY/SWALLOW (12/01/17) MRI JNT OF LWR EXTRE W/O DYE (12/01/16) NEEDLE LOCALIZATION BY XRAY (11/28/17) OFFICE/OUTPATIENT VISIT NEW (09/30/15) ORAL FUNCTION THERAPY (04/23/18) PT EVAL MOD COMPLEX 30 MIN (01/24/17) PT EVALUATION (12/21/15) RADIATION PHYSICS CONSULT (10/27/15) RADIATION THERAPY DOSE PLAN (10/12/15) RADIATION TREATMENT AID(S) (10/27/15) RADIATION TREATMENT DELIVERY (11/27/15) RADIOLOGY PORT IMAGES(S) (10/27/15) RBC SED RATE AUTOMATED (08/02/17) REMOVAL OF BREAST LESION (03/25/15) ROUTINE VENIPUNCTURE (10/31/17) SET RADIATION THERAPY FIELD (10/27/15) SPECIAL RADIATION DOSIMETRY (10/27/15) SPECIAL RADIATION TREATMENT (10/12/15) SPECIAL TELETX PORT PLAN (10/27/15) THER/PROPH/DIAG INJ SC/IM (09/15/15) THER/PROPH/DIAG IV INF INIT (06/30/15) THERAPEUTIC EXERCISES (02/16/17) TISSUE EXAM BY PATHOLOGIST (01/18/16) TISSUE EXAM BY PATHOLOGIST (03/25/15) TTE W/DOPPLER COMPLETE (02/09/16) TX/PRO/DX INJ NEW DRUG ADDON (09/15/15) TX/PROPH/DG ADDL SEQ IV INF (09/15/15) VASOPNEUMATIC DEVICE THERAPY (02/16/17) X-RAY EXAM HIP UNI 2-3 VIEWS (05/22/18) X-RAY EXAM KNEE 4 OR MORE (07/26/17) X-RAY EXAM OF KNEE 1 OR 2 (07/26/18) X-RAY EXAM OF KNEE 3 (01/05/17) (1) Femur fracture, right SNOMED Code(s): 68512016 Code(s): S72.91XA - UNSP FRACTURE OF RIGHT FEMUR, INIT FOR CLOS FX Priority : High Current Visit: Yes Qualifiers: Encounter type: initial encounter Femur location: distal Fracture type: closed Fracture morphology: other fracture Qualified Code(s): S72.491A - Other fracture of lower end of right femur, initial encounter for closed fracture (2) Hypocalcemia SNOMED Code(s): 3223100 Code(s): E83.51 - HYPOCALCEMIA Priority: Medium Current Visit: Yes (3) Anemia SNOMED Code(s): 013532821 Code(s): D64.9 - ANEMIA, UNSPECIFIED Priority: High Current Visit: Yes Qualifiers: Anemia type: iron deficiency Iron deficiency anemia type: inadequate dietary iron intake Qualified Code(s): D50.8 - Other iron deficiency anemias (4) Status post chemotherapy SNOMED Code(s): 883870906 Code(s): Z92.21 - PERSONAL HISTORY OF ANTINEOPLASTIC CHEMOTHERAPY Priority : Low Current Visit: Yes (5) History of uterine cancer SNOMED Code(s): 560293027 Code(s): Z85.42 - PERSONAL HISTORY OF MALIGNANT NEOPLASM OF OTH PRT UTERUS Priority: Low Current Visit: Yes (6) Post-mastectomy lymphedema syndrome SNOMED Code(s): 59512642 Code(s): I97.2 - POSTMASTECTOMY LYMPHEDEMA SYNDROME Priority: Medium Current Visit: Yes (7) History of left breast cancer SNOMED Code(s): 309105404 Code(s): Z85.3 - PERSONAL HISTORY OF MALIGNANT NEOPLASM OF BREAST Priority : Medium Current Visit: Yes (8) Parkinsons disease SNOMED Code(s): 50922206 Code(s): G20 - PARKINSON'S DISEASE Priority: Medium Current Visit: Yes
[2018-11-24] MEDS: Magnesium Oxide 400 MG Tab PO SCH ×2 (08:14→21:30)
[2018-11-24] MEDS: Citalopram 20 MG Tab PO SCH (08:22)
[2018-11-24] MEDS: Acetaminophen/HYDROcodone 325-10 MG Tab PO PRN ×2 (08:22→21:30)
[2018-11-24] MEDS: Docusate Sodium 100 MG Cap PO SCH ×2 (08:22→21:30)
[2018-11-24] MEDS: Furosemide 20 MG Tab PO SCH (08:23)
[2018-11-24] MEDS: Anastrozole 1 MG Tab PO SCH (08:24)
[2018-11-24] MEDS: Enoxaparin 40 MG/0.4 ML Syringe SUBCUT SCH (08:25)
--- NOTE | 2018-11-24 09:34 | PCM.SN ---
- Free Text/Narrative Note: Subjective: Patient is overall doing well. Her pain is controlled. She is out of bed with therapy. She is tolerating oral well. Objective: Afebrile, vital signs stable Right leg has some swelling in distal thigh but none distally. Her dressing is clean and intact with bloody discharge in the bandage that is stable. There is no erythema or signs of infection. She has pain to range of motion of the knee. Hemoglobin 9.6 Assessment/plan: Postoperative day #3 ORIF right femur with acute on chronic postoperative blood loss anemia patient seen and examined. Agree with above. Patient comfortable, pain well controlled. Has been OOB with PT. Hgb stable. 1. continue mobilization--TTWB RLE 2. Lovenox/SCD/RAMIREZ for DVT prophylaxis 3. Appreciate hospitalist assistance with medical management 4. awaiting approval for ECF--will need to stay over weekend with possible discharge Monday
[2018-11-24] MEDS: traMADol 50 MG Tab PO PRN (17:57)
[2018-11-25] MEDS: Potassium Chloride 10 MEQ Tab.ER PO SCH ×3 (06:35→21:41)
[2018-11-25] MEDS: Carbidopa/Levodopa 25-100 MG Tab.ER PO SCH ×4 (06:35→18:31)
[2018-11-25] MEDS: Levothyroxine 112 MCG Tab PO SCH (06:35)
[2018-11-25] MEDS: Omeprazole 20 MG Cap.CR PO SCH (06:35)
[2018-11-25] MEDS: traMADol 50 MG Tab PO PRN ×3 (06:35→23:50)
[2018-11-25] MEDS: Levothyroxine 25 MCG Tab PO SCH (06:35)
--- NOTE | 2018-11-25 06:37 | PCM.PN ---
- General Info Date of Service: 11/25/18 Admission Dx/Problem (Free Text): Admitted for periprostatic fracture right total knee arthroplasty after fall. Subjective Update: The patient is a 58-year-old lady who had sustained a fall and subsequently was admitted on November 20, 2018 secondary to periprostatic right knee total arthroplasty. The patient is currently awaiting placement and [facility] for rehabilitation prior to transitioning to home. Patient says that she is doing okay. Patient says that she has some difficulty with her Parkinson's disease and ambulation. The patient also has a history of osteoporosis. Patient has denied any nausea or vomiting. The patient has been tolerating her diet. Functional Status: Reports: Pain Controlled - Review of Systems General: Reports: No Symptoms HEENT: Reports: No Symptoms Pulmonary: Reports: No Symptoms Cardiovascular: Reports: No Symptoms Gastrointestinal: Reports: No Symptoms Genitourinary: Reports: No Symptoms Musculoskeletal: Reports: Leg Pain Skin: Reports: No Symptoms Neurological: Reports: Gait Disturbance, Other (Parkinson's disease) Psychiatric: Reports: No Symptoms - Patient Data Vitals - Most Recent: Last Vital Signs Temp 35.9 C 11/25/18 04:00 Pulse 95 11/25/18 04:00 Resp 16 11/25/18 04:00 BP 110/64 11/25/18 04:00 Pulse Ox 94 L 11/25/18 04:00 Weight - Most Recent: 128.423 kg I&O - Last 24 Hours: Intake & Output 11/24/18 11/24/18 11/25/18 14:59 22:59 06:59 Intake Total 1200 300 Output Total 550 300 Balance 650 0 Lab Results Last 24 Hours: Laboratory Results - last 24 hr 11/24/18 11/25/18 Range/Units 06:03 05:42 WBC 9.96 (4.0-11.0) K/uL RBC 3.87 L (4.30-5.90) M/uL Hgb 9.5 L (12.0-16.0) g/dL Hct 31.9 L (36.0-46.0) % MCV 82.4 (80.0-98.0) fL MCH 24.5 L (27.0-32.0) pg MCHC 29.8 L (31.0-37.0) g/dL RDW Std Deviation 58.0 (28.0-62.0) fl RDW Coeff of Luz 19 H (11.0-15.0) % Plt Count 262 (150-400) K/uL MPV 9.80 (7.40-12.00) fL Neut % (Auto) 71.7 (48.0-80.0) % Lymph % (Auto) 17.9 (16.0-40.0) % [place] % (Auto) 8.4 (0.0-15.0) % Eos % (Auto) 1.8 (0.0-7.0) % Baso % (Auto) 0.2 (0.0-1.5) % Neut # (Auto) 7.1 H (1.4-5.7) K/uL Lymph # (Auto) 1.8 (0.6-2.4) K/uL [place] # (Auto) 0.8 (0.0-0.8) K/uL Eos # (Auto) 0.2 (0.0-0.7) K/uL Baso # (Auto) 0.0 (0.0-0.1) K/uL Nucleated RBC % 0.0 /100WBC Nucleated RBCs # 0 K/uL Sodium 138 (136-145) mmol/L Potassium 4.1 (3.5-5.1) mmol/L Chloride 99 (98-107) mmol/L Carbon Dioxide 31.7 (21.0-32.0) mmol/L BUN 18 (7.0-18.0) mg/dL Creatinine 0.8 (0.6-1.0) mg/dL Est Cr Clr Drug Dosing 77.75 mL/min Estimated GFR (MDRD) > 60.0 ml/min Glucose 134 H (74-106) mg/dL Calcium 8.4 L (8.5-10.1) mg/dL Med Orders - Current: Current Medications Hydrocodone Bitart/Acetaminophen ([place] 325-10 Mg) 1 - 2 tab PO Q4H PRN PRN Reason: Pain Last Admin: 11/24/18 21:30 Dose: 1 tab Anastrozole (Arimidex) 1 mg PO DAILY ISIDRA Last Admin: 11/24/18 08:24 Dose: 1 mg Bisacodyl (Dulcolax) 10 mg RECTAL DAILY PRN PRN Reason: Constipation Carbidopa/Levodopa (Sinemet Cr 25-100 Mg) 2 tab PO 0700,1100,1500,1900 [facility] Last Admin: 11/24/18 19:16 Dose: 2 tab Citalopram Hydrobromide (Celexa) 40 mg PO DAILY [facility] Last Admin: 11/24/18 08:22 Dose: 40 mg Diphenhydramine HCl (Benadryl) 25 - 50 mg PO Q6H PRN PRN Reason: Itching Docusate Sodium (Colace) 100 mg PO BID [facility] Last Admin: 11/24/18 21:30 Dose: 100 mg Enoxaparin Sodium (Lovenox) 40 mg SUBCUT Q24H [facility] Last Admin: 11/24/18 08:25 Dose: 40 mg Fluticasone Propionate (Flonase) 1 - 2 gm NASBOTH DAILY PRN PRN Reason: sinus congestion Furosemide (Lasix) 20 mg PO DAILY [facility] Last Admin: 11/24/18 08:23 Dose: 20 mg Hydromorphone HCl (Dilaudid) 0.5 - 1 mg IVPUSH Q3H PRN PRN Reason: Pain Levothyroxine Sodium (Levothyroxine) 112 mcg PO ACBREAKFAST [facility] Last Admin: 11/24/18 06:48 Dose: 112 mcg Levothyroxine Sodium (Levothyroxine) 25 mcg PO ACBREAKFAST [facility] Last Admin: 11/24/18 06:49 Dose: 25 mcg Magnesium Oxide (Magnesium Oxide) 400 mg PO BID [facility] Last Admin: 11/24/18 21:30 Dose: 400 mg Omeprazole (Omeprazole) 40 mg PO ACBREAKFAST [facility] Last Admin: 11/24/18 06:49 Dose: 40 mg Ondansetron HCl (Zofran) 4 mg IV Q8HR PRN PRN Reason: NAUSEA/VOMITING Potassium Chloride (Klor-Con 10) 10 meq PO TID [facility] Last Admin: 11/24/18 21:30 Dose: 10 meq Sodium Chloride (Saline Flush) 10 ml FLUSH ASDIRECTED PRN PRN Reason: Keep Vein Open Sodium Chloride (Saline Flush) 2.5 ml FLUSH ASDIRECTED PRN PRN Reason: Keep Vein Open Sodium Chloride (Normal Saline) 10 ml IV ASDIRECTED PRN PRN Reason: IV Use Sodium Chloride (Saline Flush) 10 ml FLUSH ASDIRECTED PRN PRN Reason: Keep Vein Open Sodium Chloride (Saline Flush) 2.5 ml FLUSH ASDIRECTED PRN PRN Reason: Keep Vein Open Sodium Chloride (Normal Saline) 10 ml IV ASDIRECTED PRN PRN Reason: IV Use Tramadol HCl (Ultram) 50 - 100 mg PO Q6H PRN PRN Reason: Pain Last Admin: 11/24/18 17:57 Dose: 50 mg Discontinued Medications Bupivacaine HCl (Marcaine 0.5%) Confirm Administered Dose 30 ml .ROUTE .STK-MED ONE Stop: 11/21/18 09:31 Bupivacaine HCl (Sensorcaine-Mpf 0.5%) Confirm Administered Dose 10 ml .ROUTE .STK-MED ONE Stop: 11/21/18 14:38 Cefazolin Sodium/Dextrose (Ancef) Confirm Administered Dose 2 gm IV .STK-MED ONE Stop: 11/21/18 14:24 Fentanyl (Sublimaze) Confirm Administered Dose 100 mcg .ROUTE .STK-MED ONE Stop: 11/21/18 10:15 Fentanyl (Sublimaze) Confirm Administered Dose 100 mcg .ROUTE .STK-MED ONE Stop: 11/21/18 14:20 Fentanyl (Sublimaze) 50 mcg IVPUSH .Q5MIN PRN PRN Reason: Pain Last Admin: 11/21/18 19:10 Dose: 50 mcg Furosemide (Lasix) 20 mg PO DAILY [facility] Last Admin: 11/21/18 11:29 Dose: Not Given Furosemide (Lasix) Confirm Administered Dose 40 mg .ROUTE .STK-MED ONE Stop: 11/21/18 17:30 Furosemide (Lasix) 40 mg IVPUSH NOW ONE Stop: 11/22/18 08:48 Last Admin: 11/22/18 09:13 Dose: 40 mg Furosemide (Lasix) 40 mg IVPUSH NOW ONE Stop: 11/23/18 08:08 Last Admin: 11/23/18 09:01 Dose: 40 mg Hydromorphone HCl (Dilaudid) 0 mg IVPUSH ONETIME PRN PRN Reason: Breakthrough Pain Lactated Ringer's (Ringers, Lactated) 1,000 mls @ 125 mls/hr IV ASDIRECTED [facility] Last Admin: 11/22/18 02:20 Dose: 125 mls/hr Cefazolin Sodium/Dextrose 2 gm (/ Premix) 50 mls @ 100 mls/hr IV ONETIME ONE Stop: 11/21/18 13:05 Last Admin: 11/21/18 16:33 Dose: Not Given Cefazolin Sodium/Dextrose 2 gm (/ Premix) 50 mls @ 100 mls/hr IV Q8H ISIDRA Stop: 11/22/18 08:28 Last Admin: 11/22/18 09:13 Dose: 100 mls/hr Acetaminophen (Ofirmev) Confirm Administered Dose 100 mls @ as directed IV .STK- MED ONE Stop: 11/21/18 19:07 Acetaminophen 650 mg/ Premix 65 mls @ 400 mls/hr IV NOW ONE Stop: 11/21/18 21:40 Last Admin: 11/21/18 21:42 Dose: 400 mls/hr Ketamine HCl (Ketalar) Confirm Administered Dose 500 mg .ROUTE .STK-MED ONE Stop: 11/21/18 14:20 Midazolam HCl (Versed 1 Mg/Ml) Confirm Administered Dose 2 mg .ROUTE .STK-MED ONE Stop: 11/21/18 10:15 Midazolam HCl (Versed 1 Mg/Ml) Confirm Administered Dose 2 mg .ROUTE .STK-MED ONE Stop: 11/21/18 14:20 Midazolam HCl (Versed 1 Mg/Ml) Confirm Administered Dose 2 mg .ROUTE .STK-MED ONE Stop: 11/21/18 16:14 Morphine Sulfate (Morphine) 4 mg IM ONETIME ONE Stop: 11/20/18 10:43 Last Admin: 11/20/18 11:24 Dose: 4 mg Morphine Sulfate (Morphine) 2 mg IVPUSH ONETIME ONE Stop: 11/20/18 12:29 Last Admin: 11/20/18 13:01 Dose: 2 mg Morphine Sulfate (Morphine) 1 - 3 mg IVPUSH Q3H PRN PRN Reason: Pain Last Admin: 11/21/18 13:06 Dose: 3 mg Naloxone HCl (Narcan) 0.4 mg IVPUSH ONETIME ONE Stop: 11/21/18 21:35 Last Admin: 11/21/18 21:42 Dose: 0.4 mg Ondansetron HCl (Zofran) 4 mg IVPUSH ONETIME ONE Stop: 11/20/18 12:29 Last Admin: 11/20/18 12:56 Dose: 4 mg Ondansetron HCl (Zofran) Confirm Administered Dose 4 mg .ROUTE .STK-MED ONE Stop: 11/21/18 17:01 Phenylephrine HCl (Star-Synephrine) Confirm Administered Dose 10 mg .ROUTE .STK- MED ONE Stop: 11/21/18 14:58 Potassium Chloride (Klor-Con M20) 40 meq PO ONETIME ONE Stop: 11/23/18 09:35 Last Admin: 11/23/18 10:06 Dose: 40 meq Propofol (Diprivan 20 Ml) Confirm Administered Dose 200 mg .ROUTE .STK-MED ONE Stop: 11/21/18 10:14 Propofol (Diprivan 20 Ml) Confirm Administered Dose 200 mg .ROUTE .STK-MED ONE Stop: 11/21/18 14:20 Propofol (Diprivan 20 Ml) Confirm Administered Dose 200 mg .ROUTE .STK-MED ONE Stop: 11/21/18 17:15 Sodium Chloride (Saline Flush) 10 ml FLUSH ASDIRECTED PRN PRN Reason: Keep Vein Open Last Admin: 11/20/18 12:51 Dose: 10 ml Sodium Chloride (Saline Flush) 2.5 ml FLUSH ASDIRECTED PRN PRN Reason: Keep Vein Open Last Admin: 11/20/18 12:51 Dose: 2.5 ml Tranexamic Acid (Cyklokapron) Confirm Administered Dose 2,000 mg .ROUTE .STK- MED ONE Stop: 11/21/18 09:31 - Exam Quality Assessment: No: Supplemental Oxygen General: Alert, Oriented, Cooperative, No Acute Distress HEENT: Pupils Equal, Pupils Reactive. No: Mucous Membr. Moist/[place] (Dry) Neck: Supple, Trachea Midline Lungs: Clear to Auscultation, Normal Respiratory Effort Cardiovascular: Regular Rate, Regular Rhythm GI/Abdominal Exam: Normal Bowel Sounds, Soft, Non-Tender, No Distention (Female) Exam: Deferred Back Exam: Normal Inspection Extremities: No: Normal Inspection (Right knee in a brace), Normal Range of Motion Skin: Warm, Dry, Intact Wound/Incisions: Dressing Dry and Intact Neurological: No New Focal Deficit Psy/Mental Status: Alert, Normal Affect, Normal Mood - Problem List & Annotations (1) Femur fracture, right SNOMED Code(s): 61497823 Code(s): S72.91XA - UNSP FRACTURE OF RIGHT FEMUR, INIT FOR CLOS FX Status: Acute Priority: High Current Visit: Yes Qualifiers: Encounter type: subsequent encounter Femur location: distal Fracture type : closed Fracture morphology: other fracture Fracture healing: with routine healing Qualified Code(s): S72.491D - Other fracture of lower end of right femur, subsequent encounter for closed fracture with routine healing (2) Hypocalcemia SNOMED Code(s): 0442072 Code(s): E83.51 - HYPOCALCEMIA Status: Acute Priority: Medium Current Visit: Yes (3) Anemia SNOMED Code(s): 638089029 Code(s): D64.9 - ANEMIA, UNSPECIFIED Status: Acute Priority: High Current Visit: Yes Qualifiers: Anemia type: iron deficiency Iron deficiency anemia type: inadequate dietary iron intake Qualified Code(s): D50.8 - Other iron deficiency anemias (4) Status post chemotherapy SNOMED Code(s): 980987893 Code(s): Z92.21 - PERSONAL HISTORY OF ANTINEOPLASTIC CHEMOTHERAPY Status: Acute Priority: Low Current Visit: Yes (5) History of uterine cancer SNOMED Code(s): 558378170 Code(s): Z85.42 - PERSONAL HISTORY OF MALIGNANT NEOPLASM OF OTH PRT UTERUS Status: Acute Priority: Low Current Visit: Yes (6) Post-mastectomy lymphedema syndrome SNOMED Code(s): 80083617 Code(s): I97.2 - POSTMASTECTOMY LYMPHEDEMA SYNDROME Status: Acute Priority: Medium Current Visit: Yes (7) History of left breast cancer SNOMED Code(s): 840175506 Code(s): Z85.3 - PERSONAL HISTORY OF MALIGNANT NEOPLASM OF BREAST Status: Acute Priority: Medium Current Visit: Yes (8) Parkinsons disease SNOMED Code(s): 12109864 Code(s): G20 - PARKINSON'S DISEASE Status: Acute Priority: Medium Current Visit: Yes - Problem List Review Problem List Initiated/Reviewed/Updated: Yes - Plan Plan:: The patient is a 58-year-old lady who is doing better today from an internal medicine standpoint. The patient is currently awaiting placement and [facility]. The patient's hemoglobin has remained stable. I've ordered repeat CBC to check this. Also the patient has remained hypocalcemic but not requiring calcium replacement. The patient will need to have close follow-up with her primary care physician with regards to the possible osteoporosis and her overall health issues. The patient has been recommended to ambulate as she can within her ability. Patient will likely be transferred to senior care facility tomorrow.
[2018-11-25 06:42] LABS: CHLORIDE,CL 100 mmol/L (98-107); SODIUM,NA 138 mmol/L (136-145)
[2018-11-25] MEDS ORDERED: Polyethylene Glycol 3350 Powder 17 GM Packet PO ONE (07:15)
[2018-11-25] MEDS: Enoxaparin 40 MG/0.4 ML Syringe SUBCUT SCH (08:37)
[2018-11-25] MEDS: Anastrozole 1 MG Tab PO SCH (08:38)
[2018-11-25] MEDS: Magnesium Oxide 400 MG Tab PO SCH ×2 (08:40→21:41)
[2018-11-25] MEDS: Citalopram 20 MG Tab PO SCH (08:40)
[2018-11-25] MEDS: Furosemide 20 MG Tab PO SCH (08:40)
[2018-11-25] MEDS: Docusate Sodium 100 MG Cap PO SCH ×2 (08:41→21:41)
--- NOTE | 2018-11-25 08:55 | PCM.SN ---
- Free Text/Narrative Note: Subjective: Patient is overall doing well. Her pain is controlled. She is out of bed with therapy. She is tolerating oral well. Objective: Afebrile, vital signs stable Right leg has some swelling in distal thigh but none distally. Her dressing is clean and intact with bloody discharge in the bandage that is stable. There is no erythema or signs of infection. She has pain to range of motion of the knee. Hemoglobin 9.5 Assessment/plan: Postoperative day #4 ORIF right femur with acute on chronic postoperative blood loss anemia patient seen and examined. Agree with above. Patient comfortable, pain well controlled. Has been OOB with PT. Hgb stable. 1. continue mobilization--TTWB RLE 2. Lovenox/SCD/RAMIREZ for DVT prophylaxis 3. Appreciate hospitalist assistance with medical management 4. awaiting approval for ECF--will need to stay over weekend with possible discharge Monday
[2018-11-25] MEDS: Acetaminophen/HYDROcodone 325-10 MG Tab PO PRN ×2 (10:00→21:40)
[2018-11-26] MEDS ORDERED: Heparin Sodium 5,000 Units/ML Vial ONE (05:55)
[2018-11-26] MEDS ORDERED: Heparin Sodium 100 Units/ML 3 ML Syringe ONE (05:59)
[2018-11-26 06:40] LABS: CHLORIDE,CL 102 mmol/L (98-107); SODIUM,NA 140 mmol/L (136-145)
[2018-11-26] MEDS: Potassium Chloride 10 MEQ Tab.ER PO SCH ×2 (06:45→14:02)
[2018-11-26] MEDS: Levothyroxine 112 MCG Tab PO SCH (06:45)
[2018-11-26] MEDS: Levothyroxine 25 MCG Tab PO SCH (06:45)
[2018-11-26] MEDS: Omeprazole 20 MG Cap.CR PO SCH (06:45)
[2018-11-26] MEDS: Carbidopa/Levodopa 25-100 MG Tab.ER PO SCH ×2 (06:45→11:54)
[2018-11-26] MEDS: Magnesium Oxide 400 MG Tab PO SCH (08:01)
[2018-11-26] MEDS: Citalopram 20 MG Tab PO SCH (08:01)
[2018-11-26] MEDS: Docusate Sodium 100 MG Cap PO SCH (08:01)
[2018-11-26] MEDS: Enoxaparin 40 MG/0.4 ML Syringe SUBCUT SCH (08:02)
[2018-11-26] MEDS: Furosemide 20 MG Tab PO SCH (08:02)
[2018-11-26] MEDS: Anastrozole 1 MG Tab PO SCH (08:14)
[2018-11-26] MEDS: traMADol 50 MG Tab PO PRN ×2 (08:14→14:02)
--- NOTE | 2018-11-26 08:37 | PCM.CONSN ---
<Gaby Ortez M - Last Filed: 11/26/18 08:33> - General Info Date of Service: 11/26/18 Admission Dx/Problem (Free Text): Fall, R periprosthetic femur fracture Subjective Update: Sitting up in bed. Denies chest pain, no shortness of breath. Feeling much better. No other concerns at this time. Functional Status: Reports: Pain Controlled, Tolerating Diet, Ambulating, Urinating - Review of Systems General: Reports: No Symptoms. Denies: Fever, Weakness, Fatigue HEENT: Reports: No Symptoms. Denies: Headaches, Sore Throat Pulmonary: Reports: No Symptoms. Denies: Shortness of Breath, Cough, Sputum Cardiovascular: Reports: No Symptoms. Denies: Chest Pain, Edema Gastrointestinal: Reports: No Symptoms. Denies: Nausea, Vomiting Genitourinary: Reports: No Symptoms Musculoskeletal: Reports: No Symptoms Skin: Reports: No Symptoms Neurological: Reports: No Symptoms Psychiatric: Reports: No Symptoms - Patient Data Vitals - Most Recent: Last Vital Signs Temp 97.5 F 11/26/18 07:55 Pulse 99 11/26/18 07:55 Resp 18 11/26/18 07:55 BP 112/55 L 11/26/18 07:55 Pulse Ox 92 L 11/26/18 07:55 Weight - Most Recent: 128.423 kg I&O - Last 24 Hours: Intake & Output 11/25/18 11/26/18 11/26/18 22:59 06:59 14:59 Intake Total 920 800 Output Total 600 400 Balance 320 400 Lab Results Last 24 Hours: Laboratory Results - last 24 hr 11/26/18 11/26/18 Range/Units 05:55 05:55 WBC 7.52 (4.0-11.0) K/uL RBC 3.70 L (4.30-5.90) M/uL Hgb 9.2 L (12.0-16.0) g/dL Hct 31.0 L (36.0-46.0) % MCV 83.8 (80.0-98.0) fL MCH 24.9 L (27.0-32.0) pg MCHC 29.7 L (31.0-37.0) g/dL RDW Std Deviation 59.2 (28.0-62.0) fl RDW Coeff of Luz 19 H (11.0-15.0) % Plt Count 228 (150-400) K/uL MPV 9.30 (7.40-12.00) fL Neut % (Auto) 68.8 (48.0-80.0) % Lymph % (Auto) 20.6 (16.0-40.0) % [place] % (Auto) 7.4 (0.0-15.0) % Eos % (Auto) 2.9 (0.0-7.0) % Baso % (Auto) 0.3 (0.0-1.5) % Neut # (Auto) 5.2 (1.4-5.7) K/uL Lymph # (Auto) 1.6 (0.6-2.4) K/uL [place] # (Auto) 0.6 (0.0-0.8) K/uL Eos # (Auto) 0.2 (0.0-0.7) K/uL Baso # (Auto) 0.0 (0.0-0.1) K/uL Nucleated RBC % 0.7 /100WBC Nucleated RBCs # 0 K/uL Sodium 140 (136-145) mmol/L Potassium 3.5 (3.5-5.1) mmol/L Chloride 102 (98-107) mmol/L Carbon Dioxide 31.3 (21.0-32.0) mmol/L BUN 10 (7.0-18.0) mg/dL Creatinine 0.7 (0.6-1.0) mg/dL Est Cr Clr Drug Dosing 88.86 mL/min Estimated GFR (MDRD) > 60.0 ml/min Glucose 106 (74-106) mg/dL Calcium 8.1 L (8.5-10.1) mg/dL Med Orders - Current: Current Medications Hydrocodone Bitart/Acetaminophen ([place] 325-10 Mg) 1 - 2 tab PO Q4H PRN PRN Reason: Pain Last Admin: 11/25/18 21:40 Dose: 1 tab Anastrozole (Arimidex) 1 mg PO DAILY ISIDRA Last Admin: 11/26/18 08:14 Dose: 1 mg Bisacodyl (Dulcolax) 10 mg RECTAL DAILY PRN PRN Reason: Constipation Carbidopa/Levodopa (Sinemet Cr 25-100 Mg) 2 tab PO 0700,1100,1500,1900 [facility] Last Admin: 11/26/18 06:45 Dose: 2 tab Citalopram Hydrobromide (Celexa) 40 mg PO DAILY [facility] Last Admin: 11/26/18 08:01 Dose: 40 mg Diphenhydramine HCl (Benadryl) 25 - 50 mg PO Q6H PRN PRN Reason: Itching Docusate Sodium (Colace) 100 mg PO BID [facility] Last Admin: 11/26/18 08:01 Dose: 100 mg Enoxaparin Sodium (Lovenox) 40 mg SUBCUT Q24H [facility] Last Admin: 11/26/18 08:02 Dose: 40 mg Fluticasone Propionate (Flonase) 1 - 2 gm NASBOTH DAILY PRN PRN Reason: sinus congestion Furosemide (Lasix) 20 mg PO DAILY [facility] Last Admin: 11/26/18 08:02 Dose: 20 mg Heparin Sodium (Porcine) (Heparin Lock Flush 100 Units/Ml) 500 units FLUSH ASDIRECTED PRN PRN Reason: Flush port. Hydromorphone HCl (Dilaudid) 0.5 - 1 mg IVPUSH Q3H PRN PRN Reason: Pain Levothyroxine Sodium (Levothyroxine) 112 mcg PO ACBREAKFAST [facility] Last Admin: 11/26/18 06:45 Dose: 112 mcg Levothyroxine Sodium (Levothyroxine) 25 mcg PO ACBREAKFAST [facility] Last Admin: 11/26/18 06:45 Dose: 25 mcg Magnesium Oxide (Magnesium Oxide) 400 mg PO BID [facility] Last Admin: 11/26/18 08:01 Dose: 400 mg Omeprazole (Omeprazole) 40 mg PO ACBREAKFAST [facility] Last Admin: 11/26/18 06:45 Dose: 40 mg Ondansetron HCl (Zofran) 4 mg IV Q8HR PRN PRN Reason: NAUSEA/VOMITING Potassium Chloride (Klor-Con 10) 10 meq PO TID [facility] Last Admin: 11/26/18 06:45 Dose: 10 meq Sodium Chloride (Saline Flush) 10 ml FLUSH ASDIRECTED PRN PRN Reason: Keep Vein Open Sodium Chloride (Saline Flush) 2.5 ml FLUSH ASDIRECTED PRN PRN Reason: Keep Vein Open Sodium Chloride (Normal Saline) 10 ml IV ASDIRECTED PRN PRN Reason: IV Use Sodium Chloride (Saline Flush) 10 ml FLUSH ASDIRECTED PRN PRN Reason: Keep Vein Open Sodium Chloride (Saline Flush) 2.5 ml FLUSH ASDIRECTED PRN PRN Reason: Keep Vein Open Sodium Chloride (Normal Saline) 10 ml IV ASDIRECTED PRN PRN Reason: IV Use Tramadol HCl (Ultram) 50 - 100 mg PO Q6H PRN PRN Reason: Pain Last Admin: 11/26/18 08:14 Dose: 100 mg Discontinued Medications Bupivacaine HCl (Marcaine 0.5%) Confirm Administered Dose 30 ml .ROUTE .STK-MED ONE Stop: 11/21/18 09:31 Bupivacaine HCl (Sensorcaine-Mpf 0.5%) Confirm Administered Dose 10 ml .ROUTE .STK-MED ONE Stop: 11/21/18 14:38 Cefazolin Sodium/Dextrose (Ancef) Confirm Administered Dose 2 gm IV .STK-MED ONE Stop: 11/21/18 14:24 Fentanyl (Sublimaze) Confirm Administered Dose 100 mcg .ROUTE .STK-MED ONE Stop: 11/21/18 10:15 Fentanyl (Sublimaze) Confirm Administered Dose 100 mcg .ROUTE .STK-MED ONE Stop: 11/21/18 14:20 Fentanyl (Sublimaze) 50 mcg IVPUSH .Q5MIN PRN PRN Reason: Pain Last Admin: 11/21/18 19:10 Dose: 50 mcg Furosemide (Lasix) 20 mg PO DAILY ISIDRA Last Admin: 11/21/18 11:29 Dose: Not Given Furosemide (Lasix) Confirm Administered Dose 40 mg .ROUTE .STK-MED ONE Stop: 11/21/18 17:30 Furosemide (Lasix) 40 mg IVPUSH NOW ONE Stop: 11/22/18 08:48 Last Admin: 11/22/18 09:13 Dose: 40 mg Furosemide (Lasix) 40 mg IVPUSH NOW ONE Stop: 11/23/18 08:08 Last Admin: 11/23/18 09:01 Dose: 40 mg Heparin Sodium (Porcine) (Heparin Lock Flush 100 Units/Ml) 500 units FLUSH ONETIME ONE Stop: 11/25/18 08:49 Last Admin: 11/25/18 09:43 Dose: 500 units Heparin Sodium (Porcine) (Heparin Sodium) Confirm Administered Dose 5,000 units .ROUTE .STK-MED ONE Stop: 11/26/18 05:56 Last Admin: 11/26/18 06:47 Dose: Not Given Heparin Sodium (Porcine) (Heparin Lock Flush 100 Units/Ml) Confirm Administered Dose 600 unit .ROUTE .STK-MED ONE Stop: 11/26/18 06:00 Last Admin: 11/26/18 06:00 Dose: 600 unit Hydromorphone HCl (Dilaudid) 0 mg IVPUSH ONETIME PRN PRN Reason: Breakthrough Pain Lactated Ringer's (Ringers, Lactated) 1,000 mls @ 125 mls/hr IV ASDIRECTED [facility] Last Admin: 11/22/18 02:20 Dose: 125 mls/hr Cefazolin Sodium/Dextrose 2 gm (/ Premix) 50 mls @ 100 mls/hr IV ONETIME ONE Stop: 11/21/18 13:05 Last Admin: 11/21/18 16:33 Dose: Not Given Cefazolin Sodium/Dextrose 2 gm (/ Premix) 50 mls @ 100 mls/hr IV Q8H [facility] Stop: 11/22/18 08:28 Last Admin: 11/22/18 09:13 Dose: 100 mls/hr Acetaminophen (Ofirmev) Confirm Administered Dose 100 mls @ as directed IV .STK- MED ONE Stop: 11/21/18 19:07 Acetaminophen 650 mg/ Premix 65 mls @ 400 mls/hr IV NOW ONE Stop: 11/21/18 21:40 Last Admin: 11/21/18 21:42 Dose: 400 mls/hr Ketamine HCl (Ketalar) Confirm Administered Dose 500 mg .ROUTE .STK-MED ONE Stop: 11/21/18 14:20 Midazolam HCl (Versed 1 Mg/Ml) Confirm Administered Dose 2 mg .ROUTE .STK-MED ONE Stop: 11/21/18 10:15 Midazolam HCl (Versed 1 Mg/Ml) Confirm Administered Dose 2 mg .ROUTE .STK-MED ONE Stop: 11/21/18 14:20 Midazolam HCl (Versed 1 Mg/Ml) Confirm Administered Dose 2 mg .ROUTE .STK-MED ONE Stop: 11/21/18 16:14 Morphine Sulfate (Morphine) 4 mg IM ONETIME ONE Stop: 11/20/18 10:43 Last Admin: 11/20/18 11:24 Dose: 4 mg Morphine Sulfate (Morphine) 2 mg IVPUSH ONETIME ONE Stop: 11/20/18 12:29 Last Admin: 11/20/18 13:01 Dose: 2 mg Morphine Sulfate (Morphine) 1 - 3 mg IVPUSH Q3H PRN PRN Reason: Pain Last Admin: 11/21/18 13:06 Dose: 3 mg Naloxone HCl (Narcan) 0.4 mg IVPUSH ONETIME ONE Stop: 11/21/18 21:35 Last Admin: 11/21/18 21:42 Dose: 0.4 mg Ondansetron HCl (Zofran) 4 mg IVPUSH ONETIME ONE Stop: 11/20/18 12:29 Last Admin: 11/20/18 12:56 Dose: 4 mg Ondansetron HCl (Zofran) Confirm Administered Dose 4 mg .ROUTE .STK-MED ONE Stop: 11/21/18 17:01 Phenylephrine HCl (Star-Synephrine) Confirm Administered Dose 10 mg .ROUTE .STK- MED ONE Stop: 11/21/18 14:58 Polyethylene Glycol (Miralax) 17 gm PO ONETIME ONE Stop: 11/25/18 07:16 Last Admin: 11/25/18 08:36 Dose: 17 gm Potassium Chloride (Klor-Con M20) 40 meq PO ONETIME ONE Stop: 11/23/18 09:35 Last Admin: 11/23/18 10:06 Dose: 40 meq Propofol (Diprivan 20 Ml) Confirm Administered Dose 200 mg .ROUTE .STK-MED ONE Stop: 11/21/18 10:14 Propofol (Diprivan 20 Ml) Confirm Administered Dose 200 mg .ROUTE .STK-MED ONE Stop: 11/21/18 14:20 Propofol (Diprivan 20 Ml) Confirm Administered Dose 200 mg .ROUTE .STK-MED ONE Stop: 11/21/18 17:15 Sodium Chloride (Saline Flush) 10 ml FLUSH ASDIRECTED PRN PRN Reason: Keep Vein Open Last Admin: 11/20/18 12:51 Dose: 10 ml Sodium Chloride (Saline Flush) 2.5 ml FLUSH ASDIRECTED PRN PRN Reason: Keep Vein Open Last Admin: 11/20/18 12:51 Dose: 2.5 ml Tranexamic Acid (Cyklokapron) Confirm Administered Dose 2,000 mg .ROUTE .STK- MED ONE Stop: 11/21/18 09:31 - Exam Quality Assessment: DVT Prophylaxis. No: Supplemental Oxygen General: Alert, Oriented, Cooperative, No Acute Distress Lungs: Clear to Auscultation, Normal Respiratory Effort Cardiovascular: Regular Rate, Regular Rhythm, No Murmurs. No: Tachycardia GI/Abdominal Exam: Normal Bowel Sounds, Soft, Non-Tender, No Mass Extremities: Non-Tender, No Pedal Edema Neurological: No New Focal Deficit Psy/Mental Status: Alert, Normal Affect, Normal Mood Consult PN Assessment/Plan Procedures: Procedures 3-D RADIOTHERAPY PLAN (10/12/15) ASSAY OF MAGNESIUM (03/01/17) C-REACTIVE PROTEIN (08/02/17) CHEMO IV INFUS EACH ADDL SEQ (09/15/15) CHEMO IV INFUSION 1 HR (05/04/16) CHEMO IV INFUSION ADDL HR (06/10/15) CINE/VID X-RAY THROAT/ESOPH (12/01/17) COLONOSCOPY W/LESION REMOVAL (01/18/16) COMP SCREEN MAMMOGRAM ADD-ON (06/09/16) COMPLETE CBC W/AUTO DIFF WBC (10/31/17) COMPREHEN METABOLIC PANEL (10/31/17) CT SCAN FOR THERAPY GUIDE (09/30/15) CT THORAX W/DYE (12/08/16) DRAIN/INJ JOINT/BURSA W/O US (11/28/17) DRAW BLOOD OFF VENOUS DEVICE (10/31/17) DX MAMMO INCL CAD UNI (07/13/18) DXA BONE DENSITY AXIAL (03/13/18) EMERGENCY DEPT VISIT (07/18/15) EVALUATE SPEECH PRODUCTION (04/23/18) EVALUATE SWALLOWING FUNCTION (10/16/18) GATED HEART PLANAR SINGLE (06/10/15) HOT OR COLD PACKS THERAPY (03/16/15) HYDRATE IV INFUSION ADD-ON (06/30/15) HYDRATION IV INFUSION INIT (06/30/15) IIV4 VACC NO PRSV 0.5 ML IM (07/25/18) IRRIG DRUG DELIVERY DEVICE (10/17/18) KNEE ARTHROSCOPY/SURGERY (08/07/18) MANUAL THERAPY 1/> REGIONS (02/18/15) MOTION FLUOROSCOPY/SWALLOW (12/01/17) MRI JNT OF LWR EXTRE W/O DYE (12/01/16) NEEDLE LOCALIZATION BY XRAY (11/28/17) OFFICE/OUTPATIENT VISIT NEW (09/30/15) ORAL FUNCTION THERAPY (04/23/18) PT EVAL MOD COMPLEX 30 MIN (01/24/17) PT EVALUATION (12/21/15) RADIATION PHYSICS CONSULT (10/27/15) RADIATION THERAPY DOSE PLAN (10/12/15) RADIATION TREATMENT AID(S) (10/27/15) RADIATION TREATMENT DELIVERY (11/27/15) RADIOLOGY PORT IMAGES(S) (10/27/15) RBC SED RATE AUTOMATED (08/02/17) REMOVAL OF BREAST LESION (03/25/15) ROUTINE VENIPUNCTURE (10/31/17) SET RADIATION THERAPY FIELD (10/27/15) SPECIAL RADIATION DOSIMETRY (10/27/15) SPECIAL RADIATION TREATMENT (10/12/15) SPECIAL TELETX PORT PLAN (10/27/15) THER/PROPH/DIAG INJ SC/IM (09/15/15) THER/PROPH/DIAG IV INF INIT (06/30/15) THERAPEUTIC EXERCISES (02/16/17) TISSUE EXAM BY PATHOLOGIST (01/18/16) TISSUE EXAM BY PATHOLOGIST (03/25/15) TTE W/DOPPLER COMPLETE (02/09/16) TX/PRO/DX INJ NEW DRUG ADDON (09/15/15) TX/PROPH/DG ADDL SEQ IV INF (09/15/15) VASOPNEUMATIC DEVICE THERAPY (02/16/17) X-RAY EXAM HIP UNI 2-3 VIEWS (05/22/18) X-RAY EXAM KNEE 4 OR MORE (07/26/17) X-RAY EXAM OF KNEE 1 OR 2 (07/26/18) X-RAY EXAM OF KNEE 3 (01/05/17) (1) Femur fracture, right SNOMED Code(s): 42084738 Code(s): S72.91XA - UNSP FRACTURE OF RIGHT FEMUR, INIT FOR CLOS FX Priority : High Current Visit: Yes Qualifiers: Encounter type: subsequent encounter Femur location: distal Fracture type : closed Fracture morphology: other fracture Fracture healing: with routine healing Qualified Code(s): S72.491D - Other fracture of lower end of right femur, subsequent encounter for closed fracture with routine healing (2) History of left breast cancer SNOMED Code(s): 101503149 Code(s): Z85.3 - PERSONAL HISTORY OF MALIGNANT NEOPLASM OF BREAST Priority : Medium Current Visit: Yes (3) History of uterine cancer SNOMED Code(s): 573383946 Code(s): Z85.42 - PERSONAL HISTORY OF MALIGNANT NEOPLASM OF OTH PRT UTERUS Priority: Low Current Visit: Yes (4) Parkinsons disease SNOMED Code(s): 18289757 Code(s): G20 - PARKINSON'S DISEASE Priority: Medium Current Visit: Yes (5) Post-mastectomy lymphedema syndrome SNOMED Code(s): 03882759 Code(s): I97.2 - POSTMASTECTOMY LYMPHEDEMA SYNDROME Priority: Medium Current Visit: Yes Problem List Initiated/Reviewed/Updated: Yes Plan: This 58 year old female admitted with R femur fracture, Hospitalist consult for medical management. 1. S/P ORIF R periprosthetic femur fracture: Orders per Orthopedics 2. Hypoxia: Resolved. ECHO, no obvious heart failure. 3. Parkinson's: Stable. Continue Carbidopa/levodopa. VTE prophylaxis: Would recommend when Orthopedics deems appropriate. Currently on Lovenox. Dispo: pending placement, [facility] on Monday for short term rehabilitation. Hospitalist service will sign off at this time, please re-consult if needed. <Cliff Martel - Last Filed: 11/26/18 12:17> - General Info Admission Dx/Problem (Free Text): I have examined the patient independently of Gaby Ortez CNP. I have discussed the case with her. I have reviewed and agree with the plan of care as outlined by her. Pending placement at [facility]. Please see orders. Internal medicine will sign off. Thank you. - Patient Data Vitals - Most Recent: Last Vital Signs Temp 36.1 C 11/26/18 12:15 Pulse 104 H 11/26/18 12:15 Resp 18 11/26/18 12:15 BP 98/52 L 11/26/18 12:15 Pulse Ox 92 L 11/26/18 12:15 I&O - Last 24 Hours: Intake & Output 11/25/18 11/26/18 11/26/18 22:59 06:59 14:59 Intake Total 920 800 Output Total 600 400 Balance 320 400 Lab Results Last 24 Hours: Laboratory Results - last 24 hr 11/26/18 11/26/18 Range/Units 05:55 05:55 WBC 7.52 (4.0-11.0) K/uL RBC 3.70 L (4.30-5.90) M/uL Hgb 9.2 L (12.0-16.0) g/dL Hct 31.0 L (36.0-46.0) % MCV 83.8 (80.0-98.0) fL MCH 24.9 L (27.0-32.0) pg MCHC 29.7 L (31.0-37.0) g/dL RDW Std Deviation 59.2 (28.0-62.0) fl RDW Coeff of Luz 19 H (11.0-15.0) % Plt Count 228 (150-400) K/uL MPV 9.30 (7.40-12.00) fL Neut % (Auto) 68.8 (48.0-80.0) % Lymph % (Auto) 20.6 (16.0-40.0) % [place] % (Auto) 7.4 (0.0-15.0) % Eos % (Auto) 2.9 (0.0-7.0) % Baso % (Auto) 0.3 (0.0-1.5) % Neut # (Auto) 5.2 (1.4-5.7) K/uL Lymph # (Auto) 1.6 (0.6-2.4) K/uL [place] # (Auto) 0.6 (0.0-0.8) K/uL Eos # (Auto) 0.2 (0.0-0.7) K/uL Baso # (Auto) 0.0 (0.0-0.1) K/uL Nucleated RBC % 0.7 /100WBC Nucleated RBCs # 0 K/uL Sodium 140 (136-145) mmol/L Potassium 3.5 (3.5-5.1) mmol/L Chloride 102 (98-107) mmol/L Carbon Dioxide 31.3 (21.0-32.0) mmol/L BUN 10 (7.0-18.0) mg/dL Creatinine 0.7 (0.6-1.0) mg/dL Est Cr Clr Drug Dosing 88.86 mL/min Estimated GFR (MDRD) > 60.0 ml/min Glucose 106 (74-106) mg/dL Calcium 8.1 L (8.5-10.1) mg/dL Med Orders - Current: Current Medications Hydrocodone Bitart/Acetaminophen ([place] 325-10 Mg) 1 - 2 tab PO Q4H PRN PRN Reason: Pain Last Admin: 11/25/18 21:40 Dose: 1 tab Anastrozole (Arimidex) 1 mg PO DAILY [facility] Last Admin: 11/26/18 08:14 Dose: 1 mg Bisacodyl (Dulcolax) 10 mg RECTAL DAILY PRN PRN Reason: Constipation Carbidopa/Levodopa (Sinemet Cr 25-100 Mg) 2 tab PO 0700,1100,1500,1900 [facility] Last Admin: 11/26/18 11:54 Dose: 2 tab Citalopram Hydrobromide (Celexa) 40 mg PO DAILY [facility] Last Admin: 11/26/18 08:01 Dose: 40 mg Diphenhydramine HCl (Benadryl) 25 - 50 mg PO Q6H PRN PRN Reason: Itching Docusate Sodium (Colace) 100 mg PO BID [facility] Last Admin: 11/26/18 08:01 Dose: 100 mg Enoxaparin Sodium (Lovenox) 40 mg SUBCUT Q24H [facility] Last Admin: 11/26/18 08:02 Dose: 40 mg Fluticasone Propionate (Flonase) 1 - 2 gm NASBOTH DAILY PRN PRN Reason: sinus congestion Furosemide (Lasix) 20 mg PO DAILY [facility] Last Admin: 11/26/18 08:02 Dose: 20 mg Heparin Sodium (Porcine) (Heparin Lock Flush 100 Units/Ml) 500 units FLUSH ASDIRECTED PRN PRN Reason: Flush port. Hydromorphone HCl (Dilaudid) 0.5 - 1 mg IVPUSH Q3H PRN PRN Reason: Pain Levothyroxine Sodium (Levothyroxine) 112 mcg PO ACBREAKFAST [facility] Last Admin: 11/26/18 06:45 Dose: 112 mcg Levothyroxine Sodium (Levothyroxine) 25 mcg PO ACBREAKFAST [facility] Last Admin: 11/26/18 06:45 Dose: 25 mcg Magnesium Oxide (Magnesium Oxide) 400 mg PO BID [facility] Last Admin: 11/26/18 08:01 Dose: 400 mg Omeprazole (Omeprazole) 40 mg PO ACBREAKFAST [facility] Last Admin: 11/26/18 06:45 Dose: 40 mg Ondansetron HCl (Zofran) 4 mg IV Q8HR PRN PRN Reason: NAUSEA/VOMITING Potassium Chloride (Klor-Con 10) 10 meq PO TID [facility] Last Admin: 11/26/18 06:45 Dose: 10 meq Sodium Chloride (Saline Flush) 10 ml FLUSH ASDIRECTED PRN PRN Reason: Keep Vein Open Sodium Chloride (Saline Flush) 2.5 ml FLUSH ASDIRECTED PRN PRN Reason: Keep Vein Open Sodium Chloride (Normal Saline) 10 ml IV ASDIRECTED PRN PRN Reason: IV Use Sodium Chloride (Saline Flush) 10 ml FLUSH ASDIRECTED PRN PRN Reason: Keep Vein Open Sodium Chloride (Saline Flush) 2.5 ml FLUSH ASDIRECTED PRN PRN Reason: Keep Vein Open Sodium Chloride (Normal Saline) 10 ml IV ASDIRECTED PRN PRN Reason: IV Use Tramadol HCl (Ultram) 50 - 100 mg PO Q6H PRN PRN Reason: Pain Last Admin: 11/26/18 08:14 Dose: 100 mg Discontinued Medications Bupivacaine HCl (Marcaine 0.5%) Confirm Administered Dose 30 ml .ROUTE .STK-MED ONE Stop: 11/21/18 09:31 Bupivacaine HCl (Sensorcaine-Mpf 0.5%) Confirm Administered Dose 10 ml .ROUTE .STK-MED ONE Stop: 11/21/18 14:38 Cefazolin Sodium/Dextrose (Ancef) Confirm Administered Dose 2 gm IV .STK-MED ONE Stop: 11/21/18 14:24 Fentanyl (Sublimaze) Confirm Administered Dose 100 mcg .ROUTE .STK-MED ONE Stop: 11/21/18 10:15 Fentanyl (Sublimaze) Confirm Administered Dose 100 mcg .ROUTE .STK-MED ONE Stop: 11/21/18 14:20 Fentanyl (Sublimaze) 50 mcg IVPUSH .Q5MIN PRN PRN Reason: Pain Last Admin: 11/21/18 19:10 Dose: 50 mcg Furosemide (Lasix) 20 mg PO DAILY [facility] Last Admin: 11/21/18 11:29 Dose: Not Given Furosemide (Lasix) Confirm Administered Dose 40 mg .ROUTE .STK-MED ONE Stop: 11/21/18 17:30 Furosemide (Lasix) 40 mg IVPUSH NOW ONE Stop: 11/22/18 08:48 Last Admin: 11/22/18 09:13 Dose: 40 mg Furosemide (Lasix) 40 mg IVPUSH NOW ONE Stop: 11/23/18 08:08 Last Admin: 11/23/18 09:01 Dose: 40 mg Heparin Sodium (Porcine) (Heparin Lock Flush 100 Units/Ml) 500 units FLUSH ONETIME ONE Stop: 11/25/18 08:49 Last Admin: 11/25/18 09:43 Dose: 500 units Heparin Sodium (Porcine) (Heparin Sodium) Confirm Administered Dose 5,000 units .ROUTE .STK-MED ONE Stop: 11/26/18 05:56 Last Admin: 11/26/18 06:47 Dose: Not Given Heparin Sodium (Porcine) (Heparin Lock Flush 100 Units/Ml) Confirm Administered Dose 600 unit .ROUTE .STK-MED ONE Stop: 11/26/18 06:00 Last Admin: 11/26/18 06:00 Dose: 600 unit Hydromorphone HCl (Dilaudid) 0 mg IVPUSH ONETIME PRN PRN Reason: Breakthrough Pain Lactated Ringer's (Ringers, Lactated) 1,000 mls @ 125 mls/hr IV ASDIRECTED [facility] Last Admin: 11/22/18 02:20 Dose: 125 mls/hr Cefazolin Sodium/Dextrose 2 gm (/ Premix) 50 mls @ 100 mls/hr IV ONETIME ONE Stop: 11/21/18 13:05 Last Admin: 11/21/18 16:33 Dose: Not Given Cefazolin Sodium/Dextrose 2 gm (/ Premix) 50 mls @ 100 mls/hr IV Q8H [facility] Stop: 11/22/18 08:28 Last Admin: 11/22/18 09:13 Dose: 100 mls/hr Acetaminophen (Ofirmev) Confirm Administered Dose 100 mls @ as directed IV .STK- MED ONE Stop: 11/21/18 19:07 Acetaminophen 650 mg/ Premix 65 mls @ 400 mls/hr IV NOW ONE Stop: 11/21/18 21:40 Last Admin: 11/21/18 21:42 Dose: 400 mls/hr Ketamine HCl (Ketalar) Confirm Administered Dose 500 mg .ROUTE .STK-MED ONE Stop: 11/21/18 14:20 Midazolam HCl (Versed 1 Mg/Ml) Confirm Administered Dose 2 mg .ROUTE .STK-MED ONE Stop: 11/21/18 10:15 Midazolam HCl (Versed 1 Mg/Ml) Confirm Administered Dose 2 mg .ROUTE .STK-MED ONE Stop: 11/21/18 14:20 Midazolam HCl (Versed 1 Mg/Ml) Confirm Administered Dose 2 mg .ROUTE .STK-MED ONE Stop: 11/21/18 16:14 Morphine Sulfate (Morphine) 4 mg IM ONETIME ONE Stop: 11/20/18 10:43 Last Admin: 11/20/18 11:24 Dose: 4 mg Morphine Sulfate (Morphine) 2 mg IVPUSH ONETIME ONE Stop: 11/20/18 12:29 Last Admin: 11/20/18 13:01 Dose: 2 mg Morphine Sulfate (Morphine) 1 - 3 mg IVPUSH Q3H PRN PRN Reason: Pain Last Admin: 11/21/18 13:06 Dose: 3 mg Naloxone HCl (Narcan) 0.4 mg IVPUSH ONETIME ONE Stop: 11/21/18 21:35 Last Admin: 11/21/18 21:42 Dose: 0.4 mg Ondansetron HCl (Zofran) 4 mg IVPUSH ONETIME ONE Stop: 11/20/18 12:29 Last Admin: 11/20/18 12:56 Dose: 4 mg Ondansetron HCl (Zofran) Confirm Administered Dose 4 mg .ROUTE .STK-MED ONE Stop: 11/21/18 17:01 Phenylephrine HCl (Star-Synephrine) Confirm Administered Dose 10 mg .ROUTE .STK- MED ONE Stop: 11/21/18 14:58 Polyethylene Glycol (Miralax) 17 gm PO ONETIME ONE Stop: 11/25/18 07:16 Last Admin: 11/25/18 08:36 Dose: 17 gm Potassium Chloride (Klor-Con M20) 40 meq PO ONETIME ONE Stop: 11/23/18 09:35 Last Admin: 11/23/18 10:06 Dose: 40 meq Propofol (Diprivan 20 Ml) Confirm Administered Dose 200 mg .ROUTE .STK-MED ONE Stop: 11/21/18 10:14 Propofol (Diprivan 20 Ml) Confirm Administered Dose 200 mg .ROUTE .STK-MED ONE Stop: 11/21/18 14:20 Propofol (Diprivan 20 Ml) Confirm Administered Dose 200 mg .ROUTE .STK-MED ONE Stop: 11/21/18 17:15 Sodium Chloride (Saline Flush) 10 ml FLUSH ASDIRECTED PRN PRN Reason: Keep Vein Open Last Admin: 11/20/18 12:51 Dose: 10 ml Sodium Chloride (Saline Flush) 2.5 ml FLUSH ASDIRECTED PRN PRN Reason: Keep Vein Open Last Admin: 11/20/18 12:51 Dose: 2.5 ml Tranexamic Acid (Cyklokapron) Confirm Administered Dose 2,000 mg .ROUTE .STK- MED ONE Stop: 11/21/18 09:31 Consult PN Assessment/Plan Procedures: Procedures 3-D RADIOTHERAPY PLAN (10/12/15) ASSAY OF MAGNESIUM (03/01/17) C-REACTIVE PROTEIN (08/02/17) CHEMO IV INFUS EACH ADDL SEQ (09/15/15) CHEMO IV INFUSION 1 HR (05/04/16) CHEMO IV INFUSION ADDL HR (06/10/15) CINE/VID X-RAY THROAT/ESOPH (12/01/17) COLONOSCOPY W/LESION REMOVAL (01/18/16) COMP SCREEN MAMMOGRAM ADD-ON (06/09/16) COMPLETE CBC W/AUTO DIFF WBC (10/31/17) COMPREHEN METABOLIC PANEL (10/31/17) CT SCAN FOR THERAPY GUIDE (09/30/15) CT THORAX W/DYE (12/08/16) DRAIN/INJ JOINT/BURSA W/O US (11/28/17) DRAW BLOOD OFF VENOUS DEVICE (10/31/17) DX MAMMO INCL CAD UNI (07/13/18) DXA BONE DENSITY AXIAL (03/13/18) EMERGENCY DEPT VISIT (07/18/15) EVALUATE SPEECH PRODUCTION (04/23/18) EVALUATE SWALLOWING FUNCTION (10/16/18) GATED HEART PLANAR SINGLE (06/10/15) HOT OR COLD PACKS THERAPY (03/16/15) HYDRATE IV INFUSION ADD-ON (06/30/15) HYDRATION IV INFUSION INIT (06/30/15) IIV4 VACC NO PRSV 0.5 ML IM (07/25/18) IRRIG DRUG DELIVERY DEVICE (10/17/18) KNEE ARTHROSCOPY/SURGERY (08/07/18) MANUAL THERAPY 1/> REGIONS (02/18/15) MOTION FLUOROSCOPY/SWALLOW (12/01/17) MRI JNT OF LWR EXTRE W/O DYE (12/01/16) NEEDLE LOCALIZATION BY XRAY (11/28/17) OFFICE/OUTPATIENT VISIT NEW (09/30/15) ORAL FUNCTION THERAPY (04/23/18) PT EVAL MOD COMPLEX 30 MIN (01/24/17) PT EVALUATION (12/21/15) RADIATION PHYSICS CONSULT (10/27/15) RADIATION THERAPY DOSE PLAN (10/12/15) RADIATION TREATMENT AID(S) (10/27/15) RADIATION TREATMENT DELIVERY (11/27/15) RADIOLOGY PORT IMAGES(S) (10/27/15) RBC SED RATE AUTOMATED (08/02/17) REMOVAL OF BREAST LESION (03/25/15) ROUTINE VENIPUNCTURE (10/31/17) SET RADIATION THERAPY FIELD (10/27/15) SPECIAL RADIATION DOSIMETRY (10/27/15) SPECIAL RADIATION TREATMENT (10/12/15) SPECIAL TELETX PORT PLAN (10/27/15) THER/PROPH/DIAG INJ SC/IM (09/15/15) THER/PROPH/DIAG IV INF INIT (06/30/15) THERAPEUTIC EXERCISES (02/16/17) TISSUE EXAM BY PATHOLOGIST (01/18/16) TISSUE EXAM BY PATHOLOGIST (03/25/15) TTE W/DOPPLER COMPLETE (02/09/16) TX/PRO/DX INJ NEW DRUG ADDON (09/15/15) TX/PROPH/DG ADDL SEQ IV INF (09/15/15) VASOPNEUMATIC DEVICE THERAPY (02/16/17) X-RAY EXAM HIP UNI 2-3 VIEWS (05/22/18) X-RAY EXAM KNEE 4 OR MORE (07/26/17) X-RAY EXAM OF KNEE 1 OR 2 (07/26/18) X-RAY EXAM OF KNEE 3 (01/05/17) (1) Femur fracture, right SNOMED Code(s): 61613790 Code(s): S72.91XA - UNSP FRACTURE OF RIGHT FEMUR, INIT FOR CLOS FX Priority : High Current Visit: Yes Qualifiers: Encounter type: subsequent encounter Femur location: distal Fracture type : closed Fracture morphology: other fracture Fracture healing: with routine healing Qualified Code(s): S72.491D - Other fracture of lower end of right femur, subsequent encounter for closed fracture with routine healing (2) Hypocalcemia SNOMED Code(s): 8812204 Code(s): E83.51 - HYPOCALCEMIA Priority: Medium Current Visit: Yes (3) Anemia SNOMED Code(s): 951197372 Code(s): D64.9 - ANEMIA, UNSPECIFIED Priority: High Current Visit: Yes Qualifiers: Anemia type: iron deficiency Iron deficiency anemia type: inadequate dietary iron intake Qualified Code(s): D50.8 - Other iron deficiency anemias (4) Status post chemotherapy SNOMED Code(s): 194047579 Code(s): Z92.21 - PERSONAL HISTORY OF ANTINEOPLASTIC CHEMOTHERAPY Priority : Low Current Visit: Yes (5) History of uterine cancer SNOMED Code(s): 198596426 Code(s): Z85.42 - PERSONAL HISTORY OF MALIGNANT NEOPLASM OF OTH PRT UTERUS Priority: Low Current Visit: Yes (6) Post-mastectomy lymphedema syndrome SNOMED Code(s): 70381092 Code(s): I97.2 - POSTMASTECTOMY LYMPHEDEMA SYNDROME Priority: Medium Current Visit: Yes (7) History of left breast cancer SNOMED Code(s): 417118728 Code(s): Z85.3 - PERSONAL HISTORY OF MALIGNANT NEOPLASM OF BREAST Priority : Medium Current Visit: Yes (8) Parkinsons disease SNOMED Code(s): 37753281 Code(s): G20 - PARKINSON'S DISEASE Priority: Medium Current Visit: Yes
--- NOTE | 2018-11-26 10:24 | PCM.SURGPN ---
- General Info Date of Service: 11/26/18 Date of Surgery/Procedure: 11/21/18 POD#: 5 Functional Status: Reports: Pain Controlled, Tolerating Diet, Urinating - Review of Systems General: Reports: No Symptoms Pulmonary: Reports: No Symptoms Cardiovascular: Reports: No Symptoms Gastrointestinal: Reports: No Symptoms Systems Review Comment:: pt resting comfortably in bed tolerating PO intake pain well controlled with PO pain medications has been NWB/TTWB to RLE with FWW has been wearing knee immobilizer Aquacel dressing in place received total of 4u PRBC pre/intra-op, hemoglobin has been stable post-op no specific concerns today ready for transfer to [facility] this afternoon - Patient Data Vitals - Most Recent: Last Vital Signs Temp 97.5 F 11/26/18 07:55 Pulse 99 11/26/18 07:55 Resp 18 11/26/18 07:55 BP 112/55 L 11/26/18 07:55 Pulse Ox 92 L 11/26/18 07:55 Weight - Most Recent: 128.423 kg I&O - Last 24 Hours: Intake & Output 11/25/18 11/26/18 11/26/18 22:59 06:59 14:59 Intake Total 920 800 Output Total 600 400 Balance 320 400 Lab Results Last 24 Hrs: Laboratory Results - last 24 hr 11/26/18 11/26/18 Range/Units 05:55 05:55 WBC 7.52 (4.0-11.0) K/uL RBC 3.70 L (4.30-5.90) M/uL Hgb 9.2 L (12.0-16.0) g/dL Hct 31.0 L (36.0-46.0) % MCV 83.8 (80.0-98.0) fL MCH 24.9 L (27.0-32.0) pg MCHC 29.7 L (31.0-37.0) g/dL RDW Std Deviation 59.2 (28.0-62.0) fl RDW Coeff of Luz 19 H (11.0-15.0) % Plt Count 228 (150-400) K/uL MPV 9.30 (7.40-12.00) fL Neut % (Auto) 68.8 (48.0-80.0) % Lymph % (Auto) 20.6 (16.0-40.0) % Parker % (Auto) 7.4 (0.0-15.0) % Eos % (Auto) 2.9 (0.0-7.0) % Baso % (Auto) 0.3 (0.0-1.5) % Neut # (Auto) 5.2 (1.4-5.7) K/uL Lymph # (Auto) 1.6 (0.6-2.4) K/uL Parker # (Auto) 0.6 (0.0-0.8) K/uL Eos # (Auto) 0.2 (0.0-0.7) K/uL Baso # (Auto) 0.0 (0.0-0.1) K/uL Nucleated RBC % 0.7 /100WBC Nucleated RBCs # 0 K/uL Sodium 140 (136-145) mmol/L Potassium 3.5 (3.5-5.1) mmol/L Chloride 102 (98-107) mmol/L Carbon Dioxide 31.3 (21.0-32.0) mmol/L BUN 10 (7.0-18.0) mg/dL Creatinine 0.7 (0.6-1.0) mg/dL Est Cr Clr Drug Dosing 88.86 mL/min Estimated GFR (MDRD) > 60.0 ml/min Glucose 106 (74-106) mg/dL Calcium 8.1 L (8.5-10.1) mg/dL Med Orders - Current: Current Medications Hydrocodone Bitart/Acetaminophen ([place] 325-10 Mg) 1 - 2 tab PO Q4H PRN PRN Reason: Pain Last Admin: 11/25/18 21:40 Dose: 1 tab Anastrozole (Arimidex) 1 mg PO DAILY [facility] Last Admin: 11/26/18 08:14 Dose: 1 mg Bisacodyl (Dulcolax) 10 mg RECTAL DAILY PRN PRN Reason: Constipation Carbidopa/Levodopa (Sinemet Cr 25-100 Mg) 2 tab PO 0700,1100,1500,1900 [facility] Last Admin: 11/26/18 06:45 Dose: 2 tab Citalopram Hydrobromide (Celexa) 40 mg PO DAILY [facility] Last Admin: 11/26/18 08:01 Dose: 40 mg Diphenhydramine HCl (Benadryl) 25 - 50 mg PO Q6H PRN PRN Reason: Itching Docusate Sodium (Colace) 100 mg PO BID [facility] Last Admin: 11/26/18 08:01 Dose: 100 mg Enoxaparin Sodium (Lovenox) 40 mg SUBCUT Q24H [facility] Last Admin: 11/26/18 08:02 Dose: 40 mg Fluticasone Propionate (Flonase) 1 - 2 gm NASBOTH DAILY PRN PRN Reason: sinus congestion Furosemide (Lasix) 20 mg PO DAILY [facility] Last Admin: 11/26/18 08:02 Dose: 20 mg Heparin Sodium (Porcine) (Heparin Lock Flush 100 Units/Ml) 500 units FLUSH ASDIRECTED PRN PRN Reason: Flush port. Hydromorphone HCl (Dilaudid) 0.5 - 1 mg IVPUSH Q3H PRN PRN Reason: Pain Levothyroxine Sodium (Levothyroxine) 112 mcg PO ACBREAKFAST [facility] Last Admin: 11/26/18 06:45 Dose: 112 mcg Levothyroxine Sodium (Levothyroxine) 25 mcg PO ACBREAKFAST [facility] Last Admin: 11/26/18 06:45 Dose: 25 mcg Magnesium Oxide (Magnesium Oxide) 400 mg PO BID [facility] Last Admin: 11/26/18 08:01 Dose: 400 mg Omeprazole (Omeprazole) 40 mg PO ACBREAKFAST [facility] Last Admin: 11/26/18 06:45 Dose: 40 mg Ondansetron HCl (Zofran) 4 mg IV Q8HR PRN PRN Reason: NAUSEA/VOMITING Potassium Chloride (Klor-Con 10) 10 meq PO TID [facility] Last Admin: 11/26/18 06:45 Dose: 10 meq Sodium Chloride (Saline Flush) 10 ml FLUSH ASDIRECTED PRN PRN Reason: Keep Vein Open Sodium Chloride (Saline Flush) 2.5 ml FLUSH ASDIRECTED PRN PRN Reason: Keep Vein Open Sodium Chloride (Normal Saline) 10 ml IV ASDIRECTED PRN PRN Reason: IV Use Sodium Chloride (Saline Flush) 10 ml FLUSH ASDIRECTED PRN PRN Reason: Keep Vein Open Sodium Chloride (Saline Flush) 2.5 ml FLUSH ASDIRECTED PRN PRN Reason: Keep Vein Open Sodium Chloride (Normal Saline) 10 ml IV ASDIRECTED PRN PRN Reason: IV Use Tramadol HCl (Ultram) 50 - 100 mg PO Q6H PRN PRN Reason: Pain Last Admin: 11/26/18 08:14 Dose: 100 mg Discontinued Medications Bupivacaine HCl (Marcaine 0.5%) Confirm Administered Dose 30 ml .ROUTE .STK-MED ONE Stop: 11/21/18 09:31 Bupivacaine HCl (Sensorcaine-Mpf 0.5%) Confirm Administered Dose 10 ml .ROUTE .STK-MED ONE Stop: 11/21/18 14:38 Cefazolin Sodium/Dextrose (Ancef) Confirm Administered Dose 2 gm IV .STK-MED ONE Stop: 11/21/18 14:24 Fentanyl (Sublimaze) Confirm Administered Dose 100 mcg .ROUTE .STK-MED ONE Stop: 11/21/18 10:15 Fentanyl (Sublimaze) Confirm Administered Dose 100 mcg .ROUTE .STK-MED ONE Stop: 11/21/18 14:20 Fentanyl (Sublimaze) 50 mcg IVPUSH .Q5MIN PRN PRN Reason: Pain Last Admin: 11/21/18 19:10 Dose: 50 mcg Furosemide (Lasix) 20 mg PO DAILY [facility] Last Admin: 11/21/18 11:29 Dose: Not Given Furosemide (Lasix) Confirm Administered Dose 40 mg .ROUTE .STK-MED ONE Stop: 11/21/18 17:30 Furosemide (Lasix) 40 mg IVPUSH NOW ONE Stop: 11/22/18 08:48 Last Admin: 11/22/18 09:13 Dose: 40 mg Furosemide (Lasix) 40 mg IVPUSH NOW ONE Stop: 11/23/18 08:08 Last Admin: 11/23/18 09:01 Dose: 40 mg Heparin Sodium (Porcine) (Heparin Lock Flush 100 Units/Ml) 500 units FLUSH ONETIME ONE Stop: 11/25/18 08:49 Last Admin: 11/25/18 09:43 Dose: 500 units Heparin Sodium (Porcine) (Heparin Sodium) Confirm Administered Dose 5,000 units .ROUTE .STK-MED ONE Stop: 11/26/18 05:56 Last Admin: 11/26/18 06:47 Dose: Not Given Heparin Sodium (Porcine) (Heparin Lock Flush 100 Units/Ml) Confirm Administered Dose 600 unit .ROUTE .STK-MED ONE Stop: 11/26/18 06:00 Last Admin: 11/26/18 06:00 Dose: 600 unit Hydromorphone HCl (Dilaudid) 0 mg IVPUSH ONETIME PRN PRN Reason: Breakthrough Pain Lactated Ringer's (Ringers, Lactated) 1,000 mls @ 125 mls/hr IV ASDIRECTED [facility] Last Admin: 11/22/18 02:20 Dose: 125 mls/hr Cefazolin Sodium/Dextrose 2 gm (/ Premix) 50 mls @ 100 mls/hr IV ONETIME ONE Stop: 11/21/18 13:05 Last Admin: 11/21/18 16:33 Dose: Not Given Cefazolin Sodium/Dextrose 2 gm (/ Premix) 50 mls @ 100 mls/hr IV Q8H [facility] Stop: 11/22/18 08:28 Last Admin: 11/22/18 09:13 Dose: 100 mls/hr Acetaminophen (Ofirmev) Confirm Administered Dose 100 mls @ as directed IV .STK- MED ONE Stop: 11/21/18 19:07 Acetaminophen 650 mg/ Premix 65 mls @ 400 mls/hr IV NOW ONE Stop: 11/21/18 21:40 Last Admin: 11/21/18 21:42 Dose: 400 mls/hr Ketamine HCl (Ketalar) Confirm Administered Dose 500 mg .ROUTE .STK-MED ONE Stop: 11/21/18 14:20 Midazolam HCl (Versed 1 Mg/Ml) Confirm Administered Dose 2 mg .ROUTE .STK-MED ONE Stop: 11/21/18 10:15 Midazolam HCl (Versed 1 Mg/Ml) Confirm Administered Dose 2 mg .ROUTE .STK-MED ONE Stop: 11/21/18 14:20 Midazolam HCl (Versed 1 Mg/Ml) Confirm Administered Dose 2 mg .ROUTE .STK-MED ONE Stop: 11/21/18 16:14 Morphine Sulfate (Morphine) 4 mg IM ONETIME ONE Stop: 11/20/18 10:43 Last Admin: 11/20/18 11:24 Dose: 4 mg Morphine Sulfate (Morphine) 2 mg IVPUSH ONETIME ONE Stop: 11/20/18 12:29 Last Admin: 11/20/18 13:01 Dose: 2 mg Morphine Sulfate (Morphine) 1 - 3 mg IVPUSH Q3H PRN PRN Reason: Pain Last Admin: 11/21/18 13:06 Dose: 3 mg Naloxone HCl (Narcan) 0.4 mg IVPUSH ONETIME ONE Stop: 11/21/18 21:35 Last Admin: 11/21/18 21:42 Dose: 0.4 mg Ondansetron HCl (Zofran) 4 mg IVPUSH ONETIME ONE Stop: 11/20/18 12:29 Last Admin: 11/20/18 12:56 Dose: 4 mg Ondansetron HCl (Zofran) Confirm Administered Dose 4 mg .ROUTE .STK-MED ONE Stop: 11/21/18 17:01 Phenylephrine HCl (Star-Synephrine) Confirm Administered Dose 10 mg .ROUTE .STK- MED ONE Stop: 11/21/18 14:58 Polyethylene Glycol (Miralax) 17 gm PO ONETIME ONE Stop: 11/25/18 07:16 Last Admin: 11/25/18 08:36 Dose: 17 gm Potassium Chloride (Klor-Con M20) 40 meq PO ONETIME ONE Stop: 11/23/18 09:35 Last Admin: 11/23/18 10:06 Dose: 40 meq Propofol (Diprivan 20 Ml) Confirm Administered Dose 200 mg .ROUTE .STK-MED ONE Stop: 11/21/18 10:14 Propofol (Diprivan 20 Ml) Confirm Administered Dose 200 mg .ROUTE .STK-MED ONE Stop: 11/21/18 14:20 Propofol (Diprivan 20 Ml) Confirm Administered Dose 200 mg .ROUTE .STK-MED ONE Stop: 11/21/18 17:15 Sodium Chloride (Saline Flush) 10 ml FLUSH ASDIRECTED PRN PRN Reason: Keep Vein Open Last Admin: 11/20/18 12:51 Dose: 10 ml Sodium Chloride (Saline Flush) 2.5 ml FLUSH ASDIRECTED PRN PRN Reason: Keep Vein Open Last Admin: 11/20/18 12:51 Dose: 2.5 ml Tranexamic Acid (Cyklokapron) Confirm Administered Dose 2,000 mg .ROUTE .STK- MED ONE Stop: 11/21/18 09:31 - Exam Wound/Incisions: Drainage (mild shadowing to aquacel dressing, previously demarcated without further extension) General: Alert, Oriented Cardiovascular: Regular Rate, Regular Rhythm Extremities: Other (exam RLE - immobilizer in place, aquacel dressing as noted above, at/ehl/gastroc 5/5, dp 2+, sensation intact distally) Physical Findings Comment:: vss, afeb hgb 9.2 - Problem List Review Problem List Initiated/Reviewed/Updated: Yes - My Orders Last 24 Hours: Active Orders 24 hr Category Date Time Status Ready for Discharge [RC] PER UNIT ROUTINE Care 11/26/18 10:14 Ordered Heparin Sodium [Heparin Lock Flush 100 Units/ML] Med 11/26/18 05:44 Active 500 units FLUSH ASDIRECTED PRN Medication Orders Hydrocodone Bitart/Acetaminophen ([place] 325-10 Mg) 1 - 2 tab PO Q4H PRN PRN Reason: Pain Last Admin: 11/25/18 21:40 Dose: 1 tab Admin: 11/25/18 10:00 Dose: 1 tab Admin: 11/24/18 21:30 Dose: 1 tab Admin: 11/24/18 08:22 Dose: 1 tab Admin: 11/23/18 16:33 Dose: 2 tab Admin: 11/23/18 11:24 Dose: 2 tab Admin: 11/22/18 19:38 Dose: 2 tab Admin: 11/22/18 15:16 Dose: 1 tab Admin: 11/22/18 09:22 Dose: 1 tab Admin: 11/22/18 04:09 Dose: 1 tab Admin: 11/20/18 21:31 Dose: 2 tab Anastrozole (Arimidex) 1 mg PO DAILY [facility] Last Admin: 11/26/18 08:14 Dose: 1 mg Admin: 11/25/18 08:38 Dose: 1 mg Admin: 11/24/18 08:24 Dose: 1 mg Admin: 11/23/18 09:56 Dose: 1 mg Admin: 11/22/18 09:52 Dose: 1 mg Admin: 11/21/18 11:29 Dose: Bisacodyl (Dulcolax) 10 mg RECTAL DAILY PRN PRN Reason: Constipation Carbidopa/Levodopa (Sinemet Cr 25-100 Mg) 2 tab PO 0700,1100,1500,1900 [facility] Last Admin: 11/26/18 06:45 Dose: 2 tab Admin: 11/25/18 18:31 Dose: 2 tab Admin: 11/25/18 14:20 Dose: 2 tab Admin: 11/25/18 12:02 Dose: 2 tab Admin: 11/25/18 06:35 Dose: 2 tab Admin: 11/24/18 19:16 Dose: 2 tab Admin: 11/24/18 14:53 Dose: 2 tab Admin: 11/24/18 12:23 Dose: 2 tab Admin: 11/24/18 06:49 Dose: 2 tab Admin: 11/23/18 18:42 Dose: 2 tab Admin: 11/23/18 14:14 Dose: 2 tab Admin: 11/23/18 10:06 Dose: 2 tab Admin: 11/23/18 06:30 Dose: 2 tab Admin: 11/22/18 18:49 Dose: 2 tab Admin: 11/22/18 15:15 Dose: 2 tab Admin: 11/22/18 12:10 Dose: 2 tab Admin: 11/22/18 06:43 Dose: 2 tab Admin: 11/21/18 23:17 Dose: Not Given Admin: 11/21/18 16:34 Dose: Admin: 11/21/18 11:21 Dose: 2 tab Admin: 11/21/18 06:13 Dose: Admin: 11/20/18 18:48 Dose: 2 tab Citalopram Hydrobromide (Celexa) 40 mg PO DAILY [facility] Last Admin: 11/26/18 08:01 Dose: 40 mg Admin: 11/25/18 08:40 Dose: 40 mg Admin: 11/24/18 08:22 Dose: 40 mg Admin: 11/23/18 09:00 Dose: 40 mg Admin: 11/22/18 09:23 Dose: 40 mg Admin: 11/21/18 11:29 Dose: Diphenhydramine HCl (Benadryl) 25 - 50 mg PO Q6H PRN PRN Reason: Itching Docusate Sodium (Colace) 100 mg PO BID [facility] Last Admin: 11/26/18 08:01 Dose: 100 mg Admin: 11/25/18 21:41 Dose: 100 mg Admin: 11/25/18 08:41 Dose: 100 mg Admin: 11/24/18 21:30 Dose: 100 mg Admin: 11/24/18 08:22 Dose: 100 mg Admin: 11/23/18 20:05 Dose: 100 mg Admin: 11/23/18 09:00 Dose: 100 mg Admin: 11/22/18 20:51 Dose: 100 mg Admin: 11/22/18 09:22 Dose: 100 mg Admin: 11/21/18 21:24 Dose: 100 mg Enoxaparin Sodium (Lovenox) 40 mg SUBCUT Q24H [facility] Last Admin: 11/26/18 08:02 Dose: 40 mg Admin: 11/25/18 08:37 Dose: 40 mg Admin: 11/24/18 08:25 Dose: 40 mg Admin: 11/23/18 09:00 Dose: 40 mg Admin: 11/22/18 09:20 Dose: 40 mg Fluticasone Propionate (Flonase) 1 - 2 gm NASBOTH DAILY PRN PRN Reason: sinus congestion Furosemide (Lasix) 20 mg PO DAILY [facility] Last Admin: 11/26/18 08:02 Dose: 20 mg Admin: 11/25/18 08:40 Dose: 20 mg Admin: 11/24/18 08:23 Dose: 20 mg Heparin Sodium (Porcine) (Heparin Lock Flush 100 Units/Ml) 500 units FLUSH ASDIRECTED PRN PRN Reason: Flush port. Hydromorphone HCl (Dilaudid) 0.5 - 1 mg IVPUSH Q3H PRN PRN Reason: Pain Levothyroxine Sodium (Levothyroxine) 112 mcg PO ACBREAKFAST [facility] Last Admin: 11/26/18 06:45 Dose: 112 mcg Admin: 11/25/18 06:35 Dose: 112 mcg Admin: 11/24/18 06:48 Dose: 112 mcg Admin: 11/23/18 06:30 Dose: 112 mcg Admin: 11/22/18 06:42 Dose: 112 mcg Admin: 11/21/18 06:51 Dose: Levothyroxine Sodium (Levothyroxine) 25 mcg PO ACBREAKFAST [facility] Last Admin: 11/26/18 06:45 Dose: 25 mcg Admin: 11/25/18 06:35 Dose: 25 mcg Admin: 11/24/18 06:49 Dose: 25 mcg Admin: 11/23/18 06:30 Dose: 25 mcg Admin: 11/22/18 06:42 Dose: 25 mcg Admin: 11/21/18 06:51 Dose: Magnesium Oxide (Magnesium Oxide) 400 mg PO BID [facility] Last Admin: 11/26/18 08:01 Dose: 400 mg Admin: 11/25/18 21:41 Dose: 400 mg Admin: 11/25/18 08:40 Dose: 400 mg Admin: 11/24/18 21:30 Dose: 400 mg Admin: 11/24/18 08:14 Dose: 400 mg Admin: 11/23/18 20:05 Dose: 400 mg Admin: 11/23/18 09:00 Dose: 400 mg Admin: 11/22/18 20:51 Dose: 400 mg Admin: 11/22/18 09:22 Dose: 400 mg Admin: 11/21/18 21:24 Dose: 400 mg Admin: 11/21/18 11:29 Dose: Admin: 11/20/18 20:50 Dose: 400 mg Omeprazole (Omeprazole) 40 mg PO ACBREAKFAST [facility] Last Admin: 11/26/18 06:45 Dose: 40 mg Admin: 11/25/18 06:35 Dose: 40 mg Admin: 11/24/18 06:49 Dose: 40 mg Admin: 11/23/18 06:31 Dose: 40 mg Admin: 11/22/18 06:43 Dose: 40 mg Admin: 11/21/18 06:51 Dose: Ondansetron HCl (Zofran) 4 mg IV Q8HR PRN PRN Reason: NAUSEA/VOMITING Potassium Chloride (Klor-Con 10) 10 meq PO TID [facility] Last Admin: 11/26/18 06:45 Dose: 10 meq Admin: 11/25/18 21:41 Dose: 10 meq Admin: 11/25/18 14:20 Dose: 10 meq Admin: 11/25/18 06:35 Dose: 10 meq Admin: 11/24/18 21:30 Dose: 10 meq Admin: 11/24/18 14:53 Dose: 10 meq Admin: 11/24/18 05:38 Dose: 10 meq Admin: 11/23/18 21:39 Dose: 10 meq Admin: 11/23/18 14:15 Dose: 10 meq Admin: 11/23/18 05:22 Dose: 10 meq Admin: 11/22/18 22:25 Dose: 10 meq Admin: 11/22/18 15:15 Dose: 10 meq Admin: 11/22/18 06:43 Dose: 10 meq Admin: 11/21/18 21:24 Dose: 10 meq Admin: 11/21/18 14:43 Dose: Admin: 11/21/18 05:18 Dose: Admin: 11/20/18 21:27 Dose: 10 meq Sodium Chloride (Saline Flush) 10 ml FLUSH ASDIRECTED PRN PRN Reason: Keep Vein Open Sodium Chloride (Saline Flush) 2.5 ml FLUSH ASDIRECTED PRN PRN Reason: Keep Vein Open Sodium Chloride (Normal Saline) 10 ml IV ASDIRECTED PRN PRN Reason: IV Use Sodium Chloride (Saline Flush) 10 ml FLUSH ASDIRECTED PRN PRN Reason: Keep Vein Open Sodium Chloride (Saline Flush) 2.5 ml FLUSH ASDIRECTED PRN PRN Reason: Keep Vein Open Sodium Chloride (Normal Saline) 10 ml IV ASDIRECTED PRN PRN Reason: IV Use Tramadol HCl (Ultram) 50 - 100 mg PO Q6H PRN PRN Reason: Pain Last Admin: 11/26/18 08:14 Dose: 100 mg Admin: 11/25/18 23:50 Dose: 100 mg Admin: 11/25/18 14:26 Dose: 100 mg Admin: 11/25/18 06:35 Dose: 100 mg Admin: 11/24/18 17:57 Dose: 50 mg Admin: 11/23/18 05:22 Dose: 100 mg Admin: 11/22/18 12:09 Dose: 100 mg Admin: 11/22/18 01:03 Dose: 100 mg - Assessment Assessment (Free Text/Narrative):: POD#5 ORIF R distal femur periprosthetic fracture acute posthemorrhagic anemia - Plan Plan (Free Text/Narrative):: transfer to [facility] today rx written - [place] 10, colace, lovenox rx for gorge in full extension written follow-up in clinic has been arranged all questions have been answered today d/ch summary #[id number]
[2018-11-26 12:16] VITALS: BP 98/52
--- NOTE | 2018-11-26 14:01 | ECHO ---
EXAM DATE: 11/20/18 PATIENT'S AGE: 58 The echocardiogram report can be seen in this patient's EMR (Electronic Medical Record) in the Reports section. The report has also been scanned into PACs. AKOSUA
--- NOTE | 2018-11-27 09:01 | DISCH ---
DATE OF DISCHARGE: 11/26/2018 PRIMARY CARE PHYSICIAN: Fernanda PCP ADMITTING DIAGNOSES: Right distal femur periprosthetic fracture. OTHER MEDICAL DIAGNOSES: 1. Parkinson's. 2. Anxiety, depression. 3. Hypothyroidism. 4. History of breast cancer. 5. History of uterine cancer. 6. Gastroesophageal reflux disease. 7. Allergic rhinitis. DISCHARGE DIAGNOSES: 1. Right distal femur periprosthetic fracture. 2. Parkinson's. 3. Anxiety, depression. 4. Hypothyroidism. 5. History of breast cancer. 6. History of uterine cancer. 7. Gastroesophageal reflux disease. 8. Allergic rhinitis. 9. Acute posthemorrhagic anemia. BRIEF HISTORY: Miya is a 58-year-old female, who sustained a fall on November 20, 2018. She landed directly on her right knee. She has previously undergone a right total knee arthroplasty in [address] Joanie Box. She was brought to the emergency room via emergency medical services. X-rays done in the emergency department revealed a right distal femur periprosthetic fracture. At that time, surgical treatment was recommended. On November 21, 2018, the patient underwent an open reduction and internal fixation of a right periprosthetic distal femur fracture done by Dr. Joanie Box. This was done under general anesthesia. Estimated blood loss was 1000 milliliters. There was no tourniquet time. Upon completion of the procedure, the patient was transferred to the PACU and subsequently to Med/Surg for postoperative care. Preoperatively, the patient was found to have a hemoglobin of 8.8. She received 2 units of packed red blood cells preoperatively, and received 2 additional units intraoperatively. She received 2 doses of antibiotics postoperatively for a total of 24 hours of antibiotic coverage. The hospitalist service and physical therapy followed her through her hospital stay. Lovenox 40 mg subcutaneously once daily was started on postoperative day #1 as DVT prophylaxis. She has been [id number] weightbearing to the right lower extremity in a knee immobilizer. She has been using a wheeled walker for ambulation assistance. Her pain has been controlled with a combination of oral and IV pain medications. Her vital signs have been stable. She has been afebrile. Her hemoglobin on the morning of November 29 was 9.2. She feels her pain is controlled with oral pain medications only. She is comfortable in the knee immobilizer, minimally weightbearing to the right lower extremity, using a wheeled walker for mobilization. She is tolerating oral intake. She feels comfortable with transfer to longterm facility today. DISCHARGE MEDICATIONS: 1. [place] 10/325 mg. 2. Colace 100 mg. 3. Lovenox 40 mg. DISCHARGE INSTRUCTIONS: 1. Follow up in clinic as scheduled. 2. Change Aquacel dressing on November 28, 2018. 3. Knee immobilizer/[place] knee brace locked in full extension at all times. 4. Cdhuikllbiklldww-tu-liqkmiwqn weightbearing to the right lower extremity, using a wheeled walker for ambulation assistance. 5. Physical therapy/occupational therapy daily while in rehab. 6. RAMIREZ hose to bilateral lower extremities, on in the morning, off in the evening. 7. Ice to the right lower extremity as needed. For complete discharge instructions and medication reconciliation, please refer back to the patient's EHR. Should she have questions or concerns prior to followup, she has been advised to contact the clinic. AFSANEH TAVARES /[id number]
== END 2018-11-26 14:05 | DRG 481 ==
LOC: MW.ED 10:32 → UNDOADMIN 14:32 → MW.MS 14:32
PROVIDERS: ADMIT Orthopaedic Surgery; ATTEND Orthopaedic Surgery
PROC: 30233N1 Transfusion of Nonautologous Red Blood Cells into Peripheral Vein, Percutaneous Approach (ICD-10-PCS; principal; 2018-11-21)
PROC: 0QSB04Z Reposition Right Lower Femur with Internal Fixation Device, Open Approach (ICD-10-PCS; 2018-11-21)
DX: S72.401A Unspecified fracture of lower end of right femur, initial encounter for closed fracture (principal); M97.11XA Periprosthetic fracture around internal prosthetic right knee joint, initial encounter; D62 Acute posthemorrhagic anemia; G20 Parkinson's disease; F41.9 Anxiety disorder, unspecified; F32.9 Major depressive disorder, single episode, unspecified; E03.9 Hypothyroidism, unspecified; K21.9 Gastro-esophageal reflux disease without esophagitis; J30.9 Allergic rhinitis, unspecified; M19.91 Primary osteoarthritis, unspecified site; Z96.653 Presence of artificial knee joint, bilateral; Z96.642 Presence of left artificial hip joint; R09.02 Hypoxemia; W01.0XXA Fall on same level from slipping, tripping and stumbling without subsequent striking against object, initial encounter; E83.51 Hypocalcemia; E66.01 Morbid (severe) obesity due to excess calories; M81.0 Age-related osteoporosis without current pathological fracture; R00.0 Tachycardia, unspecified; I95.9 Hypotension, unspecified; D50.8 Other iron deficiency anemias; I97.2 Postmastectomy lymphedema syndrome; Z79.899 Other long term (current) drug therapy; Z85.3 Personal history of malignant neoplasm of breast; Z68.41 Body mass index [BMI] 40.0-44.9, adult; Z88.2 Allergy status to sulfonamides; Z88.8 Allergy status to other drugs, medicaments and biological substances; Z90.710 Acquired absence of both cervix and uterus; Z92.21 Personal history of antineoplastic chemotherapy; Z85.42 Personal history of malignant neoplasm of other parts of uterus
CPT/HCPCS: 36415; 36430; 51702; 71045; 71045-26; 73502-26-RT; 73502-RT; 73552-26-LT; 73552-RT; 73562-26-RT; 73562-RT; 80048; 83735; 85014; 85018; 85025; 85027; 86850; 86900; 86901; 86920; 86921; 86922; 93005; 93306; 96372; 96374; 96375; 97116-GP; 97162-GP; 97530-GP; 99283; 99284-25; A9270-GY; C1713; C1776; J0131; J0690; J1642; J1650; J1940; J2250; J2270; J2370; J2405; J2704; J3010; J3490; J7120; P9016

== ENCOUNTER 2021-09-17 10:04 | Emergency (ER) | payer MEDICARE, OTHER ==
[2021-09-17] MEDS ORDERED: Aspirin 81 MG Tab.Chew PO ONE (10:21)
[2021-09-17 11:11] LABS: CORONAVIRUS COVID-19 NAA POSITIVE (NEGATIVE); INFLUENZA A NAA NEGATIVE (NEGATIVE); INFLUENZA B NAA NEGATIVE (NEGATIVE)
[2021-09-17] MEDS ORDERED: Carbidopa/Levodopa 25-100 MG Tab.ER PO ONE (11:39)
[2021-09-17 11:45] LABS: BLOOD UREA NITROGEN,BUN 12 mg/dL (7.0-18.0); CHLORIDE,CL 103 mmol/L (98-107); GLUCOSE RANDOM 102 mg/dL (74-106); POTASSIUM,K 3.8 mmol/L (3.5-5.1); SODIUM,NA 140 mmol/L (136-145)
[2021-09-17 13:58] VITALS: BP 107/55; PULSE 91
== END 2021-09-17 13:58 | disposition home or self-care (01) ==
LOC: MW.ED 10:04
DX: U07.1 COVID-19 (principal); K21.9 Gastro-esophageal reflux disease without esophagitis; E03.9 Hypothyroidism, unspecified; E66.9 Obesity, unspecified; Z68.1 Body mass index [BMI] 19.9 or less, adult; Z88.8 Allergy status to other drugs, medicaments and biological substances; Z88.2 Allergy status to sulfonamides; Z79.899 Other long term (current) drug therapy
CPT/HCPCS: 0240U; 36415; 71045; 80053; 83605; 83880; 84484; 85025; 85610; 93005; 99284; A9270

== ENCOUNTER 2022-08-01 08:03 | Observation (INO) | payer MEDICARE, OTHER ==
[2022-08-01] MEDS ORDERED: Albuterol/Ipratropium 3.0-0.5 MG/3 ML Neb Soln NEB ONE (08:50)
[2022-08-01 09:29] LABS: CORONAVIRUS COVID-19 NAA NEGATIVE (NEGATIVE); INFLUENZA A NAA NEGATIVE (NEGATIVE); INFLUENZA B NAA NEGATIVE (NEGATIVE); RESPIRATORY SYNCYTIAL VIR NAA NEGATIVE (NEGATIVE)
[2022-08-01 09:52] LABS: CARBON DIOXIDE,CO2 29.6 mmol/L (21.0-32.0); POTASSIUM,K 3.9 mmol/L (3.5-5.1)
[2022-08-01] MEDS ORDERED: Iopamidol 755 MG/ML 500 ML Multipack Bottle IVPUSH ONE (11:39)
[2022-08-01] MEDS ORDERED: Sodium Chloride 0.9% 10 ML Syringe FLUSH PRN (15:21)
[2022-08-01] MEDS ORDERED: Acetaminophen 325 MG Tab PO PRN (15:21)
[2022-08-01] MEDS ORDERED: Carbidopa/Levodopa 25-100 MG Tab PO SCH (16:00)
[2022-08-01] MEDS: Carbidopa/Levodopa 25-100 MG Tab PO SCH ×2 (16:41→21:24)
[2022-08-01] MEDS: methylPREDNISolone Sodium Succinate 40 MG/1 ML SDV IVPUSH SCH (16:41)
[2022-08-01] MEDS: cefTRIAXone 1 GM in Sodium Chloride 0.9% 50 ML IV SCH (16:41)
[2022-08-01] MEDS ORDERED: Albuterol/Ipratropium 3.0-0.5 MG/3 ML Neb Soln NEB PRN (18:00)
[2022-08-01] MEDS: Pramipexole 0.25 MG Tab PO SCH ×2 (18:43→18:46)
[2022-08-01] MEDS: ENTACAPONE 200 MG PO SCH (22:06)
[2022-08-02] MEDS: Pramipexole 0.25 MG Tab PO SCH ×5 (00:54→23:16)
[2022-08-02] MEDS: Carbidopa/Levodopa 25-100 MG Tab PO SCH ×6 (01:00→20:36)
[2022-08-02] MEDS: ENTACAPONE 200 MG PO SCH ×6 (01:00→20:35)
[2022-08-02] MEDS: methylPREDNISolone Sodium Succinate 40 MG/1 ML SDV IVPUSH SCH ×2 (03:59→16:16)
[2022-08-02 06:14] LABS: POTASSIUM,K 4.2 mmol/L (3.5-5.1)
[2022-08-02] MEDS: Levothyroxine 150 MCG Tab PO SCH (06:35)
[2022-08-02] MEDS: Omeprazole 20 MG Cap.CR PO SCH (06:35)
[2022-08-02] MEDS ORDERED: Sodium Chloride 0.9% 1,000 ML IV SCH (08:30)
[2022-08-02] MEDS: buPROPion 150 MG Tab.ER PO SCH (08:53)
[2022-08-02] MEDS ORDERED: Iopamidol 755 MG/ML 500 ML Multipack Bottle IVPUSH STA (10:18)
[2022-08-02] MEDS: cefTRIAXone 1 GM in Sodium Chloride 0.9% 50 ML IV SCH (16:21)
[2022-08-03] MEDS: ENTACAPONE 200 MG PO SCH ×5 (03:07→15:29)
[2022-08-03] MEDS: methylPREDNISolone Sodium Succinate 40 MG/1 ML SDV IVPUSH SCH (03:07)
[2022-08-03] MEDS: Carbidopa/Levodopa 25-100 MG Tab PO SCH ×5 (03:08→15:29)
[2022-08-03] MEDS: Pramipexole 0.25 MG Tab PO SCH ×2 (06:27→12:31)
[2022-08-03] MEDS: Levothyroxine 150 MCG Tab PO SCH (06:30)
[2022-08-03] MEDS: Omeprazole 20 MG Cap.CR PO SCH (06:30)
[2022-08-03] MEDS: buPROPion 150 MG Tab.ER PO SCH (08:58)
[2022-08-03 09:32] LABS: CARBON DIOXIDE,CO2 26.4 mmol/L (21.0-32.0); POTASSIUM,K 4.3 mmol/L (3.5-5.1)
[2022-08-03] MEDS: cefTRIAXone 1 GM in Sodium Chloride 0.9% 50 ML IV SCH (15:36)
[2022-08-03 16:53] VITALS: BP 114/62; PULSE 88
== END 2022-08-03 18:00 | disposition home or self-care (01) ==
LOC: MW.ED 08:03 → MW.MS 14:04
PROVIDERS: ADMIT Internal Medicine; ATTEND Internal Medicine
DX: J96.01 Acute respiratory failure with hypoxia (principal); J20.9 Acute bronchitis, unspecified; D50.8 Other iron deficiency anemias; K76.0 Fatty (change of) liver, not elsewhere classified; R16.0 Hepatomegaly, not elsewhere classified; K21.9 Gastro-esophageal reflux disease without esophagitis; M19.90 Unspecified osteoarthritis, unspecified site; E03.9 Hypothyroidism, unspecified; E66.9 Obesity, unspecified; J43.9 Emphysema, unspecified; K86.89 Other specified diseases of pancreas; G20 Parkinson's disease; F41.9 Anxiety disorder, unspecified; F32.A Depression, unspecified; I97.2 Postmastectomy lymphedema syndrome; Z79.899 Other long term (current) drug therapy; Z79.890 Hormone replacement therapy; Z88.2 Allergy status to sulfonamides; Z88.8 Allergy status to other drugs, medicaments and biological substances; Z98.890 Other specified postprocedural states; Z96.659 Presence of unspecified artificial knee joint; Z96.649 Presence of unspecified artificial hip joint; Z90.710 Acquired absence of both cervix and uterus; Z85.3 Personal history of malignant neoplasm of breast; Z85.42 Personal history of malignant neoplasm of other parts of uterus
CPT/HCPCS: 0241U; 36415; 71045; 71275; 74178; 80048; 80053; 82272; 82607; 82728; 82746; 83550; 83605; 83735; 83880; 84484; 85014; 85018; 85025; 85045; 85379; 93005; 94640; 96374; 96375; 96376; 99285; A9270; G0378; J0696; J2920; J7030; P9016; Q9967; J7620-GY

== ENCOUNTER 2022-08-05 11:08 | Day surgery (SDC) | payer MEDICARE, OTHER ==
[~2022-08-05 11:08] MED LIST changes: -Acetaminophen 1,000 MG in Premix Bag 1 BAG IV SCH; -Famotidine 20 MG/2 ML SDV IVPUSH SCH; -Ketorolac 30 MG/ML SDV IVPUSH SCH; +Lactated Ringers 1,000 ML IV SCH; +Propofol 200 MG/20 ML SDV ONE; -Ropivacaine 49.25 ML, Ketorolac 30 MG, EPINEPHrine 0.5 MG, cloNIDine 80 MCG in Sodium C... INJECT SCH; -Scopolamine 1.5 MG Transdermal Patch TRDERM SCH; -ceFAZolin 2 GM in Premix Bag 1 BAG IV SCH; -oxyCODONE ER 20 MG TAB.ER PO SCH
[2022-08-05] MEDS ORDERED: Propofol 200 MG/20 ML SDV ONE (12:55)
[2022-08-05 14:20] VITALS: BP 114/59; PULSE 78
== END 2022-08-05 14:40 | disposition home or self-care (01) ==
LOC: MW.SDS 11:08
PROVIDERS: ATTEND Surgery
DX: D12.6 Benign neoplasm of colon, unspecified (principal); K64.4 Residual hemorrhoidal skin tags; K64.8 Other hemorrhoids; E03.9 Hypothyroidism, unspecified; J44.9 Chronic obstructive pulmonary disease, unspecified; D64.9 Anemia, unspecified; M19.90 Unspecified osteoarthritis, unspecified site; E66.9 Obesity, unspecified; K21.9 Gastro-esophageal reflux disease without esophagitis; F41.9 Anxiety disorder, unspecified; F32.A Depression, unspecified; Z90.710 Acquired absence of both cervix and uterus; Z98.890 Other specified postprocedural states; Z79.899 Other long term (current) drug therapy; Z88.2 Allergy status to sulfonamides; Z88.8 Allergy status to other drugs, medicaments and biological substances; Z96.653 Presence of artificial knee joint, bilateral; Z96.642 Presence of left artificial hip joint
CPT/HCPCS: 45380; 45381; 45385; J1642; J2704; J7120

== ENCOUNTER 2022-09-23 10:00 | Emergency (ER) | payer MEDICARE, OTHER ==
[2022-09-23] MEDS ORDERED: Sodium Chloride 0.9% 20 ML SDV IV PRN (11:06)
[2022-09-23] MEDS ORDERED: Sodium Chloride 0.9% 2.5 ML Syringe FLUSH PRN (11:06)
[2022-09-23] MEDS ORDERED: Sodium Chloride 0.9% 10 ML Syringe FLUSH PRN (11:06)
[2022-09-23 12:01] LABS: CARBON DIOXIDE,CO2 27.9 mmol/L (21.0-32.0); POTASSIUM,K 3.7 mmol/L (3.5-5.1)
[2022-09-23] MEDS ORDERED: Iopamidol 755 Mg/ML 100 ML Bottle IVPUSH ONE (12:30)
[2022-09-23] MEDS ORDERED: Heparin Sodium 100 Units/ML 3 ML Syringe ONE (15:32)
[2022-09-23] MEDS ORDERED: Heparin Sodium 100 Units/ML 3 ML Syringe FLUSH PRN (15:35)
[2022-09-23] MEDS ORDERED: Heparin Sodium 100 Units/ML 3 ML Syringe FLUSH ONE ×2 (15:45)
[2022-09-23 15:50] VITALS: BP 98/60; PULSE 78
== END 2022-09-23 15:48 | disposition home or self-care (01) ==
LOC: MW.ED 10:00
DX: R10.32 Left lower quadrant pain (principal); K21.9 Gastro-esophageal reflux disease without esophagitis; M19.90 Unspecified osteoarthritis, unspecified site; E03.9 Hypothyroidism, unspecified; E66.9 Obesity, unspecified; Z68.38 Body mass index [BMI] 38.0-38.9, adult; Z88.2 Allergy status to sulfonamides; Z88.8 Allergy status to other drugs, medicaments and biological substances; Z79.899 Other long term (current) drug therapy
CPT/HCPCS: 36415; 74177; 80053; 85025; 99284; J1642; J3490; Q9967

== ENCOUNTER 2023-09-29 08:31 | Day surgery (SDC) | payer MEDICARE, OTHER ==
[2023-09-29] MEDS: Lactated Ringers 1,000 ML IV SCH (08:55)
[2023-09-29] MEDS ORDERED: propofoL 50 ML ONE (09:08)
[2023-09-29] MEDS ORDERED: Ondansetron 4 MG/2 ML SDV ONE (09:57)
[2023-09-29 14:33] VITALS: BP 91/53; PULSE 83
== END 2023-09-29 14:45 | disposition home or self-care (01) ==
LOC: MW.SDS 08:31
PROVIDERS: ATTEND Surgery
DX: Z12.11 Encounter for screening for malignant neoplasm of colon (principal); K63.5 Polyp of colon; K64.4 Residual hemorrhoidal skin tags; K64.8 Other hemorrhoids; F32.A Depression, unspecified; G20.A1 Parkinson's disease without dyskinesia, without mention of fluctuations; K21.9 Gastro-esophageal reflux disease without esophagitis; E03.9 Hypothyroidism, unspecified; E66.9 Obesity, unspecified; Z68.39 Body mass index [BMI] 39.0-39.9, adult; Z98.0 Intestinal bypass and anastomosis status; Z79.890 Hormone replacement therapy; Z79.899 Other long term (current) drug therapy; Z88.2 Allergy status to sulfonamides; Z88.8 Allergy status to other drugs, medicaments and biological substances
CPT/HCPCS: 45380; J2405; J2704; J7120; 00811

== ENCOUNTER 2023-11-23 13:20 | Emergency (ER) | payer MEDICARE, OTHER ==
[2023-11-23] MEDS: Acetaminophen/HYDROcodone 325-5 MG Tab PO ONE (13:45)
[2023-11-23 14:04] LABS: BASOPHILS ABSOLUTE AUTO 0.04 K/uL (0.00-0.20); BASOPHILS PERCENT AUTO 0.4 % (0.0-1.0); EOSINOPHILS ABSOLUTE AUTO 0.17 K/uL (0.00-0.45); EOSINOPHILS PERCENT AUTO 1.8 % (0.0-6.0); HEMATOCRIT 40.4 % (37.0-47.0); HEMOGLOBIN 13.5 g/dL (12.0-16.0); IMMATURE GRAN ABSOLUTE AUTO 0.03 K/uL (0.00-0.05); IMMATURE GRAN PERCENT AUTO 0.3 % (0.0-0.4); LYMPHOCYTES ABSOLUTE AUTO 1.33 K/uL (1.00-4.80); LYMPHOCYTES PERCENT AUTO 14.3 % (24.0-44.0); MEAN CORPUSCULAR HEMOGLOBIN 30.3 pg (28.0-32.0); MEAN CORPUSCULAR HGB CONC 33.4 g/dL (32.0-36.0); MEAN CORPUSCULAR VOLUME 90.6 fL (83.0-99.0); MEAN PLATELET VOLUME 9.2 fL (9.4-12.3); MONOCYTES ABSOLUTE AUTO 0.45 K/uL (0.00-0.80); MONOCYTES PERCENT AUTO 4.8 % (0.0-8.0); NEUTROPHILS ABSOLUTE AUTO 7.28 K/uL (1.80-7.70); NEUTROPHILS PERCENT AUTO 78.4 % (41.0-71.0); PLATELET COUNT,PLT 192 K/uL (150-400); RED BLOOD CELL COUNT 4.46 M/uL (4.10-5.30)
[2023-11-23 14:23] LABS: A/G RATIO 1.1 (0.9-1.6); ALBUMIN 3.5 g/dL (3.4-5.0); BILIRUBIN TOTAL 0.8 mg/dL (0.2-1.0); CALCIUM 8.9 mg/dL (8.5-10.1); CARBON DIOXIDE,CO2 26.8 mmol/L (21.0-32.0); CREATININE 0.8 mg/dL (0.6-1.0); EST CRCL DRUG DOSING (CG) 69.09 mL/min; POTASSIUM,K 3.8 mmol/L (3.5-5.1); PROTEIN TOTAL,TP 6.8 g/dL (6.4-8.2)
[2023-11-23 14:32] LABS: APPEARANCE,URINE SLT CLOUDY; BILIRUBIN,URINE NEGATIVE (NEGATIVE); COLOR,URINE ORANGE; GLUCOSE,URINE NEGATIVE (NEGATIVE); KETONES,URINE TRACE mg/dL (NEGATIVE); LEUKOCYTE ESTERASE,URINE TRACE (NEGATIVE); NITRITE,URINE POSITIVE (NEGATIVE); OCCULT BLOOD,URINE NEGATIVE (NEGATIVE); PROTEIN,URINE NEGATIVE (NEGATIVE); UROBILINOGEN,URINE 0.2 EU/dL (<2.0)
[2023-11-23 14:43] LABS: BACTERIA,URINE MANY (NEGATIVE); EPITHELIAL CELLS,URINE FEW (NONE-FEW); RBC,URINE 0-1 (0-2/HPF)
[2023-11-23] MEDS: Cephalexin 500 MG Cap PO ONE (15:21)
[2023-11-23 15:45] VITALS: BP 118/69; PULSE 87
== END 2023-11-23 15:51 | disposition home or self-care (01) ==
LOC: MW.ED 13:20
DX: S39.011A Strain of muscle, fascia and tendon of abdomen, initial encounter (principal); N39.0 Urinary tract infection, site not specified; K21.9 Gastro-esophageal reflux disease without esophagitis; E03.9 Hypothyroidism, unspecified; E66.9 Obesity, unspecified; Z79.899 Other long term (current) drug therapy; Z90.710 Acquired absence of both cervix and uterus; Z75.8 Other problems related to medical facilities and other health care; Z88.8 Allergy status to other drugs, medicaments and biological substances; Z88.2 Allergy status to sulfonamides; X58.XXXA Exposure to other specified factors, initial encounter
CPT/HCPCS: 36415; 80053; 81001; 85025; 87086; 87088; 87186; 93971; 99284; A9270; 99283

== ENCOUNTER 2024-09-29 13:04 | Inpatient (IN) | payer MEDICARE, OTHER ==
[2024-09-29] MEDS ORDERED: Sodium Chloride 0.9% 10 ML Syringe FLUSH PRN (13:43)
[2024-09-29] MEDS ORDERED: Sodium Chloride 0.9% 20 ML SDV IV PRN (13:43)
[2024-09-29] MEDS ORDERED: Sodium Chloride 0.9% 2.5 ML Syringe FLUSH PRN (13:43)
[2024-09-29 14:41] LABS: BASOPHILS ABSOLUTE AUTO 0.02 K/uL (0.00-0.20); BASOPHILS PERCENT AUTO 0.2 % (0.0-1.0); EOSINOPHILS ABSOLUTE AUTO 0.04 K/uL (0.00-0.45); EOSINOPHILS PERCENT AUTO 0.5 % (0.0-6.0); HEMATOCRIT 32.9 % (37.0-47.0); HEMOGLOBIN 10.1 g/dL (12.0-16.0); IMMATURE GRAN ABSOLUTE AUTO 0.06 K/uL (0.00-0.05); IMMATURE GRAN PERCENT AUTO 0.7 % (0.0-0.4); LYMPHOCYTES ABSOLUTE AUTO 0.73 K/uL (1.00-4.80); LYMPHOCYTES PERCENT AUTO 8.6 % (24.0-44.0); MEAN CORPUSCULAR HEMOGLOBIN 26.4 pg (28.0-32.0); MEAN CORPUSCULAR HGB CONC 30.7 g/dL (32.0-36.0); MEAN CORPUSCULAR VOLUME 85.9 fL (83.0-99.0); MEAN PLATELET VOLUME 9.5 fL (9.4-12.3); MONOCYTES ABSOLUTE AUTO 0.55 K/uL (0.00-0.80); MONOCYTES PERCENT AUTO 6.5 % (0.0-8.0); NEUTROPHILS ABSOLUTE AUTO 7.07 K/uL (1.80-7.70); NEUTROPHILS PERCENT AUTO 83.5 % (41.0-71.0); PLATELET COUNT,PLT 164 K/uL (150-400); RED BLOOD CELL COUNT 3.83 M/uL (4.10-5.30); WHITE BLOOD CELL COUNT,WBC 8.47 K/uL (3.9-11.3)
[2024-09-29 15:08] LABS: A/G RATIO 0.8 (0.9-1.6); ALBUMIN 2.8 g/dL (3.4-5.0); BILIRUBIN TOTAL 0.8 mg/dL (0.2-1.0); CARBON DIOXIDE,CO2 27.4 mmol/L (21.0-32.0); CREATININE 1.1 mg/dL (0.6-1.0); EST CRCL DRUG DOSING (CG) 51.43 mL/min; POTASSIUM,K 3.8 mmol/L (3.5-5.1); PROTEIN TOTAL,TP 6.4 g/dL (6.4-8.2)
[2024-09-29 16:05] LABS: CORONAVIRUS COVID-19 NAA NEGATIVE (NEGATIVE); INFLUENZA A NAA NEGATIVE (NEGATIVE); INFLUENZA B NAA NEGATIVE (NEGATIVE); RESPIRATORY SYNCYTIAL VIR NAA POSITIVE (NEGATIVE)
[2024-09-29] MEDS: Sodium Chloride 0.9% 500 ML IV ONE (16:12)
[2024-09-29] MEDS: Iopamidol 755 MG/ML 500 ML Multipack Bottle IVPUSH STA (17:09)
[2024-09-29] MEDS: Aspirin 81 MG Tab.Chew PO ONE (17:54)
[2024-09-29 18:57] LABS: LIPASE 7 U/L (16-77)
[2024-09-29] MEDS ORDERED: Polyethylene Glycol 3350 Powder 17 GM Packet PO PRN (19:45)
[2024-09-29] MEDS ORDERED: Sennosides/Docusate Sodium 50-8.6 MG Tab PO PRN (19:45)
[2024-09-29] MEDS ORDERED: traMADol 50 MG Tab PO PRN (19:50)
[2024-09-29] MEDS ORDERED: Non-Formulary Medication 1 Each (Diclofenac Sodium 75 MG Tablet.Dr) PO PRN (19:50)
[2024-09-29] MEDS ORDERED: LEVODOPA 42 MG INH PRN (19:50)
[2024-09-29] MEDS: Sodium Chloride 0.9% 1,000 ML IV ONE ×2 (20:29→21:12)
[2024-09-29] MEDS: Cefepime 2 GM in Sodium Chloride 0.9% 50 ML IV SCH (20:38)
[2024-09-29] MEDS: Azithromycin 250 MG Tab PO SCH (20:40)
[2024-09-29] MEDS: Heparin Sodium 5,000 Units/ML Vial IVPUSH SCH (20:40)
[2024-09-29] MEDS: SELEGILINE HCL 5 MG PO SCH (21:06)
[2024-09-29] MEDS: ENTACAPONE 200 MG PO SCH (21:06)
[2024-09-29] MEDS: Albuterol/Ipratropium 3.0-0.5 MG/3 ML Neb Soln NEB SCH (21:11)
[2024-09-29] MEDS: Carbidopa/Levodopa 25-100 MG Tab PO SCH (21:11)
[2024-09-29] MEDS: Melatonin 3 MG Tab PO PRN (21:30)
[2024-09-29] MEDS: guaiFENesin/Dextromethorphan 100-10 MG/5 ML Soln 10 ML Cup PO PRN (21:30)
[2024-09-29] MEDS: Sodium Chloride 0.9% 1,000 ML IV SCH (21:32)
[2024-09-30] MEDS: Pramipexole 0.25 MG Tab PO SCH (00:02)
[2024-09-30] MEDS: Heparin Sodium 5,000 Units/ML Vial SUBCUT SCH (00:16)
[2024-09-30 05:45] LABS: BASOPHILS ABSOLUTE AUTO 0.02 K/uL (0.00-0.20); BASOPHILS PERCENT AUTO 0.3 % (0.0-1.0); EOSINOPHILS ABSOLUTE AUTO 0.04 K/uL (0.00-0.45); EOSINOPHILS PERCENT AUTO 0.6 % (0.0-6.0); HEMATOCRIT 29.1 % (37.0-47.0); IMMATURE GRAN ABSOLUTE AUTO 0.03 K/uL (0.00-0.05); IMMATURE GRAN PERCENT AUTO 0.4 % (0.0-0.4); LYMPHOCYTES ABSOLUTE AUTO 0.93 K/uL (1.00-4.80); LYMPHOCYTES PERCENT AUTO 13.1 % (24.0-44.0); MEAN CORPUSCULAR HEMOGLOBIN 26.9 pg (28.0-32.0); MEAN CORPUSCULAR HGB CONC 30.9 g/dL (32.0-36.0); MEAN CORPUSCULAR VOLUME 87.1 fL (83.0-99.0); MEAN PLATELET VOLUME 10.1 fL (9.4-12.3); MONOCYTES ABSOLUTE AUTO 0.57 K/uL (0.00-0.80); NEUTROPHILS PERCENT AUTO 77.6 % (41.0-71.0); PLATELET COUNT,PLT 150 K/uL (150-400); RED BLOOD CELL COUNT 3.34 M/uL (4.10-5.30); WHITE BLOOD CELL COUNT,WBC 7.09 K/uL (3.9-11.3)
[2024-09-30 06:08] LABS: A/G RATIO 0.8 (0.9-1.6); ALBUMIN 2.5 g/dL (3.4-5.0); BILIRUBIN TOTAL 0.8 mg/dL (0.2-1.0); CALCIUM 7.5 mg/dL (8.5-10.1); CARBON DIOXIDE,CO2 25.6 mmol/L (21.0-32.0); CREATININE 0.8 mg/dL (0.6-1.0); EST CRCL DRUG DOSING (CG) 70.72 mL/min; POTASSIUM,K 3.7 mmol/L (3.5-5.1); PROTEIN TOTAL,TP 5.8 g/dL (6.4-8.2)
[2024-09-30] MEDS: Levothyroxine 150 MCG Tab PO SCH (08:22)
[2024-09-30] MEDS: Pantoprazole 40 MG Tab.CR PO SCH (08:23)
[2024-09-30] MEDS: Iopamidol 755 MG/ML 500 ML Multipack Bottle IVPUSH ONE (08:24)
[2024-09-30] MEDS ORDERED: Non-Formulary Medication 1 Each (Bupropion Hcl [Bupropion Xl] 300 MG Tab.Er.24h) PO SCH (09:00)
[2024-09-30] MEDS ORDERED: AMANTADINE HCL 100 MG PO SCH (09:00)
[2024-09-30] MEDS ORDERED: DICLOFENAC SODIUM 75 MG PO PRN (09:29)
[2024-09-30] MEDS: SELEGILINE HCL 5 MG PO SCH (09:39)
[2024-09-30] MEDS: Codeine/guaiFENesin 10-100 MG/5 ML Syrup 5 ML Cup PO PRN (09:41)
[2024-09-30] MEDS: Furosemide 20 MG/2 ML VIAL IVPUSH ONE (09:41)
[2024-09-30] MEDS: buPROPion 150 MG Tab.ER PO SCH (09:42)
[2024-09-30] MEDS: Benzonatate 100 MG Cap PO PRN (14:14)
[2024-09-30] MEDS: Acetaminophen 325 MG Tab PO PRN (17:22)
[2024-09-30] MEDS: Ondansetron 4 MG Tab.DIS PO PRN (17:23)
[2024-09-30] MEDS: Enoxaparin 40 MG/0.4 ML Syringe SUBCUT SCH (19:03)
[2024-09-30 19:12] LABS: TSH ULTRASENSITIVE 0.55 uIU/mL (0.36-3.74)
[2024-09-30] MEDS: Pregabalin 75 MG Cap PO SCH (20:01)
[2024-10-01 05:42] LABS: BASOPHILS ABSOLUTE AUTO 0.01 K/uL (0.00-0.20); BASOPHILS PERCENT AUTO 0.1 % (0.0-1.0); EOSINOPHILS ABSOLUTE AUTO 0.04 K/uL (0.00-0.45); EOSINOPHILS PERCENT AUTO 0.6 % (0.0-6.0); HEMATOCRIT 28.3 % (37.0-47.0); HEMOGLOBIN 8.9 g/dL (12.0-16.0); IMMATURE GRAN ABSOLUTE AUTO 0.02 K/uL (0.00-0.05); IMMATURE GRAN PERCENT AUTO 0.3 % (0.0-0.4); LYMPHOCYTES ABSOLUTE AUTO 0.76 K/uL (1.00-4.80); LYMPHOCYTES PERCENT AUTO 11.3 % (24.0-44.0); MEAN CORPUSCULAR HEMOGLOBIN 27.3 pg (28.0-32.0); MEAN CORPUSCULAR HGB CONC 31.4 g/dL (32.0-36.0); MEAN CORPUSCULAR VOLUME 86.8 fL (83.0-99.0); MEAN PLATELET VOLUME 10.3 fL (9.4-12.3); MONOCYTES ABSOLUTE AUTO 0.44 K/uL (0.00-0.80); MONOCYTES PERCENT AUTO 6.6 % (0.0-8.0); NEUTROPHILS ABSOLUTE AUTO 5.44 K/uL (1.80-7.70); NEUTROPHILS PERCENT AUTO 81.1 % (41.0-71.0); PLATELET COUNT,PLT 163 K/uL (150-400); RED BLOOD CELL COUNT 3.26 M/uL (4.10-5.30); WHITE BLOOD CELL COUNT,WBC 6.71 K/uL (3.9-11.3)
[2024-10-01] MEDS: Levothyroxine 150 MCG Tab PO SCH (06:29)
[2024-10-01 06:31] LABS: A/G RATIO 0.7 (0.9-1.6); ALBUMIN 2.6 g/dL (3.4-5.0); CALCIUM 7.4 mg/dL (8.5-10.1); CARBON DIOXIDE,CO2 26.8 mmol/L (21.0-32.0); CREATININE 0.7 mg/dL (0.6-1.0); EST CRCL DRUG DOSING (CG) 80.83 mL/min; POTASSIUM,K 3.3 mmol/L (3.5-5.1); PROTEIN TOTAL,TP 6.3 g/dL (6.4-8.2)
[2024-10-01 07:07] LABS: BORDETELLA PARAPERT IS1001 Not Detected (Not Detected)
[2024-10-01] MEDS: Potassium Chloride 20 MEQ Tab.ER PO ONE (07:52)
[2024-10-01] MEDS: VANCOmycin 2 GM/400 ML 2 GM in Premix Bag 1 BAG IV ONE (07:56)
[2024-10-01] MEDS: traMADol 50 MG Tab PO PRN (19:26)
[2024-10-01] MEDS: VANCOmycin 1.25 GM in Sodium Chloride 0.9% 250 ML IV SCH (21:51)
[2024-10-02 07:00] LABS: BASOPHILS ABSOLUTE AUTO 0.02 K/uL (0.00-0.20); BASOPHILS PERCENT AUTO 0.3 % (0.0-1.0); EOSINOPHILS ABSOLUTE AUTO 0.08 K/uL (0.00-0.45); EOSINOPHILS PERCENT AUTO 1.1 % (0.0-6.0); HEMATOCRIT 28.8 % (37.0-47.0); HEMOGLOBIN 9.1 g/dL (12.0-16.0); IMMATURE GRAN ABSOLUTE AUTO 0.03 K/uL (0.00-0.05); IMMATURE GRAN PERCENT AUTO 0.4 % (0.0-0.4); LYMPHOCYTES ABSOLUTE AUTO 0.81 K/uL (1.00-4.80); LYMPHOCYTES PERCENT AUTO 10.6 % (24.0-44.0); MEAN CORPUSCULAR HEMOGLOBIN 27.2 pg (28.0-32.0); MEAN CORPUSCULAR HGB CONC 31.6 g/dL (32.0-36.0); MEAN CORPUSCULAR VOLUME 86.2 fL (83.0-99.0); MEAN PLATELET VOLUME 9.7 fL (9.4-12.3); MONOCYTES ABSOLUTE AUTO 0.51 K/uL (0.00-0.80); MONOCYTES PERCENT AUTO 6.7 % (0.0-8.0); NEUTROPHILS ABSOLUTE AUTO 6.16 K/uL (1.80-7.70); NEUTROPHILS PERCENT AUTO 80.9 % (41.0-71.0); PLATELET COUNT,PLT 173 K/uL (150-400); RED BLOOD CELL COUNT 3.34 M/uL (4.10-5.30); WHITE BLOOD CELL COUNT,WBC 7.61 K/uL (3.9-11.3)
[2024-10-02 07:27] LABS: A/G RATIO 0.7 (0.9-1.6); ALBUMIN 2.6 g/dL (3.4-5.0); BILIRUBIN TOTAL 1.1 mg/dL (0.2-1.0); CALCIUM 8.1 mg/dL (8.5-10.1); CARBON DIOXIDE,CO2 26.1 mmol/L (21.0-32.0); CREATININE 0.7 mg/dL (0.6-1.0); EST CRCL DRUG DOSING (CG) 80.83 mL/min; POTASSIUM,K 3.8 mmol/L (3.5-5.1); PROTEIN TOTAL,TP 6.3 g/dL (6.4-8.2)
[2024-10-02] MEDS: Potassium Chloride 20 MEQ Tab.ER PO ONE (09:03)
[2024-10-02 15:15] VITALS: BP 100/58; PULSE 100
[2024-10-02] MEDS ORDERED: VANCOmycin 1 GM in Sodium Chloride 0.9% 250 ML IV SCH (20:00)
== END 2024-10-02 15:30 | disposition home or self-care (01) | DRG 193 ==
LOC: MW.ED 13:04 → MW.ICU 19:09 → MW.MS 10-01 11:33
PROVIDERS: ADMIT Family Medicine; ATTEND Family Medicine
PROC: 5A0935A Assistance with Respiratory Ventilation, Less than 24 Consecutive Hours, High Flow/Velocity Cannula (ICD-10-PCS; principal; 2024-09-29)
DX: J12.1 Respiratory syncytial virus pneumonia (principal); J96.01 Acute respiratory failure with hypoxia; G20.A1 Parkinson's disease without dyskinesia, without mention of fluctuations; E03.9 Hypothyroidism, unspecified; Z66 Do not resuscitate; K21.9 Gastro-esophageal reflux disease without esophagitis; M19.90 Unspecified osteoarthritis, unspecified site; F41.9 Anxiety disorder, unspecified; F32.A Depression, unspecified; Z79.890 Hormone replacement therapy; E66.9 Obesity, unspecified; E89.0 Postprocedural hypothyroidism; Z96.649 Presence of unspecified artificial hip joint; Z96.659 Presence of unspecified artificial knee joint; I95.9 Hypotension, unspecified; K59.00 Constipation, unspecified; G47.00 Insomnia, unspecified; Z88.2 Allergy status to sulfonamides; Z88.8 Allergy status to other drugs, medicaments and biological substances; Z99.3 Dependence on wheelchair; Z85.3 Personal history of malignant neoplasm of breast; Z85.038 Personal history of other malignant neoplasm of large intestine; Z79.899 Other long term (current) drug therapy; Z87.81 Personal history of (healed) traumatic fracture; Z68.36 Body mass index [BMI] 36.0-36.9, adult; Z90.710 Acquired absence of both cervix and uterus; Z98.51 Tubal ligation status; Z98.890 Other specified postprocedural states; Z90.10 Acquired absence of unspecified breast and nipple; Z85.42 Personal history of malignant neoplasm of other parts of uterus
CPT/HCPCS: 0241U; 36415; 71275; 80053; 80202; 83605; 83690; 83880; 84145; 84443; 84484; 85025; 85730; 87040; 87486; 87581; 87633; 93005; 93306; 94640; 94667; 94668; 96360; 97161; 99285; A9270-GY; J0692; J1642; J1644; J1940; J3371; J3372; J3490; J7030; J7050; J7620-GY; Q9967

== ENCOUNTER 2025-03-12 07:51 | Day surgery (SDC) | payer MEDICARE, OTHER ==
[~2025-03-12 07:51] MED LIST changes: -Lactated Ringers 1,000 ML IV SCH; -Propofol 200 MG/20 ML SDV ONE; +propofoL 500 MG/50 ML 50 ML ONE
[2025-03-12] MEDS: Lactated Ringers 1,000 ML IV SCH (08:25)
[2025-03-12] MEDS ORDERED: Lidocaine 1% with EPINEPHrine 1:100,000 10 ML MDV ONE (10:02)
[2025-03-12] MEDS ORDERED: propofoL 500 MG/50 ML 50 ML ONE (10:59)
[2025-03-12] MEDS ORDERED: Propofol 200 MG/20 ML SDV ONE (11:27)
[2025-03-12 12:22] VITALS: BP 98/54; PULSE 72
== END 2025-03-12 12:45 | disposition home or self-care (01) ==
LOC: MW.SDS 07:51
PROVIDERS: ATTEND Surgery
DX: Z12.11 Encounter for screening for malignant neoplasm of colon (principal); K63.89 Other specified diseases of intestine; K62.1 Rectal polyp; K62.89 Other specified diseases of anus and rectum; K64.4 Residual hemorrhoidal skin tags; K64.8 Other hemorrhoids; E03.9 Hypothyroidism, unspecified; E66.9 Obesity, unspecified; Z88.8 Allergy status to other drugs, medicaments and biological substances; Z88.2 Allergy status to sulfonamides; Z79.899 Other long term (current) drug therapy; Z79.890 Hormone replacement therapy; Z68.35 Body mass index [BMI] 35.0-35.9, adult; Z90.49 Acquired absence of other specified parts of digestive tract; Z86.0100 Personal history of colon polyps, unspecified
CPT/HCPCS: 45380; J0665; J2003; J2704; J7120; 00902; 88304; 88305